=== PATIENT | male | born 1955 | race American Indian/Alaskan Native ===

== ENCOUNTER 2016-11-16 13:40 | Inpatient (IN) | payer MEDICARE ==
[2016-11-16 15:35] LABS: Anion Gap 19 mmol/L; BUN/Creatinine Ratio 11.42; Blood Urea Nitrogen 8 mg/dL (9-20); Calcium 9.1 mg/dL (8.4-10.2); Carbon Dioxide 25 mmol/L (22-30); Chloride 100.4 mmol/L (98-107); Glucose 91 mg/dL (75-100); Potassium 4.2 mmol/L (3.6-5.0); Sodium 140 mmol/L (137-145)
[2016-11-16 15:52] LABS: Eosinophils % (Auto) 1.7 % (0.0-4.3); Hematocrit 40.3 % (35.5-45.6); Hemoglobin 12.8 gm/dl (11.8-15.2); Mean Corpuscular HGB Conc 32 % (32-34); Mean Corpuscular Hemoglobin 27 pg (28-32); Mean Corpuscular Volume 85 fl (84-94); Platelet Count 185 K/mm3 (140-440); Red Blood Count 4.76 M/mm3 (3.65-5.03); Red Cell Distribution Width 15.1 % (13.2-15.2); White Blood Count 4.9 K/mm3 (4.5-11.0)
[2016-11-16] MEDS ORDERED: NITROSTAT SL ONE (16:25)
[2016-11-16] MEDS ORDERED: VALIUM IV ONE (16:25)
--- NOTE | 2016-11-16 16:27 | Emergency Department Report ---
HPI - General Chief Complaint: Chest Pain Time Seen by Provider: 11/16/16 15:57 - HPI HPI: The patient is a 61-year-old male who presents for evaluation of chest pain. The patient has a history of hypertension. The patient reports midsternal squeezing tightness like chest pain since 11 AM this morning, currently 9/10 in severity, and constant since onset. The patient denies fever, cough, dyspnea, CRP, hemoptysis, unilateral leg swelling, recent immobilization, history of DVT or PE, hx cancer. ED Past Medical Hx - Past Medical History Previous Medical History?: Yes Hx Hypertension: Yes Hx Deep Vein Thrombosis: Yes (right leg) Hx Headaches / Migraines: Yes Hx Seizures: Yes Hx COPD: (emphazema) Additional medical history: Emphysema - Surgical History Past Surgical History?: Yes Additional Surgical History: lumbar surgery, gastroectomy, l. elbow - Social History Smoking Status: Current Every Day Smoker Substance Use Type: Alcohol - Medications Home Medications: Home Medications Medication Instructions Recorded Confirmed Last Taken Type Ondansetron [Zofran ODT TAB] 8 mg PO Q8HR PRN #20 tab.rapdis 07/12/15 Unknown Rx traMADol [Ultram 50 MG tab] 50 - 100 mg PO Q8HR PRN #20 tablet 07/12/15 Unknown Rx ED Review of Systems ROS: Stated complaint: CHEST PAIN Other details as noted in HPI Constitutional: denies: fever ENT: denies: throat or neck pain Respiratory: denies: cough, shortness of breath Cardiovascular: reports chest pain Endocrine: denies unexplained weight loss or gain Gastrointestinal: denies: abdominal pain, nausea Genitourinary: denies: dysuria Musculoskeletal: denies: leg swelling Skin: denies: rash Neurological: denies: headache Hematological/Lymphatic: denies: easy bleeding or easy bruising Psych: denies sadness or hopelessness Physical Exam - Physical Exam Vital Signs: Vital Signs 11/16/16 11/16/16 11/16/16 14:02 14:10 14:20 Pulse Rate 71 74 68 Respiratory 20 17 14 Rate Blood Pressure 116/81 109/82 O2 Sat by Pulse 100 100 Oximetry 11/16/16 11/16/16 11/16/16 14:22 14:30 15:00 Pulse Rate 70 73 Respiratory 18 12 16 Rate Blood Pressure 125/90 125/90 O2 Sat by Pulse 100 100 98 Oximetry Physical Exam: General: well-nourished, well-developed, no acute distress Head: Normocephalic, atraumatic Eyes: normal sclera ENT: Mucous membranes are pink and moist Neck: trachea midline, neck supple, No neck stiffness, no cervical adenopathy Respiratory: Breath sounds equal bilaterally, no wheezing, rales, or rhonchi Cardio: S1 and S2 present, no murmurs, rubs, gallops, capillary refill is brisk Abdomen: Normoactive bowel sounds, soft abdomen, no rigidity, no guarding or rebound tenderness Musc: No pitting edema Skin: No rash Neuro: no facial drooping, normal speech Psych: Normal affect ED Course Vital Signs 11/16/16 11/16/16 11/16/16 14:02 14:10 14:20 Pulse Rate 71 74 68 Respiratory 20 17 14 Rate Blood Pressure 116/81 109/82 O2 Sat by Pulse 100 100 Oximetry 11/16/16 11/16/16 11/16/16 14:22 14:30 15:00 Pulse Rate 70 73 Respiratory 18 12 16 Rate Blood Pressure 125/90 125/90 O2 Sat by Pulse 100 100 98 Oximetry ED Medical Decision Making - Lab Data Result diagrams: 11/16/16 13:51 11/16/16 13:51 - Medical Decision Making The patient was seen and examined by myself. The patient is placed on a cardiac catheterization technician and continuous pulse ox. On initial evaluation, the patient was found to be in no distress. EKG was negative for findings suggestive of acute cardiac infarct. The patient is given a tablet of nitroglycerin and IV Valium for his chest pain. Labs and imaging are obtained. Chest x-ray is negative for pneumothorax, focal consolidation, pulmonary vascular congestion, pleural effusion, or other obvious acute cardiopulmonary disease process. Lab results were non-revealing including negative troponin, WBC, hemoglobin, hematocrit, electrolytes, renal function. The patient was reevaluated and reported that their symptoms were improved. As the patient has chest pain and risk factors for development of acute coronary event, and has never received a stress test, the patient will be admitted for serial troponins, and potential evaluation by cardiology. The physician on-call was contacted. They presented to the emergency department and evaluated the patient. They agreed to admit the patient. The ED admit order was placed. The patient was admitted in guarded condition. Critical care attestation.: If time is entered above; I have spent that time in minutes in the direct care of this critically ill patient, excluding procedure time. ED Disposition Clinical Impression: Acute chest pain Disposition: OP ADMITTED IP TO THIS HOSP Is pt being admited?: Yes Does the pt Need Aspirin: Yes Condition: Stable Instructions: Chest Pain (ED) Referrals: PRIMARY CARE, [Primary Care Provider] - 3-5 Days Time of Disposition: 16:26
--- NOTE | 2016-11-16 16:32 | Admit Criteria Form ---
Admission Criteria Documentation: CHEST PAIN Clinical Indications for Admission to Inpatient Care (Place 'X' for any and all applicable criteria): Admission is indicated for chest pain and ANY ONE of the following(1)(2)(3)(4)(5 ): [ ]I. Angina with acute coronary syndrome (Also use Myocardial Infarction or Angina guideline) [ ]II. Hemodynamic instability [ ]III. Angina needing acute intervention as indicated by ALL of the following( 11)(12): [ ]a) Unstable angina is present as indicated by angina that is ANY ONE of the following: [ ]i) New onset [ ]ii) Nocturnal [ ]iii) Prolonged at rest [ ]iv) Progressive [ ]b) Angina warrants acute intervention as indicated by ANY ONE of the following: [ ]i) Recurrent angina (e.g, not responding as previously to treatment) [ ]ii) Angina at rest or with low-level activities despite initial medical therapy [ ]iii) New or presumably new ST-segment depression on ECG [ ]iv) Signs or symptoms of heart failure (eg, dyspnea, pulmonary edema) [ ]v) New or worsening mitral regurgitation [ ]vi) Hemodynamic instability [ ]vii) Dangerous arrhythmia (eg, sustained ventricular tachycardia) [ ]viii) History of percutaneous coronary intervention within 6 months [ ]ix) History of coronary artery bypass graft surgery [ ]x) MANPREET risk score of 2 or greater[A] [ ]xi) History of Diabetes(14) [ ]xii) High-risk cardiac ischemia findings on noninvasive testing (e.g, echocardiogram, treadmill testing, nuclear scan) [ ]xiii) Chronic renal insufficiency (ie, estimated GFR less than 60 mL/min/1.732m) [ ]xiv) Left ventricular ejection fraction less than 40% [ ]IV. Evidence of MA (eg, cardiac biomarkers positive, ST-segment elevation on ECG) also use Myocardial Infarction Criteria Form. [ ]V. Pulmonary edema [ ]. Respiratory distress [ ]VII. Chest pain indicative of serious diagnosis other than coronary artery disease (eg, aortic dissection) [ ]VIII. Contraindications and/or Inappropriate clinical situations for Observational Care in patients with Chest Pain, when ANY ONE of the following is required: [ ]a) Patient with risk factor for pulmonary embolism, acute coronary syndrome and myocardial infarction (18) [ ]b) Patient with Pulmonary embolism require an average LOS of 4.3 days, therefore emergency department observation management is inappropriate 18,23 [ ]c) Painful condition/s in the elderly, have the highest rate of recidivism after emergency department observation management (10.8%) 20,21,22 [ ]d) Elevated cardiac biomarker requires intensive and exhaustive care (19) [X ]IX. General contraindications and/or Inappropriate clinical situations for Observational Care in patients with Chest Pain, when ANY ONE of the following is required: [ X]a) Prediction of prolongation of LOS based on ANY ONE of the following may be considered as a contraindication for observational care 2, 3, 4, 5, 6, 7, 8, 9, 10, 11 [ ]i) Age > 65 yrs. [X ]ii) Patient arriving by ambulance [ ]iii) Patient with high acuity [ ]iv) Patient requiring vital sign monitoring [ ]v) Patient on IV medication [ ]b) Systolic blood pressures 180mmHg 3,12 [ ]c) Patient with altered mental status including delirium and other alteration of consciousness, (3) [ ]d) Patient whose discharge disposition will be to a half-way home or rehabilitation home should not be managed in Emergency Department Observation Unit. CMS rule requires 3 days hospital stay before such placement. 3,13 [ ]e) Patient with failure to thrive due to broad array of etiologies 3,16,17 [ ]f) Inability to ambulate 3,14 Extended stay beyond goal length of stay may be needed for (1)(28): [ ]a) Specific condition diagnosed after evaluation (eg, pulmonary embolism, aortic dissection) [ ]b) Unstable angina [ ]c) Continued suspicion of acute coronary syndrome with inability to complete needed cardiac evaluation (eg, patient clinically unable to undergo stress testing) [ ]d) Myocardial infarction (Contents from ANGINA and CHEST PAIN clinical indications for admission to inpatient care have been integrated in this form) The original [email or web address] content created by [employer] has been revised. The portions of the content which have been revised are identified through the use of italic text or in bold, and [facility] [employer] has neither reviewed nor approved the modified material. All other unmodified content is copyright [employer] [email or web address]. Please see references footnoted in the original [facility] [email or web address] edition 2016 Admission Criteria Met: Yes
--- NOTE | 2016-11-16 16:52 | XRay Report ---
PORTABLE CHEST INDICATION: Chest pain. COMPARISON: None similar at this institution. FINDINGS: Portable, frontal chest radiograph demonstrates hyperlucent upper lobes with somewhat crowded markings toward the bases, representing emphysematous changes. Subtle 5 mm left mid lung nodular density projects just below the scapular tip with a similar appearance on the opposite side, possibly nipple shadows. No pleural effusions, CHF or pneumothorax. Normal cardiomediastinal silhouette. Unremarkable bones. CONCLUSION: COPD, as described. Future/followup exams with nipple markers suggested. Thank you for the opportunity to participate in this patient's care.
[2016-11-16] MEDS ORDERED: MORPHINE IV PRN (19:49)
[2016-11-16] MEDS ORDERED: SODIUM CHLORIDE FLUSH SYRINGE 10 ML IV PRN (19:49)
--- NOTE | 2016-11-16 19:49 | History and Physical Report ---
History of Present Illness Date of examination: 11/16/16 Date of admission: 10/2016 Chief complaint: Chest pain History of present illness: The patient is a 61-year-old male who presents for evaluation of chest pain. The patient has a history of hypertension. The patient reports midsternal squeezing tightness like chest pain since 11 AM this morning, currently 9/10 in severity, and constant since onset. The patient denies fever, cough, dyspnea. His troponin has been normal in the ER. He is getting admitted for further evaluation. Past medical History: h/o HTN, COPD, seizure, h/o DVT on anticoagulation, CVA about 9 weeks ago. Past surgical History: s/p partial gastrectomy and spinal fusion Social History: Lives with family, denies any elicit drug abuse. Smokes daily about 10 sticks/day, drinks EtOH daily. Family History: Significant for CVA and CAD in father and CHF in mother. Review of System: Constitutional: no fever, no chills, no weight loss Ears, eyes, nose, mouth and throat: no nasal congestion, no nasal discharge, no sinus pressure, no vision change, no red eye. Neck: No neck pain or rigidity. Cardiovascular: + chest pain, no orthopnea, no palpitations, no leg swelling Respiratory: No shortness of breath, no cough, no congestion, no wheezing Gastrointestinal: no abdominal pain, no nausea, no vomiting Genitourinary : no dysuria, no hematuria Musculoskeletal: no joint swelling or muscle ache Integumentary: no rash, no pruritis Neurological: no parathesias, no numbness, no tingling Endocrine: no cold or heat intolerance, no polyuria or polydipsia Hematologic/Lymphatic: no easy bruising, no easy bleeding, no gland swelling Allergic/Immunologic: no urticaria, no angioedema. Medications and Allergies Allergies Allergy/AdvReac Type Severity Reaction Status Date / Time aspirin Allergy Vomiting Verified 09/07/15 18:55 prochlorperazine Allergy Anaphylaxis Verified 09/07/15 18:55 [From Compazine] prochlorperazine edisylate Allergy Anaphylaxis Verified 09/07/15 18:55 [From Compazine] prochlorperazine maleate Allergy Anaphylaxis Verified 09/07/15 18:55 [From Compazine] Home Medications Medication Instructions Recorded Confirmed Last Taken Type Albuterol Sulfate [Ventolin HFA] 2 puff IH Q4H PRN 11/17/16 11/17/16 Unknown History AtorvaSTATin [Lipitor] 40 mg PO QHS 11/17/16 11/17/16 Unknown History Clopidogrel [Plavix] 75 mg PO QDAY 11/17/16 11/17/16 Unknown History Hydrochlorothiazide [HCTZ] 25 mg PO QDAY 11/17/16 11/17/16 Unknown History Pantoprazole [Protonix] 40 mg PO QDAY #30 tablet 11/17/16 Unknown Rx Rivaroxaban [Xarelto] 20 mg PO QDAY 11/17/16 11/17/16 Unknown History levETIRAcetam [Keppra TAB] 750 mg PO BID 11/17/16 11/17/16 Unknown History Exam - Physical Exam Narrative exam: GENERAL: This is well-developed elderly male lying on bed appeared to be in no discomfort. HEENT: Normocephalic. Atraumatic. Extraocular motions are intact. No conjunctival congestion or icterus. Patient has moist mucous membranes. External auditory canal and nares patent bilaterally. NECK: Supple. Trachea midline. No JVD, thyromagaly or lymphadenopathy. CHEST/LUNGS: Clear to auscultated bilaterally. There is no respiratory distress noted, breathing nonlabored. No wheezes crackles or rhonchi. HEART/CARDIOVASCULAR: Regular in rate and rhythm. PMI at the apex. There is no gallop rub or murmur. ABDOMEN: Abdomen is soft, nontender. Patient has normal bowel sounds. There is no abdominal distention. No organomagaly or rigidity. SKIN: There is no rash, no erythrema. There is no diaphoresis. Warm and dry. NEUROLOGY: The patient is awake, alert, and oriented. The patient is cooperative. The patient has normal speech. No focal motor deficit. MUSCULOSKELETAL: No joint effusion or tenderness. Muscle strength equal bilaterally. No muscle wasting. EXTRIMITY: No edema, cyanosis or clubbing. PSYCH: No depression or anxiety noted. Cooperative. - Constitutional Vitals: Temp Pulse Resp BP Pulse Ox 72 20 124/80 98 11/16/16 15:30 11/16/16 15:30 11/16/16 18:00 11/16/16 18:00 Results - Labs CBC & Chem 7: 11/16/16 13:51 11/16/16 13:51 Labs: Laboratory Last Values WBC 4.9 K/mm3 (4.5-11.0) 11/16/16 13:51 RBC 4.76 M/mm3 (3.65-5.03) 11/16/16 13:51 Hgb 12.8 gm/dl (11.8-15.2) 11/16/16 13:51 Hct 40.3 % (35.5-45.6) 11/16/16 13:51 MCV 85 fl (84-94) 11/16/16 13:51 MCH 27 pg (28-32) L 11/16/16 13:51 MCHC 32 % (32-34) 11/16/16 13:51 RDW 15.1 % (13.2-15.2) 11/16/16 13:51 Plt Count 185 K/mm3 (140-440) 11/16/16 13:51 Lymph % (Auto) 37.4 % (13.4-35.0) H 11/16/16 13:51 Noble % (Auto) 15.2 % (0.0-7.3) H 11/16/16 13:51 Eos % (Auto) 1.7 % (0.0-4.3) 11/16/16 13:51 Baso % (Auto) Scientific Informatics Analyst 11/16/16 13:51 Lymph # 1.8 K/mm3 (1.2-5.4) 11/16/16 13:51 Noble # 0.7 K/mm3 (0.0-0.8) 11/16/16 13:51 Eos # 0.1 K/mm3 (0.0-0.4) 11/16/16 13:51 Baso # 0.1 K/mm3 (0.0-0.1) 11/16/16 13:51 Seg Neutrophils % 44.3 % (40.0-70.0) 11/16/16 13:51 Seg Neutrophils # 2.2 K/mm3 (1.8-7.7) 11/16/16 13:51 Sodium 140 mmol/L (137-145) 11/16/16 13:51 Potassium 4.2 mmol/L (3.6-5.0) 11/16/16 13:51 Chloride 100.4 mmol/L (98-107) 11/16/16 13:51 Carbon Dioxide 25 mmol/L (22-30) 11/16/16 13:51 Anion Gap 19 mmol/L 11/16/16 13:51 BUN 8 mg/dL (9-20) L 11/16/16 13:51 Creatinine 0.7 mg/dL (0.8-1.5) L 11/16/16 13:51 Estimated GFR > 60 ml/min 11/16/16 13:51 BUN/Creatinine Ratio 11.42 % 11/16/16 13:51 Glucose 91 mg/dL (75-100) 11/16/16 13:51 Calcium 9.1 mg/dL (8.4-10.2) 11/16/16 13:51 Troponin T < 0.010 ng/mL (0.00-0.029) 11/16/16 16:40 - Imaging and Cardiology Chest x-ray: report reviewed (COPd without any infiltrates) Assessment and Plan Assessment and plan: Acute chest pain, r/o ACS h/o seizure COPD not on exacerbation h/o CVA h/o DVT tobacco abuse Alcohol abuse Plan: Admit to medicine Monitor with serial troponin and EKG Place on aspirin and statin and beta liza Get 2-D echo and stress tests in the morning GI and DVT prophylaxis Supportive care and resume home meds nicotine patch, counselled for alcohol cessation resume home meds Advance Directives: Yes VTE prophylaxis?: Chemical Plan of care discussed with patient/family: Yes
[2016-11-16] MEDS ORDERED: PLAVIX PO ONE (19:53)
[2016-11-16 21:06] LABS: Creatine Kinase MB 1.5 ng/mL (0.0-4.0)
[2016-11-16 21:08] LABS: Creatine Kinase 125 units/L (55-170)
[2016-11-16] MEDS ORDERED: PLAVIX ONE (22:04)
[2016-11-16] MEDS: PEPCID PO SCH (22:12)
[2016-11-17 00:01] LABS: Creatine Kinase MB 1.4 ng/mL (0.0-4.0)
[2016-11-17 00:02] LABS: Creatine Kinase 117 units/L (55-170)
[2016-11-17] MEDS ORDERED: ZOFRAN ODT PO PRN (00:04)
[2016-11-17] MEDS ORDERED: ULTRAM PO PRN (00:04)
[2016-11-17] MEDS ORDERED: ZOFRAN IV PRN (00:06)
[2016-11-17] MEDS ORDERED: MILK OF MAGNESIA PO PRN (00:06)
[2016-11-17] MEDS ORDERED: PERCOCET 5/325 PO PRN (00:06)
[2016-11-17] MEDS ORDERED: TYLENOL PO PRN (00:06)
[2016-11-17] MEDS ORDERED: DULCOLAX PR PRN (00:06)
[2016-11-17] MEDS ORDERED: SODIUM CHLORIDE FLUSH SYRINGE 10 ML IV PRN (00:10)
[2016-11-17] MEDS ORDERED: ATIVAN IV PRN (01:04)
[2016-11-17] MEDS ORDERED: HABITROL TD ONE (01:04)
[2016-11-17] MEDS: DUONEB 0.5 MG-3 MG/3 ML SOLN IH SCH ×2 (02:55→09:02)
[2016-11-17 05:20] LABS: Creatine Kinase MB 1.5 ng/mL (0.0-4.0)
[2016-11-17 05:22] LABS: Creatine Kinase 119 units/L (55-170)
[2016-11-17 07:36] LABS: Creatine Kinase MB 1.4 ng/mL (0.0-4.0)
[2016-11-17 07:37] LABS: Creatine Kinase 117 units/L (55-170)
[2016-11-17] MEDS: NITRO-BID 2% TP SCH ×2 (08:14→12:18)
[2016-11-17] MEDS ORDERED: LEXISCAN IV ONE ×2 (09:25→09:32)
[2016-11-17] MEDS ORDERED: LOVENOX SUB-Q SCH ×2 (10:00)
[2016-11-17] MEDS: PEPCID PO SCH (11:21)
[2016-11-17] MEDS ORDERED: PROAIR IH PRN (11:25)
[2016-11-17] MEDS ORDERED: PROVENTIL IH PRN ×2 (11:37→11:40)
[2016-11-17] MEDS ORDERED: KEPPRA PO SCH (12:00)
[2016-11-17] MEDS ORDERED: FLUARIX QUAD 2016-2017(36 MOS+) IM ONE (12:00)
[2016-11-17 13:17] LABS: Creatine Kinase MB 1.3 ng/mL (0.0-4.0)
[2016-11-17 13:18] LABS: Creatine Kinase 114 units/L (55-170)
[2016-11-17] MEDS ORDERED: HCTZ PO SCH (13:30)
--- NOTE | 2016-11-17 13:42 | Treadmill Report ---
STRESS THALLIUM REPORT LEFT VENTRICLE: Left ventricular chamber size is within normal. Perfusion study demonstrates homogeneous uptake of the tracer in all segments, no significant defects identified. Gated analysis demonstrates normal left ventricular systolic function, ejection fraction 61%. CONCLUSION: Normal myocardial perfusion study. JOB# [id number] CA/NTS
--- NOTE | 2016-11-17 14:40 | Discharge Summary ---
Providers - Providers Date of Admission: 11/17/16 00:07 Date of discharge: 11/17/16 Attending physician: KASSIDY CHERY 11/17/16 Consult to Cardiac Rehabilitation [CONS] Routine Reason For Exam: Phase I Primary care physician: CARE MANAGER Hospitalization Condition: Stable Hospital course: The patient is a 61-year-old male who presents for evaluation of chest pain. his cardiac enzymes were negative, EKG showed no specific ST changes. His stress test was negative. He was discharged home in stable condition. Discharge diagnosis: Acute chest pain, likley due to GERD h/o seizure COPD not on exacerbation h/o CVA h/o DVT on anticoagulation tobacco abuse Alcohol abuse Disposition: DISCHARGED TO HOME OR SELFCARE Time spent for discharge: 32 minutes Core Measure Documentation - Palliative Care Palliative Care/ Comfort Measures: Not Applicable - Core Measures Any of the following diagnoses?: none Exam - Physical Exam Narrative exam: GENERAL: This is well-developed elderly male lying on bed appeared to be in no discomfort. HEENT: Normocephalic. Atraumatic. Patient has moist mucous membranes. External auditory canal and nares patent bilaterally. NECK: Supple. Trachea midline. No JVD, thyromagaly or lymphadenopathy. CHEST/LUNGS: Clear to auscultated bilaterally. There is no respiratory distress noted, breathing nonlabored. No wheezes crackles or rhonchi. HEART/CARDIOVASCULAR: Regular in rate and rhythm. PMI at the apex. There is no gallop rub or murmur. ABDOMEN: Abdomen is soft, nontender. Patient has normal bowel sounds. There is no abdominal distention. No organomagaly or rigidity. SKIN: There is no rash, no erythrema. There is no diaphoresis. Warm and dry. NEUROLOGY: The patient is awake, alert, and oriented. The patient is cooperative. MUSCULOSKELETAL: No joint effusion or tenderness. EXTRIMITY: No edema, cyanosis or clubbing. PSYCH: No depression or anxiety noted. Cooperative. - Constitutional Vitals: Temp Pulse Resp BP Pulse Ox 97.9 F 73 16 115/80 97 11/17/16 10:41 11/17/16 13:30 11/17/16 13:30 11/17/16 13:30 11/17/16 13:30 Plan Activity: fall precautions Weight Bearing Status: Non-Weight Bearing Diet: low cholesterol, low salt Follow up with: PRIMARY CARE, [Primary Care Provider] - 3-5 Days Prescriptions: Pantoprazole [Protonix] 40 mg PO QDAY #30 tablet
[2016-11-17 15:35] VITALS: BP 125/88
[2016-11-17] MEDS ORDERED: NON-FORMULARY (Levetiracetam [Keppra Tab] 750 MG) PO SCH (22:00)
[2016-11-18] MEDS ORDERED: PLAVIX PO SCH (10:00)
[2016-11-18] MEDS ORDERED: XARELTO PO SCH (10:00)
== END 2016-11-17 16:13 | disposition home or self-care (01) | DRG 392 ==
LOC: ED 13:40 → 4A 11-17 00:07
PROVIDERS: ADMIT Internal Medicine; ATTEND Internal Medicine
DX: K21.9 Gastro-esophageal reflux disease without esophagitis (principal); I10 Essential (primary) hypertension; J44.9 Chronic obstructive pulmonary disease, unspecified; F10.10 Alcohol abuse, uncomplicated; F17.290 Nicotine dependence, other tobacco product, uncomplicated; Z23 Encounter for immunization; Z88.8 Allergy status to other drugs, medicaments and biological substances; Z68.20 Body mass index [BMI] 20.0-20.9, adult; Z86.73 Personal history of transient ischemic attack (TIA), and cerebral infarction without residual deficits; Z86.718 Personal history of other venous thrombosis and embolism; Z79.01 Long term (current) use of anticoagulants; Z90.3 Acquired absence of stomach [part of]; Z98.1 Arthrodesis status; Z82.3 Family history of stroke; Z82.49 Family history of ischemic heart disease and other diseases of the circulatory system
CPT/HCPCS: 36415; 71010; 78452; 80048; 80061; 82550; 82553; 84484; 85025; 90686; 93005; 93010; 93017; 94640; 96372; A9270-GY; A9502; J1650; J2785; J3360; Q0162

== ENCOUNTER 2016-11-23 19:44 | Emergency (ER) | payer MEDICARE ==
[2016-11-23] MEDS ORDERED: NACL 0.9% 1000 ML 1,000 ML IV ONE (21:04)
[2016-11-23] MEDS ORDERED: ZOFRAN IV ONE (21:04)
[2016-11-23] MEDS ORDERED: MORPHINE IV ONE (21:04)
[2016-11-23 21:32] LABS: INR 1.48 (0.87-1.13); Partial Thromboplastin Time 34.1 Sec. (24.2-36.6)
[2016-11-23 21:34] LABS: Eosinophils % (Auto) 5.1 % (0.0-4.3); Hematocrit 41.2 % (35.5-45.6); Mean Corpuscular HGB Conc 32 % (32-34); Mean Corpuscular Hemoglobin 27 pg (28-32); Mean Corpuscular Volume 84 fl (84-94); Platelet Count 180 K/mm3 (140-440); Red Cell Distribution Width 15.1 % (13.2-15.2)
[2016-11-23 21:47] LABS: Alanine Aminotransferase 18 units/L (7-56); Albumin 3.9 g/dL (3.9-5); Albumin/Globulin Ratio 1.4 %; Alkaline Phosphatase 51 units/L (35-129); Anion Gap 19 mmol/L; BUN/Creatinine Ratio 14.28; Bilirubin,Total < 0.2 mg/dL (0.1-1.2); Blood Urea Nitrogen 10 mg/dL (9-20); Carbon Dioxide 24 mmol/L (22-30); Chloride 103.1 mmol/L (98-107); Glucose 102 mg/dL (75-100); Potassium 4.7 mmol/L (3.6-5.0); Sodium 141 mmol/L (137-145); Total Protein 6.7 g/dL (6.3-8.2)
[2016-11-23] MEDS ORDERED: NACL ONE (21:47)
--- NOTE | 2016-11-23 22:50 | Emergency Department Report ---
ED Abdominal Pain HPI - General Chief Complaint: Abdominal Pain Stated Complaint: GI BLEED Time Seen by Provider: 11/23/16 20:53 Source: patient, EMS Mode of arrival: Stretcher Limitations: No Limitations - History of Present Illness Initial Comments: 61-year-old male with a past medical history of COPD, DVT/PE/IVC filter currently on Xarelto, previous appendectomy, and partial gastrectomy for PUD presents to the hospital with complaints of abdominal pain and rectal bleeding. Patient states she noticed bright red blood with bowel movement 1 this a.m. He complains of generalized 6/10 constant abdominal pain that is sharp in nature. Pain is worse with movement and palpation. No alleviating factors. Positive nausea. He denies vomiting, fever, melena, or diarrhea. Patient states last time he had leading was related to a perforated ulcer greater than 10 years ago. Denies any GI symptoms since. He has been compliant with his Protonix. Severity scale (0 -10): 10 - Related Data Home Medications Medication Instructions Recorded Confirmed Last Taken Albuterol Sulfate [Ventolin HFA] 2 puff IH Q4H PRN 11/17/16 11/17/16 Unknown AtorvaSTATin [Lipitor] 40 mg PO QHS 11/17/16 11/17/16 Unknown Clopidogrel [Plavix] 75 mg PO QDAY 11/17/16 11/17/16 Unknown Hydrochlorothiazide [HCTZ] 25 mg PO QDAY 11/17/16 11/17/16 Unknown Rivaroxaban [Xarelto] 20 mg PO QDAY 11/17/16 11/17/16 Unknown levETIRAcetam [Keppra TAB] 750 mg PO BID 11/17/16 11/17/16 Unknown Previous Rx's Medication Instructions Recorded Last Taken Type Pantoprazole [Protonix] 40 mg PO QDAY #30 tablet 11/17/16 Unknown Rx Docusate Sodium [Colace] 100 mg PO BID PRN #20 capsule 11/23/16 Unknown Rx oxyCODONE /ACETAMINOPHEN [Percocet 1 tab PO Q6HR PRN #20 tablet 11/24/16 Unknown Rx 5/325] Allergies Allergy/AdvReac Type Severity Reaction Status Date / Time aspirin Allergy Vomiting Verified 09/07/15 18:55 prochlorperazine Allergy Anaphylaxis Verified 09/07/15 18:55 [From Compazine] prochlorperazine edisylate Allergy Anaphylaxis Verified 09/07/15 18:55 [From Compazine] prochlorperazine maleate Allergy Anaphylaxis Verified 09/07/15 18:55 [From Compazine] ED Review of Systems ROS: Stated complaint: GI BLEED Other details as noted in HPI Comment: All other systems reviewed and negative Other: Constitutional: No fevers chills Eyes: No eye pain visual changes or discharge ENT: No ear pain or throat pain Neck: Denies pain Respiratory: Denies cough wheezing shortness of breath Cardiovascular: Denies chest pain, palpitations, syncope GI: as per hpi : Denies dysuria, urinary frequency, or urgency Musculoskeletal: Denies back pain, joint swelling Skin: Denies rash, lesions, erythema Neurologic: Denies headache, numbness, weakness Psychiatric: Denies suicidal ideation, hallucinations ED Past Medical Hx - Past Medical History Previous Medical History?: Yes Hx Hypertension: Yes Hx Deep Vein Thrombosis: Yes (right leg 2004) Hx Pulmonary Embolism: Yes (2004, IVC filter placed) Hx GERD: Yes Hx Arthritis: Yes (back) Hx Headaches / Migraines: Yes Hx Seizures: Yes Hx COPD: Yes (emphazema) Hx HIV: No Additional medical history: Emphysema - Surgical History Hx Appendectomy: Yes Additional Surgical History: lumbar surgery, gastroectomy, l. elbow, partial gastrectomy for perforated ulcer - Social History Smoking Status: Current Every Day Smoker - Medications Home Medications: Home Medications Medication Instructions Recorded Confirmed Last Taken Type Albuterol Sulfate [Ventolin HFA] 2 puff IH Q4H PRN 11/17/16 11/17/16 Unknown History AtorvaSTATin [Lipitor] 40 mg PO QHS 11/17/16 11/17/16 Unknown History Clopidogrel [Plavix] 75 mg PO QDAY 11/17/16 11/17/16 Unknown History Hydrochlorothiazide [HCTZ] 25 mg PO QDAY 11/17/16 11/17/16 Unknown History Pantoprazole [Protonix] 40 mg PO QDAY #30 tablet 11/17/16 Unknown Rx Rivaroxaban [Xarelto] 20 mg PO QDAY 11/17/16 11/17/16 Unknown History levETIRAcetam [Keppra TAB] 750 mg PO BID 11/17/16 11/17/16 Unknown History Docusate Sodium [Colace] 100 mg PO BID PRN #20 capsule 11/23/16 Unknown Rx oxyCODONE /ACETAMINOPHEN [Percocet 1 tab PO Q6HR PRN #20 tablet 11/24/16 Unknown Rx 5/325] ED Physical Exam - General Limitations: No Limitations - Other Other exam information: General: No limitations, patient is alert in no acute distress Head exam: Atraumatic, normocephalic Eyes exam: Normal appearance ENT: Moist mucous membrane, normal oropharynx Neck exam: Normal inspection, full range of motion, no meningismus nontender Respiratory exam: Clear to auscultation bilateral, no wheezes, rales, crackles Cardiovascular: Normal rate and rhythm, normal heart sounds Abdomen: Soft, nondistended, generalized tenderness, no rebound or gaurding Extremity: Full range of motion normal inspection no deformity Back: normal inspection Neurologic: Alert, oriented x3, cranial nerves intact, no motor or sensory deficit Psychiatric: normal affect, normal mood Skin: Warm, dry, intact ED Course Vital Signs 11/23/16 11/23/16 11/23/16 19:57 20:02 22:36 Temperature 98 F Pulse Rate 79 73 Respiratory 20 18 18 Rate Blood Pressure 134/95 O2 Sat by Pulse 96 Oximetry - Reevaluation(s) Reevaluation #1: 11/23/16 23:25 Patient sleeping. Once I woke him up he states that the morphine did not help his pain. Also received Zofran. Additional Dilaudid 0.5 mg ordered. ED Medical Decision Making - Lab Data Result diagrams: 11/23/16 20:36 11/23/16 20:36 Lab Results 11/23/16 11/23/16 11/23/16 Range/Units 20:26 20:36 20:36 WBC 5.0 (4.5-11.0) K/mm3 RBC 4.90 (3.65-5.03) M/mm3 Hgb 13.0 (11.8-15.2) gm/dl Hct 41.2 (35.5-45.6) % MCV 84 (84-94) fl MCH 27 L (28-32) pg MCHC 32 (32-34) % RDW 15.1 (13.2-15.2) % Plt Count 180 (140-440) K/mm3 Lymph % (Auto) 27.8 (13.4-35.0) % [place] % (Auto) 15.7 H (0.0-7.3) % Eos % (Auto) 5.1 H (0.0-4.3) % Baso % (Auto) Coil Inspector Lymph # 1.4 (1.2-5.4) K/mm3 [place] # 0.8 (0.0-0.8) K/mm3 Eos # 0.3 (0.0-0.4) K/mm3 Baso # 0.1 (0.0-0.1) K/mm3 Seg Neutrophils % 49.8 (40.0-70.0) % Seg Neutrophils # 2.5 (1.8-7.7) K/mm3 PT 17.9 H (12.2-14.9) Sec. INR 1.48 H (0.87-1.13) APTT 34.1 (24.2-36.6) Sec. Sodium (137-145) mmol/L Potassium (3.6-5.0) mmol/L Chloride (98-107) mmol/L Carbon Dioxide (22-30) mmol/L Anion Gap mmol/L BUN (9-20) mg/dL Creatinine (0.8-1.5) mg/dL Estimated GFR ml/min BUN/Creatinine Ratio % Glucose (75-100) mg/dL Calcium (8.4-10.2) mg/dL Total Bilirubin (0.1-1.2) mg/dL AST (5-40) units/L ALT (7-56) units/L Alkaline Phosphatase (35-129) units/L Total Protein (6.3-8.2) g/dL Albumin (3.9-5) g/dL Albumin/Globulin Ratio % Blood Type AB POSITIVE Antibody Screen Negative 11/23/16 Range/Units 20:36 WBC (4.5-11.0) K/mm3 RBC (3.65-5.03) M/mm3 Hgb (11.8-15.2) gm/dl Hct (35.5-45.6) % MCV (84-94) fl MCH (28-32) pg MCHC (32-34) % RDW (13.2-15.2) % Plt Count (140-440) K/mm3 Lymph % (Auto) (13.4-35.0) % [place] % (Auto) (0.0-7.3) % Eos % (Auto) (0.0-4.3) % Baso % (Auto) Lymph # (1.2-5.4) K/mm3 [place] # (0.0-0.8) K/mm3 Eos # (0.0-0.4) K/mm3 Baso # (0.0-0.1) K/mm3 Seg Neutrophils % (40.0-70.0) % Seg Neutrophils # (1.8-7.7) K/mm3 PT (12.2-14.9) Sec. INR (0.87-1.13) APTT (24.2-36.6) Sec. Sodium 141 (137-145) mmol/L Potassium 4.7 (3.6-5.0) mmol/L Chloride 103.1 (98-107) mmol/L Carbon Dioxide 24 (22-30) mmol/L Anion Gap 19 mmol/L BUN 10 (9-20) mg/dL Creatinine 0.7 L (0.8-1.5) mg/dL Estimated GFR > 60 ml/min BUN/Creatinine Ratio 14.28 % Glucose 102 H (75-100) mg/dL Calcium 9.0 (8.4-10.2) mg/dL Total Bilirubin < 0.2 (0.1-1.2) mg/dL AST 22 (5-40) units/L ALT 18 (7-56) units/L Alkaline Phosphatase 51 (35-129) units/L Total Protein 6.7 (6.3-8.2) g/dL Albumin 3.9 (3.9-5) g/dL Albumin/Globulin Ratio 1.4 % Blood Type Antibody Screen - Radiology Data Radiology results: report reviewed (CT abdomen and pelvis: No acute findings see report for incidental finding) - Medical Decision Making No signs or rectal bleeding. Normal lab work including H&H at this time. Pain improved ED treatment. plan to send home with symptomatic treatment and GI follow-up - Differential Diagnosis gastritis, diverticulosis, AVM, cancer, PUD, anemia, GI bleed Critical Care Time: No Critical care attestation.: If time is entered above; I have spent that time in minutes in the direct care of this critically ill patient, excluding procedure time. ED Disposition Clinical Impression: Abdominal pain, Rectal bleed Disposition: DISCHARGED TO HOME OR SELFCARE Is pt being admited?: No Does the pt Need Aspirin: No Condition: Stable Instructions: Rectal Bleeding (ED), Abdominal Pain (ED) Additional Instructions: Take the pain medication as prescribed. Pain medications may cause constipation therefore take stool softeners as needed. Follow-up with his GI doctor provided. Return if symptoms worsen Prescriptions: Docusate Sodium [Colace] 100 mg PO BID PRN #20 capsule PRN Reason: Constipation oxyCODONE /ACETAMINOPHEN [Percocet 5/325] 1 tab PO Q6HR PRN #20 tablet PRN Reason: Pain Referrals: DEREK QUICK MD [Staff Physician] - 3-5 Days (GI) Time of Disposition: 00:28
--- NOTE | 2016-11-23 22:50 | Cat Scan Report ---
FINAL REPORT EXAM: CT ABDOMEN PELVIS W CON HISTORY: gen abd pain , blood in stool hx of valentin, perf ulce TECHNIQUE: Standard enhanced CT of the abdomen and pelvis. Delayed imaging through kidneys and bladder was obtained. Coronal and sagittal reconstruction was also performed. Contrast: 100 mL Omnipaque 300 given IV. PRIORS: None. FINDINGS: Within the abdomen, the liver, spleen, pancreas, gallbladder, adrenal glands, and right kidney are unremarkable. There is a rounded hypodense 1.8 x 1.7 cm focus in the anterior midpole left kidney, likely a cyst. No evidence for retroperitoneal or pelvic lymphadenopathy is seen. The bowel loops have normal caliber. No soft tissue mass, fluid collection, inflammatory change, or free air is seen within the abdomen or pelvis. The aorta is tortuous but normal in diameter. Inferior vena cava filter is noted to the right of L2. Within the pelvis, the bladder is unremarkable. The prostate is mildly enlarged. No evidence for mass or lymphadenopathy is seen in the pelvis. Images through the upper abdomen include the lung bases which demonstrate bilateral posterior patchy densities, probably atelectasis. There are also bullous changes in each lung base suggesting emphysema. Bony structures show postsurgical changes in the L4 and L5 levels with prior laminectomy and bilateral pedicle screws placed at these levels. A disc prosthesis at L4-L5 is also noted. IMPRESSION: 1. no acute intra-abdominal process noted. 2. Low-density cyst in the left kidney. 3. Patchy bibasilar atelectasis and emphysema
[2016-11-23] MEDS ORDERED: DILAUDID IV ONE (23:25)
[2016-11-24 02:14] VITALS: BP 132/77
== END 2016-11-24 02:14 | disposition home or self-care (01) ==
LOC: ED 19:44
DX: K62.5 Hemorrhage of anus and rectum (principal); R10.84 Generalized abdominal pain; I10 Essential (primary) hypertension; K21.9 Gastro-esophageal reflux disease without esophagitis; M19.90 Unspecified osteoarthritis, unspecified site; J44.9 Chronic obstructive pulmonary disease, unspecified; F17.200 Nicotine dependence, unspecified, uncomplicated; Z86.718 Personal history of other venous thrombosis and embolism; Z86.711 Personal history of pulmonary embolism; Z88.8 Allergy status to other drugs, medicaments and biological substances; Z88.6 Allergy status to analgesic agent
CPT/HCPCS: 36415; 74177; 80053; 85025; 85610; 85730; 86850; 86900; 86901; 93005; 93010; 96361; 96374; 96375; 99284; J1170; J2270; J2405; J7030; Q9967

== ENCOUNTER 2016-12-08 10:57 | Emergency (ER) | payer MEDICARE ==
[2016-12-08 11:04] VITALS: BP 119/86
[2016-12-08] MEDS: PERCOCET 5/325 PO ONE (11:51)
[2016-12-08] MEDS: ZOFRAN ODT PO ONE (11:51)
[2016-12-08] MEDS: TORADOL IM ONE (11:51)
[2016-12-08] MEDS: BENADRYL PO ONE (11:51)
--- NOTE | 2016-12-08 12:55 | Emergency Department Report ---
HPI - General Chief Complaint: Headache Time Seen by Provider: 12/08/16 11:20 - HPI HPI: 61-year-old male presents today with headache since 2:30 AM this morning. Positive for history of migraine headaches and states that this particular headache feels similar to his normal headaches. Denies being on abortive therapy. Tried ibuprofen, last dose 6 AM, and Tylenol, last dose at 4 AM, without relief. Positive for light and sensitivity, nausea, vomiting. Describes his pain as 10 out of 10 constant, sharp, throbbing pain. Patient denies any head injury or trauma. He states he does have history of seizures and is currently on Keppra. No seizure activity 7 months. Patient states the only medicines that are effective and is Percocet and Ultram. Denies fever, chills, chest pain, shortness of breath, abdominal pain. ED Past Medical Hx - Past Medical History Previous Medical History?: Yes Hx Hypertension: Yes Hx Deep Vein Thrombosis: Yes (right leg 2004) Hx Pulmonary Embolism: Yes (2004, IVC filter placed) Hx GERD: Yes Hx Arthritis: Yes (back) Hx Headaches / Migraines: Yes Hx Seizures: Yes Hx COPD: Yes (emphazema) Hx HIV: No Additional medical history: Emphysema - Surgical History Past Surgical History?: Yes Hx Appendectomy: Yes Additional Surgical History: lumbar surgery, gastroectomy, l. elbow, partial gastrectomy for perforated ulcer - Social History Smoking Status: Current Every Day Smoker Substance Use Type: Prescribed - Medications Home Medications: Home Medications Medication Instructions Recorded Confirmed Last Taken Type Albuterol Sulfate [Ventolin HFA] 2 puff IH Q4H PRN 11/17/16 11/17/16 Unknown History AtorvaSTATin [Lipitor] 40 mg PO QHS 11/17/16 11/17/16 Unknown History Clopidogrel [Plavix] 75 mg PO QDAY 11/17/16 11/17/16 Unknown History Hydrochlorothiazide [HCTZ] 25 mg PO QDAY 11/17/16 11/17/16 Unknown History Pantoprazole [Protonix] 40 mg PO QDAY #30 tablet 11/17/16 Unknown Rx Rivaroxaban [Xarelto] 20 mg PO QDAY 11/17/16 11/17/16 Unknown History levETIRAcetam [Keppra TAB] 750 mg PO BID 11/17/16 11/17/16 Unknown History Docusate Sodium [Colace] 100 mg PO BID PRN #20 capsule 11/23/16 Unknown Rx oxyCODONE /ACETAMINOPHEN [Percocet 1 tab PO Q6HR PRN #20 tablet 11/24/16 Unknown Rx 5/325] ED Review of Systems ROS: Stated complaint: SEVERE HEADACHE Other details as noted in HPI Constitutional: denies: chills, fever, malaise Eyes: denies: eye pain ENT: denies: ear pain, throat pain, congestion Respiratory: denies: cough, shortness of breath, wheezing Cardiovascular: denies: chest pain, palpitations Endocrine: no symptoms reported Gastrointestinal: denies: abdominal pain, nausea, vomiting Neurological: headache. denies: weakness Physical Exam - Physical Exam Vital Signs: Vital Signs 12/08/16 11:01 Temperature 98.4 F Pulse Rate 88 Respiratory 20 Rate Blood Pressure 119/86 O2 Sat by Pulse 100 Oximetry Physical Exam: GENERAL: The patient is well-developed and well-nourished. Patient is in NAD. HEAD: Normocephalic. Atraumatic. EYES: Extraocular motions are intact, PERRL. EARS: External auditory canals and tympanic membranes clear; hearing grossly intact. NOSE: Normal nasal mucosa with no nasal discharge. THROAT: No erythema, swelling or exudates. NECK: Supple, nontender, without lymphadenopathy. No meningitic signs are noted. CHEST/LUNGS: Clear to auscultation throughout. HEART/CARDIOVASCULAR: Regular rate and rhythm. ABDOMEN: Abdomen is soft, nontender. Bowel sounds normoactive. No guarding or rebound tenderness. EXTREMITIES: Peripheral pulses intact. Capillary refill less than 2 seconds. NEURO: Alert and oriented x 3. Normal gait. CN II-XII intact. Symmetrical strength and sensation. Reflexes 2+ throughout. Cerebellar testing normal. GCS score of 15. ED Course Vital Signs 12/08/16 11:01 Temperature 98.4 F Pulse Rate 88 Respiratory 20 Rate Blood Pressure 119/86 O2 Sat by Pulse 100 Oximetry - Reevaluation(s) Reevaluation #1: 12/08/16 12:53 At the time of reevaluation post medication (Toradol, Zofran, Benadryl, Percocet ) patient was not found in his room. Critical care attestation.: If time is entered above; I have spent that time in minutes in the direct care of this critically ill patient, excluding procedure time. ED Disposition Clinical Impression: Headache Qualifiers: Headache type: unspecified Headache chronicity pattern: acute headache Intractability: not intractable Qualified Code(s): R51 - Headache Disposition: ELOPED Is pt being admited?: No Condition: Stable Referrals: PRIMARY CARE, [Primary Care Provider] - 3-5 Days
--- NOTE | 2016-12-08 13:18 | Emergency Department Report ---
HPI - General Chief Complaint: Headache Time Seen by Provider: 12/08/16 11:20 - HPI HPI: 61-year-old male presents today with headache since 2:30 AM this morning. Positive for history of migraine headaches and states that this particular headache feels similar to his normal headaches. Denies being on abortive therapy. Tried ibuprofen, last dose 6 AM, and Tylenol, last dose at 4 AM, without relief. Positive for light and sensitivity, nausea, vomiting. Describes his pain as 10 out of 10 constant, sharp, throbbing pain. Patient denies any head injury or trauma. He states he does have history of seizures and is currently on Keppra. No seizure activity 7 months. Patient states the only medicines that are effective and is Percocet and Ultram. Denies fever, chills, chest pain, shortness of breath, abdominal pain. ED Past Medical Hx - Past Medical History Previous Medical History?: Yes Hx Hypertension: Yes Hx Deep Vein Thrombosis: Yes (right leg 2004) Hx Pulmonary Embolism: Yes (2004, IVC filter placed) Hx GERD: Yes Hx Arthritis: Yes (back) Hx Headaches / Migraines: Yes Hx Seizures: Yes Hx COPD: Yes (emphazema) Hx HIV: No Additional medical history: Emphysema - Surgical History Past Surgical History?: Yes Hx Appendectomy: Yes Additional Surgical History: lumbar surgery, gastroectomy, l. elbow, partial gastrectomy for perforated ulcer - Social History Smoking Status: Current Every Day Smoker Substance Use Type: Prescribed - Medications Home Medications: Home Medications Medication Instructions Recorded Confirmed Last Taken Type Albuterol Sulfate [Ventolin HFA] 2 puff IH Q4H PRN 11/17/16 11/17/16 Unknown History AtorvaSTATin [Lipitor] 40 mg PO QHS 11/17/16 11/17/16 Unknown History Clopidogrel [Plavix] 75 mg PO QDAY 11/17/16 11/17/16 Unknown History Hydrochlorothiazide [HCTZ] 25 mg PO QDAY 11/17/16 11/17/16 Unknown History Pantoprazole [Protonix] 40 mg PO QDAY #30 tablet 11/17/16 Unknown Rx Rivaroxaban [Xarelto] 20 mg PO QDAY 11/17/16 11/17/16 Unknown History levETIRAcetam [Keppra TAB] 750 mg PO BID 11/17/16 11/17/16 Unknown History Docusate Sodium [Colace] 100 mg PO BID PRN #20 capsule 11/23/16 Unknown Rx oxyCODONE /ACETAMINOPHEN [Percocet 1 tab PO Q6HR PRN #20 tablet 11/24/16 Unknown Rx 5/325] traMADol [Ultram 50 MG tab] 50 mg PO Q6HR PRN #10 tablet 12/08/16 Unknown Rx ED Review of Systems ROS: Stated complaint: SEVERE HEADACHE Other details as noted in HPI Constitutional: denies: chills, fever, malaise Eyes: denies: eye pain ENT: denies: ear pain, throat pain, congestion Respiratory: denies: cough, shortness of breath, wheezing Cardiovascular: denies: chest pain, palpitations Endocrine: no symptoms reported Gastrointestinal: denies: abdominal pain, nausea, vomiting Neurological: headache. denies: weakness Physical Exam - Physical Exam Vital Signs: Vital Signs 12/08/16 11:01 Temperature 98.4 F Pulse Rate 88 Respiratory 20 Rate Blood Pressure 119/86 O2 Sat by Pulse 100 Oximetry Physical Exam: GENERAL: The patient is well-developed and well-nourished. Patient is in NAD. HEAD: Normocephalic. Atraumatic. EYES: Extraocular motions are intact, PERRL. EARS: External auditory canals and tympanic membranes clear; hearing grossly intact. NOSE: Normal nasal mucosa with no nasal discharge. THROAT: No erythema, swelling or exudates. NECK: Supple, nontender, without lymphadenopathy. No meningitic signs are noted. CHEST/LUNGS: Clear to auscultation throughout. HEART/CARDIOVASCULAR: Regular rate and rhythm. ABDOMEN: Abdomen is soft, nontender. Bowel sounds normoactive. No guarding or rebound tenderness. EXTREMITIES: Peripheral pulses intact. Capillary refill less than 2 seconds. NEURO: Alert and oriented x 3. Normal gait. CN II-XII intact. Symmetrical strength and sensation. Reflexes 2+ throughout. Cerebellar testing normal. GCS ED Course Vital Signs 12/08/16 11:01 Temperature 98.4 F Pulse Rate 88 Respiratory 20 Rate Blood Pressure 119/86 O2 Sat by Pulse 100 Oximetry - Reevaluation(s) Reevaluation #1: 12/08/16 13:24 Patient had initially eloped but returned after getting some food. Patient reports symptomatic relief post medication. ED Medical Decision Making - Lab Data Vital Signs 12/08/16 11:01 Temperature 98.4 F Pulse Rate 88 Respiratory 20 Rate Blood Pressure 119/86 O2 Sat by Pulse 100 Oximetry - Medical Decision Making 61-year-old male presents today with headache since 3 AM this morning. Positive for history of migraine headaches. His neurological exam is unremarkable. Patient was given Toradol, Benadryl, Zofran, Percocet and reported symptomatic relief first medication. Patient has been provided with a referral for neurologist to follow-up with. Patient is in no acute distress at this time. He will be discharged home and is encouraged to follow up with a primary care provider. He will be sent home on tramadol and is encouraged to return to the emergency room for any worsening symptoms. Critical care attestation.: If time is entered above; I have spent that time in minutes in the direct care of this critically ill patient, excluding procedure time. ED Disposition Clinical Impression: Headache Qualifiers: Headache type: unspecified Headache chronicity pattern: acute headache Intractability: not intractable Qualified Code(s): R51 - Headache Disposition: DISCHARGED TO HOME OR SELFCARE Is pt being admited?: No Does the pt Need Aspirin: No Condition: Stable Instructions: Acute Headache (ED), Migraine Headache (ED) Additional Instructions: Follow-up with primary care provider and neurologist. Return to the emergency department if symptoms worsen. Prescriptions: traMADol [Ultram 50 MG tab] 50 mg PO Q6HR PRN #10 tablet PRN Reason: Pain Referrals: PRIMARY MD GLENDA [Primary Care Provider] - 3-5 Days DEREK LOPEZ MD [Staff Physician] - 3-5 Days ACOSTA ALCALA MD [Staff Physician] - 3-5 Days Forms: Work/School Release Form(ED) Time of Disposition: 13:21
== END 2016-12-08 13:33 | disposition home or self-care (01) ==
LOC: ED 10:57
DX: G43.909 Migraine, unspecified, not intractable, without status migrainosus (principal); R11.2 Nausea with vomiting, unspecified; I26.99 Other pulmonary embolism without acute cor pulmonale; K21.9 Gastro-esophageal reflux disease without esophagitis; R56.9 Unspecified convulsions; I82.401 Acute embolism and thrombosis of unspecified deep veins of right lower extremity; J43.9 Emphysema, unspecified; F17.200 Nicotine dependence, unspecified, uncomplicated; I10 Essential (primary) hypertension; Z88.6 Allergy status to analgesic agent; Z88.8 Allergy status to other drugs, medicaments and biological substances
CPT/HCPCS: 96372; 99282; J1885; Q0162

== ENCOUNTER 2016-12-16 08:47 | Emergency (ER) | payer MEDICARE ==
[2016-12-16 09:38] LABS: Basophils % (Auto) 2.1 % (0.0-1.8); Eosinophils % (Auto) 2.1 % (0.0-4.3); Hematocrit 44.6 % (35.5-45.6); Hemoglobin 14.1 gm/dl (11.8-15.2); Mean Corpuscular HGB Conc 32 % (32-34); Mean Corpuscular Hemoglobin 26 pg (28-32); Mean Corpuscular Volume 84 fl (84-94); Platelet Count 156 K/mm3 (140-440); Red Blood Count 5.34 M/mm3 (3.65-5.03); Red Cell Distribution Width 14.6 % (13.2-15.2); White Blood Count 4.7 K/mm3 (4.5-11.0)
[2016-12-16 09:54] LABS: Anion Gap 21 mmol/L; BUN/Creatinine Ratio 13.33; Blood Urea Nitrogen 12 mg/dL (9-20); Calcium 9.3 mg/dL (8.4-10.2); Carbon Dioxide 22 mmol/L (22-30); Chloride 102.4 mmol/L (98-107); Glucose 115 mg/dL (75-100); Sodium 141 mmol/L (137-145)
[2016-12-16] MEDS ORDERED: NACL 0.9% 1000 ML 1,000 ML IV ONE (13:41)
[2016-12-16] MEDS ORDERED: PROVENTIL IH ONE (13:41)
[2016-12-16] MEDS ORDERED: MAGNESIUM SULFATE 2GM/50ML 2 GM/50 ML BAG IV ONE (13:41)
[2016-12-16 13:48] VITALS: BP 97/62
--- NOTE | 2016-12-16 13:57 | Emergency Department Report ---
ED Chest Pain HPI - General Chief Complaint: Chest Pain Stated Complaint: JOEL Time Seen by Provider: 12/16/16 13:40 Source: patient Mode of arrival: Ambulatory Limitations: No Limitations - History of Present Illness Initial Comments: pt with sob associated with his copd excacerbation , he has the same symptoms as today when this happens, better after oxygen given Complaint: chest pain -: Gradual Onset: during rest, during exertion Pain Location: right chest Pain Radiation: none Severity: mild Quality: tightness Consistency: intermittent Improves With: nothing Worsens With: nothing re: denies: nausea, vomting, diaphoresis, dyspnea, sense of impending doom Other Symptoms: cough. denies: fever, syncope, rash, acid taste in mouth, leg swelling Treatments Prior to Arrival: none - Related Data Home Medications Medication Instructions Recorded Confirmed Last Taken Albuterol Sulfate [Ventolin HFA] 2 puff IH Q4H PRN 11/17/16 11/17/16 Unknown AtorvaSTATin [Lipitor] 40 mg PO QHS 11/17/16 11/17/16 Unknown Clopidogrel [Plavix] 75 mg PO QDAY 11/17/16 11/17/16 Unknown Hydrochlorothiazide [HCTZ] 25 mg PO QDAY 11/17/16 11/17/16 Unknown Rivaroxaban [Xarelto] 20 mg PO QDAY 11/17/16 11/17/16 Unknown levETIRAcetam [Keppra TAB] 750 mg PO BID 11/17/16 11/17/16 Unknown Previous Rx's Medication Instructions Recorded Last Taken Type Pantoprazole [Protonix] 40 mg PO QDAY #30 tablet 11/17/16 Unknown Rx Docusate Sodium [Colace] 100 mg PO BID PRN #20 capsule 11/23/16 Unknown Rx oxyCODONE /ACETAMINOPHEN [Percocet 1 tab PO Q6HR PRN #20 tablet 11/24/16 Unknown Rx 5/325] traMADol [Ultram 50 MG tab] 50 mg PO Q6HR PRN #10 tablet 12/08/16 Unknown Rx predniSONE [Deltasone] 50 mg PO QDAY #5 tab 12/16/16 Unknown Rx Allergies Allergy/AdvReac Type Severity Reaction Status Date / Time aspirin Allergy Vomiting Verified 09/07/15 18:55 prochlorperazine Allergy Anaphylaxis Verified 09/07/15 18:55 [From Compazine] prochlorperazine edisylate Allergy Anaphylaxis Verified 09/07/15 18:55 [From Compazine] prochlorperazine maleate Allergy Anaphylaxis Verified 09/07/15 18:55 [From Compazine] MANPREET score - Manpreet Score Age > 65: (0) No Aspirin use within the Past 7 Days: (0) No 3 or more CAD Risk Factors: (0) No 2 or more Angina events in past 24 hrs: (0) No Known CAD with more than 50% Stenosis: (0) No Elevated Cardiac Markers: (0) No ST Deviation Greater than 0.5mm: (0) No MANPREET Score: 0 ED Review of Systems ROS: Stated complaint: JOEL Other details as noted in HPI Comment: All other systems reviewed and negative ED Past Medical Hx - Past Medical History Hx Hypertension: Yes Hx Deep Vein Thrombosis: Yes (right leg 2004) Hx Pulmonary Embolism: Yes (2004, IVC filter placed) Hx GERD: Yes Hx Arthritis: Yes (back) Hx Headaches / Migraines: Yes Hx Seizures: Yes Hx COPD: Yes (emphazema) Hx HIV: No Additional medical history: Emphysema - Surgical History Hx Appendectomy: Yes Additional Surgical History: lumbar surgery, gastroectomy, l. elbow, partial gastrectomy for perforated ulcer - Social History Smoking Status: Current Every Day Smoker Substance Use Type: Alcohol - Medications Home Medications: Home Medications Medication Instructions Recorded Confirmed Last Taken Type Albuterol Sulfate [Ventolin HFA] 2 puff IH Q4H PRN 11/17/16 11/17/16 Unknown History AtorvaSTATin [Lipitor] 40 mg PO QHS 11/17/16 11/17/16 Unknown History Clopidogrel [Plavix] 75 mg PO QDAY 11/17/16 11/17/16 Unknown History Hydrochlorothiazide [HCTZ] 25 mg PO QDAY 11/17/16 11/17/16 Unknown History Pantoprazole [Protonix] 40 mg PO QDAY #30 tablet 11/17/16 Unknown Rx Rivaroxaban [Xarelto] 20 mg PO QDAY 11/17/16 11/17/16 Unknown History levETIRAcetam [Keppra TAB] 750 mg PO BID 11/17/16 11/17/16 Unknown History Docusate Sodium [Colace] 100 mg PO BID PRN #20 capsule 11/23/16 Unknown Rx oxyCODONE /ACETAMINOPHEN [Percocet 1 tab PO Q6HR PRN #20 tablet 11/24/16 Unknown Rx 5/325] traMADol [Ultram 50 MG tab] 50 mg PO Q6HR PRN #10 tablet 12/08/16 Unknown Rx predniSONE [Deltasone] 50 mg PO QDAY #5 tab 12/16/16 Unknown Rx ED Physical Exam - General Limitations: No Limitations General appearance: alert, in no apparent distress - Head Head exam: Present: atraumatic, normocephalic - Eye Eye exam: Present: normal appearance - ENT ENT exam: Present: mucous membranes moist - Neck Neck exam: Present: normal inspection - Respiratory Respiratory exam: Present: wheezes, rhonchi, decreased breath sounds, prolonged expiratory - Cardiovascular Cardiovascular Exam: Present: regular rate, normal rhythm. Absent: systolic murmur, diastolic murmur, rubs, gallop - GI/Abdominal GI/Abdominal exam: Present: soft, normal bowel sounds - Rectal Rectal exam: Present: deferred - Extremities Exam Extremities exam: Present: normal inspection - Back Exam Back exam: Present: normal inspection - Neurological Exam Neurological exam: Present: alert, oriented X3 - Psychiatric Psychiatric exam: Present: normal affect, normal mood - Skin Skin exam: Present: warm, dry, intact, normal color. Absent: rash ED Course Vital Signs 12/16/16 12/16/16 09:01 13:43 Temperature 98.0 F Pulse Rate 83 66 Respiratory 32 H 18 Rate Blood Pressure 126/87 Blood Pressure 97/62 [Left] O2 Sat by Pulse 100 98 Oximetry ED Medical Decision Making - Lab Data Result diagrams: 12/16/16 09:22 12/16/16 09:22 - EKG Data EKG shows normal: sinus rhythm Rate: normal - EKG Data When compared to previous EKG there are: no significant change - Medical Decision Making patient doing well, copd exacerbation , speaking full sentence , stable , cxr negative labs neg , serial enzymes negative Critical care attestation.: If time is entered above; I have spent that time in minutes in the direct care of this critically ill patient, excluding procedure time. ED Disposition Clinical Impression: COPD with emphysema Disposition: DISCHARGED TO HOME OR SELFCARE Is pt being admited?: No Does the pt Need Aspirin: No Condition: Good Instructions: Chronic Obstructive Pulmonary Disease (ED) Prescriptions: predniSONE [Deltasone] 50 mg PO QDAY #5 tab Time of Disposition: 15:12
--- NOTE | 2016-12-16 14:45 | XRay Report ---
Chest 2 views. Findings: The lungs are markedly hyperinflated with hyperlucency of the upper lobes, stable since the previous study on November 16. No pulmonary nodules are seen. There no focal infiltrates. The heart and pulmonary vessels are normal. There is no pleural fluid. Impression: Stable COPD with no acute findings.
[2016-12-16 16:26] LABS: Alanine Aminotransferase 17 units/L (7-56); Albumin 3.4 g/dL (3.9-5); Albumin/Globulin Ratio 1.3 %; Alkaline Phosphatase 53 units/L (35-129); Anion Gap 15 mmol/L; BUN/Creatinine Ratio 14.28; Bilirubin,Total 0.2 mg/dL (0.1-1.2); Blood Urea Nitrogen 10 mg/dL (9-20); Calcium 8.8 mg/dL (8.4-10.2); Carbon Dioxide 27 mmol/L (22-30); Chloride 104.7 mmol/L (98-107); Glucose 110 mg/dL (75-100); Potassium 4.8 mmol/L (3.6-5.0); Sodium 142 mmol/L (137-145); Total Protein 6.1 g/dL (6.3-8.2)
== END 2016-12-16 15:36 | disposition home or self-care (01) ==
LOC: ED 08:47
DX: J43.9 Emphysema, unspecified (principal); I10 Essential (primary) hypertension; K21.9 Gastro-esophageal reflux disease without esophagitis; F17.200 Nicotine dependence, unspecified, uncomplicated; Z86.718 Personal history of other venous thrombosis and embolism; Z86.711 Personal history of pulmonary embolism
CPT/HCPCS: 36415; 71020; 80048; 80053; 84484; 85025; 93005; 93010; 94640; 96365; 96375; 99285; J2930; J3475; J7030

== ENCOUNTER 2016-12-18 05:14 | Emergency (ER) | payer MEDICARE ==
[2016-12-18 06:13] LABS: Basophils % (Auto) 2.1 % (0.0-1.8); Hematocrit 43.7 % (35.5-45.6); Hemoglobin 13.9 gm/dl (11.8-15.2); Mean Corpuscular HGB Conc 32 % (32-34); Mean Corpuscular Hemoglobin 26 pg (28-32); Mean Corpuscular Volume 83 fl (84-94); Platelet Count 165 K/mm3 (140-440); Red Blood Count 5.27 M/mm3 (3.65-5.03); Red Cell Distribution Width 14.5 % (13.2-15.2); White Blood Count 5.6 K/mm3 (4.5-11.0)
[2016-12-18 06:28] LABS: Anion Gap 16 mmol/L; BUN/Creatinine Ratio 13.75; Blood Urea Nitrogen 11 mg/dL (9-20); Calcium 9.3 mg/dL (8.4-10.2); Carbon Dioxide 25 mmol/L (22-30); Chloride 104.9 mmol/L (98-107); Glucose 109 mg/dL (75-100); Potassium 4.6 mmol/L (3.6-5.0); Sodium 141 mmol/L (137-145)
[2016-12-18 06:46] LABS: Creatine Kinase MB 2.2 ng/mL (0.0-4.0)
[2016-12-18] MEDS ORDERED: XYLOCAINE 1% MPF 5 mL INFILTRATI ONE (08:46)
[2016-12-18] MEDS ORDERED: ROCEPHIN IM ONE (08:46)
--- NOTE | 2016-12-18 08:51 | Emergency Department Report ---
ED General Adult HPI - General Chief complaint: Upper Respiratory Infection Stated complaint: RESPIRATORY INFECTION Time Seen by Provider: 12/18/16 08:15 Source: patient Mode of arrival: Ambulatory Limitations: No Limitations - History of Present Illness Initial comments: The patient complains of a cough associated with green sputum for the last 24 hours. He has chest discomfort only when he coughs. He denies any pleuritic pain. He denies hemoptysis. He's had no recent travel or leg pain. He's had no shaking chills. He felt somewhat weak but he had no vertigo. Is not complaining of dizziness. He does not complain of any chest discomfort now. Patient states he is compliant with his or relative for DVT of 12 years ago. He also takes Plavix. -: hour(s) Location: chest (only with cough soreness nonpleuritic) Radiation: non-radiation Severity scale (0 -10): 4 Quality: other Consistency: now resolved Improves with: none Worsens with: none Associated Symptoms: denies other symptoms Treatments Prior to Arrival: none - Related Data Home Medications Medication Instructions Recorded Confirmed Last Taken Albuterol Sulfate [Ventolin HFA] 2 puff IH Q4H PRN 11/17/16 11/17/16 Unknown AtorvaSTATin [Lipitor] 40 mg PO QHS 11/17/16 11/17/16 Unknown Clopidogrel [Plavix] 75 mg PO QDAY 11/17/16 11/17/16 Unknown Hydrochlorothiazide [HCTZ] 25 mg PO QDAY 11/17/16 11/17/16 Unknown Rivaroxaban [Xarelto] 20 mg PO QDAY 11/17/16 11/17/16 Unknown levETIRAcetam [Keppra TAB] 750 mg PO BID 11/17/16 11/17/16 Unknown Previous Rx's Medication Instructions Recorded Last Taken Type Pantoprazole [Protonix] 40 mg PO QDAY #30 tablet 11/17/16 Unknown Rx Docusate Sodium [Colace] 100 mg PO BID PRN #20 capsule 11/23/16 Unknown Rx oxyCODONE /ACETAMINOPHEN [Percocet 1 tab PO Q6HR PRN #20 tablet 11/24/16 Unknown Rx 5/325] traMADol [Ultram 50 MG tab] 50 mg PO Q6HR PRN #10 tablet 12/08/16 Unknown Rx predniSONE [Deltasone] 50 mg PO QDAY #5 tab 12/16/16 Unknown Rx Azithromycin [Zithromax Z-DIONNE] 250 mg PO DAILY #6 tablet 12/18/16 Unknown Rx Allergies Allergy/AdvReac Type Severity Reaction Status Date / Time aspirin Allergy Vomiting Verified 09/07/15 18:55 prochlorperazine Allergy Anaphylaxis Verified 09/07/15 18:55 [From Compazine] prochlorperazine edisylate Allergy Anaphylaxis Verified 09/07/15 18:55 [From Compazine] prochlorperazine maleate Allergy Anaphylaxis Verified 09/07/15 18:55 [From Compazine] ED Review of Systems ROS: Stated complaint: RESPIRATORY INFECTION Other details as noted in HPI Constitutional: denies: chills, fever Eyes: denies: eye pain, eye discharge, vision change ENT: denies: ear pain, throat pain Respiratory: cough. denies: shortness of breath, wheezing Cardiovascular: chest pain. denies: palpitations Endocrine: no symptoms reported Gastrointestinal: denies: abdominal pain, nausea, diarrhea Genitourinary: denies: urgency, dysuria Musculoskeletal: denies: back pain, joint swelling, arthralgia Skin: denies: rash, lesions Neurological: denies: headache, weakness, paresthesias Psychiatric: denies: anxiety, depression Hematological/Lymphatic: denies: easy bleeding, easy bruising ED Past Medical Hx - Past Medical History Previous Medical History?: Yes Hx Hypertension: Yes Hx Deep Vein Thrombosis: Yes (right leg 2004) Hx Pulmonary Embolism: Yes (2004, IVC filter placed) Hx GERD: Yes Hx Arthritis: Yes (back) Hx Headaches / Migraines: Yes Hx Seizures: Yes Hx COPD: Yes (emphyzema) Hx HIV: No Additional medical history: Emphysema - Surgical History Past Surgical History?: Yes Hx Appendectomy: Yes Additional Surgical History: lumbar surgery, gastroectomy, l. elbow, partial gastrectomy for perforated ulcer - Social History Smoking Status: Current Every Day Smoker Substance Use Type: Alcohol - Medications Home Medications: Home Medications Medication Instructions Recorded Confirmed Last Taken Type Albuterol Sulfate [Ventolin HFA] 2 puff IH Q4H PRN 11/17/16 11/17/16 Unknown History AtorvaSTATin [Lipitor] 40 mg PO QHS 11/17/16 11/17/16 Unknown History Clopidogrel [Plavix] 75 mg PO QDAY 11/17/16 11/17/16 Unknown History Hydrochlorothiazide [HCTZ] 25 mg PO QDAY 11/17/16 11/17/16 Unknown History Pantoprazole [Protonix] 40 mg PO QDAY #30 tablet 11/17/16 Unknown Rx Rivaroxaban [Xarelto] 20 mg PO QDAY 11/17/16 11/17/16 Unknown History levETIRAcetam [Keppra TAB] 750 mg PO BID 11/17/16 11/17/16 Unknown History Docusate Sodium [Colace] 100 mg PO BID PRN #20 capsule 11/23/16 Unknown Rx oxyCODONE /ACETAMINOPHEN [Percocet 1 tab PO Q6HR PRN #20 tablet 11/24/16 Unknown Rx 5/325] traMADol [Ultram 50 MG tab] 50 mg PO Q6HR PRN #10 tablet 12/08/16 Unknown Rx predniSONE [Deltasone] 50 mg PO QDAY #5 tab 12/16/16 Unknown Rx Azithromycin [Zithromax Z-DIONNE] 250 mg PO DAILY #6 tablet 12/18/16 Unknown Rx ED Physical Exam - General Limitations: No Limitations General appearance: alert, in no apparent distress - Head Head exam: Present: atraumatic, normocephalic - Eye Eye exam: Present: normal appearance. Absent: scleral icterus - ENT ENT exam: Present: mucous membranes moist - Neck Neck exam: Present: normal inspection - Respiratory Respiratory exam: Present: rhonchi (on right). Absent: respiratory distress - Cardiovascular Cardiovascular Exam: Present: regular rate, normal rhythm. Absent: systolic murmur, diastolic murmur, rubs, gallop - GI/Abdominal GI/Abdominal exam: Present: soft, normal bowel sounds. Absent: distended, tenderness, guarding, rebound, rigid - Rectal Rectal exam: Present: deferred - Extremities Exam Extremities exam: Present: normal inspection, full ROM, normal capillary refill. Absent: tenderness, pedal edema, joint swelling, calf tenderness - Back Exam Back exam: Present: normal inspection. Absent: tenderness, CVA tenderness (R), CVA tenderness (L) - Neurological Exam Neurological exam: Present: alert, oriented X3, CN II-XII intact. Absent: motor sensory deficit - Psychiatric Psychiatric exam: Present: normal affect, normal mood - Skin Skin exam: Present: warm, dry, intact, normal color. Absent: rash ED Course Vital Signs 12/18/16 05:39 Temperature 97.8 F Pulse Rate 80 Respiratory 20 Rate Blood Pressure 136/99 [Right] O2 Sat by Pulse 100 Oximetry - Reevaluation(s) Reevaluation #1: Suspect a right lower lobe pneumonia. The x-ray may not be fully definitive. Patient is given ceftriaxone and will be sent home on oral antibiotics. He will be given local referrals. 12/18/16 08:57 ED Medical Decision Making - Lab Data Result diagrams: 12/18/16 05:52 12/18/16 05:52 - EKG Data -: EKG Interpreted by Me EKG shows normal: sinus rhythm, axis, intervals, QRS complexes, ST-T waves Rate: normal - EKG Data Interpretation: normal EKG - Radiology Data interpreted by me: Increased markings in the right lower lobe Critical care attestation.: If time is entered above; I have spent that time in minutes in the direct care of this critically ill patient, excluding procedure time. ED Disposition Clinical Impression: Pneumonia Qualifiers: Pneumonia type: due to unspecified organism Laterality: right Lung location: lower lobe of lung Qualified Code(s): J18.9 - Pneumonia, unspecified organism Disposition: DISCHARGED TO HOME OR SELFCARE Is pt being admited?: No Does the pt Need Aspirin: No Condition: Stable Instructions: Bacterial Pneumonia (ED) Additional Instructions: Follow-up with local physicians. Return any acute change or worsening symptoms. Prescriptions: Azithromycin [Zithromax Z-DIONNE] 250 mg PO DAILY #6 tablet Referrals: PRIMARY CARE, [Primary Care Provider] - 3-5 Days Time of Disposition: 09:00
--- NOTE | 2016-12-18 09:03 | XRay Report ---
CHEST 2 VIEWS INDICATION: Shortness of breath. COMPARISON: 12/16/2016 FINDINGS: PA and lateral chest radiographs again demonstrate hyperlucent upper lung zones bilaterally with somewhat crowded markings in the mid to lower zones. No focal suspicious consolidation, pleural effusions or CHF. Normal cardiomediastinal silhouette. Intact bones. CONCLUSION: Extensive COPD changes again noted, as described. Thank you for the opportunity to participate in this patient's care.
[2016-12-18 10:07] VITALS: BP 137/92
== END 2016-12-18 09:35 | disposition home or self-care (01) ==
LOC: ED 05:14
DX: J18.9 Pneumonia, unspecified organism (principal); I10 Essential (primary) hypertension; K21.9 Gastro-esophageal reflux disease without esophagitis; M19.90 Unspecified osteoarthritis, unspecified site; G43.909 Migraine, unspecified, not intractable, without status migrainosus; R56.9 Unspecified convulsions; J44.9 Chronic obstructive pulmonary disease, unspecified; F17.200 Nicotine dependence, unspecified, uncomplicated; Z90.49 Acquired absence of other specified parts of digestive tract; Z90.89 Acquired absence of other organs; Z86.718 Personal history of other venous thrombosis and embolism; Z86.711 Personal history of pulmonary embolism; Z88.6 Allergy status to analgesic agent; Z88.8 Allergy status to other drugs, medicaments and biological substances
CPT/HCPCS: 36415; 71020; 80048; 82550; 82553; 82805; 83880; 84484; 85025; 93005; 93010; 96372; 99284; J0696

== ENCOUNTER 2016-12-20 11:25 | Emergency (ER) | payer MEDICARE ==
[2016-12-20 11:57] VITALS: BP 137/96
--- NOTE | 2016-12-20 12:07 | Emergency Department Report ---
Chief Complaint: Dyspnea/Respdistress Stated Complaint: DIZZY Time Seen by Provider: 12/20/16 12:03 - HPI History of Present Illness: PT states he was dx with PNA two days ago. PT states he is still sob, has hx of COPD but now he is getting dizzy. PT states he thought he would be feeling better by now - ROS Review of Systems: - fever + cough + dizziness + sob - chronic pt states has hx of copd - always sob - Exam Vital Signs: Vital Signs 12/20/16 11:52 Temperature 98.4 F Pulse Rate 79 Respiratory 20 Rate Blood Pressure 137/96 O2 Sat by Pulse 99 Oximetry Physical Exam: pt looks well, non toxic. no acute resp distress but mild increase in wob lungs diminished laureen MSE screening note: Focused history and physical exam performed. Due to findings the following was ordered: labs, ekg ED Disposition for MSE Condition: Stable
[2016-12-20 12:40] LABS: Hematocrit 41.7 % (35.5-45.6); Hemoglobin 13.3 gm/dl (11.8-15.2); Mean Corpuscular HGB Conc 32 % (32-34); Mean Corpuscular Hemoglobin 27 pg (28-32); Mean Corpuscular Volume 83 fl (84-94); Platelet Count 169 K/mm3 (140-440); Red Cell Distribution Width 14.2 % (13.2-15.2); White Blood Count 6.7 K/mm3 (4.5-11.0)
[2016-12-20 13:15] LABS: Alanine Aminotransferase 23 units/L (7-56); Albumin 4.1 g/dL (3.9-5); Albumin/Globulin Ratio 1.4 %; Alkaline Phosphatase 51 units/L (35-129); Anion Gap 19 mmol/L; BUN/Creatinine Ratio 11.25; Bilirubin,Total 0.2 mg/dL (0.1-1.2); Blood Urea Nitrogen 9 mg/dL (9-20); Calcium 9.4 mg/dL (8.4-10.2); Carbon Dioxide 22 mmol/L (22-30); Glucose 102 mg/dL (75-100); Potassium 3.6 mmol/L (3.6-5.0); Sodium 141 mmol/L (137-145)
[2016-12-20 14:00] LABS: Anisocytosis Few; Basophils % (Manual) 0 % (0.0-1.8); Blastocytes % (Manual) 0 %; Diff Status Complete; Eosinophils % (Manual) 0 % (0.0-4.3)
--- NOTE | 2016-12-24 15:49 | ED Elopement Review ---
ED Pt Elopement review - Results review Lab results: Laboratory Tests 12/20/16 12/20/16 12/20/16 12:14 12:14 12:14 WBC 6.7 RBC 5.00 Hgb 13.3 Hct 41.7 MCV 83 L MCH 27 L MCHC 32 RDW 14.2 Plt Count 169 Add Manual Diff Complete Total Counted 100 Seg Neutrophils % Refrigeration Technician Seg Neuts % (Manual) 86.0 H Band Neutrophils % 2.0 Lymphocytes % (Manual) 8.0 L Reactive Lymphs % (Man) 0 Monocytes % (Manual) 4.0 Eosinophils % (Manual) 0 Basophils % (Manual) 0 Metamyelocytes % 0 Myelocytes % 0 Promyelocytes % 0 Blast Cells % 0 Nucleated RBC % Not Reportable Seg Neutrophils # Man 5.8 Band Neutrophils # 0.1 Lymphocytes # (Manual) 0.5 L Abs React Lymphs (Man) 0.0 Monocytes # (Manual) 0.3 Eosinophils # (Manual) 0.0 Basophils # (Manual) 0.0 Metamyelocytes # 0.0 Myelocytes # 0.0 Promyelocytes # 0.0 Blast Cells # 0.0 WBC Morphology Not Reportable Hypersegmented Neuts Not Reportable Hyposegmented Neuts Not Reportable Hypogranular Neuts Not Reportable Smudge Cells Not Reportable Toxic Granulation Not Reportable Toxic Vacuolation Not Reportable Dohle Bodies Not Reportable Pelger-Huet Anomaly Not Reportable Trent Rods Not Reportable Platelet Estimate Not Reportable Clumped Platelets Not Reportable Plt Clumps, EDTA Not Reportable Large Platelets Not Reportable Giant Platelets Not Reportable Platelet Satelliting Not Reportable Plt Morphology Comment Not Reportable RBC Morphology Not Reportable Dimorphic RBCs Not Reportable Polychromasia Not Reportable Hypochromasia Not Reportable Poikilocytosis Not Reportable Anisocytosis Few Microcytosis Not Reportable Macrocytosis Not Reportable Spherocytes Not Reportable Pappenheimer Bodies Not Reportable Sickle Cells Not Reportable Target Cells Not Reportable Tear Drop Cells Not Reportable Ovalocytes Not Reportable Helmet Cells Not Reportable [place] Bodies Not Reportable [place] Rings Not Reportable Ciales Cells Not Reportable Bite Cells Not Reportable Crenated Cell Not Reportable Elliptocytes Not Reportable Acanthocytes (Spur) Not Reportable Rouleaux Not Reportable Hemoglobin C Crystals Not Reportable Schistocytes Not Reportable Malaria parasites Not Reportable Andrew Bodies Not Reportable Hem Pathologist Commnt No Sodium 141 Potassium 3.6 D Chloride 104.0 Carbon Dioxide 22 Anion Gap 19 BUN 9 Creatinine 0.8 Estimated GFR > 60 BUN/Creatinine Ratio 11.25 Glucose 102 H Calcium 9.4 Total Bilirubin 0.2 AST 21 ALT 23 Alkaline Phosphatase 51 Troponin T < 0.010 NT-Pro-B Natriuret Pep 27.68 Total Protein 7.0 Albumin 4.1 Albumin/Globulin Ratio 1.4 - Call Back decision Pt Call Back Decision: No action required
== END 2016-12-20 23:00 | disposition left against medical advice (07) ==
LOC: ED 11:25
DX: R06.02 Shortness of breath (principal); R42 Dizziness and giddiness; J44.9 Chronic obstructive pulmonary disease, unspecified; Z53.21 Procedure and treatment not carried out due to patient leaving prior to being seen by health care provider
CPT/HCPCS: 36415; 80053; 83880; 84484; 85007; 85025; 93005; 93010

== ENCOUNTER 2017-01-04 09:58 | Emergency (ER) | payer MEDICARE ==
--- NOTE | 2017-01-04 10:31 | XRay Report ---
CHEST 2 VIEWS INDICATION: Shortness of breath. COMPARISON: 12/18/2016 FINDINGS: PA and lateral chest radiographs redemonstrate normal cardiomediastinal silhouette. No pleural effusions or CHF. Mild scarring/crowded markings in the mid to lower lung zones again noted with hyperlucent upper lobes. Stable bones. CONCLUSION: Extensive COPD changes again noted, as above. Thank you for the opportunity to participate in this patient's care.
[2017-01-04 10:42] LABS: Basophils % (Auto) 0.4 % (0.0-1.8); Hematocrit 43.3 % (35.5-45.6); Hemoglobin 13.9 gm/dl (11.8-15.2); Mean Corpuscular HGB Conc 32 % (32-34); Mean Corpuscular Hemoglobin 27 pg (28-32); Mean Corpuscular Volume 83 fl (84-94); Platelet Count 152 K/mm3 (140-440); Red Cell Distribution Width 14.2 % (13.2-15.2); White Blood Count 4.9 K/mm3 (4.5-11.0)
[2017-01-04 10:54] LABS: Anion Gap 21 mmol/L; BUN/Creatinine Ratio 18.57; Blood Urea Nitrogen 13 mg/dL (9-20); Calcium 9.2 mg/dL (8.4-10.2); Carbon Dioxide 22 mmol/L (22-30); Glucose 129 mg/dL (75-100); Potassium 4.5 mmol/L (3.6-5.0); Sodium 136 mmol/L (137-145)
[2017-01-04] MEDS ORDERED: LIBRIUM PO ONE (17:27)
[2017-01-04] MEDS ORDERED: ZOFRAN ODT PO ONE (17:27)
[2017-01-04] MEDS ORDERED: PROVENTIL IH ONE (17:27)
[2017-01-04] MEDS ORDERED: TYLENOL PO ONE (17:27)
--- NOTE | 2017-01-04 17:28 | Emergency Department Report ---
ED General Adult HPI - General Chief complaint: Dyspnea/Respdistress Stated complaint: N/V/D Time Seen by Provider: 01/04/17 17:09 Source: patient, RN notes reviewed, old records reviewed Mode of arrival: Ambulatory Limitations: No Limitations - History of Present Illness Initial comments: This is a 61-year-old male. He is previously unknown to me. Has a past medical history of hypertension, COPD, seizure, DVT, stroke, distant surgical history of partial gastrectomy and spinal fusion. The patient reports that he is currently in alcohol detox on a voluntary basis at an outpatient facility. The patient presents to the ER with complaint of sweating, nausea, cough, mucus production "I think I have pneumonia." There is no chest pain. There is no leg pain. The patient reports chronic shortness of breath, which is not new, worsening or different. The patient is not homicidal or suicidal. His last alcohol consumption was 10 days ago. He feels somewhat tremulous. He is not having hematemesis, he is not having bright red blood per rectum. -: Gradual, days(s) Consistency: intermittent Improves with: none Worsens with: none Associated Symptoms: cough, nausea/vomiting - Related Data Home Medications Medication Instructions Recorded Confirmed Last Taken Albuterol Sulfate [Ventolin HFA] 2 puff IH Q4H PRN 11/17/16 01/04/17 Unknown AtorvaSTATin [Lipitor] 40 mg PO QHS 11/17/16 01/04/17 Unknown Clopidogrel [Plavix] 75 mg PO QDAY 11/17/16 01/04/17 Unknown Hydrochlorothiazide [HCTZ] 25 mg PO QDAY 11/17/16 01/04/17 Unknown Rivaroxaban [Xarelto] 20 mg PO QDAY 11/17/16 01/04/17 Unknown levETIRAcetam [Keppra TAB] 750 mg PO BID 11/17/16 01/04/17 Unknown Previous Rx's Medication Instructions Recorded Last Taken Type Pantoprazole [Protonix] 40 mg PO QDAY #30 tablet 11/17/16 Unknown Rx Docusate Sodium [Colace] 100 mg PO BID PRN #20 capsule 11/23/16 Unknown Rx oxyCODONE /ACETAMINOPHEN [Percocet 1 tab PO Q6HR PRN #20 tablet 11/24/16 Unknown Rx 5/325] traMADol [Ultram 50 MG tab] 50 mg PO Q6HR PRN #10 tablet 12/08/16 Unknown Rx predniSONE [Deltasone] 50 mg PO QDAY #5 tab 12/16/16 Unknown Rx Albuterol Sulfate [Albuterol 0.63% 0.63 mg IH Q4HR PRN #2 ml 01/04/17 Unknown Rx NEBS] Albuterol Sulfate [Proair 90 mcg IH Q4HR PRN #2 aer.pow.ba 01/04/17 Unknown Rx Respiclick] Ipratropium Marlette [Atrovent Hfa] 12.9 gm IH Q4HR #2 hfa.aer.ad 01/04/17 Unknown Rx Ipratropium [Atrovent NEB] 0.5 mg IH Q4HR #2 ml 01/04/17 Unknown Rx Ondansetron [Zofran Odt] 4 mg PO QID PRN #20 tab.rapdis 01/04/17 Unknown Rx Tiotropium Mar[place] [Spiriva 2 puff IH QDAY #1 mist.inhal 01/04/17 Unknown Rx Respimat] chlordiazePOXIDE [Librium] 25 mg PO Q8H PRN #20 capsule 01/04/17 Unknown Rx Allergies Allergy/AdvReac Type Severity Reaction Status Date / Time aspirin Allergy Vomiting Verified 09/07/15 18:55 prochlorperazine Allergy Anaphylaxis Verified 09/07/15 18:55 [From Compazine] prochlorperazine edisylate Allergy Anaphylaxis Verified 09/07/15 18:55 [From Compazine] prochlorperazine maleate Allergy Anaphylaxis Verified 09/07/15 18:55 [From Compazine] ED Review of Systems ROS: Stated complaint: N/V/D Other details as noted in HPI Constitutional: malaise. denies: fever Eyes: denies: vision change ENT: congestion. denies: epistaxis Respiratory: cough, wheezing Cardiovascular: denies: chest pain Gastrointestinal: nausea Musculoskeletal: arthralgia, myalgia Skin: denies: lesions Neurological: weakness Psychiatric: denies: homicidal thoughts, suicidal thoughts ED Past Medical Hx - Past Medical History Previous Medical History?: Yes Hx Hypertension: Yes Hx Deep Vein Thrombosis: Yes (right leg 2004) Hx Pulmonary Embolism: Yes (2004, IVC filter placed) Hx GERD: Yes Hx Arthritis: Yes (back) Hx Headaches / Migraines: Yes Hx Seizures: Yes Hx COPD: Yes (emphyzema) Hx HIV: No Additional medical history: Emphysema - Surgical History Hx Appendectomy: Yes Additional Surgical History: lumbar surgery, gastroectomy, l. elbow, partial gastrectomy for perforated ulcer - Social History Smoking Status: Current Every Day Smoker Substance Use Type: None - Medications Home Medications: Home Medications Medication Instructions Recorded Confirmed Last Taken Type Albuterol Sulfate [Ventolin HFA] 2 puff IH Q4H PRN 11/17/16 01/04/17 Unknown History AtorvaSTATin [Lipitor] 40 mg PO QHS 11/17/16 01/04/17 Unknown History Clopidogrel [Plavix] 75 mg PO QDAY 11/17/16 01/04/17 Unknown History Hydrochlorothiazide [HCTZ] 25 mg PO QDAY 11/17/16 01/04/17 Unknown History Pantoprazole [Protonix] 40 mg PO QDAY #30 tablet 11/17/16 01/04/17 Unknown Rx Rivaroxaban [Xarelto] 20 mg PO QDAY 11/17/16 01/04/17 Unknown History levETIRAcetam [Keppra TAB] 750 mg PO BID 11/17/16 01/04/17 Unknown History Docusate Sodium [Colace] 100 mg PO BID PRN #20 capsule 11/23/16 01/04/17 Unknown Rx oxyCODONE /ACETAMINOPHEN [Percocet 1 tab PO Q6HR PRN #20 tablet 11/24/16 Unknown Rx 5/325] traMADol [Ultram 50 MG tab] 50 mg PO Q6HR PRN #10 tablet 12/08/16 01/04/17 Unknown Rx predniSONE [Deltasone] 50 mg PO QDAY #5 tab 12/16/16 01/04/17 Unknown Rx Albuterol Sulfate [Albuterol 0.63% 0.63 mg IH Q4HR PRN #2 ml 01/04/17 Unknown Rx NEBS] Albuterol Sulfate [Proair 90 mcg IH Q4HR PRN #2 aer.pow.ba 01/04/17 Unknown Rx Respiclick] Ipratropium Marlette [Atrovent Hfa] 12.9 gm IH Q4HR #2 hfa.aer.ad 01/04/17 Unknown Rx Ipratropium [Atrovent NEB] 0.5 mg IH Q4HR #2 ml 01/04/17 Unknown Rx Ondansetron [Zofran Odt] 4 mg PO QID PRN #20 tab.rapdis 01/04/17 Unknown Rx Tiotropium Marlette [Spiriva 2 puff IH QDAY #1 mist.inhal 01/04/17 Unknown Rx Respimat] chlordiazePOXIDE [Librium] 25 mg PO Q8H PRN #20 capsule 01/04/17 Unknown Rx ED Physical Exam - General Limitations: No Limitations General appearance: alert, in no apparent distress - Head Head exam: Present: atraumatic, normocephalic - Eye Eye exam: Present: normal appearance, EOMI. Absent: nystagmus - ENT ENT exam: Present: normal exam, normal orophraynx, mucous membranes moist, normal external ear exam - Neck Neck exam: Present: normal inspection, full ROM. Absent: tenderness, meningismus - Respiratory Respiratory exam: Present: normal lung sounds bilaterally. Absent: respiratory distress, wheezes, rales, rhonchi, stridor, chest wall tenderness, accessory muscle use, decreased breath sounds, prolonged expiratory - Cardiovascular Cardiovascular Exam: Present: regular rate, normal rhythm, normal heart sounds. Absent: bradycardia, tachycardia, irregular rhythm, systolic murmur, diastolic murmur, rubs, gallop - GI/Abdominal GI/Abdominal exam: Present: soft, normal bowel sounds. Absent: distended, tenderness, guarding, rebound, rigid, pulsatile mass - Rectal Rectal exam: Present: deferred - Extremities Exam Extremities exam: Present: normal inspection, full ROM, normal capillary refill. Absent: tenderness, pedal edema, joint swelling, calf tenderness - Back Exam Back exam: Present: normal inspection, full ROM. Absent: tenderness, CVA tenderness (R), CVA tenderness (L), muscle spasm, paraspinal tenderness, vertebral tenderness - Neurological Exam Neurological exam: Present: alert, oriented X3, normal gait, other (Extraocular movements intact. Tongue midline. No facial droop. Facial sensation intact to light touch in the V1, V2, V3 distribution bilaterally. 5 and 5 strength in 4 extremities.. Sensation is intact to light touch in 4 extremities.). Absent : motor sensory deficit - Psychiatric Psychiatric exam: Present: normal affect, normal mood - Skin Skin exam: Present: warm, dry, intact, normal color. Absent: rash ED Course Vital Signs 01/04/17 01/04/17 01/04/17 10:03 17:34 17:37 Temperature 98.9 F Pulse Rate 102 H Pulse Rate [ 78 Anterior Bilateral Throughout] Respiratory 20 20 Rate Respiratory 16 Rate [Anterior Bilateral Throughout] Blood Pressure 135/93 Blood Pressure [Left] O2 Sat by Pulse 99 Oximetry 01/04/17 01/04/17 01/04/17 17:56 18:22 18:23 Temperature Pulse Rate 99 H Pulse Rate [ 80 Anterior Bilateral Throughout] Respiratory 20 20 Rate Respiratory 18 Rate [Anterior Bilateral Throughout] Blood Pressure Blood Pressure 137/85 [Left] O2 Sat by Pulse 99 99 Oximetry 01/04/17 20:00 Temperature Pulse Rate 93 H Pulse Rate [ Anterior Bilateral Throughout] Respiratory 20 Rate Respiratory Rate [Anterior Bilateral Throughout] Blood Pressure Blood Pressure 136/94 [Left] O2 Sat by Pulse 97 Oximetry - Reevaluation(s) Reevaluation #1: 01/04/17 19:08 differential diagnosis: Bronchitis, chronic COPD, alcohol dependency, pneumonia Assessment and plan: 61-year-old male with cough, reported generalized malaise. He is currently on systemic anticoagulation ( xarelto) and he reports compliance with his anticoagulation. He is afebrile with reassuring vital signs, he is tolerating liquid feeds, troponins were negative 2, EKG morphologically unremarkable and unchanged from her prior EKG, patient low risk by MANPREET score, low risk by heart score, and a negative nuclear stress tests earlier on this year. The patient's primary complaint appears to be consistent with bronchitis and/or viral syndrome, with a possible superimposed component of mild alcohol withdrawal. The patient was treated symptomatically, he felt much improved, he is able to walk with a steady gait, he is not homicidal, he is not suicidal, he does not require 1013. His x-ray of the chest did not demonstrate obvious pneumonia, and at this point in time, I don't see any indication to admit the patient to the hospital. He will be discharged with albuterol, Atrovent, Spiriva, as needed Librium. Return precautions are extensively reviewed. ED Medical Decision Making - Lab Data Result diagrams: 01/04/17 10:24 01/04/17 10:24 Vital Signs 01/04/17 01/04/17 01/04/17 10:03 17:34 17:37 Temperature 98.9 F Pulse Rate 102 H Pulse Rate [ 78 Anterior Bilateral Throughout] Respiratory 20 20 Rate Respiratory 16 Rate [Anterior Bilateral Throughout] Blood Pressure 135/93 Blood Pressure [Left] O2 Sat by Pulse 99 Oximetry 01/04/17 01/04/17 01/04/17 17:56 18:22 18:23 Temperature Pulse Rate 99 H Pulse Rate [ 80 Anterior Bilateral Throughout] Respiratory 20 20 Rate Respiratory 18 Rate [Anterior Bilateral Throughout] Blood Pressure Blood Pressure 137/85 [Left] O2 Sat by Pulse 99 99 Oximetry Lab Results 01/04/17 01/04/17 01/04/17 Range/Units 10:24 10:24 17:47 WBC 4.9 (4.5-11.0) K/mm3 RBC 5.20 H (3.65-5.03) M/mm3 Hgb 13.9 (11.8-15.2) gm/dl Hct 43.3 (35.5-45.6) % MCV 83 L (84-94) fl MCH 27 L (28-32) pg MCHC 32 (32-34) % RDW 14.2 (13.2-15.2) % Plt Count 152 (140-440) K/mm3 Lymph % (Auto) 12.4 L (13.4-35.0) % [place] % (Auto) 12.6 H (0.0-7.3) % Eos % (Auto) 0.0 (0.0-4.3) % Baso % (Auto) 0.4 (0.0-1.8) % Lymph # 0.6 L (1.2-5.4) K/mm3 [place] # 0.6 (0.0-0.8) K/mm3 Eos # 0.0 (0.0-0.4) K/mm3 Baso # 0.0 (0.0-0.1) K/mm3 Seg Neutrophils % 74.6 H (40.0-70.0) % Seg Neutrophils # 3.6 (1.8-7.7) K/mm3 Sodium 136 L (137-145) mmol/L Potassium 4.5 (3.6-5.0) mmol/L Chloride 98.0 (98-107) mmol/L Carbon Dioxide 22 (22-30) mmol/L Anion Gap 21 mmol/L BUN 13 (9-20) mg/dL Creatinine 0.7 L (0.8-1.5) mg/dL Estimated GFR > 60 ml/min BUN/Creatinine Ratio 18.57 % Glucose 129 H (75-100) mg/dL Calcium 9.2 (8.4-10.2) mg/dL Magnesium 2.0 (1.7-2.3) mg/dL Troponin T < 0.010 < 0.010 (0.00-0.029) ng/mL - EKG Data -: EKG Interpreted by Me EKG shows normal: sinus rhythm, axis, intervals, QRS complexes, ST-T waves - Radiology Data Radiology results: report reviewed, image reviewed X-ray of the chest demonstrates no acute disease, extensive COPD changes are noted, compared to x-ray from 12/18/2016. Critical care attestation.: If time is entered above; I have spent that time in minutes in the direct care of this critically ill patient, excluding procedure time. ED Disposition Clinical Impression: COPD (chronic obstructive pulmonary disease) Disposition: DISCHARGED TO HOME OR SELFCARE Is pt being admited?: No Does the pt Need Aspirin: No Condition: Good Instructions: Chronic Obstructive Pulmonary Disease (ED) Additional Instructions: Take the medications as directed. Follow up with a primary care doctor or license and permit specialist within the next 7-[address] Pereyra is a local license and permit specialist. Dr. Simon is a local primary care doctor. Take the Librium and Zofran as needed for symptoms of alcohol withdrawal and nausea respectively. Return to the ER right away with fevers or chills, chest pain, shortness of breath, intractable nausea or vomiting, inability to tolerate liquid feedings, new, worsening or different symptoms. Prescriptions: Albuterol Sulfate [Albuterol 0.63% NEBS] 0.63 mg IH Q4HR PRN #2 ml PRN Reason: Wheezing Albuterol Sulfate [Proair Respiclick] 90 mcg IH Q4HR PRN #2 aer.pow.ba PRN Reason: Wheezing chlordiazePOXIDE [Librium] 25 mg PO Q8H PRN #20 capsule PRN Reason: Alcohol Withdrawal Ipratropium [Atrovent NEB] 0.5 mg IH Q4HR #2 ml Ipratropium Marlette [Atrovent Hfa] 12.9 gm IH Q4HR #2 hfa.aer.ad Ondansetron [Zofran Odt] 4 mg PO QID PRN #20 tab.rapdis PRN Reason: Nausea Tiotropium Marlette [Spiriva Respimat] 2 puff IH QDAY #1 mist.inhal Referrals: PRIMARY CARE, [Primary Care Provider] - 3-5 Days NANCY PEREYRA MD [Staff Physician] - 3-5 Days JACOBO MAURER MD [Staff Physician] - 3-5 Days
[2017-01-04] MEDS: XARELTO PO ONE ×2 (20:12→20:13)
[2017-01-04 20:16] VITALS: BP 136/94
== END 2017-01-04 20:00 | disposition home or self-care (01) ==
LOC: ED 09:58
DX: J44.9 Chronic obstructive pulmonary disease, unspecified (principal); I10 Essential (primary) hypertension; K21.9 Gastro-esophageal reflux disease without esophagitis; G43.909 Migraine, unspecified, not intractable, without status migrainosus; F17.200 Nicotine dependence, unspecified, uncomplicated
CPT/HCPCS: 36415; 71020; 80048; 83735; 84484; 85025; 93005; 93010; 94640; 99284; Q0162

== ENCOUNTER 2017-01-15 11:32 | Emergency (ER) | payer MEDICARE ==
[2017-01-15 12:33] LABS: Basophils % (Auto) 0.9 % (0.0-1.8); Hematocrit 38.2 % (35.5-45.6); Hemoglobin 12.1 gm/dl (11.8-15.2); Mean Corpuscular HGB Conc 32 % (32-34); Mean Corpuscular Hemoglobin 26 pg (28-32); Mean Corpuscular Volume 83 fl (84-94); Platelet Count 174 K/mm3 (140-440); Red Blood Count 4.61 M/mm3 (3.65-5.03); Red Cell Distribution Width 14.6 % (13.2-15.2); White Blood Count 4.5 K/mm3 (4.5-11.0)
[2017-01-15 12:43] LABS: INR 1.83 (0.87-1.13)
[2017-01-15 13:02] LABS: Anion Gap 17 mmol/L; Blood Urea Nitrogen 7 mg/dL (9-20); Calcium 8.9 mg/dL (8.4-10.2); Carbon Dioxide 23 mmol/L (22-30); Glucose 85 mg/dL (75-100); Potassium 3.5 mmol/L (3.6-5.0); Sodium 143 mmol/L (137-145)
[2017-01-15 13:11] LABS: Bilirubin,Urine NEG (Negative); Blood,Urine NEG (Negative); Ketones,Urine NEG (Negative); Leukocyte Esterase,Urine NEG (Negative); Nitrite,Urine NEG (Negative); Protein,Urine <15 mg/dL mg/dL (Negative); Urobilinogen,Urine < 2.0 mg/dL (<2.0); WBC,Urine < 1.0 /HPF (0.0-6.0)
--- NOTE | 2017-01-15 13:23 | XRay Report ---
CHEST 2 VIEWS INDICATION: Shortness of breath. COMPARISON: 01/04/2017 FINDINGS: PA and lateral chest radiographs again demonstrate normal cardiomediastinal silhouette and extensive emphysematous changes, greatest in the upper lobes with bullae possibly measuring up to 10 cm in size. Slightly crowded markings toward the bases. Approximately 5 mm left mid lung nodular density now may possibly represent a nipple shadow. Unremarkable bones. Numerous surgical clips in the upper abdomen and near the GE junction again seen. CONCLUSION: 1. Extensive emphysematous changes again noted, as described. 2. Other findings, including presumed nipple shadow on the left. Future exams with nipple markers suggested. Thank you for the opportunity to participate in this patient's care.
--- NOTE | 2017-01-15 14:23 | Admit Criteria Form ---
Admission Criteria Documentation: PULMONARY DISEASE GRG Clinical Indications for Admission to Inpatient Care ( Place 'X' for any and all applicable criteria): Hospital admission is needed for appropriate care of the patient because of ANY ONE of the following(1): [ ]I. Impending or actual respiratory arrest ( Use Respiratory Failure Criteria for severe respiratory disease and long-term mechanical ventilation patients) (4) [ ]II. Severe airflow or ventilation abnormalities (not responsive to emergency and observation care treatment as appropriate) as indicated by ANY ONE of the following(5)(6)(7)(8) : [ ]a) PCO2 > 42 mm Hg (5.6 kPa) and pH < 7.35 (new) [ ]b) Documented PCO2 increase > 5 mm Hg (0.7 kPa) from disease baseline [ ]c) Airflow measurements[A] < 60% of previous best or predicted ( e.g., PEF <300 L/minute) despite intensive emergent treatment[B] [ ]d) Required respiratory treatments that are performable only in acute inpatient setting [ ]III. Severe respiratory findings (not responsive to emergency and observation care treatment as appropriate) including ANY ONE of the following(5)(8)(9): [ ]a) Respiratory distress as indicated by ALL of the following(5)(10): [ ]i) Patient with ANY ONE of the following: [X ]1) Dyspnea (difficulty breathing) [ ]2) Abnormal breathing pattern (eg, chest retractions) [ ]3) Tachypnea [ ]4) Other evidence of difficulty breathing [ ]ii) Evidence of respiratory compromise indicated by ANY ONE of the following: [ ]1) Hypoxemia [ ]2) Altered mental status [ ]3) Other evidence of respiratory compromise (eg, pulmonary edema on chest x-ray) [ ]b) Stridor [ ]c) Gross hemoptysis(11) [ ]d) Acute cyanosis [ ]IV. High-risk pulmonary infection as indicated by ANY ONE of the following( 19)(20)(21)(22): [ ]a) Temperature less than 95 degrees F(35 degrees C) or greater than 103.1 degrees F(39.5 degrees C) [ ]b) Hemodynamic instability that remains after emergency or observation level care (as appropriate) [ ]c) Immunocompromised patient (eg, AIDS, post transplant, neutropenic) [ ]d) History of severe COPD [ ]e) History of severely symptomatic congestive heart failure [ ]f) Other high-risk comorbidity (eg, poorly controlled diabetes, cirrhosis, chronic renal insufficiency) [ ]g) Hypoxemia (new) [ ]h) Outpatient, observation, or recovery facility therapy has failed, is not appropriate, or is not feasible [ ]V. Severe atelectasis or lung collapse(15)(16) [ ]. Tuberculosis requiring inpatient treatment as indicated by ANY ONE of the following(17)(18): [ ]a) New positive acid-fast bacilli sputum smear [ ]b) Positive acid-fast bacilli smear (under current treatment), with ANY ONE of the following: [ ]i) Unexposed household contacts [ ]ii) Infants or immunosuppressed household contacts [ ]iii) Patient unable or unwilling to avoid exposing others [ ]iv) Severe immunocompromised patient (eg, AIDS, post transplant, neutropenic) [ ]VII. Empyema or lung abscess(13)(14) [ ]VIII. Severe pulmonary arterial hypertension or pulmonary vascular disease requiring inpatient care indicated by ANY ONE of the following(24)(25): [ ]a) Initiation or change of vasodilators (IV, subcutaneous, or inhaled) or other vasoactive medications needed [ ]b) IV anticoagulation needed (eg, immediate anticoagulation necessary, alternatives not appropriate) [ ]c) Arterial or pulmonary artery catheter monitoring needed due to infusion or other treatment [ ]IX. Chronic lung disease with severe deterioration (not responsive to emergency and observation care treatment as appropriate) as indicated by ANY ONE of the following (6)(12): [ ]a) SaO2 5% below baseline in patient with chronic hypoxemia [ ]b) New requirement for supplemental oxygen to keep SaO2 at baseline or acceptable level [ ]c) Required supplemental oxygen performable only in acute inpatient setting [ ]d) Severe airflow or ventilation abnormalities [ ]e) Rapid rate of exacerbation onset [ ]f) Previously mobile patient unable to walk between rooms [ ]g) Inability to eat or sleep due to dyspnea [ ]h) Altered mental status [ ]X. Cystic fibrosis with severe deterioration as indicated by ANY ONE of the following(26)(27): [ ]a) Severe exacerbation that does not respond to intensified home therapy [ ]b) Pneumonia [ ]c) Hemoptysis [ ]d) Atelectasis [ ]e) Pneumothorax [ ]f) Respiratory failure [ ]g) Severe exacerbation with patient unable to perform prescribed treatments at home [ ]XI. Severe right heart failure as indicated by ANY ONE of the following(24) (25): [ ]a) Increasing organ failure (eg, liver congestion with significant and worsening or new elevation of transaminases) [ ]b) Anasarca [ ]c) Angina that requires inpatient care (eg, not treatable in emergency or observation level of care) [ ]d) Respiratory distress [ ]e) Syncope [ ]f) SBP < 90 mm Hg (new) [ ]XII. Injury requiring inpatient care (medical) as indicated by ANY ONE of the following(28): [ ]a) Significant inhalation injury (eg, smoke inhalation, other toxic inhalation) (29)(30)(31) [ ]b) Airway obstruction that remains or is unstable after emergency or observation level care(32) [ ]c) Severe pain requiring acute inpatient management [ ]d) Lung contusion [ ]e) Bronchial tree injury [ ]f) Air or fat emboli(33) [ ]g) Other injury not treatable in emergency or observation level care (eg, hemothorax) (34) [ ]XIII. Pulmonary hemorrhage or significant hemoptysis(11)(35)(36) [ ]XIV. Inpatient palliative care needed[C](37)(38)(39)(40) [ ]XV. Complications of lung transplant (eg, rejection, failure, respiratory infection) (23) [ ]XVI. Pulmonary Disease and ANY ONE of the following: [ ]a) General Admission Criteria [ ]b) Pediatric General Admission Criteria The original [facility] content created by [facility] has been revised. The portions of the content which have been revised are identified through the use of italic text or in bold, and [facility] has neither reviewed nor approved the modified material. All other unmodified content is copyright [facility]. Please see references footnoted in the original [facility] edition 2016
[2017-01-15] MEDS ORDERED: NORCO 7.5/325 PO ONE (19:51)
[2017-01-15] MEDS ORDERED: LASIX PO ONE (19:51)
[2017-01-15] MEDS ORDERED: CATAPRES PO ONE (19:53)
[2017-01-15] MEDS ORDERED: DUONEB 0.5 MG-3 MG/3 ML SOLN IH ONE (19:54)
[2017-01-15] MEDS ORDERED: DELTASONE PO ONE (19:54)
--- NOTE | 2017-01-15 20:11 | Emergency Department Report ---
HPI - General Chief Complaint: Dyspnea/Respdistress Time Seen by Provider: 01/15/17 19:01 - HPI HPI: The patient is a 61-year-old male with a history of COPD, who presents for evaluation of dyspnea and leg swelling. The patient reports 1-2 days of mild dyspnea, consistent onset, exacerbated with exertion, improved with rest, and bilateral lower leg swelling of same duration, mild, but associated with severe bilateral lower leg pain, throbbing in quality, exacerbated with ambulation. He admits to a long-standing chronic history of on and off lower leg swelling. He states that his shortness of breath is consistent with previous episodes of COPD exacerbations. The patient denies fever, productive cough, chest pain, hemoptysis, abdominal pain, unilateral leg swelling, recent immobilization. ED Past Medical Hx - Past Medical History Hx Hypertension: Yes Hx CVA: Yes (2017-[facility]) Hx Deep Vein Thrombosis: Yes (right leg 2004) Hx Pulmonary Embolism: Yes (2004, IVC filter placed) Hx GERD: Yes Hx Arthritis: Yes (back) Hx Headaches / Migraines: Yes Hx Seizures: Yes Hx COPD: Yes (emphyzema) Hx HIV: No Additional medical history: Emphysema - Surgical History Hx Appendectomy: Yes Additional Surgical History: lumbar surgery, gastroectomy, l. elbow, partial gastrectomy for perforated ulcer - Social History Smoking Status: Current Every Day Smoker Substance Use Type: None - Medications Home Medications: Home Medications Medication Instructions Recorded Confirmed Last Taken Type Albuterol Sulfate [Ventolin HFA] 2 puff IH Q4H PRN 11/17/16 01/04/17 Unknown History AtorvaSTATin [Lipitor] 40 mg PO QHS 11/17/16 01/04/17 Unknown History Clopidogrel [Plavix] 75 mg PO QDAY 11/17/16 01/04/17 Unknown History Hydrochlorothiazide [HCTZ] 25 mg PO QDAY 11/17/16 01/04/17 Unknown History Pantoprazole [Protonix] 40 mg PO QDAY #30 tablet 11/17/16 01/04/17 Unknown Rx Rivaroxaban [Xarelto] 20 mg PO QDAY 11/17/16 01/04/17 Unknown History levETIRAcetam [Keppra TAB] 750 mg PO BID 11/17/16 01/04/17 Unknown History Docusate Sodium [Colace] 100 mg PO BID PRN #20 capsule 11/23/16 01/04/17 Unknown Rx oxyCODONE /ACETAMINOPHEN [Percocet 1 tab PO Q6HR PRN #20 tablet 11/24/16 Unknown Rx 5/325] traMADol [Ultram 50 MG tab] 50 mg PO Q6HR PRN #10 tablet 12/08/16 01/04/17 Unknown Rx predniSONE [Deltasone] 50 mg PO QDAY #5 tab 12/16/16 01/04/17 Unknown Rx Albuterol Sulfate [Albuterol 0.63% 0.63 mg IH Q4HR PRN #2 ml 01/04/17 Unknown Rx NEBS] Albuterol Sulfate [Proair 90 mcg IH Q4HR PRN #2 aer.pow.ba 01/04/17 Unknown Rx Respiclick] Ipratropium [place] [Atrovent Hfa] 12.9 gm IH Q4HR #2 hfa.aer.ad 01/04/17 Unknown Rx Ipratropium [Atrovent NEB] 0.5 mg IH Q4HR #2 ml 01/04/17 Unknown Rx Ondansetron [Zofran Odt] 4 mg PO QID PRN #20 tab.rapdis 01/04/17 Unknown Rx Tiotropium [place] [Spiriva 2 puff IH QDAY #1 mist.inhal 01/04/17 Unknown Rx Respimat] chlordiazePOXIDE [Librium] 25 mg PO Q8H PRN #20 capsule 01/04/17 Unknown Rx ALBUTEROL Inhaler [ProAir HFA 2 puff IH QID PRN #1 inhalation 01/15/17 Unknown Rx Inhaler] Furosemide [Lasix] 20 mg PO QDAY #14 tablet 01/15/17 Unknown Rx predniSONE [Deltasone] 20 mg PO QDAY #5 tab 01/15/17 Unknown Rx traMADol [Ultram 50 MG tab] 50 mg PO Q6HR PRN #10 tablet 01/15/17 Unknown Rx ED Review of Systems ROS: Stated complaint: LEGS SWOLLEN Other details as noted in HPI Constitutional: denies: fever ENT: denies: throat or neck pain Respiratory: denies: cough reports shortness of breath Cardiovascular: denies: chest pain Endocrine: denies unexplained weight loss or gain Gastrointestinal: denies: abdominal pain, nausea Genitourinary: denies: dysuria Musculoskeletal: reports leg swelling Skin: denies: rash Neurological: denies: headache Hematological/Lymphatic: denies: easy bleeding or easy bruising Psych: denies sadness or hopelessness Physical Exam - Physical Exam Vital Signs: Vital Signs 01/15/17 11:49 Temperature 98.1 F Pulse Rate 87 Respiratory 18 Rate Blood Pressure 148/99 O2 Sat by Pulse 99 Oximetry Physical Exam: General: well-nourished, well-developed, no acute distress Head: Normocephalic, atraumatic Eyes: normal sclera ENT: Mucous membranes are pink and moist Neck: trachea midline, neck supple, No neck stiffness, no cervical adenopathy Respiratory: mildly diminshed breath sounds and wheezing present bilaterally to apical lung reddy, Cardio: S1 and S2 present, no murmurs, rubs, gallops, capillary refill is brisk Abdomen: Normoactive bowel sounds, soft abdomen, no rigidity, no guarding or rebound tenderness Musc: 1+ pitting edema of bilateral lower extremities present Skin: No rash Neuro: no facial drooping, normal speech Psych: Normal affect ED Course Vital Signs 01/15/17 11:49 Temperature 98.1 F Pulse Rate 87 Respiratory 18 Rate Blood Pressure 148/99 O2 Sat by Pulse 99 Oximetry ED Medical Decision Making - Lab Data Result diagrams: 01/15/17 12:00 01/15/17 12:00 - Medical Decision Making The patient was seen and examined by myself. The patient is placed on a shipping and receiving specialist and continuous pulse ox. On initial evaluation, the patient was found to be in no distress. Evaluation orders were placed. The patient is given a breathing treatment and oral prednisone for txt of COPD. Chest x-ray negative for focal consolidation, pleural effusions, pulmonary congestion, pneumothorax, or other acute cardio pulmonary disease process. Lab results are grossly not concerning. The patient is given a tablet of Lasix for treatment of leg swelling. As the patient has bilateral lower extremity swelling, and no physical exam findings concerning for DVT, suspicion of DVT etiology of leg swelling is low at this time. The patient was reevaluated and reported that their symptoms were markedly improved. The patient is stable for discharge with outpatient follow-up. The patient is given follow-up and return instructions. The patient expressed understanding and agreed with the plan. The patient is given a prescription for prednisone. The patient is discharged in stable condition. Critical care attestation.: If time is entered above; I have spent that time in minutes in the direct care of this critically ill patient, excluding procedure time. ED Disposition Clinical Impression: Localized swelling of both lower legs, Leg pain, bilateral, Acute exacerbation of chronic obstructive pulmonary disease (COPD) Disposition: DISCHARGED TO HOME OR SELFCARE Is pt being admited?: No Does the pt Need Aspirin: No Condition: Stable Instructions: Chronic Obstructive Pulmonary Disease (ED), Leg Edema (ED) Prescriptions: ALBUTEROL Inhaler [ProAir HFA Inhaler] 2 puff IH QID PRN #1 inhalation PRN Reason: Shortness Of Breath Furosemide [Lasix] 20 mg PO QDAY #14 tablet predniSONE [Deltasone] 20 mg PO QDAY #5 tab traMADol [Ultram 50 MG tab] 50 mg PO Q6HR PRN #10 tablet PRN Reason: Pain Referrals: PRIMARY CARE, [Primary Care Provider] - 3-5 Days Time of Disposition: 19:53
[2017-01-15 22:06] VITALS: BP 132/76
== END 2017-01-15 22:12 | disposition home or self-care (01) ==
LOC: ED 11:32
DX: J44.1 Chronic obstructive pulmonary disease with (acute) exacerbation (principal); M79.89 Other specified soft tissue disorders; M79.604 Pain in right leg; M79.605 Pain in left leg; I10 Essential (primary) hypertension; I26.99 Other pulmonary embolism without acute cor pulmonale; K21.9 Gastro-esophageal reflux disease without esophagitis; M19.90 Unspecified osteoarthritis, unspecified site; G43.909 Migraine, unspecified, not intractable, without status migrainosus; F17.200 Nicotine dependence, unspecified, uncomplicated; R56.9 Unspecified convulsions; Z86.73 Personal history of transient ischemic attack (TIA), and cerebral infarction without residual deficits; Z86.718 Personal history of other venous thrombosis and embolism; Z90.49 Acquired absence of other specified parts of digestive tract; Z90.89 Acquired absence of other organs
CPT/HCPCS: 36415; 71020; 80048; 81001; 83880; 84484; 85025; 85610; 85730; 93005; 93010; 94640; 99285; J7512

== ENCOUNTER 2017-01-20 09:48 | Emergency (ER) | payer MEDICARE ==
[2017-01-20 10:13] VITALS: BP 153/110
[2017-01-20 10:50] LABS: Anion Gap 17 mmol/L; Blood Urea Nitrogen 8 mg/dL (9-20); Calcium 8.7 mg/dL (8.4-10.2); Carbon Dioxide 21 mmol/L (22-30); Chloride 105.7 mmol/L (98-107); Glucose 126 mg/dL (75-100); Sodium 140 mmol/L (137-145)
[2017-01-20 10:53] LABS: Basophils % (Auto) 0.9 % (0.0-1.8); Eosinophils % (Auto) 2.1 % (0.0-4.3); Mean Corpuscular HGB Conc 30 % (32-34); Mean Corpuscular Hemoglobin 26 pg (28-32); Mean Corpuscular Volume 86 fl (84-94); Platelet Count 191 K/mm3 (140-440); Red Blood Count 4.91 M/mm3 (3.65-5.03); Red Cell Distribution Width 14.8 % (13.2-15.2); White Blood Count 4.5 K/mm3 (4.5-11.0)
[2017-01-20 11:01] LABS: Hematocrit 42.2 % (35.5-45.6); Hemoglobin 12.8 gm/dl (11.8-15.2)
== END 2017-01-20 21:30 | disposition left against medical advice (07) ==
LOC: ED 09:48
DX: M79.89 Other specified soft tissue disorders (principal); Z53.21 Procedure and treatment not carried out due to patient leaving prior to being seen by health care provider
CPT/HCPCS: 36415; 80048; 85025

== ENCOUNTER 2017-02-12 19:23 | Emergency (ER) | payer MEDICARE ==
[2017-02-12 20:04] VITALS: BP 136/101
[2017-02-12 20:34] LABS: Hematocrit 41.7 % (35.5-45.6); Hemoglobin 13.2 gm/dl (11.8-15.2); Mean Corpuscular HGB Conc 32 % (32-34); Mean Corpuscular Volume 82 fl (84-94); Platelet Count 154 K/mm3 (140-440); Red Blood Count 5.12 M/mm3 (3.65-5.03); Red Cell Distribution Width 13.7 % (13.2-15.2); White Blood Count 4.7 K/mm3 (4.5-11.0)
[2017-02-12 20:40] LABS: Mean Corpuscular Hemoglobin 26 pg (28-32)
[2017-02-12 20:48] LABS: INR 1.44 (0.87-1.13)
--- NOTE | 2017-02-12 20:51 | Cat Scan Report ---
FINAL REPORT PROCEDURE: CT HEAD/BRAIN WO CON TECHNIQUE: Computerized tomography of the head was performed without contrast material. HISTORY: neuro deficits \T\lt; 6hrs or sx present upon awakening COMPARISON: No prior studies are available for comparison. FINDINGS: Skull and scalp: Normal. Paranasal sinuses: Normal. Ventricles and subarachnoid spaces: Normal. Cerebrum: There is focal encephalomalacia in the right frontal lobe from old infarct or injury. There is no hemorrhage, edema, mass, mass effect or midline shift.. Cerebellum and brainstem: No evidence of hemorrhage, acute infarction or mass. Vasculature: Normal. Comments: None. IMPRESSION: There is focal encephalomalacia in the right frontal lobe from old infarct or injury. There is no hemorrhage, edema, mass, mass effect or midline shift..
[2017-02-12 20:57] LABS: Anion Gap 17 mmol/L; Blood Urea Nitrogen 6 mg/dL (9-20); Calcium 8.8 mg/dL (8.4-10.2); Carbon Dioxide 23 mmol/L (22-30); Chloride 104.1 mmol/L (98-107); Glucose 67 mg/dL (75-100); Potassium 3.9 mmol/L (3.6-5.0); Sodium 140 mmol/L (137-145)
[2017-02-12 21:30] LABS: Blastocytes % (Manual) 0 %
[2017-02-12 21:32] LABS: Anisocytosis 1+; Elliptocytes Few
[2017-02-12 21:33] LABS: Diff Status Complete; Platelet Estimate Consistent w Auto; Target Cells Few
--- NOTE | 2017-02-16 07:57 | ED Elopement Review ---
ED Pt Elopement review - Results review Lab results: Laboratory Tests 02/12/17 02/12/17 02/12/17 20:05 20:10 20:10 WBC 4.7 RBC 5.12 H Hgb 13.2 Hct 41.7 MCV 82 L MCH 26 L MCHC 32 RDW 13.7 Plt Count 154 [place] % (Auto) [employer]inator Add Manual Diff Complete Total Counted 100 Seg Neutrophils % [employer] Education Coordinator Seg Neuts % (Manual) 25.0 L Band Neutrophils % 1.0 Lymphocytes % (Manual) 55.0 H Reactive Lymphs % (Man) 1.0 Monocytes % (Manual) 12.0 H Eosinophils % (Manual) 4.0 Basophils % (Manual) 2.0 H Metamyelocytes % 0 Myelocytes % 0 Promyelocytes % 0 Blast Cells % 0 Nucleated RBC % Not Reportable Seg Neutrophils # Man 1.2 L Band Neutrophils # 0.0 Lymphocytes # (Manual) 2.6 Abs React Lymphs (Man) 0.0 Monocytes # (Manual) 0.6 Eosinophils # (Manual) 0.2 Basophils # (Manual) 0.1 Metamyelocytes # 0.0 Myelocytes # 0.0 Promyelocytes # 0.0 Blast Cells # 0.0 WBC Morphology Not Reportable Hypersegmented Neuts Not Reportable Hyposegmented Neuts Not Reportable Hypogranular Neuts Not Reportable Smudge Cells Not Reportable Toxic Granulation Not Reportable Toxic Vacuolation Not Reportable Dohle Bodies Not Reportable Pelger-Huet Anomaly Not Reportable Trent Rods Not Reportable Platelet Estimate Consistent w auto Clumped Platelets Not Reportable Plt Clumps, EDTA Not Reportable Large Platelets Not Reportable Giant Platelets Not Reportable Platelet Satelliting Not Reportable Plt Morphology Comment Not Reportable RBC Morphology Not Reportable Dimorphic RBCs Not Reportable Polychromasia Not Reportable Hypochromasia Not Reportable Poikilocytosis Not Reportable Anisocytosis 1+ Microcytosis Not Reportable Macrocytosis Not Reportable Spherocytes Not Reportable Pappenheimer Bodies Not Reportable Sickle Cells Not Reportable Target Cells Few Tear Drop Cells Not Reportable Ovalocytes Not Reportable Helmet Cells Not Reportable Stone-[place]cova Bodies Not Reportable [place] Rings Not Reportable [place] Cells Not Reportable Bite Cells Not Reportable Crenated Cell Not Reportable Elliptocytes Few Acanthocytes (Spur) Not Reportable Rouleaux Not Reportable Hemoglobin C Crystals Not Reportable Schistocytes Not Reportable Malaria parasites Not Reportable Andrew Bodies Not Reportable Hem Pathologist Commnt No PT 17.5 H INR 1.44 H APTT 34.0 Thrombin Time Sodium Potassium Chloride Carbon Dioxide Anion Gap BUN Creatinine Estimated GFR BUN/Creatinine Ratio Glucose POC Glucose 68 L Calcium Troponin T 02/12/17 02/12/17 20:10 20:10 WBC RBC Hgb Hct MCV MCH MCHC RDW Plt Count Morton % (Auto) Add Manual Diff Total Counted Seg Neutrophils % Seg Neuts % (Manual) Band Neutrophils % Lymphocytes % (Manual) Reactive Lymphs % (Man) Monocytes % (Manual) Eosinophils % (Manual) Basophils % (Manual) Metamyelocytes % Myelocytes % Promyelocytes % Blast Cells % Nucleated RBC % Seg Neutrophils # Man Band Neutrophils # Lymphocytes # (Manual) Abs React Lymphs (Man) Monocytes # (Manual) Eosinophils # (Manual) Basophils # (Manual) Metamyelocytes # Myelocytes # Promyelocytes # Blast Cells # WBC Morphology Hypersegmented Neuts Hyposegmented Neuts Hypogranular Neuts Smudge Cells Toxic Granulation Toxic Vacuolation Dohle Bodies Pelger-Huet Anomaly Trent Rods Platelet Estimate Clumped Platelets Plt Clumps, EDTA Large Platelets Giant Platelets Platelet Satelliting Plt Morphology Comment RBC Morphology Dimorphic RBCs Polychromasia Hypochromasia Poikilocytosis Anisocytosis Microcytosis Macrocytosis Spherocytes Pappenheimer Bodies Sickle Cells Target Cells Tear Drop Cells Ovalocytes Helmet Cells Stone-Alcova Bodies [place] Rings Mark Cells Bite Cells Crenated Cell Elliptocytes Acanthocytes (Spur) Rouleaux Hemoglobin C Crystals Schistocytes Malaria parasites Andrew Bodies Hem Pathologist Commnt PT INR APTT Thrombin Time 15.6 Sodium 140 Potassium 3.9 Chloride 104.1 Carbon Dioxide 23 Anion Gap 17 BUN 6 L Creatinine 0.8 Estimated GFR > 60 BUN/Creatinine Ratio 7.50 Glucose 67 L POC Glucose Calcium 8.8 Troponin T < 0.010 - Call Back decision Pt Call Back Decision: No action required
== END 2017-02-13 00:05 | disposition left against medical advice (07) ==
LOC: ED 19:23
DX: R42 Dizziness and giddiness (principal); R51 Headache; R11.0 Nausea; Z53.21 Procedure and treatment not carried out due to patient leaving prior to being seen by health care provider
CPT/HCPCS: 36415; 70450; 80048; 82962; 84484; 85007; 85025; 85610; 85670; 85730; 93005; 93010

== ENCOUNTER 2017-05-13 17:02 | Emergency (ER) | payer MEDICARE ==
[2017-05-13 18:08] LABS: Basophils % (Auto) 1.5 % (0.0-1.8); Eosinophils % (Auto) 4.8 % (0.0-4.3); Hematocrit 42.6 % (35.5-45.6); Hemoglobin 13.2 gm/dl (11.8-15.2); Mean Corpuscular HGB Conc 31 % (32-34); Mean Corpuscular Hemoglobin 25 pg (28-32); Mean Corpuscular Volume 82 fl (84-94); Platelet Count 191 K/mm3 (140-440); Red Cell Distribution Width 14.8 % (13.2-15.2); White Blood Count 6.3 K/mm3 (4.5-11.0)
[2017-05-13 18:31] LABS: Sodium TNR mmol/L (137-145)
[2017-05-13 18:32] LABS: Anion Gap TNR mmol/L; BUN/Creatinine Ratio TNR; Blood Urea Nitrogen TNR mg/dL (9-20); Calcium TNR mg/dL (8.4-10.2); Carbon Dioxide TNR mmol/L (22-30); Chloride TNR mmol/L (98-107); Glucose TNR mg/dL (75-100); Potassium TNR mmol/L (3.6-5.0)
[2017-05-13 19:01] LABS: INR 1.04 (0.87-1.13)
[2017-05-13] MEDS ORDERED: CARAFATE PO ONE (19:23)
[2017-05-13] MEDS ORDERED: PEPCID IV ONE (19:23)
[2017-05-13] MEDS ORDERED: ALUM-MAG HYDROX-SIMETH 200-200-20MG/5ML PO ONE (19:23)
[2017-05-13] MEDS ORDERED: ZOFRAN IV ONE (19:23)
[2017-05-13] MEDS ORDERED: BENTYL IM ONE (19:23)
[2017-05-13] MEDS ORDERED: NACL 0.9% 1000 ML 1,000 ML IV ONE (19:24)
--- NOTE | 2017-05-13 19:24 | Emergency Department Report ---
ED General Adult HPI - General Chief complaint: Chest Pain Stated complaint: CHEST PAIN Time Seen by Provider: 05/13/17 19:10 Source: patient, EMS (ems notes not available at time of chart dictation), RN notes reviewed, old records reviewed Mode of arrival: Stretcher Limitations: No Limitations - History of Present Illness Initial comments: This is a 61-year-old male. He is previously known to me. Past medical history includes hypertension, COPD, seizure, stroke, partial gastrectomy, spinal fusion, alcohol dependency. The patient presents to the ER with complaints of chest pain. The chest pain does not radiate to the back, arms or neck. He does indicate that it radiates to the right and left anterior chest wall. There is chronic shortness of breath, which is not new, worsening or different. He describes a few emesis of bilious emesis. He then requested to eat. There is no diaphoresis. There is no leg pain. There is no leg swelling. Patient reports that he flew back from [place] yesterday. Contrary to what is documented in the triage nurse's note, patient further indicates that he was seen in the hospital yesterday in [place]. He cannot recall what he is seen for. Of note, patient had a negative nuclear stress test at this hospital October 2016. -: Gradual, hour(s) Location: chest Radiation: other (pe rhpi) Severity scale (0 -10): 10 Quality: aching Consistency: intermittent Improves with: none Worsens with: none Associated Symptoms: chest pain, nausea/vomiting, shortness of breath - Related Data Home Medications Medication Instructions Recorded Confirmed Last Taken Albuterol Sulfate [Ventolin HFA] 2 puff IH Q4H PRN 11/17/16 05/14/17 Unknown Hydrochlorothiazide [HCTZ] 25 mg PO QDAY 11/17/16 05/14/17 Unknown Rivaroxaban [Xarelto] 20 mg PO QDAY 11/17/16 05/14/17 Unknown levETIRAcetam [Keppra TAB] 750 mg PO BID 11/17/16 05/14/17 Unknown levETIRAcetam [Keppra TAB] 750 mg PO BID 05/14/17 05/14/17 Unknown Previous Rx's Medication Instructions Recorded Last Taken Type Tiotropium [place] [Spiriva 2 puff IH QDAY #1 mist.inhal 01/04/17 Unknown Rx Respimat] Famotidine [Pepcid] 20 mg PO QDAY #30 tablet 05/13/17 Unknown Rx Allergies Allergy/AdvReac Type Severity Reaction Status Date / Time aspirin Allergy Vomiting Verified 09/07/15 18:55 prochlorperazine Allergy Anaphylaxis Verified 09/07/15 18:55 [From Compazine] prochlorperazine edisylate Allergy Anaphylaxis Verified 09/07/15 18:55 [From Compazine] prochlorperazine maleate Allergy Anaphylaxis Verified 09/07/15 18:55 [From Compazine] ED Review of Systems ROS: Stated complaint: CHEST PAIN Other details as noted in HPI Constitutional: denies: fever Eyes: denies: vision change ENT: denies: epistaxis Respiratory: denies: wheezing Cardiovascular: chest pain Gastrointestinal: nausea, vomiting Genitourinary: denies: dysuria Musculoskeletal: arthralgia Skin: denies: lesions Neurological: weakness Psychiatric: anxiety ED Past Medical Hx - Past Medical History Hx Hypertension: Yes Hx CVA: Yes (2017-[facility]) Hx Deep Vein Thrombosis: Yes (right leg 2004) Hx Pulmonary Embolism: Yes (2004, IVC filter placed) Hx GERD: Yes Hx Arthritis: Yes (back) Hx Headaches / Migraines: Yes Hx Seizures: Yes Hx COPD: Yes (emphyzema) Hx HIV: No Additional medical history: Emphysema - Surgical History Past Surgical History?: Yes Hx Appendectomy: Yes Additional Surgical History: lumbar surgery, gastroectomy, l. elbow, partial gastrectomy for perforated ulcer - Social History Smoking Status: Current Every Day Smoker Substance Use Type: Alcohol - Medications Home Medications: Home Medications Medication Instructions Recorded Confirmed Last Taken Type Albuterol Sulfate [Ventolin HFA] 2 puff IH Q4H PRN 11/17/16 05/14/17 Unknown History Hydrochlorothiazide [HCTZ] 25 mg PO QDAY 11/17/16 05/14/17 Unknown History Rivaroxaban [Xarelto] 20 mg PO QDAY 11/17/16 05/14/17 Unknown History levETIRAcetam [Keppra TAB] 750 mg PO BID 11/17/16 05/14/17 Unknown History Tiotropium [place] [Spiriva 2 puff IH QDAY #1 mist.inhal 01/04/17 05/14/17 Unknown Rx Respimat] Famotidine [Pepcid] 20 mg PO QDAY #30 tablet 05/13/17 05/14/17 Unknown Rx levETIRAcetam [Keppra TAB] 750 mg PO BID 05/14/17 05/14/17 Unknown History ED Physical Exam - General Limitations: No Limitations General appearance: alert, in no apparent distress - Head Head exam: Present: atraumatic, normocephalic - Eye Eye exam: Present: normal appearance, EOMI. Absent: nystagmus - ENT ENT exam: Present: normal exam, normal orophraynx, mucous membranes moist, normal external ear exam - Neck Neck exam: Present: normal inspection, full ROM. Absent: tenderness, meningismus - Respiratory Respiratory exam: Present: normal lung sounds bilaterally. Absent: respiratory distress, wheezes, rales, rhonchi, stridor, chest wall tenderness, accessory muscle use, decreased breath sounds, prolonged expiratory - Cardiovascular Cardiovascular Exam: Present: regular rate, normal rhythm, normal heart sounds. Absent: bradycardia, tachycardia, irregular rhythm, systolic murmur, diastolic murmur, rubs, gallop - GI/Abdominal GI/Abdominal exam: Present: soft, normal bowel sounds. Absent: distended, tenderness, guarding, rebound, rigid, pulsatile mass - Rectal Rectal exam: Present: deferred - Extremities Exam Extremities exam: Present: normal inspection, full ROM, normal capillary refill. Absent: pedal edema, joint swelling, calf tenderness - Back Exam Back exam: Present: normal inspection, full ROM. Absent: tenderness, CVA tenderness (R), CVA tenderness (L), muscle spasm, paraspinal tenderness, vertebral tenderness - Neurological Exam Neurological exam: Present: alert, oriented X3, other (Extraocular movements intact. Tongue midline. No facial droop. Facial sensation intact to light touch in the V1, V2, V3 distribution bilaterally. 5 and 5 strength in 4 extremities.. Sensation is intact to light touch in 4 extremities.). Absent: motor sensory deficit - Psychiatric Psychiatric exam: Present: normal affect, normal mood - Skin Skin exam: Present: warm, dry, intact, normal color. Absent: rash ED Course Vital Signs 05/13/17 05/13/17 05/13/17 17:23 17:30 17:36 Temperature 98.6 F Pulse Rate 97 H 95 H Respiratory 16 18 Rate Blood Pressure 102/71 102/71 Blood Pressure [Right] O2 Sat by Pulse 94 97 97 Oximetry 05/13/17 05/13/17 05/13/17 17:43 18:00 18:30 Temperature Pulse Rate 86 75 Respiratory 18 19 11 L Rate Blood Pressure 112/75 112/75 Blood Pressure [Right] O2 Sat by Pulse 97 96 97 Oximetry 05/13/17 05/13/17 05/13/17 19:00 19:30 22:30 Temperature Pulse Rate 74 79 82 Respiratory 14 13 12 Rate Blood Pressure 97/60 104/75 91/58 Blood Pressure [Right] O2 Sat by Pulse 98 99 90 Oximetry 05/13/17 23:12 Temperature 98.5 F Pulse Rate 77 Respiratory 20 Rate Blood Pressure Blood Pressure 91/58 [Right] O2 Sat by Pulse 94 Oximetry - EJ/Peripheral Line Neck R Time Out Performed: Yes Indications: nurses unable to establis Skin Cleansed in Sterile Fashion: Yes Size: 18 Dressing Placed: Tegaderm Patient Tolerated Procedure: well ED Medical Decision Making - Lab Data Result diagrams: 05/13/17 17:44 05/13/17 20:12 - EKG Data -: EKG Interpreted by Me EKG shows normal: sinus rhythm - EKG Data 05/13/17 22:22 EKG #1 demonstrates sinus, 91 bpm, normal axis, normal intervals, morphologically within normal limits, not consistent with STEMI. EKG #2 demonstrates normal sinus, 86 bpm, normal intervals, normal axis, not consistent with STEMI. EKG is unchanged compared to prior EKG from 02/12/2017 - Radiology Data Radiology results: image reviewed interpreted by me: X-ray of the chest demonstrated chronic emphysematous changes. No acute disease. - Medical Decision Making Differential diagnosis: GERD, gastritis, acute coronary syndrome, pneumonia, pleuritis, pericarditis, myocarditis, pulmonary embolus Assessment and plan: 61-year-old male with atypical chest pain. He is afebrile with reassuring vital signs. He is resting quite comfortably in the department. He has been noted to be eating and drinking without difficulty. Troponins are negative 2, d-dimer negative, low risk by well's criteria based on clinical history, EKG unremarkable and unchanged 2, patient recently had a negative nuclear stress test at this hospital a few months ago. The patient is suitable to follow-up as an outpatient primary care doctor or timber selector for his chest pain. He will be discharged at this time. Critical care attestation.: If time is entered above; I have spent that time in minutes in the direct care of this critically ill patient, excluding procedure time. ED Disposition Clinical Impression: Chest pain Disposition: DC-01 TO HOME OR SELFCARE Is pt being admited?: No Does the pt Need Aspirin: No Condition: Stable Instructions: Chest Pain (ED) Additional Instructions: Continue current outpatient medications. Follow-up with the primary care doctor or timber selector within the next 5 days. Return to the ER right away with new pain, worsened pain, migration of pain, fevers, chills, intractable nausea or vomiting, and inability to tolerate liquid feeds, confusion, change in mental status. Prescriptions: Famotidine [Pepcid] 20 mg PO QDAY #30 tablet Referrals: PRIMARY MD GLENDA [Primary Care Provider] - 3-5 Days AUBREE LOWE MD [Staff Physician] - 3-5 Days JEFFREY DEVLIN MD [Staff Physician] - 3-5 Days GIANNA SANCHEZ MD [Staff Physician] - 3-5 Days
[2017-05-13 20:48] LABS: Anion Gap 20 mmol/L; BUN/Creatinine Ratio 18.88; Blood Urea Nitrogen 17 mg/dL (9-20); Calcium 8.8 mg/dL (8.4-10.2); Carbon Dioxide 25 mmol/L (22-30); Chloride 99.4 mmol/L (98-107); Glucose 171 mg/dL (75-100); Potassium 4.4 mmol/L (3.6-5.0); Sodium 140 mmol/L (137-145)
[2017-05-13 23:12] VITALS: BP 91/58
--- NOTE | 2017-05-14 09:15 | XRay Report ---
Single view chest: Compared to 01/15/17. History: Chest pain. Findings: Normal cardiomediastinal silhouette. Trachea is midline. Scarring noted left lower lobe with evidence of mild emphysema. No acute consolidation. Impression: No acute lung changes. Findings as detailed above.
== END 2017-05-14 00:16 | disposition home or self-care (01) ==
LOC: ED 17:02
DX: R07.89 Other chest pain (principal); R06.02 Shortness of breath; I10 Essential (primary) hypertension; K21.9 Gastro-esophageal reflux disease without esophagitis; M19.90 Unspecified osteoarthritis, unspecified site; G43.909 Migraine, unspecified, not intractable, without status migrainosus; J44.9 Chronic obstructive pulmonary disease, unspecified; F17.210 Nicotine dependence, cigarettes, uncomplicated; Z88.6 Allergy status to analgesic agent; Z86.73 Personal history of transient ischemic attack (TIA), and cerebral infarction without residual deficits; Z86.718 Personal history of other venous thrombosis and embolism; Z88.8 Allergy status to other drugs, medicaments and biological substances
CPT/HCPCS: 36415; 71010; 80048; 83690; 84484; 85025; 85379; 85610; 93005; 93010; 96361; 96372; 96374; 96375; 99285; J0500; J2405; J7030

== ENCOUNTER 2017-05-14 08:12 | Emergency (ER) | payer MEDICARE ==
[2017-05-14 10:18] LABS: Basophils % (Auto) 0.7 % (0.0-1.8); Eosinophils % (Auto) 3.9 % (0.0-4.3); Hematocrit 37.5 % (35.5-45.6); Mean Corpuscular HGB Conc 32 % (32-34); Mean Corpuscular Volume 81 fl (84-94); Platelet Count 168 K/mm3 (140-440); Red Blood Count 4.65 M/mm3 (3.65-5.03); Red Cell Distribution Width 14.8 % (13.2-15.2); White Blood Count 5.7 K/mm3 (4.5-11.0)
[2017-05-14 10:24] LABS: Anion Gap 16 mmol/L; BUN/Creatinine Ratio 21.42; Blood Urea Nitrogen 15 mg/dL (9-20); Calcium 8.6 mg/dL (8.4-10.2); Carbon Dioxide 23 mmol/L (22-30); Chloride 101.3 mmol/L (98-107); Glucose 116 mg/dL (75-100); Mean Corpuscular Hemoglobin 26 pg (28-32); Potassium 4.7 mmol/L (3.6-5.0); Sodium 136 mmol/L (137-145)
[2017-05-14 11:06] LABS: Urine Drugs of Abuse Note Disclamer
[2017-05-14 11:28] LABS: Bilirubin,Urine NEG (Negative); Blood,Urine NEG (Negative); Ketones,Urine NEG (Negative); Leukocyte Esterase,Urine NEG (Negative); Mucus,Urine FEW /HPF; Nitrite,Urine NEG (Negative); Protein,Urine <15 mg/dL mg/dL (Negative); RBC,Urine < 1.0 /HPF (0.0-6.0); WBC,Urine < 1.0 /HPF (0.0-6.0)
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
[2017-05-15] MEDS ORDERED: TYLENOL ONE (10:21)
[2017-05-15] MEDS ORDERED: ZOFRAN ODT ONE (10:22)
[2017-05-15] MEDS ORDERED: ZOFRAN ODT PO ONE (10:28)
[2017-05-15] MEDS ORDERED: TYLENOL PO ONE (10:29)
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
[2017-05-16] MEDS ORDERED: PROAIR IH PRN (18:41)
[2017-05-16] MEDS ORDERED: NON-FORMULARY (Levetiracetam [Keppra Tab] 750 MG) PO SCH (22:00)
[2017-05-16] MEDS: KEPPRA PO SCH (22:37)
[2017-05-16] MEDS ORDERED: TYLENOL PO ONE (22:39)
[2017-05-17 08:43] VITALS: BP 99/62
[2017-05-17] MEDS ORDERED: XARELTO PO SCH (10:00)
[2017-05-17] MEDS ORDERED: PEPCID PO SCH (10:00)
[2017-05-17] MEDS ORDERED: SPIRIVA IH SCH (10:00)
[2017-05-17] MEDS ORDERED: HCTZ PO SCH (10:00)
[2017-05-17] MEDS ORDERED: NON-FORMULARY (Tiotropium Bromide [Spiriva Respimat] 2 PUFF) IH SCH (10:00)
[2017-05-17] MEDS: KEPPRA PO SCH (11:21)
--- NOTE | 2017-05-17 13:43 | Progress Note ---
Subjective - Reason for Consult Consult date: 05/17/17 Reason for consult: Psychiatry Follow-up - Chief Complaint Chief complaint: "I want to go back to [facility]" 61 year old AA male, known to this author from previous treatment. Today patient is calm and cooperative during assessment. He stated that he plan to complete the PHP at [facility] and move back to [place]. He feels like he has a better support system there. He stated that he need to stop drinking, because he have other medical concerns that are exacerbated by the alcohol (etoh ). He denies SI/HI's, AVH's, and depression. He denies any side effects of his medication. Mental Status Exam - Vital signs Last Vital Signs Temp 99 F 05/17/17 08:41 Pulse 86 05/17/17 08:41 Resp 16 05/17/17 08:43 BP 99/62 05/17/17 08:41 Pulse Ox 98 05/17/17 08:43 - Exam Narrative exam: MSE: Appearance: jade, cooperative Behavior: regular eye contact Speech: regular rate and tone Mood: "well" Affect: appropriate Thought Process: linear Thought Content: denies SI/HI's and AVH's Motor Activity: ambulatory Cognition: A/Ox 3 Insight: fair Judgment: fair Assessment and Plan Impression: Alcohol Use DO, MDD. Recommendation/Plan: Rescind 1013. Patient will step down to PHP at [facility] ([place]) once discharged. Continue current medication regimen. Discussed possible metabolic side effects of Seroquel with patient. Discussed the importance to abstain from alcohol consumption (etoh).
--- NOTE | 2017-05-17 16:37 | Event Note ---
Date: 05/17/17 The patient is assessed by myself. He is neither homicidal nor suicidal. He is alert and oriented 3, with a GCS of 15, NIH score of 0, and he is clinically sober at this time. Plan for psychiatry is to discharge with outpatient follow-up. Vital Signs 05/14/17 05/14/17 05/14/17 09:20 11:16 23:34 Temperature 98.4 F 98.6 F Pulse Rate 80 84 Respiratory 18 18 16 Rate Blood Pressure 97/74 Blood Pressure 104/83 [Left] O2 Sat by Pulse 100 100 96 Oximetry 05/15/17 05/15/17 05/16/17 09:21 20:22 02:20 Temperature 98.3 F 98.0 F Pulse Rate 80 77 Respiratory 18 20 18 Rate Blood Pressure Blood Pressure 98/60 96/71 [Left] O2 Sat by Pulse 99 97 99 Oximetry 05/16/17 05/17/17 05/17/17 10:32 08:41 08:43 Temperature 97.7 F 99 F Pulse Rate 88 86 Respiratory 20 16 16 Rate Blood Pressure Blood Pressure 111/80 99/62 [Left] O2 Sat by Pulse 99 98 98 Oximetry Laboratory Last Values WBC 5.7 K/mm3 (4.5-11.0) 05/14/17 09:50 RBC 4.65 M/mm3 (3.65-5.03) 05/14/17 09:50 Hgb 12.0 gm/dl (11.8-15.2) 05/14/17 09:50 Hct 37.5 % (35.5-45.6) 05/14/17 09:50 MCV 81 fl (84-94) L 05/14/17 09:50 MCH 26 pg (28-32) L 05/14/17 09:50 MCHC 32 % (32-34) 05/14/17 09:50 RDW 14.8 % (13.2-15.2) 05/14/17 09:50 Plt Count 168 K/mm3 (140-440) 05/14/17 09:50 Lymph % (Auto) 26.3 % (13.4-35.0) 05/14/17 09:50 [place] % (Auto) 14.7 % (0.0-7.3) H 05/14/17 09:50 Eos % (Auto) 3.9 % (0.0-4.3) 05/14/17 09:50 Baso % (Auto) 0.7 % (0.0-1.8) 05/14/17 09:50 Lymph # 1.5 K/mm3 (1.2-5.4) 05/14/17 09:50 [place] # 0.8 K/mm3 (0.0-0.8) 05/14/17 09:50 Eos # 0.2 K/mm3 (0.0-0.4) 05/14/17 09:50 Baso # 0.0 K/mm3 (0.0-0.1) 05/14/17 09:50 Seg Neutrophils % 54.4 % (40.0-70.0) 05/14/17 09:50 Seg Neutrophils # 3.1 K/mm3 (1.8-7.7) 05/14/17 09:50 Sodium 136 mmol/L (137-145) L 05/14/17 09:50 Potassium 4.7 mmol/L (3.6-5.0) 05/14/17 09:50 Chloride 101.3 mmol/L (98-107) 05/14/17 09:50 Carbon Dioxide 23 mmol/L (22-30) 05/14/17 09:50 Anion Gap 16 mmol/L 05/14/17 09:50 BUN 15 mg/dL (9-20) 05/14/17 09:50 Creatinine 0.7 mg/dL (0.8-1.5) L 05/14/17 09:50 Estimated GFR > 60 ml/min 05/14/17 09:50 BUN/Creatinine Ratio 21.42 % 05/14/17 09:50 Glucose 116 mg/dL (75-100) H 05/14/17 09:50 Calcium 8.6 mg/dL (8.4-10.2) 05/14/17 09:50 Urine Color Yellow (Yellow) 05/14/17 Unknown Urine Turbidity Clear (Clear) 05/14/17 Unknown Urine pH 7.0 (5.0-7.0) 05/14/17 Unknown Ur Specific [place] 1.021 (1.003-1.030) 05/14/17 Unknown Urine Protein <15 mg/dl mg/dL (Negative) 05/14/17 Unknown Urine Glucose (UA) Neg mg/dL (Negative) 05/14/17 Unknown Urine Ketones Neg mg/dL (Negative) 05/14/17 Unknown Urine Blood Neg (Negative) 05/14/17 Unknown Urine Nitrite Neg (Negative) 05/14/17 Unknown Urine Bilirubin Neg (Negative) 05/14/17 Unknown Urine Urobilinogen 4.0 mg/dL (<2.0) 05/14/17 Unknown Ur Leukocyte Esterase Neg (Negative) 05/14/17 Unknown Urine WBC (Auto) < 1.0 /HPF (0.0-6.0) 05/14/17 Unknown Urine RBC (Auto) < 1.0 /HPF (0.0-6.0) 05/14/17 Unknown U Epithel Cells (Auto) < 1.0 /HPF (0-13.0) 05/14/17 Unknown Urine Mucus Few /HPF 05/14/17 Unknown Urine Opiates Screen Presumptive negative 05/14/17 Unknown Urine Methadone Screen Presumptive negative 05/14/17 Unknown Ur Barbiturates Screen Presumptive negative 05/14/17 Unknown Ur Phencyclidine Scrn Presumptive negative 05/14/17 Unknown Ur Amphetamines Screen Presumptive negative 05/14/17 Unknown U Benzodiazepines Scrn Presumptive positive 05/14/17 Unknown Urine Cocaine Screen Presumptive negative 05/14/17 Unknown U Marijuana (THC) Screen Presumptive negative 05/14/17 Unknown Drugs of Abuse Note Disclamer 05/14/17 Unknown Plasma/Serum Alcohol < 0.01 gm% (0-0.07) 05/14/17 09:50
== END 2017-05-17 17:15 | disposition home or self-care (01) ==
LOC: EEVIPCON 08:12 → ED 08:12
DX: F39 Unspecified mood [affective] disorder (principal); I10 Essential (primary) hypertension; K21.9 Gastro-esophageal reflux disease without esophagitis; G43.909 Migraine, unspecified, not intractable, without status migrainosus; F17.200 Nicotine dependence, unspecified, uncomplicated
CPT/HCPCS: 36415; 80048; 80307; 81001; 85025; 93005; 93010; 99284; G0480; 80320; Q0162

== ENCOUNTER 2017-08-16 10:16 | Emergency (ER) | payer MEDICARE ==
--- NOTE | 2017-08-16 10:54 | Emergency Department Report ---
Chief Complaint: Medical Clearance Stated Complaint: SEIZURE Time Seen by Provider: 08/16/17 10:45 - HPI History of Present Illness: Patient here to be clinically cleared. Patient was at [place] for alcohol rehabilitation and he said he had a seizure at about 4 AM this morning and they sent him here to be cleared because of the seizure. Patient said that he hasn' t had alcohol for 8 days now. He also says that he takes his Keppra 750 mg twice a day and the last time he took it was 7 PM last night. He denies any head injury or headache. Denies any injury after seizure. Denies any suicide ideation. Denies any homicidal ideation. Patient have multiple medical issues to include last history of DVT in his right leg and he sounds are also and also has pulmonary embolism in 2004 and he had IVC filter .he also has multiple other medical problems. Denies dizziness, blurred vision. - ROS Review of Systems: All systems are negative unless stated in HPI above - Exam Vital Signs: Vital Signs 08/16/17 10:38 Temperature 98.5 F Pulse Rate 81 Respiratory 20 Rate Blood Pressure 129/81 O2 Sat by Pulse 100 Oximetry Physical Exam: Gen.: This is a 61-year-old male well-nourished well-developed in no acute distress. Head: Normocephalic, atraumatic. No contusion, abrasion, laceration. Psych: Normal mood and behavior. Negative suicide or homicide ideation. MSE screening note: Focused history and physical exam performed. Due to findings the following was ordered: ED Medical Decision Making - Medical Decision Making MDM: Patient screened by provider in triage area. Appropriate protocol initiated and patient to be seen in main ED by ED Disposition for MSE Condition: Stable
[2017-08-16 11:30] LABS: Basophils % (Auto) 1.6 % (0.0-1.8); Eosinophils % (Auto) 3.7 % (0.0-4.3); Hematocrit 44.4 % (35.5-45.6); Hemoglobin 13.6 gm/dl (11.8-15.2); Mean Corpuscular HGB Conc 31 % (32-34); Mean Corpuscular Hemoglobin 25 pg (28-32); Mean Corpuscular Volume 82 fl (84-94); Platelet Count 199 K/mm3 (140-440); Red Cell Distribution Width 14.7 % (13.2-15.2); White Blood Count 4.4 K/mm3 (4.5-11.0)
[2017-08-16 11:51] LABS: Alanine Aminotransferase 20 units/L (7-56); Albumin 3.8 g/dL (3.9-5); Albumin/Globulin Ratio 1.2 %; Alkaline Phosphatase 58 units/L (35-129); Anion Gap 18 mmol/L; BUN/Creatinine Ratio 13; Blood Urea Nitrogen 10 mg/dL (9-20); Calcium 8.9 mg/dL (8.4-10.2); Carbon Dioxide 24 mmol/L (22-30); Chloride 106.7 mmol/L (98-107); Glucose 104 mg/dL (75-100); Potassium 3.7 mmol/L (3.6-5.0); Sodium 145 mmol/L (137-145)
[2017-08-16 11:53] LABS: Bilirubin,Direct < 0.2 mg/dL (0-0.2)
[2017-08-16] MEDS ORDERED: KEPPRA PO ONE (13:48)
[2017-08-16 14:23] LABS: Urine Drugs of Abuse Note Disclamer
[2017-08-16 14:44] LABS: Bilirubin,Urine NEG (Negative); Blood,Urine NEG (Negative); Ketones,Urine TR mg/dL (Negative); Leukocyte Esterase,Urine NEG (Negative); Mucus,Urine 3+ /HPF; Nitrite,Urine NEG (Negative); Protein,Urine <15 mg/dL mg/dL (Negative)
[2017-08-16 14:49] VITALS: BP 127/84
--- NOTE | 2017-08-16 14:49 | Emergency Department Report ---
ED General Adult HPI - General Chief complaint: Medical Clearance Stated complaint: SEIZURE Time Seen by Provider: 08/16/17 10:45 Source: patient Mode of arrival: Ambulatory Limitations: No Limitations - History of Present Illness Initial comments: Patient is a 70-year-old male past medical history of seizure disorder controlled on Keppra who presents with seizure. She states that he's had a seizure today and he was told that he had to be cleared by the emergency department nor to come back to where he was. Patient is currently getting care for alcohol abuse and alcohol withdrawal treatment an outside facility. Patient denies having any pain or having any homicidal or suicidal ideation. Patient is alert and oriented 3 and has clear goal-directed behavior. Severity scale (0 -10): 0 - Related Data Home Medications Medication Instructions Recorded Confirmed Last Taken Albuterol Sulfate [Ventolin HFA] 2 puff IH Q4H PRN 11/17/16 05/14/17 Unknown Hydrochlorothiazide [HCTZ] 25 mg PO QDAY 11/17/16 05/14/17 Unknown Rivaroxaban [Xarelto] 20 mg PO QDAY 11/17/16 05/14/17 Unknown levETIRAcetam [Keppra TAB] 750 mg PO BID 11/17/16 05/14/17 Unknown levETIRAcetam [Keppra TAB] 750 mg PO BID 05/14/17 05/14/17 Unknown Previous Rx's Medication Instructions Recorded Last Taken Type Tiotropium [place] [Spiriva 2 puff IH QDAY #1 mist.inhal 01/04/17 Unknown Rx Respimat] Famotidine [Pepcid] 20 mg PO QDAY #30 tablet 05/13/17 Unknown Rx Allergies Allergy/AdvReac Type Severity Reaction Status Date / Time aspirin Allergy Vomiting Verified 09/07/15 18:55 prochlorperazine Allergy Anaphylaxis Verified 09/07/15 18:55 [From Compazine] prochlorperazine edisylate Allergy Anaphylaxis Verified 09/07/15 18:55 [From Compazine] prochlorperazine maleate Allergy Anaphylaxis Verified 09/07/15 18:55 [From Compazine] ED Review of Systems ROS: Stated complaint: SEIZURE Other details as noted in HPI Constitutional: denies: chills, fever Eyes: denies: eye pain, eye discharge, vision change ENT: denies: ear pain, throat pain Respiratory: denies: cough, shortness of breath, wheezing Cardiovascular: denies: chest pain, palpitations Endocrine: no symptoms reported Gastrointestinal: denies: abdominal pain, nausea, diarrhea Genitourinary: denies: urgency, dysuria Musculoskeletal: denies: back pain, joint swelling, arthralgia Skin: denies: rash, lesions Neurological: other (seizures ). denies: headache, weakness, paresthesias Psychiatric: denies: anxiety, depression Hematological/Lymphatic: denies: easy bleeding, easy bruising ED Past Medical Hx - Past Medical History Previous Medical History?: Yes Hx Hypertension: Yes Hx CVA: Yes (2017-TPA) Hx Deep Vein Thrombosis: Yes (right leg 2004) Hx Pulmonary Embolism: Yes (2004, IVC filter placed) Hx GERD: Yes Hx Arthritis: Yes (back) Hx Headaches / Migraines: Yes Hx Seizures: Yes Hx COPD: Yes (emphysema) Hx HIV: No Additional medical history: Emphysema - Surgical History Past Surgical History?: Yes Hx Appendectomy: Yes Additional Surgical History: lumbar surgery, gastrectomy, l. elbow, partial gastrectomy for perforated ulcer - Social History Smoking Status: Current Every Day Smoker Substance Use Type: Prescribed - Medications Home Medications: Home Medications Medication Instructions Recorded Confirmed Last Taken Type Albuterol Sulfate [Ventolin HFA] 2 puff IH Q4H PRN 11/17/16 05/14/17 Unknown History Hydrochlorothiazide [HCTZ] 25 mg PO QDAY 11/17/16 05/14/17 Unknown History Rivaroxaban [Xarelto] 20 mg PO QDAY 11/17/16 05/14/17 Unknown History levETIRAcetam [Keppra TAB] 750 mg PO BID 11/17/16 05/14/17 Unknown History Tiotropium [place] [Spiriva 2 puff IH QDAY #1 mist.inhal 01/04/17 05/14/17 Unknown Rx Respimat] Famotidine [Pepcid] 20 mg PO QDAY #30 tablet 05/13/17 05/14/17 Unknown Rx levETIRAcetam [Keppra TAB] 750 mg PO BID 05/14/17 05/14/17 Unknown History ED Physical Exam - General Limitations: No Limitations General appearance: alert, in no apparent distress - Head Head exam: Present: atraumatic, normocephalic - Eye Eye exam: Present: normal appearance - ENT ENT exam: Present: mucous membranes moist - Neck Neck exam: Present: normal inspection - Respiratory Respiratory exam: Present: normal lung sounds bilaterally. Absent: respiratory distress - Cardiovascular Cardiovascular Exam: Present: regular rate, normal rhythm. Absent: systolic murmur, diastolic murmur, rubs, gallop - GI/Abdominal GI/Abdominal exam: Present: soft, normal bowel sounds - Rectal Rectal exam: Present: deferred - Extremities Exam Extremities exam: Present: normal inspection - Back Exam Back exam: Present: normal inspection - Neurological Exam Neurological exam: Present: alert, oriented X3 - Psychiatric Psychiatric exam: Present: normal affect, normal mood - Skin Skin exam: Present: warm, dry, intact, normal color. Absent: rash ED Course Vital Signs 08/16/17 08/16/17 10:38 12:56 Temperature 98.5 F Pulse Rate 81 78 Respiratory 20 17 Rate Blood Pressure 129/81 Blood Pressure 124/78 [Right] O2 Sat by Pulse 100 99 Oximetry ED Medical Decision Making - Lab Data Result diagrams: 08/16/17 11:20 08/16/17 11:20 Lab Results 08/16/17 08/16/17 08/16/17 Range/Units 11:20 11:20 11:20 WBC 4.4 L (4.5-11.0) K/mm3 RBC 5.40 H (3.65-5.03) M/mm3 Hgb 13.6 (11.8-15.2) gm/dl Hct 44.4 (35.5-45.6) % MCV 82 L (84-94) fl MCH 25 L (28-32) pg MCHC 31 L (32-34) % RDW 14.7 (13.2-15.2) % Plt Count 199 (140-440) K/mm3 Lymph % (Auto) 41.1 H (13.4-35.0) % [place] % (Auto) 14.1 H (0.0-7.3) % Eos % (Auto) 3.7 (0.0-4.3) % Baso % (Auto) 1.6 (0.0-1.8) % Lymph # 1.8 (1.2-5.4) K/mm3 [place] # 0.6 (0.0-0.8) K/mm3 Eos # 0.2 (0.0-0.4) K/mm3 Baso # 0.1 (0.0-0.1) K/mm3 Seg Neutrophils % 39.5 L (40.0-70.0) % Seg Neutrophils # 1.8 (1.8-7.7) K/mm3 Sodium 145 (137-145) mmol/L Potassium 3.7 (3.6-5.0) mmol/L Chloride 106.7 (98-107) mmol/L Carbon Dioxide 24 (22-30) mmol/L Anion Gap 18 mmol/L BUN 10 (9-20) mg/dL Creatinine 0.8 (0.8-1.5) mg/dL Estimated GFR > 60 ml/min BUN/Creatinine Ratio 13 % Glucose 104 H (75-100) mg/dL Calcium 8.9 (8.4-10.2) mg/dL Total Bilirubin 0.20 (0.1-1.2) mg/dL Direct Bilirubin < 0.2 (0-0.2) mg/dL AST 20 (5-40) units/L ALT 20 (7-56) units/L Alkaline Phosphatase 58 (35-129) units/L Total Protein 7.0 (6.3-8.2) g/dL Albumin 3.8 L (3.9-5) g/dL Albumin/Globulin Ratio 1.2 % Urine Bilirubin (Negative) Urine RBC (Auto) (0.0-6.0) /HPF U Epithel Cells (Auto) (0-13.0) /HPF Plasma/Serum Alcohol < 0.01 (0-0.07) gm% 08/16/17 Range/Units 14:21 WBC (4.5-11.0) K/mm3 RBC (3.65-5.03) M/mm3 Hgb (11.8-15.2) gm/dl Hct (35.5-45.6) % MCV (84-94) fl MCH (28-32) pg MCHC (32-34) % RDW (13.2-15.2) % Plt Count (140-440) K/mm3 Lymph % (Auto) (13.4-35.0) % [place] % (Auto) (0.0-7.3) % Eos % (Auto) (0.0-4.3) % Baso % (Auto) (0.0-1.8) % Lymph # (1.2-5.4) K/mm3 [place] # (0.0-0.8) K/mm3 Eos # (0.0-0.4) K/mm3 Baso # (0.0-0.1) K/mm3 Seg Neutrophils % (40.0-70.0) % Seg Neutrophils # (1.8-7.7) K/mm3 Sodium (137-145) mmol/L Potassium (3.6-5.0) mmol/L Chloride (98-107) mmol/L Carbon Dioxide (22-30) mmol/L Anion Gap mmol/L BUN (9-20) mg/dL Creatinine (0.8-1.5) mg/dL Estimated GFR ml/min BUN/Creatinine Ratio % Glucose (75-100) mg/dL Calcium (8.4-10.2) mg/dL Total Bilirubin (0.1-1.2) mg/dL Direct Bilirubin (0-0.2) mg/dL AST (5-40) units/L ALT (7-56) units/L Alkaline Phosphatase (35-129) units/L Total Protein (6.3-8.2) g/dL Albumin (3.9-5) g/dL Albumin/Globulin Ratio % Urine Bilirubin Neg (Negative) Urine RBC (Auto) 2.0 (0.0-6.0) /HPF U Epithel Cells (Auto) < 1.0 (0-13.0) /HPF Plasma/Serum Alcohol (0-0.07) gm% - Medical Decision Making Chief medical diagnosis: Seizure disorder secondary to inadequate Keppra Differential diagnosis: Alcohol withdrawal seizure, electrolyte abnormality, drug effect CBC, CMP, alcohol level, urine drug screen and oral Keppra Patient is alert and oriented he tolerated oral Keppra laboratory findings are unremarkable also and I will send patient back to outpatient facility with Keppra. Critical care attestation.: If time is entered above; I have spent that time in minutes in the direct care of this critically ill patient, excluding procedure time. ED Disposition Clinical Impression: Seizures, Encounter for general medical examination Disposition: TO HOME OR SELFCARE Is pt being admited?: No Does the pt Need Aspirin: No Condition: Stable Instructions: Epilepsy (ED) Referrals: TEVIN MORAN MD [Staff Physician] - 3-5 Days
== END 2017-08-16 14:57 | disposition home or self-care (01) ==
LOC: ED 10:16
DX: R56.9 Unspecified convulsions (principal); I10 Essential (primary) hypertension; Z86.73 Personal history of transient ischemic attack (TIA), and cerebral infarction without residual deficits; I82.401 Acute embolism and thrombosis of unspecified deep veins of right lower extremity; K21.9 Gastro-esophageal reflux disease without esophagitis; G43.909 Migraine, unspecified, not intractable, without status migrainosus; J43.9 Emphysema, unspecified; Z88.6 Allergy status to analgesic agent; Z88.8 Allergy status to other drugs, medicaments and biological substances; F17.200 Nicotine dependence, unspecified, uncomplicated
CPT/HCPCS: 36415; 80048; 80074; 80177; 80307; 81001; 85025; 99284; G0480; 80320

== ENCOUNTER 2017-08-25 13:10 | Inpatient (IN) | payer MEDICARE ==
[2017-08-25] MEDS ORDERED: NACL 0.9% 500 ML 500 ML IV ONE (14:40)
[2017-08-25] MEDS ORDERED: ATIVAN IV PRN ×2 (14:41→19:58)
[2017-08-25] MEDS ORDERED: LIBRIUM PO PRN ×2 (14:41)
[2017-08-25] MEDS ORDERED: DUONEB *Not for PRN Use IH ONE (14:57)
--- NOTE | 2017-08-25 14:58 | Emergency Department Report ---
HPI - General Chief Complaint: Pain General Time Seen by Provider: 08/25/17 14:12 - HPI HPI: This is a 61-year-old male presents to the emergency department by EMS from a hospital, where he is being treated for alcohol detoxification and dependence, with complaint of some generalized body pain, dizziness and a tremor that started earlier this morning. He was a daily alcohol drinker but has not had any alcohol for about 7 days. He also has a history of emphysema, previous CVA, DVT on Xarelto, GERD, hypertension. He is not oxygen dependent. No recent travel. He has not taken anything and was not given anything for his symptoms prior to presentation. He is a tobacco smoker. ED Past Medical Hx - Past Medical History Hx Hypertension: Yes Hx CVA: Yes (2016-TPA) Hx Deep Vein Thrombosis: Yes (right leg 2004) Hx Pulmonary Embolism: Yes (2004, IVC filter placed) Hx GERD: Yes Hx Arthritis: Yes (back) Hx Headaches / Migraines: Yes Hx Seizures: Yes Hx COPD: Yes (emphysema) Hx HIV: No Additional medical history: Emphysema - Surgical History Hx Appendectomy: Yes Additional Surgical History: lumbar surgery, gastrectomy, l. elbow, partial gastrectomy for perforated ulcer - Social History Smoking Status: Current Every Day Smoker Substance Use Type: Alcohol - Medications Home Medications: Home Medications Medication Instructions Recorded Confirmed Last Taken Type Albuterol Sulfate [Ventolin HFA] 2 puff IH Q4H PRN 11/17/16 08/25/17 08/24/17 History Hydrochlorothiazide [HCTZ] 25 mg PO QDAY 11/17/16 08/25/17 08/24/17 History Rivaroxaban [Xarelto] 20 mg PO QDAY 11/17/16 08/25/17 08/24/17 History Tiotropium [place] [Spiriva 2 puff IH QDAY #1 mist.inhal 01/04/17 08/25/1708/24 Rx Respimat] Famotidine [Pepcid] 20 mg PO QDAY #30 tablet 05/13/17 08/25/17 08/24/17 Rx levETIRAcetam [Keppra TAB] 750 mg PO BID 05/14/17 08/25/17 08/24/17 History Lisinopril [Zestril] 10 mg PO DAILY 08/25/17 08/25/17 08/24/17 History traZODone [Desyrel] 100 mg PO QHS 08/25/17 08/25/17 08/24/17 History ED Review of Systems ROS: Stated complaint: DIZZINESS/SEIZURE Other details as noted in HPI Comment: All other systems reviewed and negative Constitutional: denies: chills, fever Eyes: denies: eye pain, eye discharge, vision change ENT: denies: ear pain, throat pain Respiratory: denies: cough, shortness of breath, wheezing Cardiovascular: denies: chest pain, palpitations Gastrointestinal: denies: abdominal pain, nausea, diarrhea Genitourinary: denies: urgency, dysuria Musculoskeletal: myalgia. denies: joint swelling Skin: denies: rash, lesions Neurological: other (dizziness, tremor). denies: headache Physical Exam - Physical Exam Vital Signs: Vital Signs 08/25/17 14:00 Temperature 98.4 F Pulse Rate 76 Respiratory 18 Rate Blood Pressure 136/98 O2 Sat by Pulse 100 Oximetry Physical Exam: GENERAL: The patient is well-developed well-nourished. HENT: Normocephalic. Atraumatic. Patient has moist mucous membranes. EYES: Extraocular motions are intact. Pupils equal reactive to light bilaterally. NECK: Supple. Trachea is midline. CHEST/LUNGS: Clear to auscultation. There is no respiratory distress noted. HEART/CARDIOVASCULAR: Regular. There is no tachycardia. There is no gallop rub or murmur. ABDOMEN: Abdomen is soft, nontender. Patient has normal bowel sounds. There is no abdominal distention. SKIN: Skin is warm and dry. NEURO: The patient is awake, alert, and oriented. The patient is cooperative. The patient has no focal neurologic deficits. The patient has normal speech. Cranial nerves II-12 grossly intact. There is a slight upper extremity tremor bilaterally. No pronator drift. No dysmetria. MUSCULOSKELETAL: There is no tenderness or deformity. There is no limitation range of motion. There is no evidence of acute injury. ED Course Vital Signs 08/25/17 14:00 Temperature 98.4 F Pulse Rate 76 Respiratory 18 Rate Blood Pressure 136/98 O2 Sat by Pulse 100 Oximetry ED Medical Decision Making - Lab Data Result diagrams: 08/25/17 15:02 08/25/17 15:02 - EKG Data -: EKG Interpreted by Me EKG shows normal: sinus rhythm, axis, intervals, QRS complexes (low-voltage), ST -T waves Rate: normal - EKG Data When compared to previous EKG there are: previous EKG unavailable Interpretation: normal EKG - Radiology Data Radiology results: report reviewed, image reviewed interpreted by me: Chest x-ray shows hyperinflation of lungs and flattening of the diaphragm consistent with emphysema. EXAM: CT HEAD/BRAIN WO CON HISTORY: Dizziness, tremors TECHNIQUE: CT head without contrast PRIORS: Comparison is dated February 12, 2017 FINDINGS: Right frontal encephalomalacia is unchanged. No acute intra or extra-axial hemorrhage identified. No evidence for midline shift or mass effect. Ventricles and sulci are within normal limits. No acute parenchymal abnormalities are identified Bony calvarium is intact. Visualized portions of the mastoids paranasal sinuses are unremarkable IMPRESSION: Remote right frontal ischemic changes No acute abnormality seen Transcribed By: ARLETTE Dictated By: MARIE LACKEY MD Electronically Authenticated By: MARIE LACKEY MD Signed Date/Time: 08/25/17 1410 - Medical Decision Making This patient originally presented with the complaint of a tremor, body aches and dizziness. It seems low suspicion that the patient suddenly has alcohol withdrawal symptoms 1 week after his last alcoholic drink but that was in consideration. Secondary to the new onset of tremors, a CT of the head was done that did not show any bleed, shift, mass or any acute process. During his workup patient started developing some chest pain. EKG was done that did not show any ST elevation UT, ischemia or dysrhythmia. First troponin is negative and d-dimer is negative as well. He did not require any benzodiazepine in the emergency department for withdrawal symptoms at this time but he was given some pain medication for his chest discomfort including a sublingual nitroglycerin. He will be admitted to the hospital for further evaluation and treatment and has been accepted for admission by the hospitalist, Dr Khalil. - Differential Diagnosis Alcohol withdrawal, UT, PE, Costochondritis Critical Care Time: No Critical care attestation.: If time is entered above; I have spent that time in minutes in the direct care of this critically ill patient, excluding procedure time. ED Disposition Clinical Impression: Acute chest pain, Tremor, Dizziness Disposition: OP ADMIT IP TO THIS HOSP Is pt being admited?: Yes Condition: Stable Instructions: Chest Pain (ED) Referrals: PRIMARY CARE, [Primary Care Provider] - 3-5 Days Time of Disposition: 20:26
[2017-08-25 15:33] LABS: Hematocrit 47.8 % (35.5-45.6); Hemoglobin 15.2 gm/dl (11.8-15.2); Mean Corpuscular HGB Conc 32 % (32-34); Mean Corpuscular Volume 81 fl (84-94); Platelet Count 192 K/mm3 (140-440); Red Cell Distribution Width 14.5 % (13.2-15.2); White Blood Count 5.8 K/mm3 (4.5-11.0)
[2017-08-25 15:45] LABS: Mean Corpuscular Hemoglobin 26 pg (28-32)
[2017-08-25 15:49] LABS: Magnesium 2.1 mg/dL (1.7-2.3); Phosphorous 3.2 mg/dL (2.5-4.5)
[2017-08-25] MEDS ORDERED: MORPHINE IV ONE ×2 (16:07→17:10)
[2017-08-25 16:08] LABS: Alanine Aminotransferase 21 units/L (7-56); Albumin 4.3 g/dL (3.9-5); Albumin/Globulin Ratio 1.3 %; Alkaline Phosphatase 55 units/L (35-129); Anion Gap 22 mmol/L; BUN/Creatinine Ratio 22; Blood Urea Nitrogen 20 mg/dL (9-20); Calcium 9.8 mg/dL (8.4-10.2); Carbon Dioxide 25 mmol/L (22-30); Chloride 96.1 mmol/L (98-107); Creatine Kinase 65 units/L (55-170); Glucose 84 mg/dL (75-100); Potassium 4.9 mmol/L (3.6-5.0); Sodium 138 mmol/L (137-145); Total Protein 7.7 g/dL (6.3-8.2)
[2017-08-25] MEDS ORDERED: MORPHINE ONE (16:10)
[2017-08-25] MEDS ORDERED: NITROSTAT SL ONE ×2 (16:56→16:59)
--- NOTE | 2017-08-25 17:42 | XRay Report ---
FINAL REPORT EXAM: XR CHEST 1V AP HISTORY: CP TECHNIQUE: Chest single AP PRIORS: None. FINDINGS: Extensive bullous emphysematous changes are present bilaterally primarily in the upper lobes. No confluent pulmonary infiltrate identified. No pleural fluid collection identified. Pulmonary vasculature is unremarkable. Cardiac and mediastinal contours are within normal limits. IMPRESSION: COPD with extensive bullous emphysematous changes
--- NOTE | 2017-08-25 18:14 | Cat Scan Report ---
FINAL REPORT EXAM: CT HEAD/BRAIN WO CON HISTORY: Dizziness, tremors TECHNIQUE: CT head without contrast PRIORS: Comparison is dated February 12, 2017 FINDINGS: Right frontal encephalomalacia is unchanged. No acute intra or extra-axial hemorrhage identified. No evidence for midline shift or mass effect. Ventricles and sulci are within normal limits. No acute parenchymal abnormalities are identified Bony calvarium is intact. Visualized portions of the mastoids paranasal sinuses are unremarkable IMPRESSION: Remote right frontal ischemic changes No acute abnormality seen
[2017-08-25] MEDS ORDERED: MORPHINE IV PRN (18:38)
[2017-08-25] MEDS ORDERED: PROAIR IH PRN (19:53)
[2017-08-25] MEDS: NITROSTAT SL PRN ×2 (19:58→21:22)
[2017-08-25] MEDS ORDERED: PROVENTIL IH PRN (20:27)
[2017-08-25] MEDS: 1: FOLVITE 1 MG, INFUVITE 10 ML, VITAMIN B-1 100 MG in NACL 0.9% 1000 ML 988.8 ML 2: NA IV SCH (21:23)
[2017-08-25] MEDS: DESYREL PO SCH (21:23)
[2017-08-25] MEDS: KEPPRA PO SCH (21:24)
[2017-08-25] MEDS ORDERED: NON-FORMULARY (Levetiracetam [Keppra Tab] 750 MG) PO SCH (22:00)
[2017-08-26 02:19] LABS: Creatine Kinase MB 1.2 ng/mL (0.0-4.0)
[2017-08-26 02:20] LABS: Creatine Kinase 61 units/L (55-170)
[2017-08-26] MEDS: MORPHINE IV PRN ×5 (02:25→22:41)
--- NOTE | 2017-08-26 05:08 | History and Physical Report ---
CHIEF COMPLAINT: Chest pain. Other complaint include body ache. HISTORY OF PRESENT ILLNESS: The patient is a 61-year-old male who is at [facility] where he is being treated for alcohol abuse and getting detoxified. The patient presented with chest pain and also generalized body pain and also complained of tremor that started this morning. The patient said he has not had any alcohol drink in 7 days. He has no history of shortness of breath. No history of nausea, vomiting, and no history of fever. PAST MEDICAL HISTORY: Pertinent for hypertension, cerebrovascular accident, deep vein thrombosis, pulmonary embolism, gastroesophageal reflux disease, migraine headaches, seizure disorder, emphysema and also a history of back pain. PAST SURGICAL HISTORY: Pertinent for lumbar surgeries, gastrectomy, elbow surgery, perforated ulcer surgery. FAMILY HISTORY: Noncontributory. SOCIAL HISTORY: The patient smokes cigarettes, drinks alcohol on a regular basis and does not use illicit drugs. MEDICATIONS: The patient is on albuterol inhaler 2 puffs every 4 hours as needed for shortness of breath. The patient is also on hydrochlorothiazide 25 mg by mouth daily and Xarelto 20 mg by mouth daily. Also, the patient is on Keppra 750 mg twice daily and Spiriva 2 puffs inhalation daily, as well as famotidine 20 mg daily. ALLERGIES: THE PATIENT IS ALLERGIC TO ASPIRIN. ALSO, THE PATIENT IS ALLERGIC TO PROCHLORPERAZINE. REVIEW OF SYSTEMS: CONSTITUTIONAL: There is no fever, no chills, no diaphoresis. HEENT: There is no headache or sore throat. CARDIOVASCULAR: There is chest pain, no orthopnea. RESPIRATORY: There is no shortness of breath and no cough. GASTROINTESTINAL: There is no nausea, no vomiting, no abdominal pain, diarrhea or constipation. NEUROLOGICAL: There is no numbness. There is dizziness. No altered mental status. MUSCULOSKELETAL: There is generalized body pain and no joint swelling. DERMATOLOGICAL: There is no skin rash or itching. GENITOURINARY: There is no dysuria, no hematuria, and no flank pain. Rest of system review is normal. PHYSICAL EXAMINATION: GENERAL: At the time of exam, the patient was found to be alert, oriented x 3 and in mild to moderate due to body pain. VITAL SIGNS: Shows normal temperature with pulse of 78, respirations 12, blood pressure 146/93, O2 sat of 94% on room air. HEENT: Show pupils to be equal, round, reactive to light and accommodation. Extraocular muscles are intact. NECK: Supple with no JVD or carotid bruit. CARDIOVASCULAR: Show first and second heart sounds with no gallops or murmur. RESPIRATORY: Show good air entry on both sides of the lung with no abnormal breath sounds. GASTROINTESTINAL: Show abdomen to be full, soft, nontender, no organomegaly or rigidity. NEUROLOGICAL: Shows no focal deficit. MUSCULOSKELETAL: Show no joint swelling or tenderness. DERMATOLOGICAL: Show no skin rash. GENITOURINARY: Showing no costovertebral angle tenderness. PERTINENT LABORATORY AND IMAGING STUDIES: The patient has CBC done that shows normal white count, normal hemoglobin, and slightly elevated hematocrit of 47.8%. CBC differential showed elevated lymphocyte count of 41.5% and monocyte count of 12.5%. The patient's coagulation studies showed normal D-dimer. Chemistry was unremarkable. Cardiac enzymes show normal troponin. IMAGING STUDIES: The patient had a CT of the head without contrast done and this shows no acute abnormality. FINDINGS: There is finding of remote right frontal ischemic changes, but radiologist says no acute abnormality seen. Chest x-ray was done and shows COPD with extensive bullous emphysematous changes. DIAGNOSES: 1. Chest pain. 2. Chronic obstructive pulmonary disease. 3. Remote right frontal ischemic changes on CT. PLAN: The patient will be admitted to medical floor on telemetry and would be on nitro paste 1 inch to anterior chest wall q.i.d. The patient will also be on morphine 2 mg IV every 5 minutes as needed for chest pain, and will be on sublingual nitroglycerin for breakthrough chest pain. The patient will be on Zofran 4 mg q. 6 hours as needed for nausea and vomiting and will be n.p.o. for nuclear stress test in the morning of 08/26/2017. The patient will be on oxygen by nasal cannula at 2 liters per minute and will be on sequential compressive devices as per DVT prophylaxis. The patient will be on Tylenol 650 mg every 4 hours for fever and headache and will be on IV Ativan 1 mg every 2 hours needed for agitation and anxiety. The patient will be on IV banana bag daily. ADDENDUM: The patient's home medications also will be started as shown in the medication reconciliation session. JOB# [id number] OCN/JO ANN
[2017-08-26] MEDS: NITRO-BID 2% TP SCH ×4 (05:32→18:26)
[2017-08-26] MEDS: SPIRIVA IH SCH ×2 (07:56→15:43)
[2017-08-26 08:00] LABS: Creatine Kinase MB 1.3 ng/mL (0.0-4.0)
[2017-08-26 08:01] LABS: Creatine Kinase 61 units/L (55-170)
[2017-08-26] MEDS: ZOFRAN IV PRN ×3 (08:37→22:41)
[2017-08-26] MEDS ORDERED: NACL 0.9% 1000 ML 1,000 ML ONE (08:54)
[2017-08-26] MEDS ORDERED: NON-FORMULARY (Tiotropium Bromide [Spiriva Respimat] 2 PUFF) IH SCH (10:00)
[2017-08-26] MEDS ORDERED: LEXISCAN IV ONE ×2 (10:12→10:14)
[2017-08-26] MEDS: TYLENOL PO PRN ×2 (11:00→21:34)
[2017-08-26] MEDS ORDERED: TYLENOL ONE (11:01)
[2017-08-26] MEDS: KEPPRA PO SCH ×2 (13:39→21:33)
[2017-08-26] MEDS: HCTZ PO SCH (13:41)
[2017-08-26] MEDS: PEPCID PO SCH (13:41)
[2017-08-26] MEDS: XARELTO PO SCH (13:41)
[2017-08-26] MEDS: ZESTRIL PO SCH (13:43)
--- NOTE | 2017-08-26 16:40 | Progress Note ---
Assessment and Plan Assessment and plan: 61M from [facility] facility where he was being rx for etoh detox, who is admitted with CP and generalized body pain, c/o tremors. Last drink was 7 days prior to presentation PMH includes htn, cva, dvt, PE, GERD, Migraines, seizure disorder, emphesema Chest Pain ACS has been ruled out by serial troponins, awaiting stress test COPD he is not in exacerbation, nebs as needed Alcohol abuse He is not currently in withdrawal, will monitor and give CIWA protocol as needed History Interval history: Review of systems Constitutional: No fevers, no malaise, no joint pains CVS: No chest pain, no orthopnea, no dyspnea on exertion, no pedal edema GI: No abdominal pain, no diarrhea, no vomiting, no constipation Respiratory: No shortness of breath, no wheezing, no coughing Hospitalist Physical - Physical exam Narrative exam: General.: Appears well, no distress, nontoxic HEENT: Moist mucous membranes, extraocular muscles intact, no lymphadenopathy Neck: supple Cardiac: S1-S2 heard Lungs: clear to auscultation bilaterally Abdomen: soft , nontender, nondistended, bowel sounds positive Extremities: no edema clubbing or cyanosis Skin: no rash or lesions Neurologic: no gross focal deficits Psych: appropriate behavior, appropriate mood, corporative, judgment intact - Constitutional Vitals: Temp Pulse Resp BP Pulse Ox 98.1 F 65 18 136/93 98 08/26/17 13:06 08/26/17 13:45 08/26/17 13:32 08/26/17 13:45 08/26/17 09:16 Results - Labs CBC & Chem 7: 08/25/17 15:02 08/25/17 15:02 Labs: Laboratory Last Values WBC 5.8 K/mm3 (4.5-11.0) 08/25/17 15:02 RBC 5.90 M/mm3 (3.65-5.03) H 08/25/17 15:02 Hgb 15.2 gm/dl (11.8-15.2) 08/25/17 15:02 Hct 47.8 % (35.5-45.6) H 08/25/17 15:02 MCV 81 fl (84-94) L 08/25/17 15:02 MCH 26 pg (28-32) L 08/25/17 15:02 MCHC 32 % (32-34) 08/25/17 15:02 RDW 14.5 % (13.2-15.2) 08/25/17 15:02 Plt Count 192 K/mm3 (140-440) 08/25/17 15:02 Lymph % (Auto) 41.5 % (13.4-35.0) H 08/25/17 15:02 Clark % (Auto) 12.5 % (0.0-7.3) H 08/25/17 15:02 Eos % (Auto) 2.0 % (0.0-4.3) 08/25/17 15:02 Baso % (Auto) 2.0 % (0.0-1.8) H 08/25/17 15:02 Lymph # 2.4 K/mm3 (1.2-5.4) 08/25/17 15:02 Clark # 0.7 K/mm3 (0.0-0.8) 08/25/17 15:02 Eos # 0.1 K/mm3 (0.0-0.4) 08/25/17 15:02 Baso # 0.1 K/mm3 (0.0-0.1) 08/25/17 15:02 Seg Neutrophils % 42.0 % (40.0-70.0) 08/25/17 15:02 Seg Neutrophils # 2.5 K/mm3 (1.8-7.7) 08/25/17 15:02 D-Dimer 161.73 ng/mlDDU (0-234) 08/25/17 15:47 Sodium 138 mmol/L (137-145) 08/25/17 15:02 Potassium 4.9 mmol/L (3.6-5.0) 08/25/17 15:02 Chloride 96.1 mmol/L (98-107) L 08/25/17 15:02 Carbon Dioxide 25 mmol/L (22-30) 08/25/17 15:02 Anion Gap 22 mmol/L 08/25/17 15:02 BUN 20 mg/dL (9-20) 08/25/17 15:02 Creatinine 0.9 mg/dL (0.8-1.5) 08/25/17 15:02 Estimated GFR > 60 ml/min 08/25/17 15:02 BUN/Creatinine Ratio 22 % 08/25/17 15:02 Glucose 84 mg/dL (75-100) 08/25/17 15:02 POC Glucose 105 (70-105) 08/26/17 13:13 Calcium 9.8 mg/dL (8.4-10.2) 08/25/17 15:02 Phosphorus 3.20 mg/dL (2.5-4.5) 08/25/17 15:02 Magnesium 2.10 mg/dL (1.7-2.3) 08/25/17 15:02 Total Bilirubin 0.30 mg/dL (0.1-1.2) 08/25/17 15:02 AST 19 units/L (5-40) 08/25/17 15:02 ALT 21 units/L (7-56) 08/25/17 15:02 Alkaline Phosphatase 55 units/L (35-129) 08/25/17 15:02 Total Creatine Kinase 61 units/L (55-170) 08/26/17 06:56 CK-MB (CK-2) 1.3 ng/mL (0.0-4.0) 08/26/17 06:56 CK-MB (CK-2) Rel Index 2.1 (0-4) 08/26/17 06:56 Troponin T < 0.010 ng/mL (0.00-0.029) 08/26/17 06:56 Total Protein 7.7 g/dL (6.3-8.2) 08/25/17 15:02 Albumin 4.3 g/dL (3.9-5) 08/25/17 15:02 Albumin/Globulin Ratio 1.3 % 08/25/17 15:02 TSH 2.550 mlU/mL (0.270-4.200) 08/25/17 15:02
--- NOTE | 2017-08-26 16:44 | Discharge Summary ---
Providers - Providers Date of Admission: 08/25/17 18:35 Attending physician: VAUGHN CERVANTES MD Primary care physician: DENICE DOSHI MD Hospitalization Condition: Stable Hospital course: 61M from [facility] facility where he was being rx for etoh detox, who is admitted with CP and generalized body pain, he did not have any signs of etoh withdrawal. he was admitted for workup of chest pain, serial CE were negative, ACS was ruled out. He then went on to have a stress test that was negative for ischemia. He was monitored and he was deemed not to be in COPD exacerbation, and he denied any signs of alcohol withdrawal. He was subsequently discharged Discharge diagnoses Chest pain is costochondritis COPD Alcohol abuse Disposition: DC-01 TO HOME OR SELFCARE Time spent for discharge: 33 minutes Core Measure Documentation - Palliative Care Palliative Care/ Comfort Measures: Not Applicable - Core Measures Any of the following diagnoses?: none Exam - Constitutional Vitals: Temp Pulse Resp BP Pulse Ox 98.1 F 65 18 136/93 98 08/26/17 13:06 08/26/17 13:45 08/26/17 13:32 08/26/17 13:45 08/26/17 09:16 General appearance: Present: no acute distress, well-nourished - EENT Eyes: Present: PERRL ENT: hearing intact, clear oral mucosa - Neck Neck: Present: supple, normal ROM - Respiratory Respiratory effort: normal Respiratory: bilateral: CTA - Cardiovascular Heart Sounds: Present: S1 & S2. Absent: rub, click - Extremities Extremities: pulses symmetrical, No edema Peripheral Pulses: within normal limits - Abdominal General gastrointestinal: Present: soft, non-tender, non-distended, normal bowel sounds Male genitourinary: Present: normal - Integumentary Integumentary: Present: clear, warm, dry - Musculoskeletal Musculoskeletal: gait normal, strength equal bilaterally - Psychiatric Psychiatric: appropriate mood/affect, intact judgment & insight - Neurologic Neurologic: CNII-XII intact, moves all extremities Plan Follow up with: PRIMARY CAREMD [Primary Care Provider] - 3-5 Days
[2017-08-26] MEDS: DESYREL PO SCH (21:33)
[2017-08-26] MEDS: 1: FOLVITE 1 MG, INFUVITE 10 ML, VITAMIN B-1 100 MG in NACL 0.9% 1000 ML 988.8 ML 2: NA IV SCH (23:13)
[2017-08-27] MEDS: 1: FOLVITE 1 MG, INFUVITE 10 ML, VITAMIN B-1 100 MG in NACL 0.9% 1000 ML 988.8 ML 2: NA IV SCH ×3 (02:00→14:53)
[2017-08-27] MEDS: MORPHINE IV PRN ×2 (02:46→07:19)
[2017-08-27] MEDS: NITRO-BID 2% TP SCH ×3 (05:40→14:53)
[2017-08-27] MEDS: SPIRIVA IH SCH ×2 (07:58→09:09)
[2017-08-27] MEDS: ZESTRIL PO SCH (10:13)
[2017-08-27] MEDS: HCTZ PO SCH (10:13)
[2017-08-27] MEDS: XARELTO PO SCH (10:13)
[2017-08-27] MEDS: PEPCID PO SCH (10:13)
[2017-08-27] MEDS: KEPPRA PO SCH (10:14)
[2017-08-27] MEDS: TYLENOL PO PRN (10:17)
--- NOTE | 2017-08-27 12:41 | Query- Chest Pain ---
Karina Terrazas Forrest Date: 08/27/17 Motion Picture Director/CDS:____Rohit Phone#:____[phone] Exercise your independent professional judgment when responding to query. Questions asked do not imply a particular answer is desired or expected. We greatly appreciate your clarification on this issue. Clinical Documentation States: 61 year old female was admitted on 08/25/17 The progress note (Dr. Clayton 08/26/17) states " 61M from [facility] facility where he was being rx for etoh detox, PMH includes htn, cva, dvt, PE, GERD, Migraines, seizure disorder, emphesema Chest Pain " Please document the etiology of Chest Pain: [ ] Myocardial Infarction [ ] Pneumonia [ ] Mediastinitis [ ] Costochondritis [ ] Pulmonary Embolism [ ] Coronary Artery Disease [ x] GERD [ ] Other: [ ] Comment/Explanation: Present on Admission: [x ] Yes (Y) [ ] Clinically undeterminable (W) [ ] No(N) Please document response in your Progress Notes and/or Discharge Summary and indicate if the condition was present on admission. AKILD
[2017-08-27 12:54] VITALS: BP 114/78
--- NOTE | 2017-08-28 01:54 | Treadmill Report ---
THALLIUM STRESS TEST LEFT VENTRICLE: Left ventricular chamber size is within normal spread. Perfusion study demonstrates homogeneous uptake of the tracer in all segments and no significant perfusion defect identified. Mild diaphragmatic attenuation artifact is noted. Gated analysis demonstrates normal left ventricular systolic function, ejection fraction 65%. CONCLUSION: Normal myocardial perfusion study. JOB# [id number] CA/NTS
== END 2017-08-27 15:23 | disposition home or self-care (01) | DRG 392 ==
LOC: ED 13:10 → 4A 18:35
PROVIDERS: ADMIT Internal Medicine; ATTEND Internal Medicine
DX: K21.9 Gastro-esophageal reflux disease without esophagitis (principal); I10 Essential (primary) hypertension; M19.90 Unspecified osteoarthritis, unspecified site; J43.9 Emphysema, unspecified; G43.909 Migraine, unspecified, not intractable, without status migrainosus; G40.909 Epilepsy, unspecified, not intractable, without status epilepticus; M54.9 Dorsalgia, unspecified; F17.210 Nicotine dependence, cigarettes, uncomplicated; Z88.6 Allergy status to analgesic agent; Z90.3 Acquired absence of stomach [part of]; Z86.73 Personal history of transient ischemic attack (TIA), and cerebral infarction without residual deficits; Z86.711 Personal history of pulmonary embolism; Z88.8 Allergy status to other drugs, medicaments and biological substances
CPT/HCPCS: 36415; 70450; 71010; 78452; 80053; 82550; 82553; 82962; 83735; 84100; 84443; 84484; 85025; 85379; 93005; 93010; 93017; 94640; 94760; 96374; 96376; A9502; J2270; J2405; J2785; J3411; J7030; J7040

== ENCOUNTER 2017-11-04 12:17 | Emergency (ER) | payer MEDICARE ==
[2017-11-04] MEDS ORDERED: HALDOL IM ONE (13:30)
[2017-11-04] MEDS ORDERED: BENADRYL IM ONE (13:30)
[2017-11-04] MEDS ORDERED: ATIVAN IM ONE (13:32)
[2017-11-04 14:15] LABS: Bilirubin,Urine NEG (Negative); Blood,Urine NEG (Negative); Color,Urine Yellow (Yellow); Mucus,Urine 2+ /HPF; Nitrite,Urine NEG (Negative); Protein,Urine <15 mg/dL mg/dL (Negative)
[2017-11-04 14:27] LABS: Amphetamine Screen,Urine PRESUMPTIVE NEGATIVE; Benzodiazepines Screen,Urine PRESUMPTIVE NEGATIVE; Cannabinoid Screen,Urine PRESUMPTIVE NEGATIVE; Cocaine Screen,Urine PRESUMPTIVE NEGATIVE; Opiate Screen,Urine PRESUMPTIVE NEGATIVE
[2017-11-04 14:42] LABS: Methadone Screen,Urine PRESUMPTIVE NEGATIVE
[2017-11-04] MEDS ORDERED: VALIUM PO ONE (15:47)
--- NOTE | 2017-11-04 15:47 | Emergency Department Report ---
ED Medical Clearance HPI - General Chief complaint: Medical Clearance Stated complaint: DETOX Time Seen by Provider: 11/04/17 15:35 Source: patient Mode of arrival: Ambulatory - History of Present Illness Initial comments: Patient is a 62-year-old male who is presenting needing clearance for alcohol treatment program. Patient states he is a heavy drinkers last drink was in 36 hours ago. Patient states his only symptom now is some mild shakiness. Patient denies any hallucinations nausea vomiting diarrhea chest pain shortness of breath at this time. Patient states he is trying to go to [facility] to come here first for medical clearance. MD Complaint: medical clearance request Home medications: Home Medications Medication Instructions Recorded Confirmed Last Taken Albuterol Sulfate [Ventolin HFA] 2 puff IH Q4H PRN 11/17/16 08/25/17 08/24/17 Hydrochlorothiazide [HCTZ] 25 mg PO QDAY 11/17/16 08/25/17 08/24/17 Rivaroxaban [Xarelto] 20 mg PO QDAY 11/17/16 08/25/17 08/24/17 levETIRAcetam [Keppra TAB] 750 mg PO BID 05/14/17 08/25/17 08/24/17 Lisinopril [Zestril] 10 mg PO DAILY 08/25/17 08/25/17 08/24/17 traZODone [Desyrel] 100 mg PO QHS 08/25/17 08/25/17 08/24/17 Previous Rx's Medication Instructions Recorded Last Taken Type Tiotropium [place] [Spiriva 2 puff IH QDAY #1 mist.inhal 01/04/17 08/24/17 Rx Respimat] Famotidine [Pepcid] 20 mg PO QDAY #30 tablet 05/13/17 08/24/17 Rx Allergies/Adverse reactions: Allergies Allergy/AdvReac Type Severity Reaction Status Date / Time aspirin Allergy Vomiting Verified 08/25/17 13:59 prochlorperazine Allergy Anaphylaxis Verified 08/25/17 13:59 [From Compazine] prochlorperazine edisylate Allergy Anaphylaxis Verified 08/25/17 13:59 [From Compazine] prochlorperazine maleate Allergy Anaphylaxis Verified 08/25/17 13:59 [From Compazine] ED Review of Systems ROS: Stated complaint: DETOX Other details as noted in HPI Comment: All other systems reviewed and negative ED Past Medical Hx - Past Medical History Hx Hypertension: Yes Hx CVA: Yes (2017-TPA) Hx Congestive Heart Failure: No Hx Diabetes: No Hx Deep Vein Thrombosis: Yes Hx Pulmonary Embolism: Yes (2004, IVC filter placed) Hx GERD: Yes Hx Arthritis: Yes (back) Hx Headaches / Migraines: Yes Hx Seizures: Yes Hx Asthma: No Hx COPD: Yes Hx HIV: No Additional medical history: Emphysema - Surgical History Hx Appendectomy: Yes Additional Surgical History: lumbar surgery, gastrectomy, l. elbow, partial gastrectomy for perforated ulcer - Social History Smoking Status: Never Smoker Substance Use Type: None - Medications Home Medications: Home Medications Medication Instructions Recorded Confirmed Last Taken Type Albuterol Sulfate [Ventolin HFA] 2 puff IH Q4H PRN 11/17/16 08/25/17 08/24/17 History Hydrochlorothiazide [HCTZ] 25 mg PO QDAY 11/17/16 08/25/17 08/24/17 History Rivaroxaban [Xarelto] 20 mg PO QDAY 11/17/16 08/25/17 08/24/17 History Tiotropium [place] [Spiriva 2 puff IH QDAY #1 mist.inhal 01/04/17 08/25/1708/24 Rx Respimat] Famotidine [Pepcid] 20 mg PO QDAY #30 tablet 05/13/17 08/25/17 08/24/17 Rx levETIRAcetam [Keppra TAB] 750 mg PO BID 05/14/17 08/25/17 08/24/17 History Lisinopril [Zestril] 10 mg PO DAILY 08/25/17 08/25/17 08/24/17 History traZODone [Desyrel] 100 mg PO QHS 08/25/17 08/25/17 08/24/17 History ED Physical Exam - General Limitations: No Limitations General appearance: alert, in no apparent distress - Head Head exam: Present: atraumatic, normocephalic - Eye Eye exam: Present: normal appearance - ENT ENT exam: Present: mucous membranes moist - Neck Neck exam: Present: normal inspection - Respiratory Respiratory exam: Present: normal lung sounds bilaterally. Absent: respiratory distress - Cardiovascular Cardiovascular Exam: Present: regular rate, normal rhythm. Absent: systolic murmur, diastolic murmur, rubs, gallop - GI/Abdominal GI/Abdominal exam: Present: soft, normal bowel sounds - Rectal Rectal exam: Present: deferred - Extremities Exam Extremities exam: Present: normal inspection - Back Exam Back exam: Present: normal inspection - Neurological Exam Neurological exam: Present: alert, oriented X3 - Psychiatric Psychiatric exam: Present: normal affect, normal mood - Skin Skin exam: Present: warm, dry, intact, normal color. Absent: rash ED Course Vital Signs 11/04/17 13:03 Temperature 97.5 F L Pulse Rate 75 Respiratory 16 Rate Blood Pressure 116/83 O2 Sat by Pulse 98 Oximetry ED Medical Decision Making - Lab Data Result diagrams: 11/04/17 16:21 11/04/17 16:21 - Medical Decision Making pt medically cleared, last blood glucose 99. ED Disposition Clinical Impression: Alcohol abuse Disposition: DC/TX-65 PSY HOSP/PSY UNIT Is pt being admited?: No Does the pt Need Aspirin: No Condition: Stable Referrals: PRIMARY CARE, [Primary Care Provider] - 3-5 Days
[2017-11-04 16:33] LABS: Hematocrit 40.8 % (35.5-45.6); Hemoglobin 12.7 gm/dl (11.8-15.2); Mean Corpuscular HGB Conc 31 % (32-34); Mean Corpuscular Volume 82 fl (84-94); Platelet Count 197 K/mm3 (140-440); Red Blood Count 4.99 M/mm3 (3.65-5.03); Red Cell Distribution Width 17.5 % (13.2-15.2)
[2017-11-04 16:37] LABS: Mean Corpuscular Hemoglobin 26 pg (28-32)
[2017-11-04 16:53] LABS: Alanine Aminotransferase 25 units/L (7-56); Albumin 4.2 g/dL (3.9-5); BUN/Creatinine Ratio 13; Blood Urea Nitrogen 12 mg/dL (9-20); Calcium 9.1 mg/dL (8.4-10.2); Hemolysis Index 30
[2017-11-04 17:36] LABS: Anisocytosis 1+; Hypochromasia 1+; Total Cells Counted 100
[2017-11-04 17:37] LABS: Platelet Estimate Consistent w Auto
[2017-11-04] MEDS ORDERED: D50W (25GM) Syringe IV ONE (18:14)
[2017-11-04 22:20] VITALS: BP 106/68
== END 2017-11-04 22:15 ==
LOC: ED 12:17 → EEVIPCON 12:17 → ED 22:15
DX: R25.9 Unspecified abnormal involuntary movements (principal); I10 Essential (primary) hypertension; K21.9 Gastro-esophageal reflux disease without esophagitis; G43.909 Migraine, unspecified, not intractable, without status migrainosus; J44.9 Chronic obstructive pulmonary disease, unspecified
CPT/HCPCS: 36415; 80053; 80307; 81001; 82962; 85007; 85025; 99285; G0480; 80320

== ENCOUNTER 2017-11-06 20:26 | Observation (INO) | payer MEDICARE ==
--- NOTE | 2017-11-06 20:43 | Emergency Department Report ---
ED Chest Pain HPI - General Stated Complaint: CHEST PAIN Time Seen by Provider: 11/06/17 20:40 Source: patient, EMS Mode of arrival: Stretcher Limitations: No Limitations - History of Present Illness Initial Comments: Patient is a 62-year-old [place] male that presented to the emergency room via EMS for chest pain that radiates to his back 2 hours. Patient has a history of COPD and hypertension has has also has a history of DVTs. Patient states that the pain is a 10 out of 10 and it is left chest substernal. Patient also states he is a little more short of breath than normal but he has a baseline of shortness of breath due to COPD and emphysema. He states he is allergic to aspirin. She denies fever, chills, cough, body aches, diaphoresis, nausea, vomiting and abdominal pain. MD Complaint: chest pain -: Sudden, hour(s) (2.5 hours ago) Onset: during exertion Pain Location: substernal, left chest Pain Radiation: back Severity: severe Severity scale (0 -10): 10 Quality: sharp, ripping Improves With: rest, remaining still Worsens With: inspiration, movement re: dyspnea Other Symptoms: palpitations Treatments Prior to Arrival: oxygen - Related Data On Oral Contraceptives: No Home Medications Medication Instructions Recorded Confirmed Last Taken Albuterol Sulfate [Ventolin HFA] 2 puff IH Q4H PRN 11/17/16 08/25/17 08/24/17 Hydrochlorothiazide [HCTZ] 25 mg PO QDAY 11/17/16 08/25/17 08/24/17 Rivaroxaban [Xarelto] 20 mg PO QDAY 11/17/16 08/25/17 08/24/17 levETIRAcetam [Keppra TAB] 750 mg PO BID 05/14/17 08/25/17 08/24/17 Lisinopril [Zestril] 10 mg PO DAILY 08/25/17 08/25/17 08/24/17 traZODone [Desyrel] 100 mg PO QHS 08/25/17 08/25/17 08/24/17 Previous Rx's Medication Instructions Recorded Last Taken Type Tiotropium [place] [Spiriva 2 puff IH QDAY #1 mist.inhal 01/04/17 08/24/17 Rx Respimat] Famotidine [Pepcid] 20 mg PO QDAY #30 tablet 05/13/17 08/24/17 Rx Allergies Allergy/AdvReac Type Severity Reaction Status Date / Time aspirin Allergy Vomiting Verified 08/25/17 13:59 prochlorperazine Allergy Anaphylaxis Verified 08/25/17 13:59 [From Compazine] prochlorperazine edisylate Allergy Anaphylaxis Verified 08/25/17 13:59 [From Compazine] prochlorperazine maleate Allergy Anaphylaxis Verified 08/25/17 13:59 [From Compazine] Heart Score - HEART Score History: Slightly suspicious EKG: Normal Age: 45-65 Risk factors: 1-2 risk factors Troponin: < normal limit HEART Score: 2 ED Review of Systems ROS: Stated complaint: CHEST PAIN Other details as noted in HPI Comment: All other systems reviewed and negative Constitutional: no symptoms reported Eyes: as per HPI ENT: as per HPI Respiratory: see HPI, shortness of breath, SOB with exertion Cardiovascular: chest pain, palpitations, dyspnea on exertion Endocrine: no symptoms reported Gastrointestinal: as per HPI Genitourinary: as per HPI Musculoskeletal: as per HPI Skin: as per HPI Neurological: as per HPI Psychiatric: as per HPI ED Past Medical Hx - Past Medical History Previous Medical History?: Yes Hx Hypertension: Yes Hx CVA: Yes (2016-) Hx Congestive Heart Failure: No Hx Diabetes: No Hx Deep Vein Thrombosis: Yes Hx Pulmonary Embolism: Yes (2004, IVC filter placed) Hx GERD: Yes Hx Arthritis: Yes (back) Hx Headaches / Migraines: Yes Hx Seizures: Yes Hx Asthma: No Hx COPD: Yes Hx HIV: No Additional medical history: Emphysema - Surgical History Past Surgical History?: Yes Hx Appendectomy: Yes Additional Surgical History: lumbar surgery, gastrectomy, l. elbow, partial gastrectomy for perforated ulcer - Family History Family history: hypertension - Social History Smoking Status: Current Every Day Smoker Substance Use Type: None - Medications Home Medications: Home Medications Medication Instructions Recorded Confirmed Last Taken Type Albuterol Sulfate [Ventolin HFA] 2 puff IH Q4H PRN 11/17/16 08/25/17 08/24/17 History Hydrochlorothiazide [HCTZ] 25 mg PO QDAY 11/17/16 08/25/17 08/24/17 History Rivaroxaban [Xarelto] 20 mg PO QDAY 02/08/25/17 08/24/17 History Tiotropium [place] [Spiriva 2 puff IH QDAY #1 mist.inhal 01/04/17 08/25/1708/24 Rx Respimat] Famotidine [Pepcid] 20 mg PO QDAY #30 tablet 05/13/17 08/25/17 08/24/17 Rx levETIRAcetam [Keppra TAB] 750 mg PO BID 05/14/17 08/25/17 08/24/17 History Lisinopril [Zestril] 10 mg PO DAILY 08/25/17 08/25/17 08/24/17 History traZODone [Desyrel] 100 mg PO QHS 08/25/17 08/25/17 08/24/17 History ED Physical Exam - General Limitations: No Limitations General appearance: alert, in no apparent distress - Head Head exam: Present: atraumatic, normocephalic - Eye Eye exam: Present: normal appearance - ENT ENT exam: Present: mucous membranes moist - Neck Neck exam: Present: normal inspection - Respiratory Respiratory exam: Present: normal lung sounds bilaterally. Absent: respiratory distress - Cardiovascular Cardiovascular Exam: Present: regular rate, normal rhythm. Absent: systolic murmur, diastolic murmur, rubs, gallop - GI/Abdominal GI/Abdominal exam: Present: soft, normal bowel sounds - Rectal Rectal exam: Present: deferred - Extremities Exam Extremities exam: Present: normal inspection - Back Exam Back exam: Present: normal inspection - Neurological Exam Neurological exam: Present: alert, oriented X3 - Psychiatric Psychiatric exam: Present: normal affect, normal mood - Skin Skin exam: Present: warm, dry, intact, normal color. Absent: rash ED Course Vital Signs 11/06/17 11/06/17 11/06/17 20:40 20:50 20:51 Temperature 98.1 F Pulse Rate 85 86 82 Respiratory 29 H 23 24 Rate Blood Pressure 133/91 133/91 Blood Pressure [Right] O2 Sat by Pulse 100 100 Oximetry 11/06/17 11/06/17 11/06/17 20:55 20:56 20:59 Temperature 98.1 F Pulse Rate 76 80 Respiratory 22 21 26 H Rate Blood Pressure 133/91 Blood Pressure 133/91 [Right] O2 Sat by Pulse 100 100 100 Oximetry 0211/06/17 11/06/17 21:00 21:06 21:10 Temperature Pulse Rate 76 77 86 Respiratory 19 18 24 Rate Blood Pressure 136/93 136/93 136/93 Blood Pressure [Right] O2 Sat by Pulse 90 100 99 Oximetry 11/06/17 11/06/17 11/06/17 21:16 21:20 21:25 Temperature Pulse Rate 76 82 87 Respiratory 17 25 H 20 Rate Blood Pressure 136/93 136/93 122/82 Blood Pressure [Right] O2 Sat by Pulse 100 100 98 Oximetry 11/06/17 11/06/17 11/06/17 21:29 21:30 21:40 Temperature Pulse Rate 84 80 75 Respiratory 23 25 H Rate Blood Pressure 117/79 120/84 130/85 Blood Pressure [Right] O2 Sat by Pulse 100 99 Oximetry 11/06/17 11/06/17 11/06/17 21:50 22:00 22:01 Temperature Pulse Rate 86 72 72 Respiratory 27 H 23 Rate Blood Pressure 125/85 140/89 144/96 Blood Pressure [Right] O2 Sat by Pulse 89 75 L Oximetry 11/06/17 11/06/17 11/06/17 22:10 22:20 22:30 Temperature Pulse Rate 80 74 78 Respiratory 18 34 H 13 Rate Blood Pressure 140/89 128/95 128/95 Blood Pressure [Right] O2 Sat by Pulse 88 96 Oximetry 11/06/17 11/06/17 11/06/17 22:40 22:50 22:56 Temperature Pulse Rate 89 92 H 82 Respiratory 17 23 26 H Rate Blood Pressure 126/83 126/83 126/83 Blood Pressure [Right] O2 Sat by Pulse Oximetry 11/06/17 11/06/17 11/06/17 23:00 23:06 23:10 Temperature Pulse Rate 92 H 84 76 Respiratory 18 23 22 Rate Blood Pressure 119/71 119/71 119/71 Blood Pressure [Right] O2 Sat by Pulse Oximetry 11/06/17 11/06/17 11/06/17 23:16 23:20 23:26 Temperature Pulse Rate 79 98 H 84 Respiratory 18 32 H 22 Rate Blood Pressure 119/71 119/71 105/76 Blood Pressure [Right] O2 Sat by Pulse Oximetry - Reevaluation(s) Reevaluation #1: 11/06/17 21:50 pt still c/o cp. no change with meds. MANPREET score - Manpreet Score Age > 65: (0) No Aspirin use within the Past 7 Days: (0) No 3 or more CAD Risk Factors: (0) No 2 or more Angina events in past 24 hrs: (0) No Known CAD with more than 50% Stenosis: (0) No Elevated Cardiac Markers: (0) No ST Deviation Greater than 0.5mm: (0) No MANPREET Score: 0 ED Medical Decision Making - Lab Data Result diagrams: 11/06/17 21:17 11/06/17 21:17 - EKG Data -: EKG Interpreted by Me EKG shows normal: sinus rhythm Rate: normal - EKG Data Interpretation: no acute changes, normal EKG, LVH - Radiology Data Radiology results: report reviewed No acute findings. - Medical Decision Making Lab patient. The plan is to Admit patient to hospital for rule out. Will consult hospitalist for admission. - Differential Diagnosis cp/sob. pe. acs Critical care attestation.: If time is entered above; I have spent that time in minutes in the direct care of this critically ill patient, excluding procedure time. ED Disposition Clinical Impression: Shortness of breath, Acute chest pain Disposition: DC-09 OP ADMIT IP TO THIS HOSP Is pt being admited?: Yes Does the pt Need Aspirin: No Condition: Serious Referrals: KEN DRAKE MD [Primary Care Provider] - 3-5 Days Time of Disposition: 22:58
[2017-11-06] MEDS ORDERED: NITROSTAT SL ONE (21:10)
[2017-11-06] MEDS ORDERED: MORPHINE IV ONE (21:12)
[2017-11-06] MEDS ORDERED: MORPHINE ONE ×3 (21:17→23:33)
[2017-11-06] MEDS ORDERED: DILAUDID IV ONE (21:45)
[2017-11-06] MEDS ORDERED: NITRO-BID 2% TP ONE (21:46)
[2017-11-06 22:06] LABS: Basophils # (Auto) 0.1 K/mm3 (0.0-0.1); Basophils % (Auto) 2.6 % (0.0-1.8); Eosinophils # (Auto) 0.2 K/mm3 (0.0-0.4); Eosinophils % (Auto) 3.6 % (0.0-4.3); Hematocrit 37.6 % (35.5-45.6); Hemoglobin 11.8 gm/dl (11.8-15.2); Lymphocytes % (Auto) 36.3 % (13.4-35.0); Mean Corpuscular HGB Conc 32 % (32-34); Mean Corpuscular Volume 81 fl (84-94); Monocytes # (Auto) 0.8 K/mm3 (0.0-0.8); Monocytes % (Auto) 14.2 % (0.0-7.3); Platelet Count 201 K/mm3 (140-440); Red Blood Count 4.62 M/mm3 (3.65-5.03); Red Cell Distribution Width 17.6 % (13.2-15.2)
[2017-11-06 22:09] LABS: INR 0.9 (0.87-1.13)
[2017-11-06 22:10] LABS: Partial Thromboplastin Time 28.1 Sec. (24.2-36.6)
[2017-11-06 22:18] LABS: Alanine Aminotransferase 16 units/L (7-56); Albumin 3.5 g/dL (3.9-5); BUN/Creatinine Ratio 16; Blood Urea Nitrogen 11 mg/dL (9-20); Hemolysis Index 16
--- NOTE | 2017-11-06 22:32 | XRay Report ---
FINAL REPORT EXAM: XR CHEST 1V AP HISTORY: Chest Pain COMPARISON: July 2017 FINDINGS: Frontal view(s) of the chest obtained. Heart normal in size. Stable mild tortuosity of the thoracic aorta. Stable moderate severe emphysematous changes with prominent bullous changes of the upper lungs. Stable linear scarring at the left lung base. No acute infiltrates or effusions. No pneumothorax. No change from prior study. IMPRESSION: Stable prominent emphysematous changes. Stable linear scarring at the left lung base. No acute infiltrates or effusions.
[2017-11-06 22:40] LABS: Bilirubin,Urine NEG (Negative); Blood,Urine NEG (Negative); Color,Urine Yellow (Yellow); Nitrite,Urine NEG (Negative); Protein,Urine <15 mg/dL mg/dL (Negative); Urobilinogen,Urine < 2.0 mg/dL (<2.0); WBC,Urine < 1.0 /HPF (0.0-6.0)
[2017-11-06 22:42] LABS: Mean Corpuscular Hemoglobin 26 pg (28-32)
[2017-11-06 22:43] LABS: Amphetamine Screen,Urine PRESUMPTIVE NEGATIVE; Cannabinoid Screen,Urine PRESUMPTIVE NEGATIVE; Cocaine Screen,Urine PRESUMPTIVE NEGATIVE; Methadone Screen,Urine PRESUMPTIVE NEGATIVE; Opiate Screen,Urine PRESUMPTIVE NEGATIVE
[2017-11-06] MEDS: MORPHINE IV PRN ×2 (23:04→23:30)
[2017-11-06 23:11] LABS: Benzodiazepines Screen,Urine PRESUMPTIVE POSITIVE
--- NOTE | 2017-11-06 23:54 | History and Physical Report ---
History of Present Illness Date of examination: 11/06/17 History of present illness: 56-year-old man with a history of hypertension, dvt, chronic pain the emergency room with complaints of chest pain. Pain is in the left chest area which started today, sharp, intermittent in nature,constant, intensity 5/10, radiating to the back, she cannot identify exacerbating or relieving factors. He admits to shortness of breath, no nausea vomiting, diaphoresis or palpitation . Patient had 2 stress test in 2017. Admits to recent travel to [place] Review Of Systems: Constitutional: no weight loss Ears, eyes, nose, mouth and throat: no nasal congestion, no nasal discharge, no sinus pressure, blurry vision, diplopia Neck: No neck pain or rigidity. Cardiovascular: No palpitations Respiratory: No shortness of breath, cough Gastrointestinal: No abdominal pain, hematochezia Genitourinary : no dysuria, frequency , hematuria Musculoskeletal: no muscle ache Integumentary: no rash, no pruritis Neurological: no parathesias, focal weakness Endocrine: no cold or heat intolerance, no polyuria or polydipsia Hematologic/Lymphatic: no easy bruising, no easy bleeding, no gland swelling Allergic/Immunologic: no urticaria, no angioedema. PAST MEDICAL HISTORY:hypertension, DVT, chronic pain PAST SURGICAL HISTORY: partial gastrectomy, spinal fusion FAMILY HISTORY:hypertension SOCIAL HISTORY: Drinks 1/2 pint/day, smoke 1 pack a day, no drugs Medications and Allergies Allergies Allergy/AdvReac Type Severity Reaction Status Date / Time aspirin Allergy Vomiting Verified 08/25/17 13:59 prochlorperazine Allergy Anaphylaxis Verified 08/25/17 13:59 [From Compazine] prochlorperazine edisylate Allergy Anaphylaxis Verified 08/25/17 13:59 [From Compazine] prochlorperazine maleate Allergy Anaphylaxis Verified 08/25/17 13:59 [From Compazine] Home Medications Medication Instructions Recorded Confirmed Last Taken Type Albuterol Sulfate [Ventolin HFA] 2 puff IH Q4H PRN 11/17/16 08/25/17 08/24/17 History Hydrochlorothiazide [HCTZ] 25 mg PO QDAY 11/17/16 08/25/17 08/24/17 History Rivaroxaban [Xarelto] 20 mg PO QDAY 02/08/25/17 08/24/17 History Tiotropium [place] [Spiriva 2 puff IH QDAY #1 mist.inhal 01/04/17 08/25/1708/24 Rx Respimat] Famotidine [Pepcid] 20 mg PO QDAY #30 tablet 05/13/17 08/25/17 08/24/17 Rx levETIRAcetam [Keppra TAB] 750 mg PO BID 05/14/17 08/25/17 08/24/17 History Lisinopril [Zestril] 10 mg PO DAILY 08/25/17 08/25/17 08/24/17 History traZODone [Desyrel] 100 mg PO QHS 08/25/17 08/25/17 08/24/17 History Active Meds: Active Medications Morphine Sulfate (Morphine) 2 mg IV Q5MIN PRN PRN Reason: Chest Pain Last Admin: 11/06/17 23:04 Dose: 2 mg Exam - Physical Exam Narrative exam: Gen. appearance: Patient lying in bed in no acute distress HEENT: Normocephalic/atraumatic, pupils equal round reactive to light, extra occular movement intact, no scleral icterus, no JVD or thyromegaly or nodule, neck is supple, mucous membrane moist, no erythema or exudate Heart: S1-S2, regular rate and rhythm Lungs: Clear to auscultation bilateral breathing comfortable Abdomen: Positive bowel sounds, nontender, nondistended, no organomegaly Extremities: No edema, cyanosis, clubbing Neuro:: Oriented 3 , cranial nerves II-12 intact, speech, motor intact Skin: No rash, nodules, warm dry - Constitutional Vitals: Temp Pulse Resp BP Pulse Ox 98.1 F 84 22 105/76 96 11/06/17 20:55 11/06/17 23:26 11/06/17 23:26 11/06/17 23:26 11/06/17 22:20 Results - Labs CBC & Chem 7: 11/06/17 21:17 11/06/17 21:17 Labs: Abnormal lab results 11/06/17 11/06/17 Range/Units 21:17 21:17 MCV 81 L (84-94) fl MCH 26 L (28-32) pg RDW 17.6 H (13.2-15.2) % Lymph % (Auto) 36.3 H (13.4-35.0) % [place] % (Auto) 14.2 H (0.0-7.3) % Baso % (Auto) 2.6 H (0.0-1.8) % Creatinine 0.7 L (0.8-1.5) mg/dL Total Protein 6.0 L (6.3-8.2) g/dL Albumin 3.5 L (3.9-5) g/dL - Imaging and Cardiology EKG: image reviewed Chest x-ray: image reviewed Assessment and Plan Assessment Chest pain, rule out ACS DVT on xarelto Chronic pain Alcohol abuse Plan Admit to medicine Check cardiac enzymes, d-dimer, consult cardiology IV morphine, CIWA protocol with IV Ativan DVT prophylaxis
[2017-11-07] MEDS: MORPHINE IV PRN (00:29)
[2017-11-07] MEDS ORDERED: MORPHINE IV PRN (01:03)
[2017-11-07] MEDS ORDERED: PROVENTIL IH PRN (01:03)
[2017-11-07] MEDS ORDERED: MILK OF MAGNESIA PO PRN (01:03)
[2017-11-07] MEDS ORDERED: DULCOLAX PR PRN (01:03)
[2017-11-07] MEDS ORDERED: TYLENOL PO PRN (01:03)
[2017-11-07] MEDS ORDERED: ZOFRAN IV PRN (01:03)
[2017-11-07] MEDS ORDERED: ATIVAN IV PRN ×2 (01:07)
[2017-11-07] MEDS ORDERED: PROAIR IH PRN (01:39)
[2017-11-07 02:15] VITALS: BP 134/82
[2017-11-07 06:30] LABS: Creatine Kinase MB 2.3 ng/mL (0.0-4.0)
--- NOTE | 2017-11-07 06:59 | Event Note ---
Date: 11/07/17 Patient decided to sign out AGAINST MEDICAL ADVICE, risk and benefits were explained to him in details
[2017-11-07] MEDS ORDERED: SPIRIVA IH SCH (10:00)
[2017-11-07] MEDS ORDERED: XARELTO PO SCH (10:00)
[2017-11-07] MEDS ORDERED: HCTZ PO SCH (10:00)
[2017-11-07] MEDS ORDERED: KEPPRA PO SCH (10:00)
[2017-11-07] MEDS ORDERED: ZESTRIL PO SCH (10:00)
[2017-11-07] MEDS ORDERED: PEPCID PO SCH (10:00)
[2017-11-07] MEDS ORDERED: LOVENOX SUB-Q SCH (10:00)
[2017-11-07] MEDS ORDERED: DESYREL PO SCH (22:00)
== END 2017-11-07 06:19 | disposition left against medical advice (07) ==
LOC: ED 20:26 → 4A 23:54
PROVIDERS: ADMIT Internal Medicine; ATTEND Internal Medicine
DX: R07.89 Other chest pain (principal); I10 Essential (primary) hypertension; G89.29 Other chronic pain; F17.210 Nicotine dependence, cigarettes, uncomplicated; Z86.718 Personal history of other venous thrombosis and embolism; Z82.49 Family history of ischemic heart disease and other diseases of the circulatory system; Z90.3 Acquired absence of stomach [part of]; Z79.899 Other long term (current) drug therapy
CPT/HCPCS: 36415; 71045; 80053; 80307; 81001; 82550; 82553; 83880; 84484; 85025; 85379; 85610; 85730; 93005; 93010; 96374; 96375; 96376; 99285; G0378; J1170; J2270

== ENCOUNTER 2017-11-07 09:25 | Emergency (ER) | payer MEDICARE ==
[2017-11-07 09:38] VITALS: BP 148/88
[2017-11-07 10:36] LABS: Hemoglobin 11.5 gm/dl (11.8-15.2); Mean Corpuscular HGB Conc 31 % (32-34); Mean Corpuscular Volume 82 fl (84-94); Platelet Count 199 K/mm3 (140-440); Red Blood Count 4.51 M/mm3 (3.65-5.03); Red Cell Distribution Width 17.9 % (13.2-15.2)
[2017-11-07 10:44] LABS: BUN/Creatinine Ratio 13; Blood Urea Nitrogen 9 mg/dL (9-20); Calcium 8.9 mg/dL (8.4-10.2); Hemolysis Index 36
[2017-11-07 10:45] LABS: Mean Corpuscular Hemoglobin 26 pg (28-32)
[2017-11-07 12:08] LABS: Bilirubin,Urine NEG (Negative); Blood,Urine NEG (Negative); Color,Urine Straw (Yellow); Nitrite,Urine NEG (Negative); Protein,Urine <15 mg/dL mg/dL (Negative); Urobilinogen,Urine < 2.0 mg/dL (<2.0)
--- NOTE | 2017-11-07 12:08 | Emergency Department Report ---
ED General Adult HPI - General Chief complaint: Alcohol Stated complaint: ALCOHOL WITHDRAWAL Time Seen by Provider: 11/07/17 11:18 Source: patient Mode of arrival: Ambulatory Limitations: No Limitations - History of Present Illness Initial comments: This is a 62-year-old male nontoxic, well nourished in appearance, no acute signs of distress presents to the ED for blood work for [place]. Patient stated he went to [facility] for detox program for alochol abuse and stated he needs blood work before he gets admitted and this is why the patient came in today. Patient denies any symptoms. Patient denies drinking any alochol in the last 48 hours. Patient denies any chest pain, shortness of breathe, fever, chills, nausea, vomiting, pain, back pain. Patient states allergies to aspirin , Compazine. Past medical history includes alcohol abuse, COPD, CVA, DVT, GERD and hypertension. MD Complaint: Labs Severity scale (0 -10): 0 Worsens with: none Associated Symptoms: denies other symptoms. denies: confusion, chest pain, cough, diaphoresis, fever/chills, headaches, loss of appetite, malaise, nausea/ vomiting, rash, seizure, shortness of breath, syncope, weakness Treatments Prior to Arrival: none - Related Data Home Medications Medication Instructions Recorded Confirmed Last Taken Albuterol Sulfate [Ventolin HFA] 2 puff IH Q4H PRN 11/17/16 08/25/17 08/24/17 Hydrochlorothiazide [HCTZ] 25 mg PO QDAY 11/17/16 08/25/17 08/24/17 Rivaroxaban [Xarelto] 20 mg PO QDAY 11/17/16 08/25/17 08/24/17 levETIRAcetam [Keppra TAB] 750 mg PO BID 05/14/17 08/25/17 08/24/17 Lisinopril [Zestril] 10 mg PO DAILY 08/25/17 08/25/17 08/24/17 traZODone [Desyrel] 100 mg PO QHS 08/25/17 08/25/17 08/24/17 Previous Rx's Medication Instructions Recorded Last Taken Type Tiotropium [place] [Spiriva 2 puff IH QDAY #1 mist.inhal 01/04/17 08/24/17 Rx Respimat] Famotidine [Pepcid] 20 mg PO QDAY #30 tablet 05/13/17 08/24/17 Rx Allergies Allergy/AdvReac Type Severity Reaction Status Date / Time aspirin Allergy Vomiting Verified 08/25/17 13:59 prochlorperazine Allergy Anaphylaxis Verified 08/25/17 13:59 [From Compazine] prochlorperazine edisylate Allergy Anaphylaxis Verified 08/25/17 13:59 [From Compazine] prochlorperazine maleate Allergy Anaphylaxis Verified 08/25/17 13:59 [From Compazine] ED Review of Systems ROS: Stated complaint: ALCOHOL WITHDRAWAL Other details as noted in HPI Constitutional: denies: chills, fever Eyes: denies: eye pain, eye discharge, vision change ENT: denies: ear pain, throat pain Respiratory: denies: cough, shortness of breath, wheezing Cardiovascular: denies: chest pain, palpitations Endocrine: no symptoms reported Gastrointestinal: denies: abdominal pain, nausea, diarrhea Genitourinary: denies: urgency, dysuria Musculoskeletal: denies: back pain, joint swelling, arthralgia Skin: denies: rash, lesions Neurological: denies: headache, weakness, paresthesias Psychiatric: denies: anxiety, depression Hematological/Lymphatic: denies: easy bleeding, easy bruising ED Past Medical Hx - Past Medical History Hx Hypertension: Yes Hx CVA: Yes (2016-) Hx Congestive Heart Failure: No Hx Diabetes: No Hx Deep Vein Thrombosis: Yes Hx Pulmonary Embolism: Yes (2004, IVC filter placed) Hx GERD: Yes Hx Arthritis: Yes (back) Hx Headaches / Migraines: Yes Hx Seizures: Yes Hx Asthma: No Hx COPD: Yes Hx HIV: No Additional medical history: Emphysema - Surgical History Hx Appendectomy: Yes Additional Surgical History: lumbar surgery, gastrectomy, l. elbow, partial gastrectomy for perforated ulcer - Social History Smoking Status: Current Every Day Smoker - Medications Home Medications: Home Medications Medication Instructions Recorded Confirmed Last Taken Type Albuterol Sulfate [Ventolin HFA] 2 puff IH Q4H PRN 11/17/16 08/25/17 08/24/17 History Hydrochlorothiazide [HCTZ] 25 mg PO QDAY 11/17/16 08/25/17 08/24/17 History Rivaroxaban [Xarelto] 20 mg PO QDAY 0208/25/17 08/24/17 History Tiotropium [place] [Spiriva 2 puff IH QDAY #1 mist.inhal 01/04/17 08/25/1708/24 Rx Respimat] Famotidine [Pepcid] 20 mg PO QDAY #30 tablet 05/13/17 08/25/17 08/24/17 Rx levETIRAcetam [Keppra TAB] 750 mg PO BID 05/14/17 08/25/17 08/24/17 History Lisinopril [Zestril] 10 mg PO DAILY 08/25/17 08/25/17 08/24/17 History traZODone [Desyrel] 100 mg PO QHS 08/25/17 08/25/17 08/24/17 History ED Physical Exam - General Limitations: No Limitations General appearance: alert, in no apparent distress - Head Head exam: Present: atraumatic, normocephalic - Eye Eye exam: Present: normal appearance - ENT ENT exam: Present: mucous membranes moist - Neck Neck exam: Present: normal inspection - Respiratory Respiratory exam: Present: normal lung sounds bilaterally. Absent: respiratory distress - Cardiovascular Cardiovascular Exam: Present: regular rate, normal rhythm. Absent: systolic murmur, diastolic murmur, rubs, gallop - GI/Abdominal GI/Abdominal exam: Present: soft, normal bowel sounds - Rectal Rectal exam: Present: deferred - Extremities Exam Extremities exam: Present: normal inspection - Back Exam Back exam: Present: normal inspection - Neurological Exam Neurological exam: Present: alert, oriented X3 - Psychiatric Psychiatric exam: Present: normal affect, normal mood - Skin Skin exam: Present: warm, dry, intact, normal color. Absent: rash ED Course Vital Signs 11/07/17 09:34 Temperature 97.3 F L Pulse Rate 83 Respiratory 18 Rate Blood Pressure 148/88 O2 Sat by Pulse 97 Oximetry - Reevaluation(s) Reevaluation #1: 11/07/17 12:06 Patient is speaking in full sentences with no signs of distress noted. - Consultations Consultation #1: 11/07/17 12:06 Patient has been consulted with Dr. Matamoros about patient history, physical exam, and labs and examined and screened patient and agrees to ED plan of care and discharge plan of care. ED Medical Decision Making - Lab Data Result diagrams: 11/07/17 09:43 11/07/17 09:43 - Medical Decision Making 62-year-old male that presents for lab. Patient is stable. Patient received a laboratory information that was received in the ED. Patient was instructed Follow-up with a primary care doctor in 3-5 days or if symptoms worsen and continue return to emergency room as soon as possible. At time of discharge, the patient does not seem toxic or ill in appearance. No acute signs of distress noted. Patient agrees to discharge treatment plan of care. No further questions noted by the patient. Critical care attestation.: If time is entered above; I have spent that time in minutes in the direct care of this critically ill patient, excluding procedure time. ED Disposition Clinical Impression: Alcohol abuse Disposition: DC-01 TO HOME OR SELFCARE Is pt being admited?: No Does the pt Need Aspirin: No Condition: Stable Instructions: Abuse of Alcohol (ED) Referrals: PRIMARY CARE, [Primary Care Provider] - 3-5 Days WAYNE CALERO MD [Staff Physician] - 3-5 Days [facility] [Outside] - 3-5 Days [facility] [Outside] - 3-5 Days
--- NOTE | 2017-11-07 12:40 | Emergency Department Report ---
Chief Complaint: Alcohol Stated Complaint: ALCOHOL WITHDRAWAL Time Seen by Provider: 11/07/17 11:18 - HPI History of Present Illness: The patient's [id number] male who presents for evaluation of medical clearance for detox admission. He complains of mild intermittent tiredness and fatigue for the past week since discontinuing alcohol consumption 1 week ago. The patient denies fever, head injury, headache, neck pain, neck stiffness, vision or hearing changes, smell or taste changes, paresthesias, facial drooping , slurred speech, seizure-like activity, urine or bowel incontinence or retention, chest pain, dyspnea, abdominal pain, vomiting, diarrhea, tremor, or other focal neurological deficit. - Exam Vital Signs: Vital Signs 11/07/17 09:34 Temperature 97.3 F L Pulse Rate 83 Respiratory 18 Rate Blood Pressure 148/88 O2 Sat by Pulse 97 Oximetry MSE screening note: Focused history and physical exam performed. Due to findings the following was ordered: Labs ordered for medical clearance. No signs of alcohol withdrawal on exam ED Medical Decision Making - Lab Data Result diagrams: 11/07/17 09:43 11/07/17 09:43 ED Disposition for MSE Clinical Impression: Alcohol abuse Disposition: DC-01 TO HOME OR SELFCARE Condition: Stable Instructions: Abuse of Alcohol (ED) Referrals: [facility] [Outside] - 3-5 Days [facility] [Outside] - 3-5 Days PRIMARY CAREMD [Primary Care Provider] - 3-5 Days WAYNE CALERO MD [Staff Physician] - 3-5 Days
[2017-11-07 13:00] LABS: Amphetamine Screen,Urine PRESUMPTIVE NEGATIVE; Benzodiazepines Screen,Urine PRESUMPTIVE NEGATIVE; Cannabinoid Screen,Urine PRESUMPTIVE NEGATIVE; Cocaine Screen,Urine PRESUMPTIVE NEGATIVE; Methadone Screen,Urine PRESUMPTIVE NEGATIVE; Opiate Screen,Urine PRESUMPTIVE NEGATIVE
== END 2017-11-07 18:43 | disposition home or self-care (01) ==
LOC: ED 09:25
DX: F10.10 Alcohol abuse, uncomplicated (principal); Z88.6 Allergy status to analgesic agent; I10 Essential (primary) hypertension; Z86.73 Personal history of transient ischemic attack (TIA), and cerebral infarction without residual deficits; I82.409 Acute embolism and thrombosis of unspecified deep veins of unspecified lower extremity; K21.9 Gastro-esophageal reflux disease without esophagitis; M19.90 Unspecified osteoarthritis, unspecified site; J44.9 Chronic obstructive pulmonary disease, unspecified; F17.200 Nicotine dependence, unspecified, uncomplicated; Z88.8 Allergy status to other drugs, medicaments and biological substances
CPT/HCPCS: 36415; 80048; 80307; 81001; 85027; 99283; G0480; 80320

== ENCOUNTER 2017-11-30 18:49 | Emergency (ER) | payer MEDICARE ==
[2017-11-30] MEDS ORDERED: ATIVAN ONE (19:04)
--- NOTE | 2017-11-30 19:08 | Emergency Department Report ---
ED Psych HPI - General Chief Complaint: Neuro Symptoms/Deficit Stated Complaint: SEIZURES Time Seen by Provider: 11/30/17 19:06 Source: patient Mode of arrival: Wheelchair - History of Present Illness Initial Comments: Going to [facility] in the lodge program for alcohol use disorder, and about 130pm he began to have an headache, nausea, felt weak, and started shaking. Reports having slurred speech as well. Has a history of 2 CVAs in the past. He is AOx3 but is shaking in the bed, says he can't control it. Complaint: other (alcohol withdrawal) -: Gradual Associated Psychiatric Symptoms: other (headache) History of same: Yes Quality: constant Improves With: none Worsens With: none Context: other (used ETOH 11 days ago, 43 year abuse history) Associated Symptoms: headache, shortness of breath (uses albuterol), nausea, vomiting. denies: confusion Treatments Prior to Arrival: none - Related Data Home Medications Medication Instructions Recorded Confirmed Last Taken Albuterol Sulfate [Ventolin HFA] 2 puff IH Q4H PRN 11/17/16 08/25/17 08/24/17 Hydrochlorothiazide [HCTZ] 25 mg PO QDAY 11/17/16 08/25/17 08/24/17 Rivaroxaban [Xarelto] 20 mg PO QDAY 11/17/16 08/25/17 08/24/17 levETIRAcetam [Keppra TAB] 750 mg PO BID 05/14/17 08/25/17 08/24/17 Lisinopril [Zestril] 10 mg PO DAILY 08/25/17 08/25/17 08/24/17 traZODone [Desyrel] 100 mg PO QHS 08/25/17 08/25/17 08/24/17 Previous Rx's Medication Instructions Recorded Last Taken Type Tiotropium [place] [Spiriva 2 puff IH QDAY #1 mist.inhal 01/04/17 08/24/17 Rx Respimat] Famotidine [Pepcid] 20 mg PO QDAY #30 tablet 05/13/17 08/24/17 Rx Allergies Allergy/AdvReac Type Severity Reaction Status Date / Time aspirin Allergy Vomiting Verified 11/30/17 18:55 prochlorperazine Allergy Anaphylaxis Verified 11/30/17 18:55 [From Compazine] prochlorperazine edisylate Allergy Anaphylaxis Verified 11/30/17 18:55 [From Compazine] prochlorperazine maleate Allergy Anaphylaxis Verified 11/30/17 18:55 [From Compazine] ED Review of Systems ROS: Stated complaint: SEIZURES Other details as noted in HPI Comment: All other systems reviewed and negative Constitutional: see HPI Eyes: as per HPI ENT: as per HPI Respiratory: see HPI Cardiovascular: as per HPI Endocrine: see HPI Gastrointestinal: as per HPI Genitourinary: as per HPI Musculoskeletal: as per HPI Neurological: as per HPI Psychiatric: as per HPI Hematological/Lymphatic: as per HPI ED Past Medical Hx - Past Medical History Hx Hypertension: Yes Hx CVA: Yes (2016-) Hx Congestive Heart Failure: No Hx Diabetes: No Hx Deep Vein Thrombosis: Yes Hx Pulmonary Embolism: Yes (2004, IVC filter placed) Hx GERD: Yes Hx Arthritis: Yes (back) Hx Headaches / Migraines: Yes Hx Seizures: Yes Hx Asthma: No Hx COPD: Yes Hx HIV: No Additional medical history: Emphysema - Surgical History Hx Appendectomy: Yes Additional Surgical History: lumbar surgery, gastrectomy, l. elbow, partial gastrectomy for perforated ulcer - Social History Smoking Status: Current Every Day Smoker Substance Use Type: None - Medications Home Medications: Home Medications Medication Instructions Recorded Confirmed Last Taken Type Albuterol Sulfate [Ventolin HFA] 2 puff IH Q4H PRN 11/17/16 08/25/17 08/24/17 History Hydrochlorothiazide [HCTZ] 25 mg PO QDAY 11/17/16 08/25/17 08/24/17 History Rivaroxaban [Xarelto] 20 mg PO QDAY 11/17/16 08/25/17 08/24/17 History Tiotropium [place] [Spiriva 2 puff IH QDAY #1 mist.inhal 01/04/17 08/25/1708/24 Rx Respimat] Famotidine [Pepcid] 20 mg PO QDAY #30 tablet 05/13/17 08/25/17 08/24/17 Rx levETIRAcetam [Keppra TAB] 750 mg PO BID 05/14/17 08/25/17 08/24/17 History Lisinopril [Zestril] 10 mg PO DAILY 08/25/17 08/25/1717 History traZODone [Desyrel] 100 mg PO QHS 08/25/17 08/25/17 08/24/17 History ED Physical Exam - General Limitations: No Limitations General appearance: alert, in distress (moderate) - Head Head exam: Present: atraumatic, normocephalic - Eye Eye exam: Present: normal appearance, PERRL, EOMI - ENT ENT exam: Present: normal exam - Neck Neck exam: Present: normal inspection - Respiratory Respiratory exam: Present: normal lung sounds bilaterally. Absent: respiratory distress, wheezes, rales, rhonchi - Cardiovascular Cardiovascular Exam: Present: regular rate, normal rhythm, normal heart sounds - GI/Abdominal GI/Abdominal exam: Present: soft, normal bowel sounds - Rectal Rectal exam: Present: deferred - Extremities Exam Extremities exam: Present: normal inspection, full ROM, other (shaking all over) - Back Exam Back exam: Present: normal inspection - Neurological Exam Neurological exam: Present: alert, oriented X3, CN II-XII intact - Skin Skin exam: Present: warm, dry, intact, normal color ED Course Vital Signs 11/30/17 11/30/17 18:55 21:14 Temperature 98.4 F Pulse Rate 84 Respiratory 20 18 Rate Blood Pressure 138/96 O2 Sat by Pulse 95 Oximetry - Reevaluation(s) Reevaluation #1: 11/30/17 19:50 Gave ativan 2mg IM, difficulty in getting IV access, will try to get an EJ. 11/30/17 22:11 The patient is resting comfortably at this time. His blood work and his CAT scan did not reveal any kind of acute findings at this time. I feel the patient can return to his mental health care facility and resume his activities there. He is out of the window for any kind of delirium tremens. In fact, when he was having this supposedly seizure, he was alert and oriented and following commands just find while he was shaking in the bed. He is asked multiple times for pain medications while he is here. I did give him some morphine for his headache. At this time we will go ahead and discharge the patient with the understanding that if there are any actual medical issues that come up, we are happy to take care of the patient. ED Medical Decision Making - Lab Data Result diagrams: 11/30/17 19:49 11/30/17 19:49 Critical care attestation.: If time is entered above; I have spent that time in minutes in the direct care of this critically ill patient, excluding procedure time. ED Disposition Clinical Impression: Pseudoseizure, Tremor Headache Qualifiers: Headache type: unspecified Headache chronicity pattern: acute headache Intractability: not intractable Qualified Code(s): R51 - Headache Disposition: -01 TO HOME OR SELFCARE Is pt being admited?: No Does the pt Need Aspirin: No Condition: Stable Instructions: Abuse of Alcohol (ED), Medical Clearance for Substance Abuse Treatment (ED) Additional Instructions: Rest fluids follow up with your primary care doctor of choice, obtain help for her alcohol use disorder, on 911 if he began having a life-threatening emergency.
[2017-11-30] MEDS ORDERED: NACL 0.9% 1000 ML 1,000 ML IV ONE (19:35)
[2017-11-30] MEDS ORDERED: ATIVAN IM ONE (19:39)
[2017-11-30 19:49] LABS: Bilirubin,Urine NEG (Negative); Blood,Urine NEG (Negative); Color,Urine Yellow (Yellow); Protein,Urine <15 mg/dL mg/dL (Negative)
[2017-11-30] MEDS ORDERED: ZOFRAN IM ONE (19:52)
[2017-11-30] MEDS ORDERED: MORPHINE IM ONE (19:52)
[2017-11-30 19:57] LABS: Amphetamine Screen,Urine PRESUMPTIVE NEGATIVE; Benzodiazepines Screen,Urine PRESUMPTIVE NEGATIVE; Cannabinoid Screen,Urine PRESUMPTIVE NEGATIVE; Cocaine Screen,Urine PRESUMPTIVE NEGATIVE; Methadone Screen,Urine PRESUMPTIVE NEGATIVE; Opiate Screen,Urine PRESUMPTIVE NEGATIVE
[2017-11-30 20:10] LABS: Eosinophils # (Auto) 0.1 K/mm3 (0.0-0.4); Hematocrit 43.5 % (35.5-45.6); Hemoglobin 13.9 gm/dl (11.8-15.2); Lymphocytes # (Auto) 1.5 K/mm3 (1.2-5.4); Lymphocytes % (Auto) 32.2 % (13.4-35.0); Mean Corpuscular HGB Conc 32 % (32-34); Mean Corpuscular Volume 80 fl (84-94); Monocytes # (Auto) 0.7 K/mm3 (0.0-0.8); Monocytes % (Auto) 15.1 % (0.0-7.3); Platelet Count 177 K/mm3 (140-440); Red Blood Count 5.43 M/mm3 (3.65-5.03); Red Cell Distribution Width 16.3 % (13.2-15.2)
[2017-11-30 20:14] LABS: Mean Corpuscular Hemoglobin 26 pg (28-32)
[2017-11-30 20:16] LABS: Albumin 3.9 g/dL (3.9-5); BUN/Creatinine Ratio 13; Blood Urea Nitrogen 10 mg/dL (9-20); Calcium 9.4 mg/dL (8.4-10.2); Hemolysis Index 161
[2017-11-30 20:21] LABS: Alanine Aminotransferase 13 units/L (7-56)
--- NOTE | 2017-11-30 20:22 | Cat Scan Report ---
FINAL REPORT PROCEDURE: CT HEAD/BRAIN WO CON TECHNIQUE: Computerized tomography of the head was performed without contrast material. HISTORY: severe headache COMPARISON: Prior CT scan of the brain 08/25/2017 FINDINGS: Moderate-size areas of encephalomalacia are seen anteriorly, superiorly and laterally in the right frontal lobe. These are unchanged compared to the prior study. There is no evidence of intracranial hemorrhage or mass lesion. No abnormal extra-axial fluid collections or masses are seen. The ventricles are normal size and are midline. There is minimal decreased density in the periventricular white matter without mass effect suggesting mild gliosis related to microvascular disease or white matter changes of aging. Small old lacunar infarcts seen in the external capsule on the right. There is no evidence of skull fracture. There is minimal mucosal thickening in a few of the ethmoid air cells. Visualized portions of the paranasal sinuses otherwise appear clear. Mastoid air cells bilaterally are clear. IMPRESSION: Stable exam. Old areas of encephalomalacia again visualized right frontal lobe. Small old lacunar infarcts seen in the right external capsule. No acute intracranial abnormalities are identified. Minimal paranasal sinus disease as described.
[2017-11-30] MEDS ORDERED: MORPHINE ONE (21:02)
[2017-11-30] MEDS ORDERED: DILAUDID IM ONE (22:17)
[2017-11-30] MEDS ORDERED: TYLENOL ONE (23:18)
[2017-11-30] MEDS ORDERED: TYLENOL PO ONE (23:20)
[2017-11-30 23:47] VITALS: BP 145/91
== END 2017-11-30 23:35 | disposition home or self-care (01) ==
LOC: ED 18:49
DX: R25.1 Tremor, unspecified (principal); G43.909 Migraine, unspecified, not intractable, without status migrainosus; I10 Essential (primary) hypertension; Z86.73 Personal history of transient ischemic attack (TIA), and cerebral infarction without residual deficits; K21.9 Gastro-esophageal reflux disease without esophagitis; F17.200 Nicotine dependence, unspecified, uncomplicated; Z88.6 Allergy status to analgesic agent; Z88.8 Allergy status to other drugs, medicaments and biological substances
CPT/HCPCS: 36415; 70450; 80053; 80307; 81001; 85025; 96360; 96372; 99284; G0480; J1170; J2060; J2270; J2405; J7030; 80320

== ENCOUNTER 2017-12-02 15:30 | Emergency (ER) | payer MEDICARE ==
[2017-12-02 16:50] LABS: Hematocrit 42.6 % (35.5-45.6); Hemoglobin 13.7 gm/dl (11.8-15.2); Mean Corpuscular HGB Conc 32 % (32-34); Mean Corpuscular Volume 81 fl (84-94); Platelet Count 184 K/mm3 (140-440); Red Blood Count 5.28 M/mm3 (3.65-5.03); Red Cell Distribution Width 16.3 % (13.2-15.2)
[2017-12-02] MEDS ORDERED: ATIVAN PO ONE (16:52)
[2017-12-02 16:57] LABS: Mean Corpuscular Hemoglobin 26 pg (28-32)
[2017-12-02 17:08] LABS: BUN/Creatinine Ratio 15; Blood Urea Nitrogen 12 mg/dL (9-20); Calcium 9.2 mg/dL (8.4-10.2); Hemolysis Index 210
[2017-12-02 17:28] LABS: Bacteria,Urine 1+ /HPF (Negative); Bilirubin,Urine NEG (Negative); Blood,Urine NEG (Negative); Color,Urine Yellow (Yellow); Mucus,Urine FEW /HPF; Protein,Urine <15 mg/dL mg/dL (Negative); Urobilinogen,Urine < 2.0 mg/dL (<2.0)
--- NOTE | 2017-12-02 17:34 | Emergency Department Report ---
HPI - General Chief Complaint: Medical Clearance Time Seen by Provider: 12/02/17 16:27 - HPI HPI: 62-year-old male, history of alcohol abuse, presents to ED with desire to obtain alcohol detoxification. He states his last drink was 2 days ago. He complains of epigastric burning, that usually occurs after he drinks. No fever , no nausea, no vomiting. ED Past Medical Hx - Past Medical History Hx Hypertension: Yes Hx CVA: Yes (2017-TPA) Hx Congestive Heart Failure: No Hx Diabetes: No Hx Deep Vein Thrombosis: Yes Hx Pulmonary Embolism: Yes (2004, IVC filter placed) Hx GERD: Yes Hx Arthritis: Yes (back) Hx Headaches / Migraines: Yes Hx Seizures: Yes Hx Asthma: No Hx COPD: Yes Hx HIV: No Additional medical history: Emphysema - Surgical History Hx Appendectomy: Yes Additional Surgical History: lumbar surgery, gastrectomy, l. elbow, partial gastrectomy for perforated ulcer - Social History Smoking Status: Current Every Day Smoker Substance Use Type: Alcohol - Medications Home Medications: Home Medications Medication Instructions Recorded Confirmed Last Taken Type Albuterol Sulfate [Ventolin HFA] 2 puff IH Q6H PRN 11/17/16 12/02/17 08/24/17 History Rivaroxaban [Xarelto] 20 mg PO QDAY 11/17/16 12/02/17 11/30/17 History levETIRAcetam [Keppra TAB] 750 mg PO BID 05/14/17 12/02/17 12/02/17 History Lisinopril [Zestril] 10 mg PO DAILY 08/25/17 12/02/17 11/30/17 History Atorvastatin Calcium [Lipitor] 80 mg PO HS 12/02/17 12/02/17 11/30/17 History Fluticasone/Salmeterol [Advair 1 each IH BID 12/02/17 12/02/17 11/30/17 History 250-50 Diskus] Omeprazole 20 mg PO QDAY 12/02/17 12/02/17 11/30/17 History Pantoprazole Sodium 20 mg PO DAILY 12/02/17 12/02/17 11/30/17 History Tiotropium [place] [Spiriva 1 puff IH QDAY 12/02/17 12/02/17 11/30/17 History Respimat] Trazodone HCl 300 mg PO HS 12/02/17 12/02/17 Unknown History ED Review of Systems ROS: Stated complaint: ETOH Other details as noted in HPI Comment: All other systems reviewed and negative Cardiovascular: denies: dyspnea on exertion, edema, syncope Genitourinary: denies: urgency, dysuria Skin: denies: rash, lesions Neurological: weakness Physical Exam - Physical Exam Vital Signs: Vital Signs 12/02/17 12/02/17 12/02/17 15:45 15:51 16:13 Temperature 98.5 F Pulse Rate 95 H Respiratory 18 16 Rate Blood Pressure Blood Pressure 130/89 [Right] O2 Sat by Pulse 94 98 Oximetry 12/02/17 12/02/17 12/02/17 16:15 16:18 16:31 Temperature 98.5 F Pulse Rate 83 81 72 Respiratory 13 16 27 H Rate Blood Pressure 127/97 Blood Pressure 122/97 [Right] O2 Sat by Pulse 98 97 98 Oximetry 12/02/17 12/02/17 12/02/17 16:45 17:01 17:15 Temperature Pulse Rate 77 67 66 Respiratory 22 19 20 Rate Blood Pressure 127/97 143/91 143/91 Blood Pressure [Right] O2 Sat by Pulse 99 99 100 Oximetry Physical Exam: - Physical Exam Physical Exam: - General Limitations: No Limitations General appearance: alert, in no apparent distress, obese - Head Head exam: Present: atraumatic, normocephalic - Eye Eye exam: Present: normal appearance - ENT ENT exam: Present: mucous membranes moist - Neck Neck exam: Present: normal inspection - Respiratory Respiratory exam: Present: normal lung sounds bilaterally. Absent: respiratory distress - Cardiovascular Cardiovascular Exam: Present: normal rhythm, tachycardia. Absent: systolic murmur, diastolic murmur, rubs, gallop - GI/Abdominal GI/Abdominal exam: Present: soft, normal bowel sounds - Extremities Exam Extremities exam: Present: normal inspection - Back Exam Back exam: Present: normal inspection - Neurological Exam Neurological exam: Present: alert, oriented X3 - Psychiatric Psychiatric exam: normal affect and mood - Skin Skin exam: Present: warm, dry, intact, normal color. Absent: rash ED Course Vital Signs 12/02/17 12/02/17 12/02/17 15:45 15:51 16:13 Temperature 98.5 F Pulse Rate 95 H Respiratory 18 16 Rate Blood Pressure Blood Pressure 130/89 [Right] O2 Sat by Pulse 94 98 Oximetry 12/02/17 12/02/17 12/02/17 16:15 16:18 16:31 Temperature 98.5 F Pulse Rate 83 81 72 Respiratory 13 16 27 H Rate Blood Pressure 127/97 Blood Pressure 122/97 [Right] O2 Sat by Pulse 98 97 98 Oximetry 12/02/17 12/02/17 12/02/17 16:45 17:01 17:15 Temperature Pulse Rate 77 67 66 Respiratory 22 19 20 Rate Blood Pressure 127/97 143/91 143/91 Blood Pressure [Right] O2 Sat by Pulse 99 99 100 Oximetry - Reevaluation(s) Reevaluation #1: 12/02/17 18:51 Patient was seen by mental health, who states that a bed will be available tomorrow for detox recommend waiting until tomorrow. ED Medical Decision Making - Lab Data Result diagrams: 12/02/17 16:30 12/02/17 16:30 Critical care attestation.: If time is entered above; I have spent that time in minutes in the direct care of this critically ill patient, excluding procedure time. ED Disposition Clinical Impression: Alcohol abuse Disposition: [id number]/TX-[id number] ANOTHER TYPE HLTHCARE Is pt being admited?: No Does the pt Need Aspirin: No Condition: Stable Referrals: PRIMARY CARE, [Primary Care Provider] - 3-5 Days
[2017-12-02 17:39] LABS: Amphetamine Screen,Urine PRESUMPTIVE NEGATIVE; Benzodiazepines Screen,Urine PRESUMPTIVE NEGATIVE; Cannabinoid Screen,Urine PRESUMPTIVE NEGATIVE; Cocaine Screen,Urine PRESUMPTIVE NEGATIVE; Methadone Screen,Urine PRESUMPTIVE NEGATIVE; Opiate Screen,Urine PRESUMPTIVE NEGATIVE
[2017-12-02 19:06] LABS: Basophils % (Manual) 0 % (0.0-1.8); Total Cells Counted 100
[2017-12-02 19:07] LABS: Hypochromasia 1+; Target Cells 1+
[2017-12-02 19:11] LABS: Ovalocytes 1+
[2017-12-02 19:12] LABS: Anisocytosis 1+; Platelet Estimate Consistent w Auto
[2017-12-02] MEDS ORDERED: ATIVAN IV PRN (21:43)
[2017-12-02] MEDS: ATIVAN IV PRN (22:25)
[2017-12-03] MEDS: ATIVAN IV PRN (06:19)
[2017-12-03 13:39] VITALS: BP 130/87
--- NOTE | 2017-12-03 14:16 | Event Note ---
Date: 12/03/17 Patient quadrant chest pain EKG and troponin are unremarkable given patient pain medication we'll send patient home patient is sober.
== END 2017-12-03 15:25 | disposition other institution (70) ==
LOC: ED 15:30
DX: F10.129 Alcohol abuse with intoxication, unspecified (principal); F17.200 Nicotine dependence, unspecified, uncomplicated; J43.9 Emphysema, unspecified; I10 Essential (primary) hypertension; K21.9 Gastro-esophageal reflux disease without esophagitis; M19.90 Unspecified osteoarthritis, unspecified site; G43.909 Migraine, unspecified, not intractable, without status migrainosus; Z86.718 Personal history of other venous thrombosis and embolism; Z86.711 Personal history of pulmonary embolism; Z90.3 Acquired absence of stomach [part of]; Z88.6 Allergy status to analgesic agent; Z88.8 Allergy status to other drugs, medicaments and biological substances; Z86.73 Personal history of transient ischemic attack (TIA), and cerebral infarction without residual deficits
CPT/HCPCS: 36415; 80048; 80307; 81001; 84484; 85007; 85025; 93005; 93010; 96365; 96366; 99285; G0480; J2060; 80320

== ENCOUNTER 2017-12-30 21:28 | Emergency (ER) | payer MEDICARE | END 2017-12-30 23:30 | disposition left against medical advice (07) | LOC: ED 21:28 | DX: R07.89 Other chest pain (principal); Z53.21 Procedure and treatment not carried out due to patient leaving prior to being seen by health care provider | CPT/HCPCS: 93005; 93010 ==

== ENCOUNTER 2018-03-01 23:36 | Emergency (ER) | payer MEDICARE ==
[2018-03-02 01:09] VITALS: BP 105/68
[2018-03-02] MEDS ORDERED: ASPIRIN PO ONE (01:09)
[2018-03-02 01:52] LABS: BUN/Creatinine Ratio 16; Blood Urea Nitrogen 11 mg/dL (9-20); Calcium 8.5 mg/dL (8.4-10.2); Hemolysis Index 6
[2018-03-02 03:45] LABS: Hematocrit 33.6 % (35.5-45.6); Hemoglobin 10.6 gm/dl (11.8-15.2); Mean Corpuscular HGB Conc 32 % (32-34); Mean Corpuscular Hemoglobin 25 pg (28-32); Mean Corpuscular Volume 80 fl (84-94); Platelet Count 259 K/mm3 (140-440); Red Blood Count 4.19 M/mm3 (3.65-5.03); Red Cell Distribution Width 18.4 % (13.2-15.2)
[2018-03-02 03:46] LABS: Basophils # (Auto) 0.1 K/mm3 (0.0-0.1); Basophils % (Auto) 1.4 % (0.0-1.8); Eosinophils % (Auto) 0.9 % (0.0-4.3); Lymphocytes # (Auto) 2.5 K/mm3 (1.2-5.4); Lymphocytes % (Auto) 49.7 % (13.4-35.0); Monocytes # (Auto) 0.4 K/mm3 (0.0-0.8); Monocytes % (Auto) 8.7 % (0.0-7.3)
== END 2018-03-02 09:20 | disposition left against medical advice (07) ==
LOC: ED 23:36
DX: R07.9 Chest pain, unspecified (principal); M19.90 Unspecified osteoarthritis, unspecified site; F17.200 Nicotine dependence, unspecified, uncomplicated; Z86.718 Personal history of other venous thrombosis and embolism; Z88.6 Allergy status to analgesic agent; Z88.8 Allergy status to other drugs, medicaments and biological substances; Z90.49 Acquired absence of other specified parts of digestive tract; Z53.21 Procedure and treatment not carried out due to patient leaving prior to being seen by health care provider
CPT/HCPCS: 36415; 80048; 84484; 85025; 93005; 93010

== ENCOUNTER 2018-03-12 18:44 | Emergency (ER) | payer MEDICARE ==
[2018-03-13] MEDS ORDERED: NACL 0.9% 1000 ML 1,000 ML IV ONE (05:09)
[2018-03-13] MEDS ORDERED: VITAMIN B-1 100 MG, FOLVITE 1 MG, INFUVITE 10 ML in NACL 0.9% 1000 ML 1,000 ML IV ONE (05:09)
[2018-03-13] MEDS ORDERED: ZOFRAN IV ONE ×2 (05:39→18:48)
--- NOTE | 2018-03-13 05:41 | Emergency Department Report ---
<VILMA TREVIZOY - Last Filed: 03/13/18 07:23> ED Alcohol HPI - General Chief Complaint: Alcohol Stated Complaint: DETOX Time Seen by Provider: 03/13/18 05:08 Source: patient Mode of arrival: Ambulatory Limitations: No Limitations - History of Present Illness Initial Comments: 62-year-old man with long history of chronic alcohol abuse, requests alcohol detoxification, as he would like to stop working, I reports that he is sick and tired of being sick and tired. Patient reports he has residence in [place], but has been visiting in [place] for the past 5 weeks, but has also been actively drinking during that time, and now wishes to stop, and presents for detoxification, reporting that his last drink was yesterday during the afternoon. Chart review shows patient has had multiple prior ED visits here for various complaints. Patient has had previous detoxifications, latest was several months ago, but he was not compliant, and soon relapsed after that. Patient reports feeling mildly nauseous after stopping drinking, and has slight tremor, but has not had a seizure or other secondary symptoms, although he does have a history of seizure disorder. Past medical history significant also for hypertension, 2 prior minor strokes, but proximally 20 years ago with little residual, active tobacco abuse, and the aforementioned ethanol abuse. He also has a history of atrial fibrillation, and takes as Xarelto, also reporting history of venous thromboembolism of left lower extremity. He also has prior history of episodes of pancreatitis secondary to alcohol abuse, but no recent flares him a although he has mild pain now. He has no acute symptoms, no systemic symptoms, no fever chills or diaphoresis , no cough or congestion, no chest pain, mild abdominal pain with nausea, no vomiting, no diarrhea. Time Since Last Drink: 18 -: hour(s) Chronic Alcohol Use: Yes Previous Visits for Alcohol Intoxication?: Yes (elsewhere, none at this facility ) Recent Trauma: No Associated Symptoms: nausea, abdominal pain (mild, epigastric). denies: vomiting, syncope, seizure (although patient has history of seizure disorder) Treatments Prior to Arrival: none - Related Data Home Medications Medication Instructions Recorded Confirmed Last Taken Albuterol Sulfate [Ventolin HFA] 2 puff IH Q6H PRN 11/17/16 12/28/17 08/24/17 Pantoprazole Sodium 20 mg PO DAILY 12/02/17 12/28/17 11/30/17 Trazodone HCl 300 mg PO HS 12/02/17 12/28/17 Unknown Previous Rx's Medication Instructions Recorded Last Taken Type Atorvastatin Calcium [Lipitor] 80 mg PO HS #30 tablet 12/30/17 Unknown Rx Fluticasone/Salmeterol [Advair 1 each IH BID #1 blst.w.dev 12/30/17 Unknown Rx 250-50 Diskus] Levofloxacin [Levaquin] 750 mg PO QDAY #8 tablet 12/30/17 Unknown Rx Lisinopril [Zestril] 10 mg PO DAILY #30 tablet 12/30/17 Unknown Rx Omeprazole 20 mg PO QDAY #30 tablet.dr 12/30/17 Unknown Rx Oxycodone HCl/Acetaminophen 1 each PO Q6HR PRN #40 tablet 12/30/17 Unknown Rx [Percocet 7.5/325 mg] Rivaroxaban [Xarelto] 20 mg PO QDAY #30 tablet 12/30/17 Unknown Rx Tiotropium [place] [Spiriva 1 puff IH QDAY #1 mist.inhal 12/30/17 Unknown Rx Respimat] guaiFENesin/CODEINE [Robitussin AC] 10 ml PO Q4H PRN #120 oral.liqd 12/30/17 Unknown Rx levETIRAcetam [Keppra TAB] 750 mg PO BID #60 tablet 12/30/17 Unknown Rx traZODone [Desyrel] 300 mg PO QHS tablet 12/30/17 Unknown Rx Allergies Allergy/AdvReac Type Severity Reaction Status Date / Time aspirin Allergy Vomiting Verified 12/02/17 16:12 prochlorperazine Allergy Anaphylaxis Verified 12/02/17 16:12 [From Compazine] prochlorperazine edisylate Allergy Anaphylaxis Verified 12/02/17 16:12 [From Compazine] prochlorperazine maleate Allergy Anaphylaxis Verified 12/02/17 16:12 [From Compazine] ED Review of Systems ROS: Stated complaint: DETOX Other details as noted in HPI Comment: All other systems reviewed and negative Constitutional: denies: chills, fever Eyes: denies: eye pain, vision change ENT: denies: ear pain, throat pain Respiratory: denies: cough, shortness of breath, wheezing Cardiovascular: denies: chest pain, palpitations Endocrine: no symptoms reported Gastrointestinal: abdominal pain (epigastric area), nausea Musculoskeletal: denies: back pain, joint swelling, arthralgia Skin: denies: rash, lesions Neurological: other (mild tremor). denies: weakness, numbness, paresthesias Psychiatric: denies: anxiety, depression, auditory hallucinations, visual hallucinations, suicidal thoughts Hematological/Lymphatic: denies: easy bleeding, easy bruising ED Past Medical Hx - Past Medical History Previous Medical History?: Yes Hx Hypertension: Yes Hx CVA: Yes (2017-[facility]) Hx Congestive Heart Failure: No Hx Diabetes: No Hx Deep Vein Thrombosis: Yes Hx Pulmonary Embolism: Yes (2004, IVC filter placed) Hx GERD: Yes Hx Arthritis: Yes (back) Hx Headaches / Migraines: Yes Hx Seizures: Yes Hx Asthma: No Hx COPD: Yes (Emphysema) Hx HIV: No Additional medical history: Emphysema, Alcohol abuse - Surgical History Hx Appendectomy: Yes Additional Surgical History: lumbar surgery, gastrectomy, l. elbow, partial gastrectomy for perforated ulcer - Social History Smoking Status: Current Every Day Smoker Substance Use Type: Alcohol - Medications Home Medications: Home Medications Medication Instructions Recorded Confirmed Last Taken Type Albuterol Sulfate [Ventolin HFA] 2 puff IH Q6H PRN 11/17/16 12/28/17 08/24/17 History Pantoprazole Sodium 20 mg PO DAILY 12/02/17 12/28/17 11/30/17 History Trazodone HCl 300 mg PO HS 12/02/17 12/28/17 Unknown History Atorvastatin Calcium [Lipitor] 80 mg PO HS #30 tablet 12/30/17 Unknown Rx Fluticasone/Salmeterol [Advair 1 each IH BID #1 blst.w.dev 12/30/17 Unknown Rx 250-50 Diskus] Levofloxacin [Levaquin] 750 mg PO QDAY #8 tablet 12/30/17 Unknown Rx Lisinopril [Zestril] 10 mg PO DAILY #30 tablet 12/30/17 Unknown Rx Omeprazole 20 mg PO QDAY #30 tablet.dr 12/30/17 Unknown Rx Oxycodone HCl/Acetaminophen 1 each PO Q6HR PRN #40 tablet 12/30/17 Unknown Rx [Percocet 7.5/325 mg] Rivaroxaban [Xarelto] 20 mg PO QDAY #30 tablet 12/30/17 Unknown Rx Tiotropium [place] [Spiriva 1 puff IH QDAY #1 mist.inhal 12/30/17 Unknown Rx Respimat] guaiFENesin/CODEINE [Robitussin AC] 10 ml PO Q4H PRN #120 oral.liqd 12/30/17 Unknown Rx levETIRAcetam [Keppra TAB] 750 mg PO BID #60 tablet 12/30/17 Unknown Rx traZODone [Desyrel] 300 mg PO QHS tablet 12/30/17 Unknown Rx ED Physical Exam - General Limitations: No Limitations General appearance: alert, in no apparent distress - Head Head exam: Present: atraumatic, normocephalic - Eye Eye exam: Present: PERRL, EOMI - ENT ENT exam: Present: normal exam - Neck Neck exam: Present: normal inspection, full ROM. Absent: tenderness - Respiratory Respiratory exam: Present: wheezes (faint end expiratory wheeze). Absent: respiratory distress, rales, rhonchi, chest wall tenderness, accessory muscle use - Cardiovascular Cardiovascular Exam: Present: regular rate - GI/Abdominal GI/Abdominal exam: Present: soft, tenderness (mild tenderness epigastrium and right upper quadrant,), normal bowel sounds. Absent: guarding, rebound - Rectal Rectal exam: Present: deferred - Extremities Exam Extremities exam: Present: normal inspection, full ROM. Absent: tenderness - Back Exam Back exam: Present: normal inspection - Neurological Exam Neurological exam: Present: alert, oriented X3, CN II-XII intact. Absent: motor sensory deficit - Psychiatric Psychiatric exam: Present: normal affect, normal mood - Skin Skin exam: Present: warm, dry, intact. Absent: diaphoretic, petechiae, pallor, ecchymosis ED Course Vital Signs 03/12/18 03/13/18 03/13/18 19:04 02:02 07:49 Temperature 99.2 F 98.7 F 98.6 F Pulse Rate 105 H 72 100 H Respiratory 18 17 Rate Blood Pressure 108/72 Blood Pressure 125/89 140/106 [Left] O2 Sat by Pulse 96 99 Oximetry 03/13/18 03/13/18 03/13/18 07:56 13:00 13:06 Temperature 98.6 F Pulse Rate 88 88 110 H Respiratory 16 18 30 H Rate Blood Pressure Blood Pressure 108/65 94/66 [Left] O2 Sat by Pulse 96 98 Oximetry 03/13/18 03/13/18 03/13/18 13:16 13:30 13:46 Temperature Pulse Rate 87 84 90 Respiratory 21 20 17 Rate Blood Pressure Blood Pressure [Left] O2 Sat by Pulse Oximetry 03/13/18 03/13/18 03/13/18 14:00 14:16 14:30 Temperature Pulse Rate 88 87 82 Respiratory 15 17 15 Rate Blood Pressure Blood Pressure [Left] O2 Sat by Pulse Oximetry 03/13/18 03/13/18 03/13/18 14:46 15:00 15:16 Temperature Pulse Rate 83 92 H 85 Respiratory 19 22 16 Rate Blood Pressure Blood Pressure [Left] O2 Sat by Pulse Oximetry 03/13/18 03/13/18 03/13/18 15:30 15:46 16:00 Temperature Pulse Rate 82 78 80 Respiratory 18 18 21 Rate Blood Pressure 101/74 Blood Pressure [Left] O2 Sat by Pulse Oximetry 03/13/18 03/13/18 03/13/18 16:16 16:30 16:46 Temperature Pulse Rate 74 77 84 Respiratory 18 24 27 H Rate Blood Pressure 101/82 115/77 110/78 Blood Pressure [Left] O2 Sat by Pulse Oximetry 03/13/18 03/13/18 03/13/18 17:00 17:15 17:30 Temperature Pulse Rate 80 74 78 Respiratory 19 19 15 Rate Blood Pressure 85/58 106/67 98/60 Blood Pressure [Left] O2 Sat by Pulse Oximetry 03/13/18 03/13/18 03/13/18 17:45 18:00 18:15 Temperature Pulse Rate 78 77 77 Respiratory 17 16 15 Rate Blood Pressure 104/64 112/71 110/74 Blood Pressure [Left] O2 Sat by Pulse Oximetry 03/13/18 19:10 Temperature Pulse Rate Respiratory 18 Rate Blood Pressure Blood Pressure [Left] O2 Sat by Pulse Oximetry ED Medical Decision Making - Lab Data Result diagrams: 03/13/18 05:31 03/13/18 05:31 Critical care attestation.: If time is entered above; I have spent that time in minutes in the direct care of this critically ill patient, excluding procedure time. ED Disposition Condition: Stable Referrals: PRIMARY CARE, [Primary Care Provider] - 3-5 Days <RAPHAEL,JANICE S. - Last Filed: 03/13/18 19:42> ED Medical Decision Making - Lab Data Result diagrams: 03/13/18 05:31 03/13/18 05:31 - EKG Data -: EKG Interpreted by Me EKG shows normal: sinus rhythm - EKG Data 03/13/18 17:13 No acute ischemic change - Medical Decision Making Patient was still in the ED from last night he was apparently awaiting transfer for detox at [facility] for alcohol detoxm ,he is back still in his room began to complain of chest pain to the nurse chest pains and off and on for several hours he does history of atrial fibrillation as well as DVT PE. He takes Ahlquist for he is here saying that he has left-sided sharp chest pain he's not sure if maybe his Blood clot is not sure he has been comply with the [facility] see is requesting a chest pain evaluation prior to clearance for detox EKG does not show acute ischemic change troponin is pending he did consent to a CTA when cta is eval pt can be confirmed med clearance for detox at [facility]
--- NOTE | 2018-03-13 05:50 | XRay Report ---
FINAL REPORT PROCEDURE: XR CHEST 1V AP TECHNIQUE: Chest radiograph anteroposterior view. CPT 97856 HISTORY: Alcohol Intoxication COMPARISON: 12/27/2017 FINDINGS: Heart: Normal. Mediastinum/Vessels: Normal. Lungs/Pleural space: Mild COPD with slight fibrosis. Bony thorax: No acute osseous abnormality. Life support devices: None. IMPRESSION: Mild COPD with slight fibrosis. No acute consolidation or effusion..
[2018-03-13 06:11] LABS: Hematocrit 33.4 % (35.5-45.6); Hemoglobin 10.4 gm/dl (11.8-15.2); Mean Corpuscular HGB Conc 31 % (32-34); Mean Corpuscular Volume 81 fl (84-94); Platelet Count 213 K/mm3 (140-440); Red Cell Distribution Width 19.2 % (13.2-15.2)
[2018-03-13 06:19] LABS: Bacteria,Urine 1+ /HPF (Negative); Bilirubin,Urine NEG (Negative); Blood,Urine NEG (Negative); Color,Urine Yellow (Yellow); Mucus,Urine FEW /HPF; Protein,Urine <15 mg/dL mg/dL (Negative)
[2018-03-13 06:22] LABS: Mean Corpuscular Hemoglobin 25 pg (28-32)
[2018-03-13 06:23] LABS: INR 1.04 (0.87-1.13)
[2018-03-13 06:27] LABS: Amphetamine Screen,Urine PRESUMPTIVE NEGATIVE; Cannabinoid Screen,Urine PRESUMPTIVE NEGATIVE; Cocaine Screen,Urine PRESUMPTIVE NEGATIVE; Methadone Screen,Urine PRESUMPTIVE NEGATIVE; Opiate Screen,Urine PRESUMPTIVE NEGATIVE
[2018-03-13 06:37] LABS: Alanine Aminotransferase 20 units/L (7-56); Albumin 3.4 g/dL (3.9-5); BUN/Creatinine Ratio 29; Blood Urea Nitrogen 20 mg/dL (9-20); Calcium 8.6 mg/dL (8.4-10.2); Hemolysis Index 8; Lipase 20 units/L (13-60)
[2018-03-13 06:41] LABS: Benzodiazepines Screen,Urine PRESUMPTIVE POSITIVE
[2018-03-13 07:37] LABS: Anisocytosis 1+; Band Neutrophils # (Manual) 0.1 K/mm3; Basophils % (Manual) 0 % (0.0-1.8); Hypochromasia 1+; Total Cells Counted 100
[2018-03-13] MEDS ORDERED: NACL 0.9% 1000 ML 1,000 ML ONE (15:52)
[2018-03-13] MEDS ORDERED: ZOFRAN ONE (15:52)
[2018-03-13] MEDS: ATIVAN IV PRN ×2 (16:03→19:09)
[2018-03-13] MEDS ORDERED: MORPHINE IV ONE (18:47)
--- NOTE | 2018-03-13 20:22 | Cat Scan Report ---
FINAL REPORT PROCEDURE: CT ANGIO CHEST TECHNIQUE: Computerized tomographic angiography of the chest was performed after the IV injection of iodinated nonionic contrast including image processing. The image data was postprocessed using 2-dimensional multiplanar reformatted (MPR) and 3-dimensional (MIP and/or volume rendered) techniques. HISTORY: cp/hx dvt pe COMPARISON: 12/27/2017 FINDINGS: Heart and pericardium: Heart size is slightly pronounced. No pericardial effusion.. Thoracic aorta: The aorta is ectatic. No dissection is seen. Mild atherosclerosis of the aorta.. Pulmonary vasculature: There is no evidence of pulmonary arterial emboli.. Lymph nodes: No enlarged thoracic lymph nodes. Lungs: COPD with emphysema is noted. Bleb formation in both upper lungs is moderate and unchanged. Atelectasis with slight infiltrate and scarring in both lower lungs. This appears to represent infectious etiology. Recheck evaluation after clinical therapy would be of benefit. The central airway is patent.. Pleural space: No effusion, thickening, or pneumothorax. Musculoskeletal structures: No significant abnormality. Upper abdominal structures: There is an inferior vena cava filter. There is some dilatation of the central biliary ductal system.. IMPRESSION: COPD with emphysema and bleb formation in both upper lungs is again identified. Atelectasis with slight infiltrate and scarring in both lower lungs. Recheck evaluation after clinical therapy would be of benefit. There is no evidence of pulmonary arterial emboli. The aorta is ectatic with no evidence of dissection. Mild atherosclerosis of the aorta is noted.
--- NOTE | 2018-03-13 21:46 | Event Note ---
Date: 03/13/18 Patient is received as a signout from Dr. Grace. Patient presented with a complaint of chest pain. Patient had a negative nuclear stress test August 2017, and recently was evaluated by cardiology at this hospital within the past few months, who specifically did not recommend any further ischemic workup or evaluation. His EKG is unremarkable and unchanged 2, troponins are negative 2 , CT scan of the chest shows no pulmonary embolus, suggest pneumonia, patient will therefore be treated for community-acquired pneumonia. He is medically suitable for discharge at this time. Vital Signs 03/12/18 03/13/18 03/13/18 19:04 02:02 07:49 Temperature 99.2 F 98.7 F 98.6 F Pulse Rate 105 H 72 100 H Respiratory 18 17 Rate Blood Pressure 108/72 Blood Pressure 125/89 140/106 [Left] O2 Sat by Pulse 96 99 Oximetry 03/13/18 03/13/18 03/13/18 07:56 13:00 13:06 Temperature 98.6 F Pulse Rate 88 88 110 H Respiratory 16 18 30 H Rate Blood Pressure Blood Pressure 108/65 94/66 [Left] O2 Sat by Pulse 96 98 Oximetry 03/13/18 03/13/18 03/13/18 13:16 13:30 13:46 Temperature Pulse Rate 87 84 90 Respiratory 21 20 17 Rate Blood Pressure Blood Pressure [Left] O2 Sat by Pulse Oximetry 03/13/18 03/13/18 03/13/18 14:00 14:16 14:30 Temperature Pulse Rate 88 87 82 Respiratory 15 17 15 Rate Blood Pressure Blood Pressure [Left] O2 Sat by Pulse Oximetry 03/13/18 03/13/18 03/13/18 14:46 15:00 15:16 Temperature Pulse Rate 83 92 H 85 Respiratory 19 22 16 Rate Blood Pressure Blood Pressure [Left] O2 Sat by Pulse Oximetry 03/13/18 03/13/18 03/13/18 15:30 15:46 16:00 Temperature Pulse Rate 82 78 80 Respiratory 18 18 21 Rate Blood Pressure 101/74 Blood Pressure [Left] O2 Sat by Pulse Oximetry 03/13/18 03/13/18 03/13/18 16:16 16:30 16:46 Temperature Pulse Rate 74 77 84 Respiratory 18 24 27 H Rate Blood Pressure 101/82 115/77 110/78 Blood Pressure [Left] O2 Sat by Pulse Oximetry 03/13/18 03/13/18 03/13/18 17:00 17:15 17:30 Temperature Pulse Rate 80 74 78 Respiratory 19 19 15 Rate Blood Pressure 85/58 106/67 98/60 Blood Pressure [Left] O2 Sat by Pulse Oximetry 03/13/18 03/13/18 03/13/18 17:45 18:00 18:15 Temperature Pulse Rate 78 77 77 Respiratory 17 16 15 Rate Blood Pressure 104/64 112/71 110/74 Blood Pressure [Left] O2 Sat by Pulse Oximetry 03/13/18 03/13/18 19:10 19:56 Temperature 98.1 F Pulse Rate 76 Respiratory 18 17 Rate Blood Pressure Blood Pressure 118/81 [Left] O2 Sat by Pulse 98 Oximetry Lab Results 03/13/18 03/13/18 03/13/18 Range/Units 05:31 05:31 05:31 WBC 4.4 L (4.5-11.0) K/mm3 RBC 4.10 (3.65-5.03) M/mm3 Hgb 10.4 L (11.8-15.2) gm/dl Hct 33.4 L (35.5-45.6) % MCV 81 L (84-94) fl MCH 25 L (28-32) pg MCHC 31 L (32-34) % RDW 19.2 H (13.2-15.2) % Plt Count 213 (140-440) K/mm3 Add Manual Diff Complete Total Counted 100 Seg Neuts % (Manual) 55.0 (40.0-70.0) % Band Neutrophils % 2.0 % Lymphocytes % (Manual) 33.0 (13.4-35.0) % Reactive Lymphs % (Man) 0 % Monocytes % (Manual) 7.0 (0.0-7.3) % Eosinophils % (Manual) 3.0 (0.0-4.3) % Basophils % (Manual) 0 (0.0-1.8) % Metamyelocytes % 0 % Myelocytes % 0 % Promyelocytes % 0 % Blast Cells % 0 % Nucleated RBC % Not Reportable Seg Neutrophils # Man 2.4 (1.8-7.7) K/mm3 Band Neutrophils # 0.1 K/mm3 Lymphocytes # (Manual) 1.5 (1.2-5.4) K/mm3 Abs React Lymphs (Man) 0.0 K/mm3 Monocytes # (Manual) 0.3 (0.0-0.8) K/mm3 Eosinophils # (Manual) 0.1 (0.0-0.4) K/mm3 Basophils # (Manual) 0.0 (0.0-0.1) K/mm3 Metamyelocytes # 0.0 K/mm3 Myelocytes # 0.0 K/mm3 Promyelocytes # 0.0 K/mm3 Blast Cells # 0.0 K/mm3 WBC Morphology Not Reportable Hypersegmented Neuts Not Reportable Hyposegmented Neuts Not Reportable Hypogranular Neuts Not Reportable Smudge Cells Not Reportable Toxic Granulation Not Reportable Toxic Vacuolation Not Reportable Dohle Bodies Not Reportable Pelger-Huet Anomaly Not Reportable Trent Rods Not Reportable Platelet Estimate Appears normal Clumped Platelets Not Reportable Plt Clumps, EDTA Not Reportable Large Platelets Not Reportable Giant Platelets Not Reportable Platelet Satelliting Not Reportable Plt Morphology Comment Not Reportable RBC Morphology Not Reportable Dimorphic RBCs Not Reportable Polychromasia Not Reportable Hypochromasia 1+ Poikilocytosis Not Reportable Anisocytosis 1+ Microcytosis Not Reportable Macrocytosis Not Reportable Spherocytes Not Reportable Pappenheimer Bodies Not Reportable Sickle Cells Not Reportable Target Cells Not Reportable Tear Drop Cells Not Reportable Ovalocytes Not Reportable Helmet Cells Not Reportable [place] Bodies Not Reportable [place] Rings Not Reportable [place] Cells Not Reportable Bite Cells Not Reportable Crenated Cell Not Reportable Elliptocytes Not Reportable Acanthocytes (Spur) Not Reportable Rouleaux Not Reportable Hemoglobin C Crystals Not Reportable Schistocytes Not Reportable Malaria parasites Not Reportable Andrew Bodies Not Reportable Hem Pathologist Commnt No PT 14.1 (12.2-14.9) Sec. INR 1.04 (0.87-1.13) Sodium 144 (137-145) mmol/L Potassium 4.1 (3.6-5.0) mmol/L Chloride 107.6 H (98-107) mmol/L Carbon Dioxide 23 (22-30) mmol/L Anion Gap 18 mmol/L BUN 20 (9-20) mg/dL Creatinine 0.7 L (0.8-1.5) mg/dL Estimated GFR > 60 ml/min BUN/Creatinine Ratio 29 % Glucose 53 L (75-100) mg/dL Calcium 8.6 (8.4-10.2) mg/dL Magnesium 2.20 (1.7-2.3) mg/dL Total Bilirubin 0.20 (0.1-1.2) mg/dL AST 26 (5-40) units/L ALT 20 (7-56) units/L Alkaline Phosphatase 48 (35-129) units/L Troponin T (0.00-0.029) ng/mL Total Protein 5.2 L (6.3-8.2) g/dL Albumin 3.4 L (3.9-5) g/dL Albumin/Globulin Ratio 1.9 % Lipase 20 (13-60) units/L Urine Color (Yellow) Urine Turbidity (Clear) Urine pH (5.0-7.0) Ur Specific [place] (1.003-1.030) Urine Protein (Negative) mg/dL Urine Glucose (UA) (Negative) mg/dL Urine Ketones (Negative) mg/dL Urine Blood (Negative) Urine Nitrite (Negative) Urine Bilirubin (Negative) Urine Urobilinogen (<2.0) mg/dL Ur Leukocyte Esterase (Negative) Urine WBC (Auto) (0.0-6.0) /HPF Urine RBC (Auto) (0.0-6.0) /HPF U Epithel Cells (Auto) (0-13.0) /HPF Urine Bacteria (Auto) (Negative) /HPF Urine Mucus /HPF Urine Opiates Screen Urine Methadone Screen Ur Barbiturates Screen Ur Phencyclidine Scrn Ur Amphetamines Screen U Benzodiazepines Scrn Urine Cocaine Screen U Marijuana (THC) Screen Drugs of Abuse Note Plasma/Serum Alcohol (0-0.07) % 03/13/18 03/13/18 03/13/18 Range/Units 05:31 05:59 05:59 WBC (4.5-11.0) K/mm3 RBC (3.65-5.03) M/mm3 Hgb (11.8-15.2) gm/dl Hct (35.5-45.6) % MCV (84-94) fl MCH (28-32) pg MCHC (32-34) % RDW (13.2-15.2) % Plt Count (140-440) K/mm3 Add Manual Diff Total Counted Seg Neuts % (Manual) (40.0-70.0) % Band Neutrophils % % Lymphocytes % (Manual) (13.4-35.0) % Reactive Lymphs % (Man) % Monocytes % (Manual) (0.0-7.3) % Eosinophils % (Manual) (0.0-4.3) % Basophils % (Manual) (0.0-1.8) % Metamyelocytes % % Myelocytes % % Promyelocytes % % Blast Cells % % Nucleated RBC % Seg Neutrophils # Man (1.8-7.7) K/mm3 Band Neutrophils # K/mm3 Lymphocytes # (Manual) (1.2-5.4) K/mm3 Abs React Lymphs (Man) K/mm3 Monocytes # (Manual) (0.0-0.8) K/mm3 Eosinophils # (Manual) (0.0-0.4) K/mm3 Basophils # (Manual) (0.0-0.1) K/mm3 Metamyelocytes # K/mm3 Myelocytes # K/mm3 Promyelocytes # K/mm3 Blast Cells # K/mm3 WBC Morphology Hypersegmented Neuts Hyposegmented Neuts Hypogranular Neuts Smudge Cells Toxic Granulation Toxic Vacuolation Dohle Bodies Pelger-Huet Anomaly [place] Rods Platelet Estimate Clumped Platelets Plt Clumps, EDTA Large Platelets Giant Platelets Platelet Satelliting Plt Morphology Comment RBC Morphology Dimorphic RBCs Polychromasia Hypochromasia Poikilocytosis Anisocytosis Microcytosis Macrocytosis Spherocytes Pappenheimer Bodies Sickle Cells Target Cells Tear Drop Cells Ovalocytes Helmet Cells [place] Bodies [place] Rings Mark Cells Bite Cells Crenated Cell Elliptocytes Acanthocytes (Spur) Rouleaux Hemoglobin C Crystals Schistocytes Malaria parasites Andrew Bodies Hem Pathologist Commnt PT (12.2-14.9) Sec. INR (0.87-1.13) Sodium (137-145) mmol/L Potassium (3.6-5.0) mmol/L Chloride (98-107) mmol/L Carbon Dioxide (22-30) mmol/L Anion Gap mmol/L BUN (9-20) mg/dL Creatinine (0.8-1.5) mg/dL Estimated GFR ml/min BUN/Creatinine Ratio % Glucose (75-100) mg/dL Calcium (8.4-10.2) mg/dL Magnesium (1.7-2.3) mg/dL Total Bilirubin (0.1-1.2) mg/dL AST (5-40) units/L ALT (7-56) units/L Alkaline Phosphatase (35-129) units/L Troponin T (0.00-0.029) ng/mL Total Protein (6.3-8.2) g/dL Albumin (3.9-5) g/dL Albumin/Globulin Ratio % Lipase (13-60) units/L Urine Color Yellow (Yellow) Urine Turbidity Clear (Clear) Urine pH 5.0 (5.0-7.0) Ur Specific [place] 1.028 (1.003-1.030) Urine Protein <15 mg/dl (Negative) mg/dL Urine Glucose (UA) Neg (Negative) mg/dL Urine Ketones Tr (Negative) mg/dL Urine Blood Neg (Negative) Urine Nitrite Neg (Negative) Urine Bilirubin Neg (Negative) Urine Urobilinogen 2.0 (<2.0) mg/dL Ur Leukocyte Esterase Neg (Negative) Urine WBC (Auto) 1.0 (0.0-6.0) /HPF Urine RBC (Auto) 2.0 (0.0-6.0) /HPF U Epithel Cells (Auto) < 1.0 (0-13.0) /HPF Urine Bacteria (Auto) 1+ (Negative) /HPF Urine Mucus Few /HPF Urine Opiates Screen Presumptive negative Urine Methadone Screen Presumptive negative Ur Barbiturates Screen Presumptive positive Ur Phencyclidine Scrn Presumptive negative Ur Amphetamines Screen Presumptive negative U Benzodiazepines Scrn Presumptive positive Urine Cocaine Screen Presumptive negative U Marijuana (THC) Screen Presumptive negative Drugs of Abuse Note Disclamer Plasma/Serum Alcohol < 0.01 (0-0.07) % 03/13/18 03/13/18 Range/Units 16:49 20:01 WBC (4.5-11.0) K/mm3 RBC (3.65-5.03) M/mm3 Hgb (11.8-15.2) gm/dl Hct (35.5-45.6) % MCV (84-94) fl MCH (28-32) pg MCHC (32-34) % RDW (13.2-15.2) % Plt Count (140-440) K/mm3 Add Manual Diff Total Counted Seg Neuts % (Manual) (40.0-70.0) % Band Neutrophils % % Lymphocytes % (Manual) (13.4-35.0) % Reactive Lymphs % (Man) % Monocytes % (Manual) (0.0-7.3) % Eosinophils % (Manual) (0.0-4.3) % Basophils % (Manual) (0.0-1.8) % Metamyelocytes % % Myelocytes % % Promyelocytes % % Blast Cells % % Nucleated RBC % Seg Neutrophils # Man (1.8-7.7) K/mm3 Band Neutrophils # K/mm3 Lymphocytes # (Manual) (1.2-5.4) K/mm3 Abs React Lymphs (Man) K/mm3 Monocytes # (Manual) (0.0-0.8) K/mm3 Eosinophils # (Manual) (0.0-0.4) K/mm3 Basophils # (Manual) (0.0-0.1) K/mm3 Metamyelocytes # K/mm3 Myelocytes # K/mm3 Promyelocytes # K/mm3 Blast Cells # K/mm3 WBC Morphology Hypersegmented Neuts Hyposegmented Neuts Hypogranular Neuts Smudge Cells Toxic Granulation Toxic Vacuolation Dohle Bodies Pelger-Huet Anomaly Trent Rods Platelet Estimate Clumped Platelets Plt Clumps, EDTA Large Platelets Giant Platelets Platelet Satelliting Plt Morphology Comment RBC Morphology Dimorphic RBCs Polychromasia Hypochromasia Poikilocytosis Anisocytosis Microcytosis Macrocytosis Spherocytes Pappenheimer Bodies Sickle Cells Target Cells Tear Drop Cells Ovalocytes Helmet Cells [place] Bodies [place] Rings Mark Cells Bite Cells Crenated Cell Elliptocytes Acanthocytes (Spur) Rouleaux Hemoglobin C Crystals Schistocytes Malaria parasites Andrew Bodies Hem Pathologist Commnt PT (12.2-14.9) Sec. INR (0.87-1.13) Sodium (137-145) mmol/L Potassium (3.6-5.0) mmol/L Chloride (98-107) mmol/L Carbon Dioxide (22-30) mmol/L Anion Gap mmol/L BUN (9-20) mg/dL Creatinine (0.8-1.5) mg/dL Estimated GFR ml/min BUN/Creatinine Ratio % Glucose (75-100) mg/dL Calcium (8.4-10.2) mg/dL Magnesium (1.7-2.3) mg/dL Total Bilirubin (0.1-1.2) mg/dL AST (5-40) units/L ALT (7-56) units/L Alkaline Phosphatase (35-129) units/L Troponin T < 0.010 < 0.010 (0.00-0.029) ng/mL Total Protein (6.3-8.2) g/dL Albumin (3.9-5) g/dL Albumin/Globulin Ratio % Lipase (13-60) units/L Urine Color (Yellow) Urine Turbidity (Clear) Urine pH (5.0-7.0) Ur Specific [place] (1.003-1.030) Urine Protein (Negative) mg/dL Urine Glucose (UA) (Negative) mg/dL Urine Ketones (Negative) mg/dL Urine Blood (Negative) Urine Nitrite (Negative) Urine Bilirubin (Negative) Urine Urobilinogen (<2.0) mg/dL Ur Leukocyte Esterase (Negative) Urine WBC (Auto) (0.0-6.0) /HPF Urine RBC (Auto) (0.0-6.0) /HPF U Epithel Cells (Auto) (0-13.0) /HPF Urine Bacteria (Auto) (Negative) /HPF Urine Mucus /HPF Urine Opiates Screen Urine Methadone Screen Ur Barbiturates Screen Ur Phencyclidine Scrn Ur Amphetamines Screen U Benzodiazepines Scrn Urine Cocaine Screen U Marijuana (THC) Screen Drugs of Abuse Note Plasma/Serum Alcohol (0-0.07) %
[2018-03-14 01:08] VITALS: BP 93/61
== END 2018-03-14 02:42 | disposition home or self-care (01) ==
LOC: ED 18:44
DX: F10.129 Alcohol abuse with intoxication, unspecified (principal); R10.13 Epigastric pain; R11.0 Nausea
CPT/HCPCS: 36415; 80053; 80307; 81001; 83690; 83735; 84484; 85007; 85025; 85610; 93005; 93010; 96361; 96374; 96375; 96376; 99285; G0480; J2060; J2270; J2405; J7030; 71275; 80320; J3411; Q9967

== ENCOUNTER 2022-01-16 22:49 | Emergency (ER) | payer MEDICARE ==
[2022-01-16] MEDS ORDERED: ASPIRIN 325 MG TAB PO ONE (23:30)
[2022-01-16] MEDS ORDERED: MORPHINE 4 MG/1 ML INJ IV ONE (23:46)
[2022-01-16] MEDS ORDERED: ONDANSETRON 4 MG/2 ML INJ IV ONE (23:47)
--- NOTE | 2022-01-16 23:53 | XRay Report ---
CHEST 1 VIEW 01/16/2022 11:36 PM INDICATION / CLINICAL INFORMATION: Chest pain. COMPARISON: One view of the chest from 03/13/2018. FINDINGS: SUPPORT DEVICES: None. HEART / MEDIASTINUM: No significant abnormality. LUNGS / PLEURA: Emphysematous changes are again noted bilaterally with bibasilar opacities. No other significant pulmonary abnormality. No significant pleural effusion. No pneumothorax. ADDITIONAL FINDINGS: No significant additional findings. IMPRESSION: Emphysema with bibasilar pulmonary opacities, which are favored to represent atelectasis. An acute in fectious/inflammatory process cannot be entirely excluded. Signer Name: Omar Campos MD Signed: 01/16/2022 11:49 PM Workstation Name: [id number]
[2022-01-17 00:13] LABS: Hematocrit 40.7 % (35.5-45.6); Mean Corpuscular HGB Conc 32 % (32-34); Mean Corpuscular Volume 81 fl (84-94); Platelet Count 104 K/mm3 (140-440); Red Blood Count 5.04 M/mm3 (3.65-5.03)
[2022-01-17 00:33] LABS: Alanine Aminotransferase 28 units/L (7-56); Albumin 4.2 g/dL (3.9-5); BUN/Creatinine Ratio 24; Blood Urea Nitrogen 22 mg/dL (9-20); Hemolysis Index 4
[2022-01-17] MEDS ORDERED: ONDANSETRON 4 MG/2 ML INJ IV ONE (01:33)
[2022-01-17] MEDS ORDERED: KETOROLAC 30 MG/1 ML INJ IV ONE (01:33)
--- NOTE | 2022-01-17 03:12 | Emergency Department Report ---
ED Chest Pain HPI - General Chief Complaint: Chest Pain Stated Complaint: CHEST PAIN Time Seen by Provider: 01/16/22 23:42 Source: patient Mode of arrival: Ambulatory Limitations: No Limitations - History of Present Illness Initial Comments: 66 years old with copd has chest pain , intermittent while going to [facility] on his way to [place] Chestpain with JOEL started tonight [place]. Complaint: chest pain -: Gradual, days(s) Onset: during rest Pain Location: left chest Severity scale (0 -10): 8 Quality: tightness Worsens With: nothing Treatments Prior to Arrival: aspirin - Related Data Home Medications Medication Instructions Recorded Confirmed Last Taken Albuterol Sulfate [Ventolin HFA] 2 puff IH Q6H PRN 11/17/16 12/28/17 08/24/17 Pantoprazole Sodium 20 mg PO DAILY 12/02/17 12/28/17 11/30/17 Trazodone HCl 300 mg PO HS 12/02/17 12/28/17 Unknown Previous Rx's Medication Instructions Recorded Last Taken Type Atorvastatin Calcium [Lipitor] 80 mg PO HS #30 tablet 12/30/17 Unknown Rx Fluticasone/Salmeterol [Advair 1 each IH BID #1 blst.w.dev 12/30/17 Unknown Rx 250-50 Diskus] Lisinopril [Zestril] 10 mg PO DAILY #30 tablet 12/30/17 Unknown Rx Omeprazole 20 mg PO QDAY #30 tablet.dr 12/30/17 Unknown Rx Oxycodone HCl/Acetaminophen 1 each PO Q6HR PRN #40 tablet 12/30/17 Unknown Rx [Percocet 7.5/325 mg] Rivaroxaban [Xarelto] 20 mg PO QDAY #30 tablet 12/30/17 Unknown Rx Tiotropium Clemons [Spiriva 1 puff IH QDAY #1 mist.inhal 12/30/17 Unknown Rx Respimat] guaiFENesin/CODEINE [Robitussin AC] 10 ml PO Q4H PRN #120 oral.liqd 12/30/17 Unknown Rx levETIRAcetam [Keppra TAB] 750 mg PO BID #60 tablet 12/30/17 Unknown Rx levoFLOXacin [Levaquin] 750 mg PO QDAY #8 tablet 12/30/17 Unknown Rx traZODone [Desyrel] 300 mg PO QHS tablet 12/30/17 Unknown Rx Acetaminophen [Tylenol Arthritis] 650 mg PO Q6HR PRN #30 tablet.er 03/13/18 Unknown Rx Albuterol Sulfate [Proair 90 mcg IH Q4HR PRN #2 aer.pow.ba 03/13/18 Unknown Rx Respiclick] Benzonatate [Tessalon Perles] 100 mg PO Q8HR PRN #30 capsule 03/13/18 Unknown Rx levoFLOXacin [Levaquin] 750 mg PO QDAY #5 tablet 03/13/18 Unknown Rx Allergies Allergy/AdvReac Type Severity Reaction Status Date / Time aspirin Allergy Vomiting Verified 12/02/17 16:12 prochlorperazine Allergy Anaphylaxis Verified 12/02/17 16:12 [From Compazine] prochlorperazine edisylate Allergy Anaphylaxis Verified 12/02/17 16:12 [From Compazine] prochlorperazine maleate Allergy Anaphylaxis Verified 12/02/17 16:12 [From Compazine] Heart Score - HEART Score History: Slightly suspicious EKG: Normal Age: > 65 Risk factors: 1-2 risk factors Troponin: < normal limit HEART Score: 3 - EKG Read Time Time EKG Completed: 23:08 EKG Read Time: 23:08 - Critical Actions Critical Actions: 0-3 pts:0.9-1.7%risk of adverse cardiac event.Candidate for discharge ED Review of Systems ROS: Stated complaint: CHEST PAIN Other details as noted in HPI ED Past Medical Hx - Past Medical History Previous Medical History?: Yes Hx Hypertension: Yes Hx CVA: Yes (2016-) Hx Congestive Heart Failure: No Hx Diabetes: No Hx Deep Vein Thrombosis: Yes Hx Pulmonary Embolism: Yes (2004, IVC filter placed) Hx GERD: Yes Hx Arthritis: Yes (back) Hx Headaches / Migraines: Yes Hx Seizures: Yes Hx Asthma: No Hx COPD: Yes (Emphysema) Hx HIV: No Additional medical history: Emphysema, Alcohol abuse - Surgical History Past Surgical History?: Yes Hx Appendectomy: Yes Additional Surgical History: lumbar surgery, gastrectomy, l. elbow, partial gastrectomy for perforated ulcer - Social History Smoking Status: Current Every Day Smoker Substance Use Type: None - Medications Home Medications: Home Medications Medication Instructions Recorded Confirmed Last Taken Type Albuterol Sulfate [Ventolin HFA] 2 puff IH Q6H PRN 11/17/16 12/28/17 08/24/17 History Pantoprazole Sodium 20 mg PO DAILY 12/02/17 12/28/17 11/30/17 History Trazodone HCl 300 mg PO HS 12/02/17 12/28/17 Unknown History Atorvastatin Calcium [Lipitor] 80 mg PO HS #30 tablet 12/30/17 Unknown Rx Fluticasone/Salmeterol [Advair 1 each IH BID #1 blst.w.dev 12/30/17 Unknown Rx 250-50 Diskus] Lisinopril [Zestril] 10 mg PO DAILY #30 tablet 12/30/17 Unknown Rx Omeprazole 20 mg PO QDAY #30 tablet.dr 12/30/17 Unknown Rx Oxycodone HCl/Acetaminophen 1 each PO Q6HR PRN #40 tablet 12/30/17 Unknown Rx [Percocet 7.5/325 mg] Rivaroxaban [Xarelto] 20 mg PO QDAY #30 tablet 12/30/17 Unknown Rx Tiotropium Clemons [Spiriva 1 puff IH QDAY #1 mist.inhal 12/30/17 Unknown Rx Respimat] guaiFENesin/CODEINE [Robitussin AC] 10 ml PO Q4H PRN #120 oral.liqd 12/30/17 Unknown Rx levETIRAcetam [Keppra TAB] 750 mg PO BID #60 tablet 12/30/17 Unknown Rx levoFLOXacin [Levaquin] 750 mg PO QDAY #8 tablet 12/30/17 Unknown Rx traZODone [Desyrel] 300 mg PO QHS tablet 12/30/17 Unknown Rx Acetaminophen [Tylenol Arthritis] 650 mg PO Q6HR PRN #30 tablet.er 03/13/18 Unknown Rx Albuterol Sulfate [Proair 90 mcg IH Q4HR PRN #2 aer.pow.ba 03/13/18 Unknown Rx Respiclick] Benzonatate [Tessalon Perles] 100 mg PO Q8HR PRN #30 capsule 03/13/18 Unknown Rx levoFLOXacin [Levaquin] 750 mg PO QDAY #5 tablet 03/13/18 Unknown Rx ED Physical Exam - General Limitations: No Limitations General appearance: alert, in no apparent distress - Head Head exam: Present: atraumatic, normocephalic - Eye Eye exam: Present: normal appearance - ENT ENT exam: Present: mucous membranes moist - Neck Neck exam: Present: normal inspection - Respiratory Respiratory exam: Present: normal lung sounds bilaterally. Absent: respiratory distress - Cardiovascular Cardiovascular Exam: Present: regular rate, normal rhythm. Absent: systolic murmur, diastolic murmur, rubs, gallop - GI/Abdominal GI/Abdominal exam: Present: soft, normal bowel sounds - Rectal Rectal exam: Present: deferred - Extremities Exam Extremities exam: Present: normal inspection - Back Exam Back exam: Present: normal inspection - Neurological Exam Neurological exam: Present: alert, oriented X3 - Psychiatric Psychiatric exam: Present: normal affect, normal mood - Skin Skin exam: Present: warm, dry, intact, normal color. Absent: rash ED Course Vital Signs 01/16/22 01/17/22 01/17/22 23:22 00:30 00:45 Temperature 98 F Pulse Rate 92 H 80 Respiratory 18 17 15 Rate Blood Pressure 147/90 137/88 O2 Sat by Pulse 99 95 Oximetry 01/17/22 01:01 Temperature Pulse Rate 97 H Respiratory 23 Rate Blood Pressure 148/92 O2 Sat by Pulse 93 Oximetry MANPREET score - Manpreet Score Age > 65: (0) No Aspirin use within the Past 7 Days: (0) No 3 or more CAD Risk Factors: (0) No 2 or more Angina events in past 24 hrs: (0) No Known CAD with more than 50% Stenosis: (0) No Elevated Cardiac Markers: (0) No ST Deviation Greater than 0.5mm: (0) No MANPREET Score: 0 ED Medical Decision Making - Lab Data Result diagrams: 01/17/22 00:00 01/16/22 23:50 - EKG Data -: EKG Interpreted by Ms EKG shows normal: sinus rhythm Rate: normal - EKG Data Interpretation: no acute changes - Radiology Data Radiology results: report reviewed, image reviewed - Medical Decision Making work up nge , negative enzymes and x ray and ekg Critical care attestation.: If time is entered above; I have spent that time in minutes in the direct care of this critically ill patient, excluding procedure time. ED Disposition Clinical Impression: Chest pain Disposition: 01 HOME / SELF CARE / HOMELESS Is pt being admited?: No Does the pt Need Aspirin: No Condition: Stable Instructions: Nonspecific Chest Pain, Adult
[2022-01-17 03:13] VITALS: BP 137/88
[2022-01-17 04:06] LABS: Basophils % (Manual) 0 % (0.0-1.8); Total Cells Counted 100
[2022-01-17 04:07] LABS: Anisocytosis 1+; Hypochromasia 1+; Platelet Estimate Consistent w Auto
--- NOTE | 2022-01-18 10:41 | Electrocardiograph Report ---
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
== END 2022-01-17 01:05 | disposition home or self-care (01) ==
LOC: ED 22:49
DX: R07.89 Other chest pain (principal); I10 Essential (primary) hypertension; K21.9 Gastro-esophageal reflux disease without esophagitis; M19.90 Unspecified osteoarthritis, unspecified site; G43.909 Migraine, unspecified, not intractable, without status migrainosus; J44.9 Chronic obstructive pulmonary disease, unspecified; Z90.49 Acquired absence of other specified parts of digestive tract; F17.200 Nicotine dependence, unspecified, uncomplicated; Z88.6 Allergy status to analgesic agent; Z88.8 Allergy status to other drugs, medicaments and biological substances
CPT/HCPCS: 36415; 71045; 80053; 82550; 83690; 84484; 85007; 85025; 93005; 96374; 96375; 96376; 99283; J1885; J2270; J2405; 80320; G0480

== ENCOUNTER 2022-01-19 23:41 | Emergency (ER) | payer MEDICARE ==
[2022-01-20] MEDS ORDERED: PANTOPRAZOLE 40 MG INJ IV ONE (00:08)
[2022-01-20] MEDS ORDERED: ONDANSETRON 4 MG/2 ML INJ IV ONE (00:08)
[2022-01-20] MEDS ORDERED: MORPHINE 4 MG/1 ML INJ IV ONE ×2 (00:08→04:14)
--- NOTE | 2022-01-20 00:13 | Emergency Department Report ---
ED Chest Pain HPI - General Stated Complaint: CHEST PAIN Time Seen by Provider: 01/20/22 00:06 Source: patient - History of Present Illness Initial Comments: Patient is 66-year-old male with history of COPD and pulmonary embolism. Patient presented to the ER complaining of substernal chest pain, stabbing in nature with radiation to the back. Patient stated that pain has been going on for 2 days. Patient is also complaining of mild shortness of breath. He denied any fever or chills. MD Complaint: chest pain -: days(s) (2) Pain Location: substernal Pain Radiation: none Severity: moderate Severity scale (0 -10): 5 Quality: sharp - Related Data Home Medications Medication Instructions Recorded Confirmed Last Taken Albuterol Sulfate [Ventolin HFA] 2 puff IH Q6H PRN 11/17/16 12/28/17 08/24/17 Pantoprazole Sodium 20 mg PO DAILY 12/02/17 12/28/17 11/30/17 Trazodone HCl 300 mg PO HS 12/02/17 12/28/17 Unknown Previous Rx's Medication Instructions Recorded Last Taken Type Atorvastatin Calcium [Lipitor] 80 mg PO HS #30 tablet 12/30/17 Unknown Rx Fluticasone/Salmeterol [Advair 1 each IH BID #1 blst.w.dev 12/30/17 Unknown Rx 250-50 Diskus] Lisinopril [Zestril] 10 mg PO DAILY #30 tablet 12/30/17 Unknown Rx Omeprazole 20 mg PO QDAY #30 tablet.dr 12/30/17 Unknown Rx Oxycodone HCl/Acetaminophen 1 each PO Q6HR PRN #40 tablet 12/30/17 Unknown Rx [Percocet 7.5/325 mg] Rivaroxaban [Xarelto] 20 mg PO QDAY #30 tablet 12/30/17 Unknown Rx Tiotropium [place] [Spiriva 1 puff IH QDAY #1 mist.inhal 12/30/17 Unknown Rx Respimat] guaiFENesin/CODEINE [Robitussin AC] 10 ml PO Q4H PRN #120 oral.liqd 12/30/17 Unknown Rx levETIRAcetam [Keppra TAB] 750 mg PO BID #60 tablet 12/30/17 Unknown Rx levoFLOXacin [Levaquin] 750 mg PO QDAY #8 tablet 12/30/17 Unknown Rx traZODone [Desyrel] 300 mg PO QHS tablet 12/30/17 Unknown Rx Acetaminophen [Tylenol Arthritis] 650 mg PO Q6HR PRN #30 tablet.er 03/13/18 Unknown Rx Albuterol Sulfate [Proair 90 mcg IH Q4HR PRN #2 aer.pow.ba 03/13/18 Unknown Rx Respiclick] Benzonatate [Tessalon Perles] 100 mg PO Q8HR PRN #30 capsule 03/13/18 Unknown Rx levoFLOXacin [Levaquin] 750 mg PO QDAY #5 tablet 03/13/18 Unknown Rx Allergies Allergy/AdvReac Type Severity Reaction Status Date / Time aspirin Allergy Vomiting Verified 12/02/17 16:12 prochlorperazine Allergy Anaphylaxis Verified 12/02/17 16:12 [From Compazine] prochlorperazine edisylate Allergy Anaphylaxis Verified 12/02/17 16:12 [From Compazine] prochlorperazine maleate Allergy Anaphylaxis Verified 12/02/17 16:12 [From Compazine] Heart Score - HEART Score History: Slightly suspicious EKG: Normal Age: > 65 Risk factors: 1-2 risk factors Troponin: < normal limit HEART Score: 3 - EKG Read Time Time EKG Completed: 00:13 EKG Read Time: 00:15 - Critical Actions Critical Actions: 0-3 pts:0.9-1.7%risk of adverse cardiac event.Candidate for discharge ED Review of Systems ROS: Stated complaint: CHEST PAIN Other details as noted in HPI Comment: All other systems reviewed and negative Constitutional: denies: chills, fever Respiratory: shortness of breath, SOB with exertion, SOB at rest. denies: cough Cardiovascular: chest pain Gastrointestinal: denies: abdominal pain, nausea, vomiting, diarrhea Musculoskeletal: denies: back pain Neurological: denies: headache, weakness ED Past Medical Hx - Past Medical History Hx Hypertension: Yes Hx CVA: Yes (2017-TPA) Hx Congestive Heart Failure: No Hx Diabetes: No Hx Deep Vein Thrombosis: Yes Hx Pulmonary Embolism: Yes (2004, IVC filter placed) Hx GERD: Yes Hx Arthritis: Yes (back) Hx Headaches / Migraines: Yes Hx Seizures: Yes Hx Asthma: No Hx COPD: Yes (Emphysema) Hx HIV: No Additional medical history: Emphysema, Alcohol abuse - Surgical History Hx Appendectomy: Yes Additional Surgical History: lumbar surgery, gastrectomy, l. elbow, partial gastrectomy for perforated ulcer - Social History Smoking Status: Current Every Day Smoker Substance Use Type: None - Medications Home Medications: Home Medications Medication Instructions Recorded Confirmed Last Taken Type Albuterol Sulfate [Ventolin HFA] 2 puff IH Q6H PRN 11/17/16 12/28/17 08/24/17 Hi story Pantoprazole Sodium 20 mg PO DAILY 12/02/17 12/28/17 11/30/17 History Trazodone HCl 300 mg PO HS 12/02/17 12/28/17 Unknown History Atorvastatin Calcium [Lipitor] 80 mg PO HS #30 tablet 12/30/17 Unknown Rx Fluticasone/Salmeterol [Advair 1 each IH BID #1 blst.w.dev 12/30/17 Unknown Rx 250-50 Diskus] Lisinopril [Zestril] 10 mg PO DAILY #30 tablet 12/30/17 Unknown Rx Omeprazole 20 mg PO QDAY #30 tablet.dr 12/30/17 Unknown Rx Oxycodone HCl/Acetaminophen 1 each PO Q6HR PRN #40 tablet 12/30/17 Unknown Rx [Percocet 7.5/325 mg] Rivaroxaban [Xarelto] 20 mg PO QDAY #30 tablet 12/30/17 Unknown Rx Tiotropium [place]ay [Spiriva 1 puff IH QDAY #1 mist.inhal 12/30/17 Unknown Rx Respimat] guaiFENesin/CODEINE [Robitussin AC] 10 ml PO Q4H PRN #120 oral.liqd 12/30/17 Unknown Rx levETIRAcetam [Keppra TAB] 750 mg PO BID #60 tablet 12/30/17 Unknown Rx levoFLOXacin [Levaquin] 750 mg PO QDAY #8 tablet 12/30/17 Unknown Rx traZODone [Desyrel] 300 mg PO QHS tablet 12/30/17 Unknown Rx Acetaminophen [Tylenol Arthritis] 650 mg PO Q6HR PRN #30 tablet.er 03/13/18 Unknown Rx Albuterol Sulfate [Proair 90 mcg IH Q4HR PRN #2 aer.pow.ba 03/13/18 Unknown Rx Respiclick] Benzonatate [Tessalon Perles] 100 mg PO Q8HR PRN #30 capsule 03/13/18 Unknown Rx levoFLOXacin [Levaquin] 750 mg PO QDAY #5 tablet 03/13/18 Unknown Rx ED Physical Exam - General General appearance: alert, in distress - Head Head exam: Present: atraumatic, normocephalic, normal inspection - Eye Eye exam: Present: normal appearance - ENT ENT exam: Present: normal exam, normal orophraynx, mucous membranes moist - Neck Neck exam: Present: normal inspection - Respiratory Respiratory exam: Present: wheezes. Absent: respiratory distress, rales, accessory muscle use, prolonged expiratory - Cardiovascular Cardiovascular Exam: Present: regular rate, normal rhythm, normal heart sounds - GI/Abdominal GI/Abdominal exam: Present: soft, normal bowel sounds. Absent: distended, tenderness, guarding, rebound, rigid, mass, bruit, pulsatile mass - Extremities Exam Extremities exam: Present: normal inspection, full ROM, normal capillary refill. Absent: tenderness - Back Exam Back exam: Present: normal inspection, full ROM. Absent: CVA tenderness (R), CVA tenderness (L) - Neurological Exam Neurological exam: Present: alert, oriented X3, CN II-XII intact, normal gait, reflexes normal. Absent: motor sensory deficit - Psychiatric Psychiatric exam: Present: normal mood - Skin Skin exam: Present: warm, intact, normal color ED Course Vital Signs 01/20/22 01/20/22 01/20/22 00:19 02:37 04:41 Temperature 98 F Pulse Rate 84 83 Pulse Rate [ 72 Anterior Bilateral Throughout] Respiratory 18 18 Rate Respiratory 18 Rate [Anterior Bilateral Throughout] Blood Pressure 137/92 Blood Pressure 143/92 [Left] O2 Sat by Pulse 98 100 Oximetry 01/20/22 04:50 Temperature Pulse Rate 78 Pulse Rate [ Anterior Bilateral Throughout] Respiratory 18 Rate Respiratory Rate [Anterior Bilateral Throughout] Blood Pressure Blood Pressure 142/88 [Left] O2 Sat by Pulse 100 Oximetry MANPREET score - Manpreet Score Age > 65: (0) No Aspirin use within the Past 7 Days: (0) No 3 or more CAD Risk Factors: (0) No 2 or more Angina events in past 24 hrs: (0) No Known CAD with more than 50% Stenosis: (0) No Elevated Cardiac Markers: (0) No ST Deviation Greater than 0.5mm: (0) No MANPREET Score: 0 ED Medical Decision Making - Lab Data Result diagrams: 01/20/22 01:16 01/20/22 00:37 - EKG Data -: EKG Interpreted by Me EKG shows normal: sinus rhythm Rate: normal - EKG Data Interpretation: no acute changes - Radiology Data Radiology results: report reviewed - Medical Decision Making Patient is 66-year-old male with history of COPD and pulmonary embolism. Patient presented to the ER complaining of substernal chest pain, stabbing in nature with radiation to the back. Patient stated that pain has been going on for 2 days. Patient is also complaining of mild shortness of breath. He denied any fever or chills. Patient received morphine for pain. Labs reviewed and unremarkable except for elevated D-dimer however CTA chest is negative for PE or any other acute pathologies. Patient received albuterol, Atrovent, Solu-Medrol and magnesium sulfate. Patient stated that he is feeling much better. Patient given prescription for prednisone and advised to follow-up with his primary doctor in the next 2 to 3 days and to return to the ER if he develop any new symptoms. Critical care attestation.: If time is entered above; I have spent that time in minutes in the direct care of this critically ill patient, excluding procedure time. ED Disposition Clinical Impression: Acute chest pain, COPD exacerbation Disposition: 01 HOME / SELF CARE / HOMELESS Is pt being admited?: No Condition: Stable Instructions: Chest Pain (ED), Chronic Obstructive Pulmonary Disease (ED), Nonspecific Chest Pain, Adult, Chronic Obstructive Pulmonary Disease Exacerbation, [id number] Referrals: KEMAR ESPINAL MD [Primary Care Provider] - 3-5 Days
[2022-01-20 01:05] LABS: BUN/Creatinine Ratio 21; Blood Urea Nitrogen 19 mg/dL (9-20); Calcium 9.1 mg/dL (8.4-10.2); Hemolysis Index 34
[2022-01-20 01:08] LABS: Alanine Aminotransferase 22 units/L (7-56); Albumin 4.4 g/dL (3.9-5)
[2022-01-20 01:30] LABS: Hematocrit 39.8 % (35.5-45.6); Hemoglobin 12.4 gm/dl (11.8-15.2); Mean Corpuscular HGB Conc 31 % (32-34); Mean Corpuscular Volume 81 fl (84-94); Platelet Count 107 K/mm3 (140-440); Red Cell Distribution Width 16.1 % (13.2-15.2)
[2022-01-20 01:40] LABS: Bilirubin,Direct < 0.2 mg/dL (0-0.2)
[2022-01-20 01:46] LABS: Partial Thromboplastin Time 30.1 Sec. (24.2-36.6)
[2022-01-20 02:40] LABS: Anisocytosis 1+; Basophils % (Manual) 0 % (0.0-1.8); Hypochromasia 2+; Platelet Estimate Consistent w Auto; Total Cells Counted 100
[2022-01-20] MEDS ORDERED: MORPHINE 2 MG/1 ML INJ ONE (04:16)
[2022-01-20] MEDS ORDERED: ALBUTEROL 2.5 MG/3 ML NEBU IH ONE (04:18)
[2022-01-20] MEDS ORDERED: MAGNESIUM SULFATE 2 GM/50 ML BAG IV ONE (04:18)
[2022-01-20] MEDS ORDERED: IPRATROPIUM 0.02% NEBU 2.5 ML IH ONE (04:18)
[2022-01-20] MEDS ORDERED: methylPREDNISolone Sod Succinate 125 MG/2 ML INJ IV ONE (04:18)
--- NOTE | 2022-01-20 04:24 | Cat Scan Report ---
CTA CHEST WITH CONTRAST INDICATION / CLINICAL INFORMATION: Patient complains of chest pains with S.O.B.. TECHNIQUE: Axial CT images were obtained through the chest after injection of 100 cc Omnipaque 350 IV contrast. 3 plane MIP and/or 3D reconstructions were produced. All CT scans at this location are per formed using CT dose reduction for ALARA by means of automated exposure control. COMPARISON: One view of the chest from 01/16/2022. CTA chest from 04/12/2018. FINDINGS: PULMONARY EMBOLUS: None. THORACIC AORTA: No significant abnormality. HEART: No significant abnormality. CORONARY ARTERY CALCIFICATION: Present -- Mild. MEDIASTINUM / JORDAN: No significant abnormality. PLEURA: No pleural effusion. No pneumothorax. LUNGS: There is severe emphysema bilaterally with dependent bilateral atelectasis. No other significa nt abnormality. ADDITIONAL FINDINGS: None. UPPER ABDOMEN: No acute findings. SKELETAL STRUCTURES: No significant osseous abnormality. IMPRESSION: 1. No CT evidence for pulmonary embolism. 2. No acute findings. 3. Additional findings as above. Signer Name: Omar Campos MD Signed: 01/20/2022 4:20 AM Workstation Name: [id number]
[2022-01-20 04:48] LABS: Color,Urine Yellow (Yellow)
[2022-01-20 04:49] LABS: Bilirubin,Urine NEG (Negative); Blood,Urine NEG (Negative); Mucus,Urine FEW /HPF; Protein,Urine <15 mg/dL mg/dL (Negative); Urobilinogen,Urine < 2.0 mg/dL (<2.0)
[2022-01-20 05:55] VITALS: BP 138/78
--- NOTE | 2022-01-21 17:53 | Electrocardiograph Report ---
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
== END 2022-01-20 05:52 | disposition home or self-care (01) ==
LOC: ED 23:41
DX: R07.9 Chest pain, unspecified (principal); J44.1 Chronic obstructive pulmonary disease with (acute) exacerbation; Z86.73 Personal history of transient ischemic attack (TIA), and cerebral infarction without residual deficits; Z86.718 Personal history of other venous thrombosis and embolism; I26.99 Other pulmonary embolism without acute cor pulmonale; K21.9 Gastro-esophageal reflux disease without esophagitis; J45.909 Unspecified asthma, uncomplicated; M19.90 Unspecified osteoarthritis, unspecified site; Z79.899 Other long term (current) drug therapy; Z98.890 Other specified postprocedural states; F17.200 Nicotine dependence, unspecified, uncomplicated
CPT/HCPCS: 36415; 71275; 80048; 80076; 81001; 83690; 83880; 84484; 85007; 85025; 85379; 85610; 85730; 93005; 94640; 96365; 96375; 96376; 99285; C9113; J2270; J2405; J2930; J3475; Q9967; 94644; 99284

== ENCOUNTER 2022-02-02 20:10 | Emergency (ER) | payer MEDICARE ==
[2022-02-02 21:40] VITALS: BP 124/92
[2022-02-02] MEDS ORDERED: ASPIRIN 325 MG TAB PO ONE (21:42)
--- NOTE | 2022-02-02 22:13 | XRay Report ---
CHEST 2 VIEWS INDICATION / CLINICAL INFORMATION: chest pain. COMPARISON: One view of the chest from 01/16/2022. FINDINGS: SUPPORT DEVICES: None. HEART / MEDIASTINUM: No significant abnormality. LUNGS / PLEURA: Stable emphysematous changes are noted bilaterally. No acute pulmonary abnormality. N o significant pleural effusion. No pneumothorax. ADDITIONAL FINDINGS: No significant additional findings. IMPRESSION: 1. No acute abnormality of the chest. No significant interval changes. Signer Name: Omar Campos MD Signed: 02/02/2022 10:08 PM Workstation Name: [id number]
[2022-02-03 02:22] LABS: Mean Corpuscular HGB Conc 31 % (32-34); Mean Corpuscular Volume 83 fl (84-94); Platelet Count 157 K/mm3 (140-440); Red Blood Count 5.05 M/mm3 (3.65-5.03); Red Cell Distribution Width 17.4 % (13.2-15.2)
[2022-02-03 02:26] LABS: Hematocrit 41.7 % (35.5-45.6); Hemoglobin 12.8 gm/dl (11.8-15.2)
[2022-02-03 02:39] LABS: Alanine Aminotransferase 14 units/L (7-56); Albumin 4.3 g/dL (3.9-5); BUN/Creatinine Ratio 26; Blood Urea Nitrogen 21 mg/dL (9-20); Calcium 8.9 mg/dL (8.4-10.2); Hemolysis Index 65
[2022-02-03 05:13] LABS: Basophils % (Manual) 0 % (0.0-1.8); Hypochromasia 1+; Platelet Estimate Consistent w Auto; Total Cells Counted 100
== END 2022-02-03 19:00 | disposition left against medical advice (07) ==
LOC: ED 20:10
DX: R07.9 Chest pain, unspecified (principal); Z53.21 Procedure and treatment not carried out due to patient leaving prior to being seen by health care provider
CPT/HCPCS: 36415; 71046; 80053; 84484; 85007; 85025; 93005

== ENCOUNTER 2022-02-15 18:43 | Emergency (ER) | payer MEDICARE ==
[2022-02-15] MEDS ORDERED: MORPHINE 4 MG/1 ML INJ IV ONE (20:20)
[2022-02-15] MEDS ORDERED: ONDANSETRON 4 MG/2 ML INJ IV ONE (20:21)
[2022-02-15] MEDS ORDERED: SODIUM CHLORIDE 0.9% 1000 ML 1,000 ML IV ONE (20:21)
--- NOTE | 2022-02-15 20:26 | Emergency Department Report ---
ED Chest Pain HPI - General Chief Complaint: Chest Pain Stated Complaint: CHEST PAIN Time Seen by Provider: 02/15/22 19:34 Source: patient, EMS Mode of arrival: Stretcher Limitations: No Limitations - History of Present Illness Initial Comments: 66-year-old male with a history of COPD and alcohol abuse and smoking who presents with chest pain that is been intermittent in the last 3 days progressively getting worse. Patient is a daily drinker. Patient also reports some increase in stressors in his life. Pain radiates to the back. Patient also reports some productive yellowish cough has been going on for about 3 days as well. No fever or chills reported. Patient also mentioned that he needed help with alcohol rehab. No other modifying or associated factors reported. Severity scale (0 -10): 8 - Related Data Home Medications Medication Instructions Recorded Confirmed Last Taken Albuterol Sulfate [Ventolin HFA] 2 puff IH Q6H PRN 11/17/16 02/05/22 08/24/17 Previous Rx's Medication Instructions Recorded Last Taken Type Fluticasone/Salmeterol [Advair 1 each IH BID #1 blst.w.dev 12/30/17 Unknown Rx 250-50 Diskus] Omeprazole 20 mg PO QDAY #30 tablet. 12/30/17 Unknown Rx guaiFENesin/CODEINE [Robitussin AC] 10 ml PO Q4H PRN #120 oral.liqd 12/30/17 Unknown Rx traZODone [Desyrel] 300 mg PO QHS tablet 12/30/17 Unknown Rx Acetaminophen [Tylenol Arthritis] 650 mg PO Q6HR PRN #30 tablet.er 03/13/18 Unknown Rx Albuterol Sulfate [Proair 90 mcg IH Q4HR PRN #2 aer.pow.ba 03/13/18 Unknown Rx Respiclick] Benzonatate [Tessalon Perles] 100 mg PO Q8HR PRN #30 capsule 03/13/18 Unknown Rx AtorvaSTATin [Lipitor] 40 mg PO QHS #30 tablet 02/13/22 Unknown Rx Nicotine [Habitrol] 7 mg TD QDAY #30 patch 02/13/22 Unknown Rx Rivaroxaban [Xarelto] 20 mg PO QDAY #30 tablet 02/13/22 Unknown Rx Tamsulosin [Flomax] 0.4 mg PO QDAY #30 capsule 02/13/22 Unknown Rx Tiotropium [place] [Spiriva 1 puff IH QDAY #1 mist.inhal 02/13/22 Unknown Rx Respimat] levETIRAcetam [Keppra TAB] 750 mg PO BID #60 tablet 02/13/22 Unknown Rx lisinopriL [Zestril TAB] 10 mg PO DAILY #30 tablet 02/13/22 Unknown Rx polyethylene glycoL 3350 [Miralax 17 gm PO BID #60 powd.pack 02/13/22 Unknown Rx 3350] chlordiazePOXIDE [Librium] 25 mg PO Q8H 7 Days #21 capsule NS 02/15/22 Unknown Rx predniSONE [Deltasone] 20 mg PO BID 5 Days #10 tab NS 02/15/22 Unknown Rx Allergies Allergy/AdvReac Type Severity Reaction Status Date / Time aspirin Allergy Vomiting Verified 02/04/22 10:11 prochlorperazine Allergy Anaphylaxis Verified 02/04/22 10:11 [From Compazine] prochlorperazine edisylate Allergy Anaphylaxis Verified 02/04/22 10:11 [From Compazine] prochlorperazine maleate Allergy Anaphylaxis Verified 02/04/22 10:11 [From Compazine] Heart Score - HEART Score History: Slightly suspicious EKG: Normal Age: > 65 Risk factors: 1-2 risk factors Troponin: < normal limit HEART Score: 3 - EKG Read Time Time EKG Completed: 20:25 EKG Read Time: 20:30 - Critical Actions Critical Actions: 0-3 pts:0.9-1.7%risk of adverse cardiac event.Candidate for discharge ED Review of Systems ROS: Stated complaint: CHEST PAIN Other details as noted in HPI Comment: All other systems reviewed and negative Respiratory: cough, shortness of breath Cardiovascular: chest pain ED Past Medical Hx - Past Medical History Hx Hypertension: Yes Hx CVA: Yes (2017-TPA) Hx Congestive Heart Failure: No Hx Diabetes: No Hx Deep Vein Thrombosis: Yes Hx Pulmonary Embolism: Yes (2004, IVC filter placed, left lower extremity dvt) Hx GERD: Yes Hx Arthritis: Yes (back) Hx Headaches / Migraines: Yes Hx Seizures: Yes Hx Asthma: No Hx COPD: Yes (Emphysema) Hx HIV: No Additional medical history: Emphysema, Alcohol abuse - Surgical History Hx Appendectomy: Yes Additional Surgical History: lumbar surgery, gastrectomy, l. elbow, partial gastrectomy for perforated ulcer - Social History Smoking Status: Never Smoker - Medications Home Medications: Home Medications Medication Instructions Recorded Confirmed Last Taken Type Albuterol Sulfate [Ventolin HFA] 2 puff IH Q6H PRN 11/17/16 02/05/22 08/24/17 History Fluticasone/Salmeterol [Advair 1 each IH BID #1 blst.w.dev 12/30/17 02/05/22 Unknown Rx 250-50 Diskus] Omeprazole 20 mg PO QDAY #30 tablet.dr 12/30/17 02/05/22 Unknown Rx guaiFENesin/CODEINE [Robitussin AC] 10 ml PO Q4H PRN #120 oral.liqd 12/30/17 02/05/22 Unknown Rx traZODone [Desyrel] 300 mg PO QHS tablet 12/30/17 02/05/22 Unknown Rx Acetaminophen [Tylenol Arthritis] 650 mg PO Q6HR PRN #30 tablet.er 03/13/18 02/05/22 Unknown Rx Albuterol Sulfate [Proair 90 mcg IH Q4HR PRN #2 aer.pow.ba 03/13/18 02/05/22 Unknown Rx Respiclick] Benzonatate [Tessalon Perles] 100 mg PO Q8HR PRN #30 capsule 03/13/18 02/05/22 Unknown Rx AtorvaSTATin [Lipitor] 40 mg PO QHS #30 tablet 02/13/22 Unknown Rx Nicotine [Habitrol] 7 mg TD QDAY #30 patch 02/13/22 Unknown Rx Rivaroxaban [Xarelto] 20 mg PO QDAY #30 tablet 02/13/22 Unknown Rx Tamsulosin [Flomax] 0.4 mg PO QDAY #30 capsule 02/13/22 Unknown Rx Tiotropium [place] [Spiriva 1 puff IH QDAY #1 mist.inhal 02/13/22 Unknown Rx Respimat] levETIRAcetam [Keppra TAB] 750 mg PO BID #60 tablet 02/13/22 Unknown Rx lisinopriL [Zestril TAB] 10 mg PO DAILY #30 tablet 02/13/22 Unknown Rx polyethylene glycoL 3350 [Miralax 17 gm PO BID #60 powd.pack 02/13/22 Unknown Rx 3350] chlordiazePOXIDE [Librium] 25 mg PO Q8H 7 Days #21 capsule NS 02/15/22 Unknown Rx predniSONE [Deltasone] 20 mg PO BID 5 Days #10 tab NS 02/15/22 Unknown Rx ED Physical Exam - General Limitations: No Limitations General appearance: alert, in no apparent distress - Head Head exam: Present: normal inspection - Eye Eye exam: Present: normal appearance Pupils: Present: normal accommodation - ENT ENT exam: Present: normal exam, normal orophraynx, mucous membranes moist - Neck Neck exam: Present: normal inspection, full ROM. Absent: tenderness - Respiratory Respiratory exam: Present: normal lung sounds bilaterally. Absent: respiratory distress, accessory muscle use - Cardiovascular Cardiovascular Exam: Present: regular rate, normal rhythm, normal heart sounds - GI/Abdominal GI/Abdominal exam: Present: soft, normal bowel sounds. Absent: distended, tenderness - Extremities Exam Extremities exam: Present: normal inspection, full ROM, normal capillary refill. Absent: tenderness - Back Exam Back exam: Present: normal inspection. Absent: tenderness - Neurological Exam Neurological exam: Present: alert, oriented X3 - Psychiatric Psychiatric exam: Present: normal affect, normal mood - Skin Skin exam: Present: warm, normal color ED Course Vital Signs 02/15/22 02/15/22 02/15/22 19:00 19:33 19:35 Temperature 98.6 F 98.0 F Pulse Rate 98 H 85 Respiratory 16 14 20 Rate Blood Pressure Blood Pressure 122/83 117/78 [Left] O2 Sat by Pulse 92 97 97 Oximetry 02/15/22 02/15/22 02/15/22 19:46 20:00 20:16 Temperature Pulse Rate 83 86 85 Respiratory 19 15 12 Rate Blood Pressure Blood Pressure [Left] O2 Sat by Pulse 97 97 97 Oximetry 02/15/22 02/15/22 02/15/22 20:30 20:46 21:00 Temperature Pulse Rate 81 79 86 Respiratory 17 16 20 Rate Blood Pressure Blood Pressure [Left] O2 Sat by Pulse 97 95 96 Oximetry 02/15/22 02/15/22 02/15/22 21:16 21:30 21:46 Temperature Pulse Rate 82 85 79 Respiratory 18 21 19 Rate Blood Pressure Blood Pressure [Left] O2 Sat by Pulse 96 96 94 Oximetry 02/15/22 02/15/22 02/15/22 22:00 22:16 22:30 Temperature Pulse Rate 90 84 80 Respiratory 21 15 15 Rate Blood Pressure 132/86 132/87 Blood Pressure [Left] O2 Sat by Pulse 94 94 94 Oximetry 02/15/22 02/15/22 02/15/22 22:43 22:46 23:00 Temperature Pulse Rate 83 81 Respiratory 15 16 20 Rate Blood Pressure 132/87 127/84 Blood Pressure [Left] O2 Sat by Pulse 94 92 Oximetry 02/15/22 02/15/22 02/15/22 23:16 23:30 23:46 Temperature Pulse Rate 87 82 89 Respiratory 20 14 18 Rate Blood Pressure 127/84 127/84 127/84 Blood Pressure [Left] O2 Sat by Pulse 94 95 93 Oximetry 02/15/22 23:50 Temperature Pulse Rate 89 Respiratory 18 Rate Blood Pressure Blood Pressure 127/84 [Left] O2 Sat by Pulse 93 Oximetry - Reevaluation(s) Reevaluation #1: 02/15/22 20:25 Here with chest pain, and productive cough that been going on for 3 days with history of COPD--this is likely COPD exacerbation however considering this patient age will rule out cardiac with initial EKG, and cardiac enzyme serial. Given morphine plus Zofran and IV fluids to help with the pain. Patient reports severe headache with nitro so he declined. 02/15/22 21:46 Labs reviewed to be wnl including troponin-- this is likely COPD exacerbation a nd non cardiac -- MANPREET score - Manpreet Score Age > 65: (0) No Aspirin use within the Past 7 Days: (0) No 3 or more CAD Risk Factors: (0) No 2 or more Angina events in past 24 hrs: (0) No Known CAD with more than 50% Stenosis: (0) No Elevated Cardiac Markers: (0) No ST Deviation Greater than 0.5mm: (0) No MANPREET Score: 0 ED Medical Decision Making - Lab Data Result diagrams: 02/15/22 21:15 02/15/22 20:38 Critical care attestation.: If time is entered above; I have spent that time in minutes in the direct care of this critically ill patient, excluding procedure time. ED Disposition Clinical Impression: Non-cardiac chest pain, COPD with exacerbation, Alcohol abuse Chest pain Qualifiers: Chest pain type: unspecified Qualified Code(s): R07.9 - Chest pain, unspecified Disposition: 01 HOME / SELF CARE / HOMELESS Is pt being admited?: No Does the pt Need Aspirin: No Condition: Stable Instructions: Chronic Obstructive Pulmonary Disease Exacerbation, [id number], Alcohol Use Disorder, Nonspecific Chest Pain, Adult, Nonspecific Chest Pain, Adult, [id number], Alcohol Abuse and Nutrition, Chronic Obstructive Pulmonary Disease (ED) Additional Instructions: Cut back or quit smoking to help you symptoms Cut back on your alcohol drinking to help your symptoms Take and complete your steroid as prescribed Call and follow up with your doctor in the next 3-5 days for progress Call or return to ED if your symptoms worsen Prescriptions: predniSONE [Deltasone] 20 mg PO BID 5 Days #10 tab NS chlordiazePOXIDE [Librium] 25 mg PO Q8H 7 Days #21 capsule NS Referrals: CARMINE KAUR MD [Referring] - 3-5 Days Time of Disposition: 22:50
--- NOTE | 2022-02-15 20:47 | XRay Report ---
CHEST 1 VIEW INDICATION / CLINICAL INFORMATION: Chest Pain. COMPARISON: 02/02/2022 FINDINGS: SUPPORT DEVICES: None. HEART / MEDIASTINUM: No significant abnormality. LUNGS / PLEURA: There is significant hyperinflation of the lungs with severe bullous disease througho ut both upper lobes. I do not see superimposed acute pulmonary or pleural disease. No pneumothorax. ADDITIONAL FINDINGS: No significant additional findings. IMPRESSION: 1. COPD with severe bilateral bullous disease. No evidence of superimposed acute pulmonary or pleural disease. Signer Name: Karen Morel MD Signed: 02/15/2022 8:43 PM Workstation Name: [id number]
[2022-02-15 21:11] LABS: Partial Thromboplastin Time 26.6 Sec. (24.2-36.6)
[2022-02-15 21:17] LABS: Amphetamine Screen,Urine Negative; Benzodiazepines Screen,Urine Negative; Cannabinoid Screen,Urine Negative; Cocaine Screen,Urine Negative; Methadone Screen,Urine Negative; Opiate Screen,Urine Negative
[2022-02-15 21:22] LABS: Alanine Aminotransferase 18 units/L (7-56); Albumin 4.6 g/dL (3.9-5); BUN/Creatinine Ratio 22; Blood Urea Nitrogen 20 mg/dL (9-20); Calcium 9.2 mg/dL (8.4-10.2); Hemolysis Index 58
[2022-02-15 21:30] LABS: Hematocrit 39.3 % (35.5-45.6); Hemoglobin 12.1 gm/dl (11.8-15.2); Mean Corpuscular HGB Conc 31 % (32-34); Mean Corpuscular Volume 82 fl (84-94); Platelet Count 166 K/mm3 (140-440); Red Blood Count 4.79 M/mm3 (3.65-5.03); Red Cell Distribution Width 16.5 % (13.2-15.2)
[2022-02-15] MEDS ORDERED: methylPREDNISolone Sod Succinate 125 MG/2 ML INJ IV ONE (21:45)
[2022-02-15 21:48] LABS: INR 1.03 (0.87-1.13)
[2022-02-15 23:24] VITALS: BP 127/84
[2022-02-16 01:24] LABS: Anisocytosis 1+; Basophils % (Manual) 0 % (0.0-1.8); Hypochromasia 1+; Total Cells Counted 100
[2022-02-16 01:25] LABS: Platelet Estimate Consistent w Auto
--- NOTE | 2022-02-16 08:58 | Electrocardiograph Report ---
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
== END 2022-02-15 23:58 | disposition home or self-care (01) ==
LOC: ED 18:43
DX: R07.89 Other chest pain (principal); J44.1 Chronic obstructive pulmonary disease with (acute) exacerbation; F10.10 Alcohol abuse, uncomplicated; I11.9 Hypertensive heart disease without heart failure; K21.9 Gastro-esophageal reflux disease without esophagitis; I82.409 Acute embolism and thrombosis of unspecified deep veins of unspecified lower extremity; I26.99 Other pulmonary embolism without acute cor pulmonale; M47.819 Spondylosis without myelopathy or radiculopathy, site unspecified; G43.909 Migraine, unspecified, not intractable, without status migrainosus; R56.9 Unspecified convulsions; Z90.89 Acquired absence of other organs; Z98.890 Other specified postprocedural states; Z88.6 Allergy status to analgesic agent
CPT/HCPCS: 36415; 71045; 80053; 80307; 83690; 84484; 85007; 85025; 85610; 85730; 93005; 96361; 96374; 96375; 99284; J2270; J2405; J2930; J7030

== ENCOUNTER 2022-02-16 04:38 | Emergency (ER) | payer MEDICARE ==
[2022-02-16 06:18] VITALS: BP 138/84
[2022-02-16 07:11] LABS: Basophils % (Auto) 0.5 % (0.0-1.8); Hematocrit 39.9 % (35.5-45.6); Hemoglobin 12.6 gm/dl (11.8-15.2); Lymphocytes # (Auto) 0.4 K/mm3 (1.2-5.4); Lymphocytes % (Auto) 10.8 % (13.4-35.0); Mean Corpuscular HGB Conc 32 % (32-34); Mean Corpuscular Volume 81 fl (84-94); Monocytes # (Auto) 0.1 K/mm3 (0.0-0.8); Monocytes % (Auto) 2.3 % (0.0-7.3); Platelet Count 187 K/mm3 (140-440); Red Blood Count 4.93 M/mm3 (3.65-5.03); Red Cell Distribution Width 16.4 % (13.2-15.2)
[2022-02-16 09:03] LABS: Bilirubin,Urine NEG (Negative); Blood,Urine NEG (Negative); Color,Urine Yellow (Yellow); Mucus,Urine FEW /HPF; Protein,Urine <15 mg/dL mg/dL (Negative); RBC,Urine < 1.0 /HPF (0.0-6.0); Urobilinogen,Urine < 2.0 mg/dL (<2.0); WBC,Urine < 1.0 /HPF (0.0-6.0)
[2022-02-16 09:07] LABS: Amphetamine Screen,Urine Negative; Benzodiazepines Screen,Urine Negative; Cannabinoid Screen,Urine Negative; Cocaine Screen,Urine Negative; Methadone Screen,Urine Negative; Opiate Screen,Urine Negative
[2022-02-16 09:35] LABS: Blood Urea Nitrogen 24 mg/dL (9-20); Calcium 9.4 mg/dL (8.4-10.2); Hemolysis Index 11
[2022-02-16 09:39] LABS: BUN/Creatinine Ratio 34
[2022-02-17] MEDS ORDERED: ONDANSETRON 4 MG/2 ML INJ IV ONE (04:45)
[2022-02-17] MEDS ORDERED: THIAMINE 100 MG, FOLIC ACID 1 MG, MULTIPLE VITAMIN INJ, ADULT 10 ML in SODIUM CHLORIDE ... IV ONE (04:45)
[2022-02-17] MEDS ORDERED: LORazepam 2 MG/ML VIAL IV ONE (04:45)
[2022-02-17 05:34] LABS: Alanine Aminotransferase 18 units/L (7-56); Albumin 4.7 g/dL (3.9-5); Blood Urea Nitrogen 25 mg/dL (9-20); Calcium 9.5 mg/dL (8.4-10.2); Hemolysis Index 30
[2022-02-17 05:39] LABS: BUN/Creatinine Ratio 36
[2022-02-17 06:14] LABS: Bilirubin,Urine NEG (Negative); Blood,Urine NEG (Negative); Color,Urine Colorless (Yellow); Protein,Urine <15 mg/dL mg/dL (Negative); RBC,Urine < 1.0 /HPF (0.0-6.0); Urobilinogen,Urine < 2.0 mg/dL (<2.0)
[2022-02-17 06:17] LABS: WBC,Urine < 1.0 /HPF (0.0-6.0)
[2022-02-17 06:21] LABS: Hematocrit 39.1 % (35.5-45.6); Hemoglobin 12.5 gm/dl (11.8-15.2); Mean Corpuscular HGB Conc 32 % (32-34); Mean Corpuscular Volume 81 fl (84-94); Platelet Count 173 K/mm3 (140-440); Red Blood Count 4.85 M/mm3 (3.65-5.03); Red Cell Distribution Width 16.8 % (13.2-15.2)
[2022-02-17 08:47] LABS: Hypochromasia 1+; Myelocytes # (Manual) 0.1 K/mm3; Platelet Estimate Consistent w Auto; Total Cells Counted 100
== END 2022-02-17 12:34 | disposition home or self-care (01) ==
LOC: ED 04:38
DX: Z00.00 Encounter for general adult medical examination without abnormal findings (principal); Z53.21 Procedure and treatment not carried out due to patient leaving prior to being seen by health care provider; Z79.899 Other long term (current) drug therapy
CPT/HCPCS: 36415; 80048; 80053; 80307; 81001; 83690; 85007; 85025; J2060; J2405; J3411; J3490; J7030; 80320; G0480

== ENCOUNTER 2022-02-24 12:29 | Inpatient (IN) | payer MEDICARE ==
[2022-02-24] MEDS ORDERED: ALBUTEROL 2.5 MG/3 ML NEBU IH PRN (18:26)
[2022-02-24] MEDS ORDERED: oxyCODONE 5 MG TAB PO PRN (18:28)
[2022-02-24] MEDS ORDERED: guaiFENesin/CODEINE 100-10MG ORAL LIQD 5 ML PO PRN (18:28)
[2022-02-24] MEDS: traZODone 100 MG TAB PO SCH (22:42)
[2022-02-24] MEDS: DOCUSATE SODIUM 100 MG CAP PO SCH (22:42)
[2022-02-24] MEDS: DIVALPROEX DR 250 MG TAB PO SCH (22:42)
[2022-02-24] MEDS: levETIRAcetam 500 MG/5 ML ORAL LIQD PO SCH (22:42)
[2022-02-24] MEDS: traMADol 50 MG TAB PO SCH (22:43)
--- NOTE | 2022-02-25 08:27 | History and Physical Report ---
GP History & Physical - History of Present Illness Date of admission: 02/24/22 Date of Examination: 02/25/22 Reason for Admission: Danger to self, Detox/Rehab History of Present Illness: The patient is a 66 year old male with history of depression and alcohol use disorder. The patient was initially seen in the medical unit and was admitted to the [facility] unit for continued stabilization. He was seen this morning. He is calm, alert and oriented x3 with appropriate affect. The patient continues to endorse depression but denies suicidal ideation. He denies hallucinations but continue to crave for alcohol. PAST PSYCHIATRIC HISTORY: Diagnoses: Depression, Suicide attempts or Self-harm behavior: Denies Prior psychiatric hospitalizations: Denies Substance Abuse history: Alcohol Previous psychiatric medications tried: Denies Outpatient treatment: Denies PAST MEDICAL HISTORY: None reported Family Psychiatric History: None reported SOCIAL HISTORY Marital Status: Living Arrangements: Homeless Employment Status: Retired Access to guns/weapons: Denies Education:Unknown History of Abuse: denies Legal History: denies REVIEW OF SYSTEMS Constitutional: Negative for weight loss ENT: Negative for stridor Respiratory: Negative for cough or hemoptysis All other systems reviewed and are negative MENTAL STATUS EXAMINATION General Appearance: Dressed appropriately Behavior: calm and cooperative Mood: Depressed Affect and affective range: congruent with mood Thought Process: Goal directed Thought content: reality oriented Speech: Normal tone and pace Suicidal Ideation: Denies Homicidal Ideation: Denies Hallucinations: Denies Delusions: None elicited Insight and Judgment: Limited insight and judgment Memory: Limited Attention: attentive Orientation: Alert, oriented Assessment Major Depressive Disorder Alcohol use disorder, severe Treatment Plan Patient admitted for inpatient psychiatric evaluation, medication adjustment and close monitoring The patient's behavior, mood, sleep and appetite will be closely monitored. Patient enrolled in individual and group therapeutic sessions and encouraged to attend. Patient provided with a safe and structured environment. Patient's physical health needs will be addressed by the Hospitalist. Hospitalist Consulted Labs including CBC, CMP, Lipid profile and Hemoglobin A1C levels ordered for baseline reference Social Assessment will be completed and the Public Relations Coordinator will work with patient and family to ensure a suitable and safe disposition Medication adjustment will be made as clinically indicated Continue home meds Usual Wellness Catholic/Preservation: - Start Trazodone 50 mg po QHS & 50 mg po QHS PRN between 10 PM & 2 AM for insomnia - Start Melatonin 5 mg po QHS to promote circadian rhythm The patient agreed on the treatment plan, understood the risk, benefit, alternative treatment, potential consequence of no treatment, and gave informed consent. Estimated days: [address] Portillo Medications and Allergies Allergies Allergy/AdvReac Type Severity Reaction Status Date / Time aspirin Allergy Vomiting Verified 02/04/22 10:11 prochlorperazine Allergy Anaphylaxis Verified 02/04/22 10:11 [From Compazine] prochlorperazine edisylate Allergy Anaphylaxis Verified 02/04/22 10:11 [From Compazine] prochlorperazine maleate Allergy Anaphylaxis Verified 02/04/22 10:11 [From Compazine] Home Medications Medication Instructions Recorded Confirmed Last Taken Type Albuterol Sulfate [Ventolin HFA] 2 puff IH Q6H PRN 11/17/16 02/24/22 08/24/17 History Fluticasone/Salmeterol [Advair 1 each IH BID #1 blst.w.dev 12/30/17 02/24/22 Unknown Rx 250-50 Diskus] traZODone [Desyrel] 300 mg PO QHS tablet 12/30/17 02/24/22 Unknown Rx Acetaminophen [Tylenol Arthritis] 650 mg PO Q6HR PRN #30 tablet.er 03/13/18 02/24/22 Unknown Rx Albuterol Sulfate [Proair 90 mcg IH Q4HR PRN #2 aer.pow.ba 03/13/18 02/24/22 Unknown Rx Respiclick] Benzonatate [Tessalon Perles] 100 mg PO Q8HR PRN #30 capsule 03/13/18 02/24/22 Unknown Rx AtorvaSTATin [Lipitor] 40 mg PO QHS #30 tablet 02/13/22 02/24/22 Unknown Rx Nicotine [Habitrol] 7 mg TD QDAY #30 patch 02/13/22 02/24/22 Unknown Rx Rivaroxaban [Xarelto] 20 mg PO QDAY #30 tablet 02/13/22 02/24/22 Unknown Rx Tamsulosin [Flomax] 0.4 mg PO QDAY #30 capsule 02/13/22 02/24/22 Unknown Rx Tiotropium Anthony [Spiriva 1 puff IH QDAY #1 mist.inhal 02/13/22 02/24/22 Unknown Rx Respimat] levETIRAcetam [Keppra TAB] 750 mg PO BID #60 tablet 02/13/22 02/24/22 Unknown Rx lisinopriL [Zestril TAB] 10 mg PO DAILY #30 tablet 02/13/22 02/24/[address] [Depakote Dr] 250 mg PO BID tablet 02/24/22 02/24/22 Unknown Rx Docusate Sodium [Colace CAP] 100 mg PO BID capsule 02/24/22 02/24/22 Unknown Rx Folic Acid [Folvite] 1 mg PO QDAY tablet 02/24/22 02/24/22 Unknown Rx Pantoprazole [Protonix TAB] 20 mg PO QDAY tablet. 02/24/22 02/24/22 Unknown Rx Sertraline [Zoloft] 50 mg PO QDAY tablet 02/24/22 02/24/22 Unknown Rx hydrOXYzine PAMOATE [Vistaril] 50 mg PO BID capsule 02/24/22 02/24/22 Unknown Rx Active Meds: Active Medications Albuterol (Albuterol 2.5 Mg/3 Ml Nebu) 2.5 mg IH Q4HRT PRN PRN Reason: Shortness Of Breath Atorvastatin Calcium (Atorvastatin 40 Mg Tab) 40 mg PO QHS [facility] Last Admin: 02/24/22 22:42 Dose: 40 mg Divalproex Sodium (Divalproex Dr 250 Mg Tab) 250 mg PO BID [facility] Last Admin: 02/24/22 22:42 Dose: 250 mg Docusate Sodium (Docusate Sodium 100 Mg Cap) 100 mg PO BID [facility] Last Admin: 02/24/22 22:42 Dose: 100 mg Folic Acid (Folic Acid 1 Mg Tab) 1 mg PO QDAY [facility] Hydroxyzine Pamoate (Hydroxyzine Pamoate 50 Mg Cap) 50 mg PO BID [facility] Last Admin: 02/24/22 22:42 Dose: 50 mg Levetiracetam (Levetiracetam 500 Mg/5 Ml Oral Liqd) 750 mg PO BID [facility] Last Admin: 02/24/22 22:42 Dose: 750 mg Lidocaine (Lidocaine 5% 1 Each Patch) 1 each TD QDAY [facility] Lisinopril (Lisinopril 10 Mg Tab) 10 mg PO QDAY [facility] Multivitamins (Multivitamins ,Therapeutic Tab) 1 each PO QDAY [facility] Nicotine (Nicotine 7 Mg/24 Hr Patch) 7 mg TD QDAY [facility] Oxycodone HCl (Oxycodone 5 Mg Tab) 10 mg PO Q8H PRN PRN Reason: Pain, Moderate (4-6) Oxycodone/Acetaminophen (Oxycodone /Acetaminophen 5-325mg Tab) 1 tab PO Q6H PRN PRN Reason: Pain, Moderate (4-6) Pantoprazole Sodium (Pantoprazole 20 Mg Tab) 20 mg PO QDAC [facility] Pseudoephedrine/Acetam/Chlorphenir (Guaifenesin/Codeine 100-10mg Oral Liqd 5 Ml) 10 ml PO Q4H PRN PRN Reason: Cough Rivaroxaban (Rivaroxaban 20 Mg Tab) 20 mg PO QDDIAB [facility] Sertraline HCl (Sertraline 50 Mg Tab) 50 mg PO QDAY [facility] Tamsulosin HCl (Tamsulosin 0.4 Mg Cap) 0.4 mg PO QDAY [facility] Tiotropium Anthony (Tiotropium 18 Mcg Cap Inhalation) 1 puff IH Q24HRT [facility] Tramadol HCl (Tramadol 50 Mg Tab) 50 mg PO QHS [facility] Last Admin: 02/24/22 22:43 Dose: Not Given Trazodone HCl (Trazodone 100 Mg Tab) 300 mg PO QHS [facility] Last Admin: 02/24/22 22:42 Dose: 300 mg Results - Results Labs/Vitals: Laboratory Last Values POC Glucose 101 mg/dL (70-105) 02/24/22 22:47 Last Vital Signs Temp 98.2 F 02/24/22 21:02 Pulse 86 02/24/22 21:02 Resp 18 02/24/22 21:02 BP 97/65 02/24/22 21:02 Pulse Ox 95 02/24/22 21:02 Physical Examination - Constitutional Vitals: Vital Signs Temp Pulse Resp BP Pulse Ox 98.2 F 86 18 97/65 95 02/24/22 21:02 02/24/22 21:02 02/24/22 21:02 02/24/22 21:02 02/24/22 21:02 Temperature -Last 24 Hours Temperature 98.2 F Temperature 98.2 F Mental Status Exam - Vital signs Last Vital Signs Temp 98.2 F 02/24/22 21:02 Pulse 86 02/24/22 21:02 Resp 18 02/24/22 21:02 BP 97/65 02/24/22 21:02 Pulse Ox 95 02/24/22 21:02 Physician Certification - Certification Statement Physician Certification Statement: This is an acknowledgement statement that NADINE SCHULZ is a 66 year old M who requires inpatient psychiatric admission for treatment which could reasonably be expected to improve the patient's condition for Estimated period of time patient will need to remain in the hospital: [ ] Plan for post-hospital care: [ ]
--- NOTE | 2022-02-25 09:11 | Consultation ---
History of Present Illness - History of Present Illness 66 YO Male with Vascular Dementia, Cerebral Atherosclerosis, HTN, CVA, CAD S/P Stent placement, DVT complicated by PE on therapeutic anticoagulation with Xarelto S/P IVC Filter Placement, OA, Seizure Disorder, Nicotine Dependence, ETOH Dependence, GERD, COPD on home 2 L oxygen, Migraine HUGHES who presented on 02/17/2022 in our facility for chest pain and suicidal ideation. He was seen by the cardiology team who recommended he be worked up for chest pain symptoms with EKG, troponin, echo, Lexiscan MPI. EKG showed normal sinus rhythm. Serial troponins were negative. Ejection fraction was found to be 55 to 60%, grade 1 diastolic dysfunction. Lexiscan was negative for ischemia. Given his suicidal ideation and history of alcoholism he was subsequently transferred to the psychiatric floor. Internal medicine service consulted for medical management and ongoing chest pain symptoms. Patient states that chest pain symptoms started yesterday. He describes it as a midsternal pain that radiates to his back. He describes a pressure sensation. He states that symptoms are worse with exertion. He does not appear to be in any acute distress but states that there is some discomfort from the chest pain. Remainder of ROS negative. Past Medical History: CAD, COPD, DVT, GERD, hypertension, migraines, pulmonary embolism, other (See HPI) Past Surgical History: appendectomy, Other (lumbar surgery, gastrectomy, l. elbow, partial gastrectomy for perforated ulcer) Social history: , smoking, alcohol abuse Family history: diabetes, hypertension, both parents with chf Medications and Allergies Allergies Allergy/AdvReac Type Severity Reaction Status Date / Time aspirin Allergy Vomiting Verified 02/04/22 10:11 prochlorperazine Allergy Anaphylaxis Verified 02/04/22 10:11 [From Compazine] prochlorperazine edisylate Allergy Anaphylaxis Verified 02/04/22 10:11 [From Compazine] prochlorperazine maleate Allergy Anaphylaxis Verified 02/04/22 10:11 [From Compazine] Home Medications Medication Instructions Recorded Confirmed Last Taken Type Albuterol Sulfate [Ventolin HFA] 2 puff IH Q6H PRN 11/17/16 02/24/22 08/24/17 History Fluticasone/Salmeterol [Advair 1 each IH BID #1 blst.w.dev 12/30/17 02/24/22 Unknown Rx 250-50 Diskus] traZODone [Desyrel] 300 mg PO QHS tablet 12/30/17 02/24/22 Unknown Rx Acetaminophen [Tylenol Arthritis] 650 mg PO Q6HR PRN #30 tablet.er 03/13/18 02/24/22 Unknown Rx Albuterol Sulfate [Proair 90 mcg IH Q4HR PRN #2 aer.pow.ba 03/13/18 02/24/22 Unknown Rx Respiclick] Benzonatate [Tessalon Perles] 100 mg PO Q8HR PRN #30 capsule 03/13/18 02/24/22 Unknown Rx AtorvaSTATin [Lipitor] 40 mg PO QHS #30 tablet 02/13/22 02/24/22 Unknown Rx Nicotine [Habitrol] 7 mg TD QDAY #30 patch 02/13/22 02/24/22 Unknown Rx Rivaroxaban [Xarelto] 20 mg PO QDAY #30 tablet 02/13/22 02/24/22 Unknown Rx Tamsulosin [Flomax] 0.4 mg PO QDAY #30 capsule 02/13/22 02/24/22 Unknown Rx Tiotropium [place] [Spiriva 1 puff IH QDAY #1 mist.inhal 02/13/22 02/24/22 Unknown Rx Respimat] levETIRAcetam [Keppra TAB] 750 mg PO BID #60 tablet 02/13/22 02/24/22 Unknown Rx lisinopriL [Zestril TAB] 10 mg PO DAILY #30 tablet 02/13/22 02/24/22 Unknown Rx Divalproex [Marquez Lang] 250 mg PO BID tablet 02/24/22 02/24/22 Unknown Rx Docusate Sodium [Colace CAP] 100 mg PO BID capsule 02/24/22 02/24/22 Unknown Rx Folic Acid [Folvite] 1 mg PO QDAY tablet 02/24/22 02/24/22 Unknown Rx Pantoprazole [Protonix TAB] 20 mg PO QDAY tablet. 02/24/22 02/24/22 Unknown Rx Sertraline [Zoloft] 50 mg PO QDAY tablet 02/24/22 02/24/22 Unknown Rx hydrOXYzine PAMOATE [Vistaril] 50 mg PO BID capsule 02/24/22 02/24/22 Unknown Rx Active Meds: Active Medications Albuterol (Albuterol 2.5 Mg/3 Ml Nebu) 2.5 mg IH Q4HRT PRN PRN Reason: Shortness Of Breath Atorvastatin Calcium (Atorvastatin 40 Mg Tab) 40 mg PO QHS [facility] Last Admin: 02/24/22 22:42 Dose: 40 mg Divalproex Sodium (Divalproex Dr 250 Mg Tab) 250 mg PO BID [facility] Last Admin: 02/24/22 22:42 Dose: 250 mg Docusate Sodium (Docusate Sodium 100 Mg Cap) 100 mg PO BID [facility] Last Admin: 02/24/22 22:42 Dose: 100 mg Folic Acid (Folic Acid 1 Mg Tab) 1 mg PO QDAY [facility] Hydroxyzine Pamoate (Hydroxyzine Pamoate 50 Mg Cap) 50 mg PO BID [facility] Last Admin: 02/24/22 22:42 Dose: 50 mg Levetiracetam (Levetiracetam 500 Mg/5 Ml Oral Liqd) 750 mg PO BID [facility] Last Admin: 02/24/22 22:42 Dose: 750 mg Lidocaine (Lidocaine 5% 1 Each Patch) 1 each TD QDAY [facility] Lisinopril (Lisinopril 10 Mg Tab) 10 mg PO QDAY [facility] Multivitamins (Multivitamins ,Therapeutic Tab) 1 each PO QDAY [facility] Nicotine (Nicotine 7 Mg/24 Hr Patch) 7 mg TD QDAY [facility] Oxycodone HCl (Oxycodone 5 Mg Tab) 10 mg PO Q8H PRN PRN Reason: Pain, Moderate (4-6) Oxycodone/Acetaminophen (Oxycodone /Acetaminophen 5-325mg Tab) 1 tab PO Q6H PRN PRN Reason: Pain, Moderate (4-6) Pantoprazole Sodium (Pantoprazole 20 Mg Tab) 20 mg PO QDAC [facility] Pseudoephedrine/Acetam/Chlorphenir (Guaifenesin/Codeine 100-10mg Oral Liqd 5 Ml) 10 ml PO Q4H PRN PRN Reason: Cough Rivaroxaban (Rivaroxaban 20 Mg Tab) 20 mg PO QDDIAB [facility] Sertraline HCl (Sertraline 50 Mg Tab) 50 mg PO QDAY [facility] Tamsulosin HCl (Tamsulosin 0.4 Mg Cap) 0.4 mg PO QDAY [facility] Tiotropium [place] (Tiotropium 18 Mcg Cap Inhalation) 1 puff IH Q24HRT [facility] Tramadol HCl (Tramadol 50 Mg Tab) 50 mg PO QHS [facility] Last Admin: 02/24/22 22:43 Dose: Not Given Trazodone HCl (Trazodone 100 Mg Tab) 300 mg PO QHS [facility] Last Admin: 02/24/22 22:42 Dose: 300 mg Review of Systems All systems: negative (For stated in HPI) Exam - Physical Exam Narrative exam: General appearance: Present: no acute distress - EENT Eyes: Present: PERRL, EOM intact ENT: hearing intact, clear oral mucosa, dentition normal - Neck Neck: Present: supple, normal ROM - Respiratory Respiratory effort: normal Respiratory: bilateral: CTA - Cardiovascular Rhythm: regular Heart Sounds: Present: S1 & S2 - Extremities Extremities: no ischemia, pulses intact, pulses symmetrical, No edema, normal temperature, normal color, Full ROM Peripheral Pulses: within normal limits - Abdominal General gastrointestinal: Present: soft, non-tender, non-distended, normal bowel sounds Male genitourinary: Present: deferred - Rectal Rectal Exam: deferred - Integumentary Integumentary: Present: clear, warm, dry - Musculoskeletal Musculoskeletal: strength equal bilaterally - Psychiatric Psychiatric: other (Extremely manipulative and malingering) - Neurologic Neurologic: CNII-XII intact, moves all extremities - Allied Health Allied health notes reviewed: nursing - Constitutional Vitals: Temp Pulse Resp BP Pulse Ox 98.2 F 86 18 97/65 95 02/24/22 21:02 02/24/22 21:02 02/24/22 21:02 02/24/22 21:02 02/24/22 21:02 Assessment and Plan #Chest pain, ACS ruled out #Hx of CAD -troponin negative x3, VSS -continue statin - allergy to aspirin, GI upset per patient. unclear if he has had bleeding hx. -negative for covid -UDS only positive for opiates -02/17 TTE: LVEF 55-60% w/ mild diastolic dysfunction -Cardiology cleared patient on prior admission -stress test negative on 02/24. No indication for further cardiac imaging -We will reorder EKG and troponin. - ordered as needed nitro 0.4 mg SL for chest pain #Suicidal ideation #Major depressive disorder -denies SI/HI today -Psychiatry following, assistance appreciated -psychiatric management per Psychiatry recommendations #Hypertension #Hyperlipidemia - current medications: Lisinopril 10 mg daily, atorvastatin 80 mg daily - SBP goal <160 and DBP goal <90 while inpatient - continue to monitor #Seizure disorder -continue home Keppra 750 mg twice daily -continue depakote dr 250 mg po bid. #COPD (chronic obstructive pulmonary disease) #Emphysema -not in acute exacerbation; SPO2 goal 88-92% -nebulizers ordered at patients request -Supplemental oxygen PRN, pulse oximetry as clinically indicated - on home 2L/min oxygen. #Hx of DVT and PE -continue xarelto at home dose - History of DVT complicated by pulmonary embolism status post IVC filter insertion #Mild protein calorie malnutrition -Encourage increased protein intake -likely secondary to alcohol dependence #Chronic pain -Patient complains of chronic L4/L5, left leg pain and chest pain relieved only by narcotics -continue PRN pain relief -will need chronic pain specialist outpatient #BPH Continue Flomax 0.4 mg daily #history of CVA wit hvascular dementia #Tobacco dependence #Tobacco/Smoking cessation counseling - Counseled patient about the importance of smoking cessation and the possible sequelae as a result of continued tobacco consumption. The patient expresses understanding. -Time: +15 mins #Alcohol dependence - Counseled patient on the importance of ETOH cessation. -continue CIWA protocol: Thiamine, folic acid, multivitamin daily -Time: +15 mins #Advanced care planning -Disease education conducted, care plan discussed, diagnoses discussed, prognosis discussed, and patient acknowledges understanding with care plan -Time: +30 min Patient to remain on psychiatric floor at this time. Cardiac work-up completed on 02/17 admission was negative for ischemia. We will follow-up troponin and EKG ordered. IM service will continue to follow along. Thank you for this consultation.
[2022-02-25] MEDS: DOCUSATE SODIUM 100 MG CAP PO SCH ×2 (09:27→21:29)
[2022-02-25] MEDS: RIVAROXABAN 20 MG TAB PO SCH (09:27)
[2022-02-25] MEDS: DIVALPROEX DR 250 MG TAB PO SCH ×2 (09:27→21:29)
[2022-02-25] MEDS: LISINOPRIL 10 MG TAB PO SCH (09:28)
[2022-02-25] MEDS: MULTIVITAMINS ,THERAPEUTIC TAB PO SCH (09:28)
[2022-02-25] MEDS: TAMSULOSIN 0.4 MG CAP PO SCH (09:29)
[2022-02-25] MEDS: FOLIC ACID 1 MG TAB PO SCH (09:29)
[2022-02-25] MEDS: SERTRALINE 50 MG TAB PO SCH (09:29)
[2022-02-25] MEDS: LIDOCAINE 5% 1 EACH PATCH TD SCH (09:30)
[2022-02-25] MEDS: NICOTINE 7 MG/24 HR PATCH TD SCH (09:30)
[2022-02-25] MEDS: levETIRAcetam 500 MG/5 ML ORAL LIQD PO SCH ×2 (09:30→21:29)
[2022-02-25] MEDS: oxyCODONE /ACETAMINOPHEN 5-325MG TAB PO PRN (09:34)
[2022-02-25] MEDS: PANTOPRAZOLE 20 MG TAB PO SCH (09:34)
[2022-02-25] MEDS: TIOTROPIUM 18 MCG CAP INHALATION IH SCH (10:00)
[2022-02-25] MEDS ORDERED: NITROGLYCERIN 0.4 MG TAB SUBL SL PRN (16:00)
[2022-02-25 16:58] LABS: Basophils # (Auto) 0.1 K/mm3 (0.0-0.1); Basophils % (Auto) 1.6 % (0.0-1.8); Eosinophils # (Auto) 0.2 K/mm3 (0.0-0.4); Hemoglobin 12.5 gm/dl (11.8-15.2); Lymphocytes # (Auto) 1.9 K/mm3 (1.2-5.4); Lymphocytes % (Auto) 33.6 % (13.4-35.0); Mean Corpuscular HGB Conc 32 % (32-34); Mean Corpuscular Volume 81 fl (84-94); Monocytes # (Auto) 0.7 K/mm3 (0.0-0.8); Monocytes % (Auto) 12.3 % (0.0-7.3); Platelet Count 168 K/mm3 (140-440); Red Blood Count 4.84 M/mm3 (3.65-5.03); Red Cell Distribution Width 16.5 % (13.2-15.2)
[2022-02-25 17:15] LABS: Alanine Aminotransferase 23 units/L (7-56); Albumin 3.6 g/dL (3.9-5); BUN/Creatinine Ratio 18; Blood Urea Nitrogen 14 mg/dL (9-20); Calcium 8.7 mg/dL (8.4-10.2); Chol/HDL Ratio 2.53 %; HDL Cholesterol 63 mg/dL (40-59); Hemolysis Index 4; LDL Cholesterol,Direct 87 mg/dL (50-130)
[2022-02-25] MEDS: traZODone 100 MG TAB PO SCH (21:29)
[2022-02-25] MEDS: traMADol 50 MG TAB PO SCH (21:30)
--- NOTE | 2022-02-26 08:18 | Progress Note ---
Assessment and Plan Assessment and plan: #Chest pain, ACS ruled out #Hx of CAD -troponin negative x4, VSS -continue statin - allergy to aspirin, GI upset per patient. unclear if he has had bleeding hx. -negative for covid -UDS only positive for opiates -02/17 TTE: LVEF 55-60% w/ mild diastolic dysfunction -Cardiology cleared patient on prior admission -stress test negative on 02/24. No indication for further cardiac imaging -We will reorder EKG and troponin. - ordered as needed nitro 0.4 mg SL for chest pain #Suicidal ideation #Major depressive disorder -denies SI/HI today -Psychiatry following, assistance appreciated -psychiatric management per Psychiatry recommendations #Hypertension #Hyperlipidemia - current medications: Lisinopril 10 mg daily, atorvastatin 80 mg daily - SBP goal <160 and DBP goal <90 while inpatient - continue to monitor #Seizure disorder -continue home Keppra 750 mg twice daily -continue depakote dr 250 mg po bid. #COPD (chronic obstructive pulmonary disease) #Emphysema -not in acute exacerbation; SPO2 goal 88-92% -nebulizers ordered at patients request -Supplemental oxygen PRN, pulse oximetry as clinically indicated - on home 2L/min oxygen. #Hx of DVT and PE -continue xarelto at home dose - History of DVT complicated by pulmonary embolism status post IVC filter insertion #Mild protein calorie malnutrition -Encourage increased protein intake -likely secondary to alcohol dependence #Chronic pain -Patient complains of chronic L4/L5, left leg pain and chest pain relieved only by narcotics -continue PRN pain relief -will need chronic pain specialist outpatient #BPH Continue Flomax 0.4 mg daily #history of CVA wit hvascular dementia #Tobacco dependence #Tobacco/Smoking cessation counseling - Counseled patient about the importance of smoking cessation and the possible sequelae as a result of continued tobacco consumption. The patient expresses understanding. -Time: +15 mins #Alcohol dependence - Counseled patient on the importance of ETOH cessation. -continue CIWA protocol: Thiamine, folic acid, multivitamin daily -Time: +15 mins #Advanced care planning -Disease education conducted, care plan discussed, diagnoses discussed, prognosis discussed, and patient acknowledges understanding with care plan -Time: +30 min Patient to remain on psychiatric floor at this time. Cardiac work-up completed on 02/17 admission was negative for ischemia, no indication for further cardiac work-up. Troponin ordered yesterday negative. IM service will continue to follow along. Thank you for this consultation. History Interval history: No acute complaints today. Hospitalist Physical - Physical exam Narrative exam: General appearance: Present: no acute distress - EENT Eyes: Present: PERRL, EOM intact ENT: hearing intact, clear oral mucosa, dentition normal - Neck Neck: Present: supple, normal ROM - Respiratory Respiratory effort: normal Respiratory: bilateral: CTA - Cardiovascular Rhythm: regular Heart Sounds: Present: S1 & S2 - Extremities Extremities: no ischemia, pulses intact, pulses symmetrical, No edema, normal temperature, normal color, Full ROM Peripheral Pulses: within normal limits - Abdominal General gastrointestinal: Present: soft, non-tender, non-distended, normal bowel sounds Male genitourinary: Present: deferred - Rectal Rectal Exam: deferred - Integumentary Integumentary: Present: clear, warm, dry - Musculoskeletal Musculoskeletal: strength equal bilaterally - Psychiatric Psychiatric: other (Extremely manipulative and malingering) - Neurologic Neurologic: CNII-XII intact, moves all extremities - Allied Health Allied health notes reviewed: nursing - Constitutional Vitals: Temp Pulse Resp BP Pulse Ox 98.5 F 79 18 142/90 93 02/25/22 19:25 02/25/22 19:25 02/25/22 21:30 02/25/22 19:25 02/25/22 19:25 HEART Score - HEART Score Troponin: Troponin T < 0.010 ng/mL (0.00-0.029) 02/25/22 16:12 Results - Labs CBC & Chem 7: 02/25/22 16:12 02/25/22 16:12 Labs: Laboratory Last Values WBC 5.5 K/mm3 (4.5-11.0) 02/25/22 16:12 RBC 4.84 M/mm3 (3.65-5.03) 02/25/22 16:12 Hgb 12.5 gm/dl (11.8-15.2) 02/25/22 16:12 Hct 39.0 % (35.5-45.6) 02/25/22 16:12 MCV 81 fl (84-94) L 02/25/22 16:12 MCH 26 pg (28-32) L 02/25/22 16:12 MCHC 32 % (32-34) 02/25/22 16:12 RDW 16.5 % (13.2-15.2) H 02/25/22 16:12 Plt Count 168 K/mm3 (140-440) 02/25/22 16:12 Lymph % (Auto) 33.6 % (13.4-35.0) 02/25/22 16:12 Lares % (Auto) 12.3 % (0.0-7.3) H 02/25/22 16:12 Eos % (Auto) 3.0 % (0.0-4.3) 02/25/22 16:12 Baso % (Auto) 1.6 % (0.0-1.8) 02/25/22 16:12 Lymph # (Auto) 1.9 K/mm3 (1.2-5.4) 02/25/22 16:12 Lares # (Auto) 0.7 K/mm3 (0.0-0.8) 02/25/22 16:12 Eos # (Auto) 0.2 K/mm3 (0.0-0.4) 02/25/22 16:12 Baso # (Auto) 0.1 K/mm3 (0.0-0.1) 02/25/22 16:12 Seg Neutrophils % 49.5 % (40.0-70.0) 02/25/22 16:12 Seg Neutrophils # 2.7 K/mm3 (1.8-7.7) 02/25/22 16:12 Sodium 141 mmol/L (137-145) 02/25/22 16:12 Potassium 3.6 mmol/L (3.6-5.0) 02/25/22 16:12 Chloride 105.0 mmol/L (98-107) 02/25/22 16:12 Carbon Dioxide 28 mmol/L (22-30) 02/25/22 16:12 Anion Gap 12 mmol/L 02/25/22 16:12 BUN 14 mg/dL (9-20) 02/25/22 16:12 Creatinine 0.8 mg/dL (0.8-1.3) 02/25/22 16:12 Estimated GFR > 60 ml/min 02/25/22 16:12 BUN/Creatinine Ratio 18 % 02/25/22 16:12 Glucose 91 mg/dL (75-100) 02/25/22 16:12 POC Glucose 101 mg/dL (70-105) 02/24/22 22:47 Hemoglobin A1c 6.3 % (4-6) H 02/25/22 16:12 Calcium 8.7 mg/dL (8.4-10.2) 02/25/22 16:12 Total Bilirubin 0.30 mg/dL (0.1-1.2) 02/25/22 16:12 AST 15 units/L (5-40) 02/25/22 16:12 ALT 23 units/L (7-56) 02/25/22 16:12 Alkaline Phosphatase 44 units/L (35-129) 02/25/22 16:12 Troponin T < 0.010 ng/mL (0.00-0.029) 02/25/22 16:12 Total Protein 5.9 g/dL (6.3-8.2) L 02/25/22 16:12 Albumin 3.6 g/dL (3.9-5) L 02/25/22 16:12 Albumin/Globulin Ratio 1.6 % 02/25/22 16:12 Triglycerides 61 mg/dL (2-149) 02/25/22 16:12 Cholesterol 160 mg/dL (50-199) 02/25/22 16:12 LDL Cholesterol Direct 87 mg/dL (50-130) 02/25/22 16:12 HDL Cholesterol 63 mg/dL (40-59) H 02/25/22 16:12 Cholesterol/HDL Ratio 2.53 % 02/25/22 16:12 TSH 0.412 mlU/mL (0.270-4.200) 02/25/22 16:12 Toussaint/IV: Voiding Method Toilet Active Medications - Current Medications Current Medications: Generic Name Dose Route Start Last Admin Trade Name Freq PRN Reason Stop Dose Admin Albuterol 2.5 mg 02/24/22 18:26 Albuterol 2.5 Mg/3 Ml Nebu IH Q4HRT PRN Shortness Of Breath Atorvastatin Calcium 40 mg 02/24/22 22:00 02/25/22 21:29 Atorvastatin 40 Mg Tab PO 40 mg QHS [facility] Administration Divalproex Sodium 250 mg 02/24/22 22:00 02/25/22 21:[address] 250 Mg Tab PO 250 mg BID [facility] Administration Docusate Sodium 100 mg 02/24/22 22:00 02/25/22 21:29 Docusate Sodium 100 Mg Cap PO 100 mg BID [facility] Administration Folic Acid 1 mg 02/25/22 10:00 02/25/22 09:29 Folic Acid 1 Mg Tab PO 1 mg QDAY [facility] Administration Hydroxyzine Pamoate 50 mg 02/24/22 22:00 02/25/22 21:29 Hydroxyzine Pamoate 50 Mg Cap PO 50 mg BID [facility] Administration Levetiracetam 750 mg 02/24/22 22:00 02/25/22 21:29 Levetiracetam 500 Mg/5 Ml Oral Liqd PO 750 mg BID [facility] Administration Lidocaine 1 each 02/25/22 10:00 02/25/22 09:30 Lidocaine 5% 1 Each Patch TD Not Given QDAY [facility] Lisinopril 10 mg 02/25/22 10:00 02/25/22 09:28 Lisinopril 10 Mg Tab PO Not Given QDAY [facility] Multivitamins 1 each 02/25/22 10:00 02/25/22 09:28 Multivitamins ,Therapeutic Tab PO 1 each QDAY [facility] Administration Nicotine 7 mg 02/25/22 10:00 02/25/22 09:30 Nicotine 7 Mg/24 Hr Patch TD 7 mg QDAY [facility] Administration Nitroglycerin 0.4 mg 02/25/22 16:00 Nitroglycerin 0.4 Mg Tab Subl SL .Q5MIN PRN Chest Pain Oxycodone HCl 10 mg 02/24/22 18:28 02/25/22 18:15 Oxycodone 5 Mg Tab PO 10 mg Q8H PRN Administration Pain, Moderate (4-6) Oxycodone/Acetaminophen 1 tab 02/24/22 18:23 02/25/22 09:34 Oxycodone /Acetaminophen 5-325mg Tab PO 1 tab Q6H PRN Administration Pain, Moderate (4-6) Pantoprazole Sodium 20 mg 02/25/22 07:30 02/25/22 09:34 Pantoprazole 20 Mg Tab PO 20 mg QDAC [facility] Administration Pseudoephedrine/Acetam/Chlorphenir 10 ml 02/24/22 18:28 Guaifenesin/Codeine 100-10mg Oral Liqd 5 Ml PO Q4H PRN Cough Rivaroxaban 20 mg 02/25/22 08:00 02/25/22 09:27 Rivaroxaban 20 Mg Tab PO 20 mg QDDIAB [facility] Administration Sertraline HCl 50 mg 02/25/22 10:00 02/25/22 09:29 Sertraline 50 Mg Tab PO 50 mg QDAY [facility] Administration Tamsulosin HCl 0.4 mg 02/25/22 10:00 02/25/22 09:29 Tamsulosin 0.4 Mg Cap PO 0.4 mg QDAY [facility] Administration Tiotropium [place] 1 puff 02/25/22 09:00 02/25/22 10:00 Tiotropium 18 Mcg Cap Inhalation IH Not Given Q24HRT [facility] Tramadol HCl 50 mg 02/24/22 22:00 02/25/22 21:30 Tramadol 50 Mg Tab PO 50 mg QHS [facility] Administration Trazodone HCl 300 mg 02/24/22 22:00 02/25/22 21:29 Trazodone 100 Mg Tab PO 300 mg QHS [facility] Administration
--- NOTE | 2022-02-26 08:58 | Progress Note ---
Subjective Date of service: 02/26/22 Subjective Comment: 02/26:The patient was seen today. He is calm, alert and oriented x3. The patient continues to complain of chronic pain;he denies depression,and denies any current suicidal ideation and denies hallucinations. REVIEW OF SYSTEMS Constitutional: Negative for weight loss ENT: Negative for stridor Respiratory: Negative for cough or hemoptysis All other systems reviewed and are negative MENTAL STATUS EXAMINATION General Appearance and Behavior: Age appropriate, wearing appropriate clothes, cooperative, polite with questioning, good eye contact Cooperation: cooperative Psychomotor Behavior: Psychomotor normal Mood: Calm Affect and affective range: Congruent with stated mood Thought Process: Goal directed Thought Content: Reality oriented Speech: Normal volume, Regular rate and rhythm Suicidal Ideation: Denies Homicidal Ideation: Denies Hallucination: Denies Delusions: None elicited Impulse Control: Limited Insight and Judgment: Limited Memory: Intact Attention:attentive Orientation: Alert and oriented Diagnoses: Major Depressive Disorder Alcohol use disorder, severe Treatment Plan Patient admitted for inpatient psychiatric evaluation, medication adjustment and close monitoring The patient's behavior, mood, sleep and appetite will be closely monitored. Patient enrolled in individual and group therapeutic sessions and encouraged to attend. Patient provided with a safe and structured environment. Patient's physical health needs will be addressed by the Hospitalist. Hospitalist Consulted Labs including CBC, CMP, Lipid profile and Hemoglobin A1C levels ordered for baseline reference Social Assessment will be completed and the Stamp Presser will work with patient and family to ensure a suitable and safe disposition Medication adjustment will be made as clinically indicated Continue home meds Usual Wellness Hindu/Preservation: - Start Trazodone 50 mg po QHS & 50 mg po QHS PRN between 10 PM & 2 AM for insomnia - Start Melatonin 5 mg po QHS to promote circadian rhythm The patient agreed on the treatment plan, understood the risk, benefit, alternative treatment, potential consequence of no treatment, and gave informed consent. Estimated days: 6 Post hospital care: primary care provider, psychiatric provider Case staffed with Dr. Portillo Legal Status: Voluntary Patient Problems: Current Active Problems Medications and Allergies Allergies Allergy/AdvReac Type Severity Reaction Status Date / Time aspirin Allergy Vomiting Verified 02/04/22 10:11 prochlorperazine Allergy Anaphylaxis Verified 02/04/22 10:11 [From Compazine] prochlorperazine edisylate Allergy Anaphylaxis Verified 02/04/22 10:11 [From Compazine] prochlorperazine maleate Allergy Anaphylaxis Verified 02/04/22 10:11 [From Compazine] Home Medications Medication Instructions Recorded Confirmed Last Taken Type Albuterol Sulfate [Ventolin HFA] 2 puff IH Q6H PRN 11/17/16 02/24/22 08/24/17 History Fluticasone/Salmeterol [Advair 1 each IH BID #1 blst.w.dev 12/30/17 02/24/22 Unknown Rx 250-50 Diskus] traZODone [Desyrel] 300 mg PO QHS tablet 12/30/17 02/24/22 Unknown Rx Acetaminophen [Tylenol Arthritis] 650 mg PO Q6HR PRN #30 tablet.er 03/13/18 02/24/22 Unknown Rx Albuterol Sulfate [Proair 90 mcg IH Q4HR PRN #2 aer.pow.ba 03/13/18 02/24/22 Unknown Rx Respiclick] Benzonatate [Tessalon Perles] 100 mg PO Q8HR PRN #30 capsule 03/13/18 02/24/22 Unknown Rx AtorvaSTATin [Lipitor] 40 mg PO QHS #30 tablet 02/13/22 02/24/22 Unknown Rx Nicotine [Habitrol] 7 mg TD QDAY #30 patch 02/13/22 02/24/22 Unknown Rx Rivaroxaban [Xarelto] 20 mg PO QDAY #30 tablet 02/13/22 02/24/22 Unknown Rx Tamsulosin [Flomax] 0.4 mg PO QDAY #30 capsule 02/13/22 02/24/22 Unknown Rx Tiotropium [place] [Spiriva 1 puff IH QDAY #1 mist.inhal 02/13/22 02/24/22 Unknown Rx Respimat] levETIRAcetam [Keppra TAB] 750 mg PO BID #60 tablet 02/13/22 02/24/22 Unknown Rx lisinopriL [Zestril TAB] 10 mg PO DAILY #30 tablet 02/13/22 02/24/[address] [Depakote Dr] 250 mg PO BID tablet 02/24/22 02/24/22 Unknown Rx Docusate Sodium [Colace CAP] 100 mg PO BID capsule 02/24/22 02/24/22 Unknown Rx Folic Acid [Folvite] 1 mg PO QDAY tablet 02/24/22 02/24/22 Unknown Rx Pantoprazole [Protonix TAB] 20 mg PO QDAY tablet.dr 02/24/22 02/24/22 Unknown Rx Sertraline [Zoloft] 50 mg PO QDAY tablet 02/24/22 02/24/22 Unknown Rx hydrOXYzine PAMOATE [Vistaril] 50 mg PO BID capsule 02/24/22 02/24/22 Unknown Rx Active Meds: Active Medications Albuterol (Albuterol 2.5 Mg/3 Ml Nebu) 2.5 mg IH Q4HRT PRN PRN Reason: Shortness Of Breath Atorvastatin Calcium (Atorvastatin 40 Mg Tab) 40 mg PO QHS [facility] Last Admin: 02/25/22 21:29 Dose: 40 mg Divalproex Sodium (Divalproex Dr 250 Mg Tab) 250 mg PO BID [facility] Last Admin: 02/25/22 21:29 Dose: 250 mg Docusate Sodium (Docusate Sodium 100 Mg Cap) 100 mg PO BID [facility] Last Admin: 02/25/22 21:29 Dose: 100 mg Folic Acid (Folic Acid 1 Mg Tab) 1 mg PO QDAY [facility] Last Admin: 02/25/22 09:29 Dose: 1 mg Hydroxyzine Pamoate (Hydroxyzine Pamoate 50 Mg Cap) 50 mg PO BID [facility] Last Admin: 02/25/22 21:29 Dose: 50 mg Levetiracetam (Levetiracetam 500 Mg/5 Ml Oral Liqd) 750 mg PO BID [facility] Last Admin: 02/25/22 21:29 Dose: 750 mg Lidocaine (Lidocaine 5% 1 Each Patch) 1 each TD QDAY [facility] Last Admin: 02/25/22 09:30 Dose: Not Given Lisinopril (Lisinopril 10 Mg Tab) 10 mg PO QDAY [facility] Last Admin: 02/25/22 09:28 Dose: Not Given Multivitamins (Multivitamins ,Therapeutic Tab) 1 each PO QDAY [facility] Last Admin: 02/25/22 09:28 Dose: 1 each Nicotine (Nicotine 7 Mg/24 Hr Patch) 7 mg TD QDAY [facility] Last Admin: 02/25/22 09:30 Dose: 7 mg Nitroglycerin (Nitroglycerin 0.4 Mg Tab Subl) 0.4 mg SL .Q5MIN PRN PRN Reason: Chest Pain Oxycodone HCl (Oxycodone 5 Mg Tab) 10 mg PO Q8H PRN PRN Reason: Pain, Moderate (4-6) Last Admin: 02/25/22 18:15 Dose: 10 mg Oxycodone/Acetaminophen (Oxycodone /Acetaminophen 5-325mg Tab) 1 tab PO Q6H PRN PRN Reason: Pain, Moderate (4-6) Last Admin: 02/25/22 09:34 Dose: 1 tab Pantoprazole Sodium (Pantoprazole 20 Mg Tab) 20 mg PO QDAC [facility] Last Admin: 02/25/22 09:34 Dose: 20 mg Pseudoephedrine/Acetam/Chlorphenir (Guaifenesin/Codeine 100-10mg Oral Liqd 5 Ml) 10 ml PO Q4H PRN PRN Reason: Cough Rivaroxaban (Rivaroxaban 20 Mg Tab) 20 mg PO QDDIAB [facility] Last Admin: 02/25/22 09:27 Dose: 20 mg Sertraline HCl (Sertraline 50 Mg Tab) 50 mg PO QDAY [facility] Last Admin: 02/25/22 09:29 Dose: 50 mg Tamsulosin HCl (Tamsulosin 0.4 Mg Cap) 0.4 mg PO QDAY [facility] Last Admin: 02/25/22 09:29 Dose: 0.4 mg Tiotropium [place] (Tiotropium 18 Mcg Cap Inhalation) 1 puff IH Q24HRT [facility] Last Admin: 02/25/22 10:00 Dose: Not Given Tramadol HCl (Tramadol 50 Mg Tab) 50 mg PO QHS [facility] Last Admin: 02/25/22 21:30 Dose: 50 mg Trazodone HCl (Trazodone 100 Mg Tab) 300 mg PO QHS [facility] Last Admin: 02/25/22 21:29 Dose: 300 mg Results - Results Labs/Vitals: Laboratory Last Values WBC 5.5 K/mm3 (4.5-11.0) 02/25/22 16:12 RBC 4.84 M/mm3 (3.65-5.03) 02/25/22 16:12 Hgb 12.5 gm/dl (11.8-15.2) 02/25/22 16:12 Hct 39.0 % (35.5-45.6) 02/25/22 16:12 MCV 81 fl (84-94) L 02/25/22 16:12 MCH 26 pg (28-32) L 02/25/22 16:12 MCHC 32 % (32-34) 02/25/22 16:12 RDW 16.5 % (13.2-15.2) H 02/25/22 16:12 Plt Count 168 K/mm3 (140-440) 02/25/22 16:12 Lymph % (Auto) 33.6 % (13.4-35.0) 02/25/22 16:12 [place] % (Auto) 12.3 % (0.0-7.3) H 02/25/22 16:12 Eos % (Auto) 3.0 % (0.0-4.3) 02/25/22 16:12 Baso % (Auto) 1.6 % (0.0-1.8) 02/25/22 16:12 Lymph # (Auto) 1.9 K/mm3 (1.2-5.4) 02/25/22 16:12 [place] # (Auto) 0.7 K/mm3 (0.0-0.8) 02/25/22 16:12 Eos # (Auto) 0.2 K/mm3 (0.0-0.4) 02/25/22 16:12 Baso # (Auto) 0.1 K/mm3 (0.0-0.1) 02/25/22 16:12 Seg Neutrophils % 49.5 % (40.0-70.0) 02/25/22 16:12 Seg Neutrophils # 2.7 K/mm3 (1.8-7.7) 02/25/22 16:12 Sodium 141 mmol/L (137-145) 02/25/22 16:12 Potassium 3.6 mmol/L (3.6-5.0) 02/25/22 16:12 Chloride 105.0 mmol/L (98-107) 02/25/22 16:12 Carbon Dioxide 28 mmol/L (22-30) 02/25/22 16:12 Anion Gap 12 mmol/L 02/25/22 16:12 BUN 14 mg/dL (9-20) 02/25/22 16:12 Creatinine 0.8 mg/dL (0.8-1.3) 02/25/22 16:12 Estimated GFR > 60 ml/min 02/25/22 16:12 BUN/Creatinine Ratio 18 % 02/25/22 16:12 Glucose 91 mg/dL (75-100) 02/25/22 16:12 POC Glucose 101 mg/dL (70-105) 02/24/22 22:47 Hemoglobin A1c 6.3 % (4-6) H 02/25/22 16:12 Calcium 8.7 mg/dL (8.4-10.2) 02/25/22 16:12 Total Bilirubin 0.30 mg/dL (0.1-1.2) 02/25/22 16:12 AST 15 units/L (5-40) 02/25/22 16:12 ALT 23 units/L (7-56) 02/25/22 16:12 Alkaline Phosphatase 44 units/L (35-129) 02/25/22 16:12 Troponin T < 0.010 ng/mL (0.00-0.029) 02/25/22 16:12 Total Protein 5.9 g/dL (6.3-8.2) L 02/25/22 16:12 Albumin 3.6 g/dL (3.9-5) L 02/25/22 16:12 Albumin/Globulin Ratio 1.6 % 02/25/22 16:12 Triglycerides 61 mg/dL (2-149) 02/25/22 16:12 Cholesterol 160 mg/dL (50-199) 02/25/22 16:12 LDL Cholesterol Direct 87 mg/dL (50-130) 02/25/22 16:12 HDL Cholesterol 63 mg/dL (40-59) H 02/25/22 16:12 Cholesterol/HDL Ratio 2.53 % 02/25/22 16:12 TSH 0.412 mlU/mL (0.270-4.200) 02/25/22 16:12 Last Vital Signs Temp 98.5 F 02/25/22 19:25 Pulse 79 02/25/22 19:25 Resp 18 02/25/22 21:30 BP 142/90 02/25/22 19:25 Pulse Ox 93 02/25/22 19:25
[2022-02-26] MEDS: TIOTROPIUM 18 MCG CAP INHALATION IH SCH (09:04)
[2022-02-26] MEDS: RIVAROXABAN 20 MG TAB PO SCH (09:58)
[2022-02-26] MEDS: NICOTINE 7 MG/24 HR PATCH TD SCH (09:59)
[2022-02-26] MEDS: MULTIVITAMINS ,THERAPEUTIC TAB PO SCH (10:00)
[2022-02-26] MEDS: LISINOPRIL 10 MG TAB PO SCH (10:00)
[2022-02-26] MEDS: SERTRALINE 50 MG TAB PO SCH (10:00)
[2022-02-26] MEDS: DOCUSATE SODIUM 100 MG CAP PO SCH ×2 (10:00→21:30)
[2022-02-26] MEDS: TAMSULOSIN 0.4 MG CAP PO SCH (10:00)
[2022-02-26] MEDS: DIVALPROEX DR 250 MG TAB PO SCH ×2 (10:00→21:30)
[2022-02-26] MEDS: FOLIC ACID 1 MG TAB PO SCH (10:00)
[2022-02-26] MEDS: levETIRAcetam 500 MG/5 ML ORAL LIQD PO SCH ×3 (10:02→21:36)
[2022-02-26] MEDS: LIDOCAINE 5% 1 EACH PATCH TD SCH (10:03)
[2022-02-26] MEDS: PANTOPRAZOLE 20 MG TAB PO SCH (10:03)
[2022-02-26] MEDS: oxyCODONE /ACETAMINOPHEN 5-325MG TAB PO PRN (10:15)
[2022-02-26] MEDS: traZODone 100 MG TAB PO SCH (21:30)
[2022-02-26] MEDS: traMADol 50 MG TAB PO SCH ×2 (21:31→21:36)
--- NOTE | 2022-02-27 07:54 | Progress Note ---
Assessment and Plan Assessment and plan: #Chest pain, ACS ruled out #Hx of CAD -troponin negative x4, VSS -continue statin - allergy to aspirin, GI upset per patient. unclear if he has had bleeding hx. -negative for covid -UDS only positive for opiates -02/17 TTE: LVEF 55-60% w/ mild diastolic dysfunction -Cardiology cleared patient on prior admission -stress test negative on 02/24. No indication for further cardiac imaging - ordered as needed nitro 0.4 mg SL for chest pain -Patient to remain on psychiatric floor at this time. Cardiac work-up completed on 02/17 admission was negative for ischemia, no indication for further cardiac work-up. Troponin ordered yesterday negative. #Suicidal ideation #Major depressive disorder -denies SI/HI today -Psychiatry following, assistance appreciated -psychiatric management per Psychiatry recommendations #Hypertension #Hyperlipidemia - current medications: Lisinopril 10 mg daily, atorvastatin 80 mg daily - SBP goal <160 and DBP goal <90 while inpatient - continue to monitor #Seizure disorder -continue home Keppra 750 mg twice daily -continue depakote dr 250 mg po bid. #COPD (chronic obstructive pulmonary disease) #Emphysema -not in acute exacerbation; SPO2 goal 88-92% -nebulizers ordered at patients request -Supplemental oxygen PRN, pulse oximetry as clinically indicated - on home 2L/min oxygen. #Hx of DVT and PE -continue xarelto at home dose - History of DVT complicated by pulmonary embolism status post IVC filter insertion #Mild protein calorie malnutrition -Encourage increased protein intake -likely secondary to alcohol dependence #Chronic pain -Patient complains of chronic L4/L5, left leg pain and chest pain relieved only by narcotics -continue PRN pain relief -will need chronic pain specialist outpatient #BPH Continue Flomax 0.4 mg daily #history of CVA wit hvascular dementia #Tobacco dependence #Tobacco/Smoking cessation counseling - Counseled patient about the importance of smoking cessation and the possible sequelae as a result of continued tobacco consumption. The patient expresses understanding. -Time: +15 mins #Alcohol dependence - Counseled patient on the importance of ETOH cessation. -continue CIWA protocol: Thiamine, folic acid, multivitamin daily -Time: +15 mins #Advanced care planning -Disease education conducted, care plan discussed, diagnoses discussed, pr ognosis discussed, and patient acknowledges understanding with care plan -Time: +30 min IM service will continue to follow along. Thank you for this consultation. History Interval history: Only complains of back pain. AOx3. Hospitalist Physical - Physical exam Narrative exam: General appearance: Present: no acute distress - EENT Eyes: Present: PERRL, EOM intact ENT: hearing intact, clear oral mucosa, dentition normal - Neck Neck: Present: supple, normal ROM - Respiratory Respiratory effort: normal Respiratory: bilateral: CTA - Cardiovascular Rhythm: regular Heart Sounds: Present: S1 & S2 - Extremities Extremities: no ischemia, pulses intact, pulses symmetrical, No edema, normal temperature, normal color, Full ROM Peripheral Pulses: within normal limits - Abdominal General gastrointestinal: Present: soft, non-tender, non-distended, normal bowel sounds Male genitourinary: Present: deferred - Rectal Rectal Exam: deferred - Integumentary Integumentary: Present: clear, warm, dry - Musculoskeletal Musculoskeletal: strength equal bilaterally - Psychiatric Psychiatric: other (Extremely manipulative and malingering) - Neurologic Neurologic: CNII-XII intact, moves all extremities - Allied Health Allied health notes reviewed: nursing - Constitutional Vitals: Temp Pulse Resp BP Pulse Ox 97.7 F 80 18 116/85 98 02/26/22 19:40 02/26/22 21:41 02/26/22 19:40 02/26/22 19:40 02/26/22 21:41 HEART Score - HEART Score Troponin: Troponin T < 0.010 ng/mL (0.00-0.029) 02/25/22 16:12 Results - Labs CBC & Chem 7: 02/25/22 16:12 02/25/22 16:12 Labs: Laboratory Last Values WBC 5.5 K/mm3 (4.5-11.0) 02/25/22 16:12 RBC 4.84 M/mm3 (3.65-5.03) 02/25/22 16:12 Hgb 12.5 gm/dl (11.8-15.2) 02/25/22 16:12 Hct 39.0 % (35.5-45.6) 02/25/22 16:12 MCV 81 fl (84-94) L 02/25/22 16:12 MCH 26 pg (28-32) L 02/25/22 16:12 MCHC 32 % (32-34) 02/25/22 16:12 RDW 16.5 % (13.2-15.2) H 02/25/22 16:12 Plt Count 168 K/mm3 (140-440) 02/25/22 16:12 Lymph % (Auto) 33.6 % (13.4-35.0) 02/25/22 16:12 [place] % (Auto) 12.3 % (0.0-7.3) H 02/25/22 16:12 Eos % (Auto) 3.0 % (0.0-4.3) 02/25/22 16:12 Baso % (Auto) 1.6 % (0.0-1.8) 02/25/22 16:12 Lymph # (Auto) 1.9 K/mm3 (1.2-5.4) 02/25/22 16:12 [place] # (Auto) 0.7 K/mm3 (0.0-0.8) 02/25/22 16:12 Eos # (Auto) 0.2 K/mm3 (0.0-0.4) 02/25/22 16:12 Baso # (Auto) 0.1 K/mm3 (0.0-0.1) 02/25/22 16:12 Seg Neutrophils % 49.5 % (40.0-70.0) 02/25/22 16:12 Seg Neutrophils # 2.7 K/mm3 (1.8-7.7) 02/25/22 16:12 Sodium 141 mmol/L (137-145) 02/25/22 16:12 Potassium 3.6 mmol/L (3.6-5.0) 02/25/22 16:12 Chloride 105.0 mmol/L (98-107) 02/25/22 16:12 Carbon Dioxide 28 mmol/L (22-30) 02/25/22 16:12 Anion Gap 12 mmol/L 02/25/22 16:12 BUN 14 mg/dL (9-20) 02/25/22 16:12 Creatinine 0.8 mg/dL (0.8-1.3) 02/25/22 16:12 Estimated GFR > 60 ml/min 02/25/22 16:12 BUN/Creatinine Ratio 18 % 02/25/22 16:12 Glucose 91 mg/dL (75-100) 02/25/22 16:12 POC Glucose 101 mg/dL (70-105) 02/24/22 22:47 Hemoglobin A1c 6.3 % (4-6) H 02/25/22 16:12 Calcium 8.7 mg/dL (8.4-10.2) 02/25/22 16:12 Total Bilirubin 0.30 mg/dL (0.1-1.2) 02/25/22 16:12 AST 15 units/L (5-40) 02/25/22 16:12 ALT 23 units/L (7-56) 02/25/22 16:12 Alkaline Phosphatase 44 units/L (35-129) 02/25/22 16:12 Troponin T < 0.010 ng/mL (0.00-0.029) 02/25/22 16:12 Total Protein 5.9 g/dL (6.3-8.2) L 02/25/22 16:12 Albumin 3.6 g/dL (3.9-5) L 02/25/22 16:12 Albumin/Globulin Ratio 1.6 % 02/25/22 16:12 Triglycerides 61 mg/dL (2-149) 02/25/22 16:12 Cholesterol 160 mg/dL (50-199) 02/25/22 16:12 LDL Cholesterol Direct 87 mg/dL (50-130) 02/25/22 16:12 HDL Cholesterol 63 mg/dL (40-59) H 02/25/22 16:12 Cholesterol/HDL Ratio 2.53 % 02/25/22 16:12 TSH 0.412 mlU/mL (0.270-4.200) 02/25/22 16:12 [place]/IV: Voiding Method Toilet Active Medications - Current Medications Current Medications: Generic Name Dose Route Start Last Admin Trade Name Freq PRN Reason Stop Dose Admin Albuterol 2.5 mg 02/24/22 18:26 Albuterol 2.5 Mg/3 Ml Nebu IH Q4HRT PRN Shortness Of Breath Atorvastatin Calcium 40 mg 02/24/22 22:00 02/26/22 21:31 Atorvastatin 40 Mg Tab PO 40 mg QHS [place] Administration Divalproex Sodium 250 mg 02/24/22 22:00 02/26/22 21:[address] 250 Mg Tab PO 250 mg BID [place] Administration Docusate Sodium 100 mg 02/24/22 22:00 02/26/22 21:30 Docusate Sodium 100 Mg Cap PO 100 mg BID [place] Administration Folic Acid 1 mg 02/25/22 10:00 02/26/22 10:00 Folic Acid 1 Mg Tab PO 1 mg QDAY [place] Administration Hydroxyzine Pamoate 50 mg 02/24/22 22:00 02/26/22 21:32 Hydroxyzine Pamoate 50 Mg Cap PO 50 mg BID [place] Administration Levetiracetam 750 mg 02/24/22 22:00 02/26/22 21:36 Levetiracetam 500 Mg/5 Ml Oral Liqd PO Not Given BID [facility] Lidocaine 1 each 02/25/22 10:00 02/26/22 10:03 Lidocaine 5% 1 Each Patch TD Not Given QDAY [facility] Lisinopril 10 mg 02/25/22 10:00 02/26/22 10:00 Lisinopril 10 Mg Tab PO 10 mg QDAY [place] Administration Multivitamins 1 each 02/25/22 10:00 02/26/22 10:00 Multivitamins ,Therapeutic Tab PO 1 each QDAY [facility] Administration Nicotine 7 mg 02/25/22 10:00 02/26/22 09:59 Nicotine 7 Mg/24 Hr Patch TD 7 mg QDAY [facility] Administration Nitroglycerin 0.4 mg 02/25/22 16:00 Nitroglycerin 0.4 Mg Tab Subl SL .Q5MIN PRN Chest Pain Oxycodone HCl 10 mg 02/24/22 18:28 02/25/22 18:15 Oxycodone 5 Mg Tab PO 10 mg Q8H PRN Administration Pain, Moderate (4-6) Oxycodone/Acetaminophen 1 tab 02/24/22 18:23 02/26/22 10:15 Oxycodone /Acetaminophen 5-325mg Tab PO 1 tab Q6H PRN Administration Pain, Moderate (4-6) Pantoprazole Sodium 20 mg 02/25/22 07:30 02/26/22 10:03 Pantoprazole 20 Mg Tab PO 20 mg QDAC [place] Administration Pseudoephedrine/Acetam/Chlorphenir 10 ml 02/24/22 18:28 Guaifenesin/Codeine 100-10mg Oral Liqd 5 Ml PO Q4H PRN Cough Rivaroxaban 20 mg 02/25/22 08:00 02/26/22 09:58 Rivaroxaban 20 Mg Tab PO 20 mg QDDIAB [place] Administration Sertraline HCl 50 mg 02/25/22 10:00 02/26/22 10:00 Sertraline 50 Mg Tab PO 50 mg QDAY [place] Administration Tamsulosin HCl 0.4 mg 02/25/22 10:00 02/26/22 10:00 Tamsulosin 0.4 Mg Cap PO 0.4 mg QDAY [place] Administration Tiotropium [place] 1 puff 02/25/22 09:00 02/26/22 09:04 Tiotropium 18 Mcg Cap Inhalation IH Not Given Q24HRT [facility] Tramadol HCl 50 mg 02/24/22 22:00 02/26/22 21:36 Tramadol 50 Mg Tab PO Not Given QHS [facility] Trazodone HCl 300 mg 02/24/22 22:00 02/26/22 21:30 Trazodone 100 Mg Tab PO 300 mg QHS [place] Administration
[2022-02-27] MEDS: TIOTROPIUM 18 MCG CAP INHALATION IH SCH (08:42)
--- NOTE | 2022-02-27 09:24 | Progress Note ---
Subjective Date of service: 02/27/22 Subjective Comment: 02/27:The patient was seen today. He is calm, alert and oriented x3. The patient continues to complain of poor sleep and chronic pain in lower back; he is depressed because of the pain and inability to sleep well. In the past he found Gabapentin which he agrees to take for pain and mood. He denies any current suicidal ideation and denies hallucinations. Per Nurse report patient is not compliant with medications and refuses certain pain medications offered. Will start Gabapentin 300mg tid for pain and mood and continue inpatient treatment. 02/26:The patient was seen today. He is calm, alert and oriented x3. The patient continues to complain of chronic pain;he denies depression,and denies any current suicidal ideation and denies hallucinations. REVIEW OF SYSTEMS Constitutional: Negative for weight loss ENT: Negative for stridor Respiratory: Negative for cough or hemoptysis All other systems reviewed and are negative MENTAL STATUS EXAMINATION General Appearance and Behavior: Age appropriate, wearing appropriate clothes, cooperative, polite with questioning, good eye contact Cooperation: cooperative Psychomotor Behavior: Psychomotor normal Mood: Calm Affect and affective range: Congruent with stated mood Thought Process: Goal directed Thought Content: Reality oriented Speech: Normal volume, Regular rate and rhythm Suicidal Ideation: Denies Homicidal Ideation: Denies Hallucination: Denies Delusions: None elicited Impulse Control: Limited Insight and Judgment: Limited Memory: Intact Attention:attentive Orientation: Alert and oriented Diagnoses: Major Depressive Disorder Alcohol use disorder, severe Treatment Plan Patient admitted for inpatient psychiatric evaluation, medication adjustment and close monitoring The patient's behavior, mood, sleep and appetite will be closely monitored. Patient enrolled in individual and group therapeutic sessions and encouraged to attend. Patient provided with a safe and structured environment. Patient's physical health needs will be addressed by the Hospitalist. Hospitalist Consulted Labs including CBC, CMP, Lipid profile and Hemoglobin A1C levels ordered for baseline reference Social Assessment will be completed and the Inspector Materials And Processes will work with patient and family to ensure a suitable and safe disposition Medication adjustment will be made as clinically indicated for sleep and chronic pain Continue home meds Usual Wellness Worship/Preservation: - Start Trazodone 50 mg po QHS & 50 mg po QHS PRN between 10 PM & 2 AM for insomnia - Start Melatonin 5 mg po QHS to promote circadian rhythm The patient agreed on the treatment plan, understood the risk, benefit, alternative treatment, potential consequence of no treatment, and gave informed consent. Estimated days: 6 Post hospital care: primary care provider, psychiatric provider Legal Status: Voluntary Medications and Allergies Allergies Allergy/AdvReac Type Severity Reaction Status Date / Time aspirin Allergy Vomiting Verified 02/04/22 10:11 prochlorperazine Allergy Anaphylaxis Verified 02/04/22 10:11 [From Compazine] prochlorperazine edisylate Allergy Anaphylaxis Verified 02/04/22 10:11 [From Compazine] prochlorperazine maleate Allergy Anaphylaxis Verified 02/04/22 10:11 [From Compazine] Home Medications Medication Instructions Recorded Confirmed Last Taken Type Albuterol Sulfate [Ventolin HFA] 2 puff IH Q6H PRN 11/17/16 02/24/22 08/24/17 History Fluticasone/Salmeterol [Advair 1 each IH BID #1 blst.w.dev 12/30/17 02/24/22 Unknown Rx 250-50 Diskus] traZODone [Desyrel] 300 mg PO QHS tablet 12/30/17 02/24/22 Unknown Rx Acetaminophen [Tylenol Arthritis] 650 mg PO Q6HR PRN #30 tablet.er 03/13/18 02/24/22 Unknown Rx Albuterol Sulfate [Proair 90 mcg IH Q4HR PRN #2 aer.pow.ba 03/13/18 02/24/22 Unknown Rx Respiclick] Benzonatate [Tessalon Perles] 100 mg PO Q8HR PRN #30 capsule 03/13/18 02/24/22 Unknown Rx AtorvaSTATin [Lipitor] 40 mg PO QHS #30 tablet 02/13/22 02/24/22 Unknown Rx Nicotine [Habitrol] 7 mg TD QDAY #30 patch 02/13/22 02/24/22 Unknown Rx Rivaroxaban [Xarelto] 20 mg PO QDAY #30 tablet 02/13/22 02/24/22 Unknown Rx Tamsulosin [Flomax] 0.4 mg PO QDAY #30 capsule 02/13/22 02/24/22 Unknown Rx Tiotropium [place] [Spiriva 1 puff IH QDAY #1 mist.inhal 02/13/22 02/24/22 Unknown Rx Respimat] levETIRAcetam [Keppra TAB] 750 mg PO BID #60 tablet 02/13/22 02/24/22 Unknown Rx lisinopriL [Zestril TAB] 10 mg PO DAILY #30 tablet 02/13/22 02/24/[address] [Depakolivan Dr] 250 mg PO BID tablet 02/24/22 02/24/22 Unknown Rx Docusate Sodium [Colace CAP] 100 mg PO BID capsule 02/24/22 02/24/22 Unknown Rx Folic Acid [Folvite] 1 mg PO QDAY tablet 02/24/22 02/24/22 Unknown Rx Pantoprazole [Protonix TAB] 20 mg PO QDAY tablet. 02/24/22 02/24/22 Unknown Rx Sertraline [Zoloft] 50 mg PO QDAY tablet 02/24/22 02/24/22 Unknown Rx hydrOXYzine PAMOATE [Vistaril] 50 mg PO BID capsule 02/24/22 02/24/22 Unknown Rx Active Meds: Active Medications Albuterol (Albuterol 2.5 Mg/3 Ml Nebu) 2.5 mg IH Q4HRT PRN PRN Reason: Shortness Of Breath Atorvastatin Calcium (Atorvastatin 40 Mg Tab) 40 mg PO QHS [facility] Last Admin: 02/26/22 21:31 Dose: 40 mg Divalproex Sodium (Divalproex Dr 250 Mg Tab) 250 mg PO BID [facility] Last Admin: 02/26/22 21:30 Dose: 250 mg Docusate Sodium (Docusate Sodium 100 Mg Cap) 100 mg PO BID [facility] Last Admin: 02/26/22 21:30 Dose: 100 mg Folic Acid (Folic Acid 1 Mg Tab) 1 mg PO QDAY [facility] Last Admin: 02/26/22 10:00 Dose: 1 mg Hydroxyzine Pamoate (Hydroxyzine Pamoate 50 Mg Cap) 50 mg PO BID [facility] Last Admin: 02/26/22 21:32 Dose: 50 mg Levetiracetam (Levetiracetam 500 Mg/5 Ml Oral Liqd) 750 mg PO BID [facility] Last Admin: 02/26/22 21:36 Dose: Not Given Lidocaine (Lidocaine 5% 1 Each Patch) 1 each TD QDAY [facility] Last Admin: 02/26/22 10:03 Dose: Not Given Lisinopril (Lisinopril 10 Mg Tab) 10 mg PO QDAY [facility] Last Admin: 02/26/22 10:00 Dose: 10 mg Multivitamins (Multivitamins ,Therapeutic Tab) 1 each PO QDAY [facility] Last Admin: 02/26/22 10:00 Dose: 1 each Nicotine (Nicotine 7 Mg/24 Hr Patch) 7 mg TD QDAY [facility] Last Admin: 02/26/22 09:59 Dose: 7 mg Nitroglycerin (Nitroglycerin 0.4 Mg Tab Subl) 0.4 mg SL .Q5MIN PRN PRN Reason: Chest Pain Oxycodone HCl (Oxycodone 5 Mg Tab) 10 mg PO Q8H PRN PRN Reason: Pain, Moderate (4-6) Last Admin: 02/25/22 18:15 Dose: 10 mg Oxycodone/Acetaminophen (Oxycodone /Acetaminophen 5-325mg Tab) 1 tab PO Q6H PRN PRN Reason: Pain, Moderate (4-6) Last Admin: 02/26/22 10:15 Dose: 1 tab Pantoprazole Sodium (Pantoprazole 20 Mg Tab) 20 mg PO QDAC [facility] Last Admin: 02/26/22 10:03 Dose: 20 mg Pseudoephedrine/Acetam/Chlorphenir (Guaifenesin/Codeine 100-10mg Oral Liqd 5 Ml) 10 ml PO Q4H PRN PRN Reason: Cough Rivaroxaban (Rivaroxaban 20 Mg Tab) 20 mg PO QDDIAB [facility] Last Admin: 02/26/22 09:58 Dose: 20 mg Sertraline HCl (Sertraline 50 Mg Tab) 50 mg PO QDAY [facility] Last Admin: 02/26/22 10:00 Dose: 50 mg Tamsulosin HCl (Tamsulosin 0.4 Mg Cap) 0.4 mg PO QDAY [facility] Last Admin: 02/26/22 10:00 Dose: 0.4 mg Tiotropium [place] (Tiotropium 18 Mcg Cap Inhalation) 1 puff IH Q24HRT [facility] Last Admin: 02/27/22 08:42 Dose: 1 puff Tramadol HCl (Tramadol 50 Mg Tab) 50 mg PO QHS [facility] Last Admin: 02/26/22 21:36 Dose: Not Given Trazodone HCl (Trazodone 100 Mg Tab) 300 mg PO QHS [facility] Last Admin: 02/26/22 21:30 Dose: 300 mg Results - Results Labs/Vitals: Laboratory Last Values WBC 5.5 K/mm3 (4.5-11.0) 02/25/22 16:12 RBC 4.84 M/mm3 (3.65-5.03) 02/25/22 16:12 Hgb 12.5 gm/dl (11.8-15.2) 02/25/22 16:12 Hct 39.0 % (35.5-45.6) 02/25/22 16:12 MCV 81 fl (84-94) L 02/25/22 16:12 MCH 26 pg (28-32) L 02/25/22 16:12 MCHC 32 % (32-34) 02/25/22 16:12 RDW 16.5 % (13.2-15.2) H 02/25/22 16:12 Plt Count 168 K/mm3 (140-440) 02/25/22 16:12 Lymph % (Auto) 33.6 % (13.4-35.0) 02/25/22 16:12 [place] % (Auto) 12.3 % (0.0-7.3) H 02/25/22 16:12 Eos % (Auto) 3.0 % (0.0-4.3) 02/25/22 16:12 Baso % (Auto) 1.6 % (0.0-1.8) 02/25/22 16:12 Lymph # (Auto) 1.9 K/mm3 (1.2-5.4) 02/25/22 16:12 [place] # (Auto) 0.7 K/mm3 (0.0-0.8) 02/25/22 16:12 Eos # (Auto) 0.2 K/mm3 (0.0-0.4) 02/25/22 16:12 Baso # (Auto) 0.1 K/mm3 (0.0-0.1) 02/25/22 16:12 Seg Neutrophils % 49.5 % (40.0-70.0) 02/25/22 16:12 Seg Neutrophils # 2.7 K/mm3 (1.8-7.7) 02/25/22 16:12 Sodium 141 mmol/L (137-145) 02/25/22 16:12 Potassium 3.6 mmol/L (3.6-5.0) 02/25/22 16:12 Chloride 105.0 mmol/L (98-107) 02/25/22 16:12 Carbon Dioxide 28 mmol/L (22-30) 02/25/22 16:12 Anion Gap 12 mmol/L 02/25/22 16:12 BUN 14 mg/dL (9-20) 02/25/22 16:12 Creatinine 0.8 mg/dL (0.8-1.3) 02/25/22 16:12 Estimated GFR > 60 ml/min 02/25/22 16:12 BUN/Creatinine Ratio 18 % 02/25/22 16:12 Glucose 91 mg/dL (75-100) 02/25/22 16:12 POC Glucose 101 mg/dL (70-105) 02/24/22 22:47 Hemoglobin A1c 6.3 % (4-6) H 02/25/22 16:12 Calcium 8.7 mg/dL (8.4-10.2) 02/25/22 16:12 Total Bilirubin 0.30 mg/dL (0.1-1.2) 02/25/22 16:12 AST 15 units/L (5-40) 02/25/22 16:12 ALT 23 units/L (7-56) 02/25/22 16:12 Alkaline Phosphatase 44 units/L (35-129) 02/25/22 16:12 Troponin T < 0.010 ng/mL (0.00-0.029) 02/25/22 16:12 Total Protein 5.9 g/dL (6.3-8.2) L 02/25/22 16:12 Albumin 3.6 g/dL (3.9-5) L 02/25/22 16:12 Albumin/Globulin Ratio 1.6 % 02/25/22 16:12 Triglycerides 61 mg/dL (2-149) 02/25/22 16:12 Cholesterol 160 mg/dL (50-199) 02/25/22 16:12 LDL Cholesterol Direct 87 mg/dL (50-130) 02/25/22 16:12 HDL Cholesterol 63 mg/dL (40-59) H 02/25/22 16:12 Cholesterol/HDL Ratio 2.53 % 02/25/22 16:12 TSH 0.412 mlU/mL (0.270-4.200) 02/25/22 16:12 Last Vital Signs Temp 97.7 F 02/26/22 19:40 Pulse 82 02/27/22 08:42 Resp 18 02/27/22 08:42 BP 116/85 02/26/22 19:40 Pulse Ox 97 02/27/22 08:42
[2022-02-27] MEDS: FOLIC ACID 1 MG TAB PO SCH (09:33)
[2022-02-27] MEDS: NICOTINE 7 MG/24 HR PATCH TD SCH (09:33)
[2022-02-27] MEDS: MULTIVITAMINS ,THERAPEUTIC TAB PO SCH (09:33)
[2022-02-27] MEDS: DIVALPROEX DR 250 MG TAB PO SCH ×3 (09:33→22:23)
[2022-02-27] MEDS: SERTRALINE 50 MG TAB PO SCH (09:33)
[2022-02-27] MEDS: levETIRAcetam 500 MG/5 ML ORAL LIQD PO SCH ×3 (09:34→22:23)
[2022-02-27] MEDS: TAMSULOSIN 0.4 MG CAP PO SCH (09:34)
[2022-02-27] MEDS: DOCUSATE SODIUM 100 MG CAP PO SCH ×3 (09:34→22:23)
[2022-02-27] MEDS: RIVAROXABAN 20 MG TAB PO SCH (09:34)
[2022-02-27] MEDS: PANTOPRAZOLE 20 MG TAB PO SCH (09:37)
[2022-02-27] MEDS: LISINOPRIL 10 MG TAB PO SCH (09:39)
[2022-02-27] MEDS: oxyCODONE /ACETAMINOPHEN 5-325MG TAB PO PRN (10:00)
[2022-02-27] MEDS: LIDOCAINE 5% 1 EACH PATCH TD SCH (10:05)
--- NOTE | 2022-02-27 11:19 | Electrocardiograph Report ---
[facility] Test Date: 2022-02-27 Test Time: 10:17:26 Pat Name: NADINE SCHULZ Department: Room: [place] [address] Gender: M Podiatry Doctor: [id number] : 1955 Requested By: CODY BOWLING Order Number: [id number] Reading MD: Obinna Hernandez Measurements Intervals [place] Rate: 79 P: 78 [place]: 147 QRS: 74 QRSD: 75 T: 76 QT: 396 QTc: 455 Interpretive Statements Sinus rhythm Compared to ECG 02/19/2022 07:27:14 No significant changes Electronically Signed On 02-27-2022 11:18:54 EDT by Obinna Hernandez
[2022-02-27] MEDS: GABAPENTIN 300 MG CAP PO SCH ×3 (14:42→22:23)
[2022-02-27] MEDS: traZODone 100 MG TAB PO SCH (21:25)
[2022-02-27] MEDS: traMADol 50 MG TAB PO SCH ×2 (21:27→22:19)
[2022-02-28] MEDS: TIOTROPIUM 18 MCG CAP INHALATION IH SCH (08:34)
--- NOTE | 2022-02-28 09:12 | Progress Note ---
Assessment and Plan Assessment and plan: #Chest pain, ACS ruled out #Hx of CAD -troponin negative x4, VSS -continue statin - allergy to aspirin, GI upset per patient. unclear if he has had bleeding hx. -negative for covid -UDS only positive for opiates -02/17 TTE: LVEF 55-60% w/ mild diastolic dysfunction -Cardiology cleared patient on prior admission -stress test negative on 02/24. No indication for further cardiac imaging - ordered as needed nitro 0.4 mg SL for chest pain -Patient to remain on psychiatric floor at this time. Cardiac work-up completed on 02/17 admission was negative for ischemia, no indication for further cardiac work-up. Troponin ordered yesterday negative. #Suicidal ideation #Major depressive disorder -denies SI/HI today -Psychiatry following, assistance appreciated -psychiatric management per Psychiatry recommendations #Hypertension #Hyperlipidemia - current medications: Lisinopril 10 mg daily, atorvastatin 80 mg daily - SBP goal <160 and DBP goal <90 while inpatient - continue to monitor #Seizure disorder -continue home Keppra 750 mg twice daily -continue depakote dr 250 mg po bid. #COPD (chronic obstructive pulmonary disease) #Emphysema -not in acute exacerbation; SPO2 goal 88-92% -nebulizers ordered at patients request -Supplemental oxygen PRN, pulse oximetry as clinically indicated - on home 2L/min oxygen. #Hx of DVT and PE -continue xarelto at home dose - History of DVT complicated by pulmonary embolism status post IVC filter insertion #Mild protein calorie malnutrition -Encourage increased protein intake -likely secondary to alcohol dependence #Chronic pain -Patient complains of chronic L4/L5, left leg pain and chest pain relieved only by narcotics -continue PRN pain relief -will need chronic pain specialist outpatient #BPH Continue Flomax 0.4 mg daily #history of CVA wit hvascular dementia #Tobacco dependence #Tobacco/Smoking cessation counseling - Counseled patient about the importance of smoking cessation and the possible sequelae as a result of continued tobacco consumption. The patient expresses understanding. -Time: +15 mins #Alcohol dependence - Counseled patient on the importance of ETOH cessation. -continue CIWA protocol: Thiamine, folic acid, multivitamin daily -Time: +15 mins #Advanced care planning -Disease education conducted, care plan discussed, diagnoses discussed, pr ognosis discussed, and patient acknowledges understanding with care plan -Time: +30 min IM service will continue to follow along. Thank you for this consultation. History Interval history: Aggitated/angry on my encounter. Needs frequent redirection. Hospitalist Physical - Physical exam Narrative exam: General appearance: Present: no acute distress - EENT Eyes: Present: PERRL, EOM intact ENT: hearing intact, clear oral mucosa, dentition normal - Neck Neck: Present: supple, normal ROM - Respiratory Respiratory effort: normal Respiratory: bilateral: CTA - Cardiovascular Rhythm: regular Heart Sounds: Present: S1 & S2 - Extremities Extremities: no ischemia, pulses intact, pulses symmetrical, No edema, normal temperature, normal color, Full ROM Peripheral Pulses: within normal limits - Abdominal General gastrointestinal: Present: soft, non-tender, non-distended, normal bowel sounds Male genitourinary: Present: deferred - Rectal Rectal Exam: deferred - Integumentary Integumentary: Present: clear, warm, dry - Musculoskeletal Musculoskeletal: strength equal bilaterally - Psychiatric Psychiatric: other (Extremely manipulative and malingering) - Neurologic Neurologic: CNII-XII intact, moves all extremities - Allied Health Allied health notes reviewed: nursing - Constitutional Vitals: Temp Pulse Resp BP Pulse Ox 98.4 F 87 20 91/64 99 02/27/22 20:12 02/27/22 20:12 02/27/22 20:12 02/27/22 20:12 02/28/22 08:34 HEART Score - HEART Score Troponin: Troponin T < 0.010 ng/mL (0.00-0.029) 02/25/22 16:12 Results - Labs CBC & Chem 7: 02/25/22 16:12 02/25/22 16:12 Labs: Laboratory Last Values WBC 5.5 K/mm3 (4.5-11.0) 02/25/22 16:12 RBC 4.84 M/mm3 (3.65-5.03) 02/25/22 16:12 Hgb 12.5 gm/dl (11.8-15.2) 02/25/22 16:12 Hct 39.0 % (35.5-45.6) 02/25/22 16:12 MCV 81 fl (84-94) L 02/25/22 16:12 MCH 26 pg (28-32) L 02/25/22 16:12 MCHC 32 % (32-34) 02/25/22 16:12 RDW 16.5 % (13.2-15.2) H 02/25/22 16:12 Plt Count 168 K/mm3 (140-440) 02/25/22 16:12 Lymph % (Auto) 33.6 % (13.4-35.0) 02/25/22 16:12 [place] % (Auto) 12.3 % (0.0-7.3) H 02/25/22 16:12 Eos % (Auto) 3.0 % (0.0-4.3) 02/25/22 16:12 Baso % (Auto) 1.6 % (0.0-1.8) 02/25/22 16:12 Lymph # (Auto) 1.9 K/mm3 (1.2-5.4) 02/25/22 16:12 [place] # (Auto) 0.7 K/mm3 (0.0-0.8) 02/25/22 16:12 Eos # (Auto) 0.2 K/mm3 (0.0-0.4) 02/25/22 16:12 Baso # (Auto) 0.1 K/mm3 (0.0-0.1) 02/25/22 16:12 Seg Neutrophils % 49.5 % (40.0-70.0) 02/25/22 16:12 Seg Neutrophils # 2.7 K/mm3 (1.8-7.7) 02/25/22 16:12 Sodium 141 mmol/L (137-145) 02/25/22 16:12 Potassium 3.6 mmol/L (3.6-5.0) 02/25/22 16:12 Chloride 105.0 mmol/L (98-107) 02/25/22 16:12 Carbon Dioxide 28 mmol/L (22-30) 02/25/22 16:12 Anion Gap 12 mmol/L 02/25/22 16:12 BUN 14 mg/dL (9-20) 02/25/22 16:12 Creatinine 0.8 mg/dL (0.8-1.3) 02/25/22 16:12 Estimated GFR > 60 ml/min 02/25/22 16:12 BUN/Creatinine Ratio 18 % 02/25/22 16:12 Glucose 91 mg/dL (75-100) 02/25/22 16:12 POC Glucose 101 mg/dL (70-105) 02/24/22 22:47 Hemoglobin A1c 6.3 % (4-6) H 02/25/22 16:12 Calcium 8.7 mg/dL (8.4-10.2) 02/25/22 16:12 Total Bilirubin 0.30 mg/dL (0.1-1.2) 02/25/22 16:12 AST 15 units/L (5-40) 02/25/22 16:12 ALT 23 units/L (7-56) 02/25/22 16:12 Alkaline Phosphatase 44 units/L (35-129) 02/25/22 16:12 Troponin T < 0.010 ng/mL (0.00-0.029) 02/25/22 16:12 Total Protein 5.9 g/dL (6.3-8.2) L 02/25/22 16:12 Albumin 3.6 g/dL (3.9-5) L 02/25/22 16:12 Albumin/Globulin Ratio 1.6 % 02/25/22 16:12 Triglycerides 61 mg/dL (2-149) 02/25/22 16:12 Cholesterol 160 mg/dL (50-199) 02/25/22 16:12 LDL Cholesterol Direct 87 mg/dL (50-130) 02/25/22 16:12 HDL Cholesterol 63 mg/dL (40-59) H 02/25/22 16:12 Cholesterol/HDL Ratio 2.53 % 02/25/22 16:12 TSH 0.412 mlU/mL (0.270-4.200) 02/25/22 16:12 [place]/IV: Voiding Method Toilet Active Medications - Current Medications Current Medications: Generic Name Dose Route Start Last Admin Trade Name Freq PRN Reason Stop Dose Admin Albuterol 2.5 mg 02/24/22 18:26 Albuterol 2.5 Mg/3 Ml Nebu IH Q4HRT PRN Shortness Of Breath Atorvastatin Calcium 40 mg 02/24/22 22:00 02/27/22 22:23 Atorvastatin 40 Mg Tab PO Not Given QHS [facility] Divalproex Sodium 250 mg 02/24/22 22:00 02/27/22 22:[address] 250 Mg Tab PO Not Given BID [place] Docusate Sodium 100 mg 02/24/22 22:00 02/27/22 22:23 Docusate Sodium 100 Mg Cap PO Not Given BID [facility] Folic Acid 1 mg 02/25/22 10:00 02/27/22 09:33 Folic Acid 1 Mg Tab PO 1 mg QDAY [place] Administration Gabapentin 300 mg 02/27/22 14:00 02/27/22 22:23 Gabapentin 300 Mg Cap PO Not Given TID [facility] Hydroxyzine Pamoate 50 mg 02/24/22 22:00 02/27/22 22:24 Hydroxyzine Pamoate 50 Mg Cap PO Not Given BID [facility] Levetiracetam 750 mg 02/24/22 22:00 02/27/22 22:23 Levetiracetam 500 Mg/5 Ml Oral Liqd PO Not Given BID [facility] Lidocaine 1 each 02/25/22 10:00 02/27/22 10:05 Lidocaine 5% 1 Each Patch TD Not Given QDAY [facility] Lisinopril 10 mg 02/25/22 10:00 02/27/22 09:39 Lisinopril 10 Mg Tab PO 10 mg QDAY [place] Administration Multivitamins 1 each 02/25/22 10:00 02/27/22 09:33 Multivitamins ,Therapeutic Tab PO 1 each QDAY [facility] Administration Nicotine 7 mg 02/25/22 10:00 02/27/22 09:33 Nicotine 7 Mg/24 Hr Patch TD 7 mg QDAY [facility] Administration Nitroglycerin 0.4 mg 02/25/22 16:00 Nitroglycerin 0.4 Mg Tab Subl SL .Q5MIN PRN Chest Pain Oxycodone HCl 10 mg 02/24/22 18:28 02/25/22 18:15 Oxycodone 5 Mg Tab PO 10 mg Q8H PRN Administration Pain, Moderate (4-6) Oxycodone/Acetaminophen 1 tab 02/24/22 18:23 02/27/22 10:00 Oxycodone /Acetaminophen 5-325mg Tab PO 1 tab Q6H PRN Administration Pain, Moderate (4-6) Pantoprazole Sodium 20 mg 02/25/22 07:30 02/27/22 09:37 Pantoprazole 20 Mg Tab PO 20 mg QDAC [place] Administration Pseudoephedrine/Acetam/Chlorphenir 10 ml 02/24/22 18:28 Guaifenesin/Codeine 100-10mg Oral Liqd 5 Ml PO Q4H PRN Cough Rivaroxaban 20 mg 02/25/22 08:00 02/27/22 09:34 Rivaroxaban 20 Mg Tab PO 20 mg QDDIAB [place] Administration Sertraline HCl 50 mg 02/25/22 10:00 02/27/22 09:33 Sertraline 50 Mg Tab PO 50 mg QDAY [place] Administration Tamsulosin HCl 0.4 mg 02/25/22 10:00 02/27/22 09:34 Tamsulosin 0.4 Mg Cap PO 0.4 mg QDAY [place] Administration Tiotropium [place] 1 puff 02/25/22 09:00 02/28/22 08:34 Tiotropium 18 Mcg Cap Inhalation IH Not Given Q24HRT [facility] Tramadol HCl 50 mg 02/24/22 22:00 02/27/22 22:19 Tramadol 50 Mg Tab PO Not Given QHS [place] Trazodone HCl 300 mg 02/24/22 22:00 02/27/22 21:25 Trazodone 100 Mg Tab PO 300 mg QHS [place] Administration
[2022-02-28] MEDS: MULTIVITAMINS ,THERAPEUTIC TAB PO SCH (11:00)
[2022-02-28] MEDS: SERTRALINE 50 MG TAB PO SCH (11:00)
[2022-02-28] MEDS: TAMSULOSIN 0.4 MG CAP PO SCH (11:00)
[2022-02-28] MEDS: levETIRAcetam 500 MG/5 ML ORAL LIQD PO SCH ×2 (11:00→21:01)
[2022-02-28] MEDS: FOLIC ACID 1 MG TAB PO SCH (11:00)
[2022-02-28] MEDS: LISINOPRIL 10 MG TAB PO SCH (11:00)
[2022-02-28] MEDS: DOCUSATE SODIUM 100 MG CAP PO SCH ×2 (11:00→21:03)
[2022-02-28] MEDS: RIVAROXABAN 20 MG TAB PO SCH (11:00)
[2022-02-28] MEDS: PANTOPRAZOLE 20 MG TAB PO SCH (11:00)
[2022-02-28] MEDS: LIDOCAINE 5% 1 EACH PATCH TD SCH (11:00)
[2022-02-28] MEDS: NICOTINE 7 MG/24 HR PATCH TD SCH (11:00)
[2022-02-28] MEDS: GABAPENTIN 300 MG CAP PO SCH ×3 (11:00→21:03)
[2022-02-28] MEDS: DIVALPROEX DR 250 MG TAB PO SCH ×2 (11:00→21:03)
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
[2022-02-28] MEDS: traZODone 100 MG TAB PO SCH (21:01)
[2022-02-28] MEDS: traMADol 50 MG TAB PO SCH (21:03)
--- NOTE | 2022-03-01 07:20 | Progress Note ---
Subjective Date of service: 03/01/22 Subjective Comment: 03/01: Patient continues to selectively refuse medications. However he reports mood is good. He slept well last night. No SI/HI/AVH. No medication side effect. Nurse Report: pt is alert and oriented x3, calm and cooperative, able to make needs known, withdrawn to self, selective with medication; took trazodone and keppra, had bedtime snack, denies si/hi, denies a/v/h, denies pain, 02 flowing at 2litera n/c, slept through the night, no distress noted, will continue to monitor for safety. Plan: continue inpatient treatment, continue current medications. Will plan for discharge tomorrow or next 02/28: Patient is irritable and uncooperative with treatment. He is not compliant with medications. He is threatening and aggressive towards staff. Per Nursing report: Pt. angry, irritable refused to come out of his room and re fused all his meds. He jumped out of his bed to attack staff when staff went to check his v/s Plan: continue inpatient treatment, continue current medications. ELOS: 4 days 02/27:The patient was seen today. He is calm, alert and oriented x3. The patient continues to complain of poor sleep and chronic pain in lower back; he is depressed because of the pain and inability to sleep well. In the past he found Gabapentin which he agrees to take for pain and mood. He denies any current suicidal ideation and denies hallucinations. Per Nurse report patient is not compliant with medications and refuses certain pain medications offered. Will start Gabapentin 300mg tid for pain and mood and continue inpatient treat ment. 02/26:The patient was seen today. He is calm, alert and oriented x3. The patient continues to complain of chronic pain;he denies depression,and denies any current suicidal ideation and denies hallucinations. REVIEW OF SYSTEMS Constitutional: Negative for weight loss ENT: Negative for stridor Respiratory: Negative for cough or hemoptysis All other systems reviewed and are negative MENTAL STATUS EXAMINATION General Appearance and Behavior: Age appropriate, wearing appropriate clothes, cooperative, polite with questioning, good eye contact Cooperation: cooperative Psychomotor Behavior: Psychomotor normal Mood: Calm Affect and affective range: Congruent with stated mood Thought Process: Goal directed Thought Content: Reality oriented Speech: Normal volume, Regular rate and rhythm Suicidal Ideation: Denies Homicidal Ideation: Denies Hallucination: Denies Delusions: None elicited Impulse Control: Limited Insight and Judgment: Limited Memory: Intact Attention:attentive Orientation: Alert and oriented Diagnoses: Major Depressive Disorder Alcohol use disorder, severe Legal Status: Voluntary Medications and Allergies Allergies Allergy/AdvReac Type Severity Reaction Status Date / Time aspirin Allergy Vomiting Verified 02/04/22 10:11 prochlorperazine Allergy Anaphylaxis Verified 02/04/22 10:11 [From Compazine] prochlorperazine edisylate Allergy Anaphylaxis Verified 02/04/22 10:11 [From Compazine] prochlorperazine maleate Allergy Anaphylaxis Verified 02/04/22 10:11 [From Compazine] Home Medications Medication Instructions Recorded Confirmed Last Taken Type Albuterol Sulfate [Ventolin HFA] 2 puff IH Q6H PRN 11/17/16 02/24/22 08/24/17 History Fluticasone/Salmeterol [Advair 1 each IH BID #1 blst.w.dev 12/30/17 02/24/22 Unknown Rx 250-50 Diskus] traZODone [Desyrel] 300 mg PO QHS tablet 12/30/17 02/24/22 Unknown Rx Acetaminophen [Tylenol Arthritis] 650 mg PO Q6HR PRN #30 tablet.er 03/13/18 02/24/22 Unknown Rx Albuterol Sulfate [Proair 90 mcg IH Q4HR PRN #2 aer.[email or web address] 03/13/18 02/24/22 Unknown Rx Respiclick] Benzonatate [Tessalon Perles] 100 mg PO Q8HR PRN #30 capsule 03/13/18 02/24/22 Unknown Rx AtorvaSTATin [Lipitor] 40 mg PO QHS #30 tablet 02/13/22 02/24/22 Unknown Rx Nicotine [Habitrol] 7 mg TD QDAY #30 patch 02/13/22 02/24/22 Unknown Rx Rivaroxaban [Xarelto] 20 mg PO QDAY #30 tablet 02/13/22 02/24/22 Unknown Rx Tamsulosin [Flomax] 0.4 mg PO QDAY #30 capsule 02/13/22 02/24/22 Unknown Rx Tiotropium [place] [Spiriva 1 puff IH QDAY #1 mist.inhal 02/13/22 02/24/22 Unknown Rx Respimat] levETIRAcetam [Keppra TAB] 750 mg PO BID #60 tablet 02/13/22 02/24/22 Unknown Rx lisinopriL [Zestril TAB] 10 mg PO DAILY #30 tablet 02/13/22 02/24/[address] [Depakote Dr] 250 mg PO BID tablet 02/24/22 02/24/22 Unknown Rx Docusate Sodium [Colace CAP] 100 mg PO BID capsule 02/24/22 02/24/22 Unknown Rx Folic Acid [Folvite] 1 mg PO QDAY tablet 02/24/22 02/24/22 Unknown Rx Pantoprazole [Protonix TAB] 20 mg PO QDAY tablet.dr 02/24/22 02/24/22 Unknown Rx Sertraline [Zoloft] 50 mg PO QDAY tablet 02/24/22 02/24/22 Unknown Rx hydrOXYzine PAMOATE [Vistaril] 50 mg PO BID capsule 02/24/22 02/24/22 Unknown Rx Active Meds: Active Medications Albuterol (Albuterol 2.5 Mg/3 Ml Nebu) 2.5 mg IH Q4HRT PRN PRN Reason: Shortness Of Breath Atorvastatin Calcium (Atorvastatin 40 Mg Tab) 40 mg PO QHS [facility] Last Admin: 02/28/22 21:03 Dose: Not Given Divalproex Sodium (Divalproex Dr 250 Mg Tab) 250 mg PO BID [facility] Last Admin: 02/28/22 21:03 Dose: Not Given Docusate Sodium (Docusate Sodium 100 Mg Cap) 100 mg PO BID [facility] Last Admin: 02/28/22 21:03 Dose: Not Given Folic Acid (Folic Acid 1 Mg Tab) 1 mg PO QDAY [facility] Last Admin: 02/28/22 11:00 Dose: Not Given Gabapentin (Gabapentin 300 Mg Cap) 300 mg PO TID [facility] Last Admin: 02/28/22 21:03 Dose: Not Given Hydroxyzine Pamoate (Hydroxyzine Pamoate 50 Mg Cap) 50 mg PO BID [facility] Last Admin: 02/28/22 21:04 Dose: Not Given Levetiracetam (Levetiracetam 500 Mg/5 Ml Oral Liqd) 750 mg PO BID [facility] Last Admin: 02/28/22 21:01 Dose: 750 mg Lidocaine (Lidocaine 5% 1 Each Patch) 1 each TD QDAY [facility] Last Admin: 02/28/22 11:00 Dose: Not Given Lisinopril (Lisinopril 10 Mg Tab) 10 mg PO QDAY [facility] Last Admin: 02/28/22 11:00 Dose: Not Given Multivitamins (Multivitamins ,Therapeutic Tab) 1 each PO QDAY [facility] Last Admin: 02/28/22 11:00 Dose: Not Given Nicotine (Nicotine 7 Mg/24 Hr Patch) 7 mg TD QDAY [facility] Last Admin: 02/28/22 11:00 Dose: Not Given Nitroglycerin (Nitroglycerin 0.4 Mg Tab Subl) 0.4 mg SL .Q5MIN PRN PRN Reason: Chest Pain Last Admin: 02/28/22 18:12 Dose: 0.4 mg Oxycodone HCl (Oxycodone 5 Mg Tab) 10 mg PO Q8H PRN PRN Reason: Pain, Moderate (4-6) Last Admin: 02/25/22 18:15 Dose: 10 mg Oxycodone/Acetaminophen (Oxycodone /Acetaminophen 5-325mg Tab) 1 tab PO Q6H PRN PRN Reason: Pain, Moderate (4-6) Last Admin: 02/27/22 10:00 Dose: 1 tab Pantoprazole Sodium (Pantoprazole 20 Mg Tab) 20 mg PO QDAC [facility] Last Admin: 02/28/22 11:00 Dose: Not Given Pseudoephedrine/Acetam/Chlorphenir (Guaifenesin/Codeine 100-10mg Oral Liqd 5 Ml) 10 ml PO Q4H PRN PRN Reason: Cough Rivaroxaban (Rivaroxaban 20 Mg Tab) 20 mg PO QDDIAB [facility] Last Admin: 02/28/22 11:00 Dose: Not Given Sertraline HCl (Sertraline 50 Mg Tab) 50 mg PO QDAY [facility] Last Admin: 02/28/22 11:00 Dose: Not Given Tamsulosin HCl (Tamsulosin 0.4 Mg Cap) 0.4 mg PO QDAY [facility] Last Admin: 02/28/22 11:00 Dose: Not Given Tiotropium [place] (Tiotropium 18 Mcg Cap Inhalation) 1 puff IH Q24HRT [facility] Last Admin: 02/28/22 08:34 Dose: Not Given Tramadol HCl (Tramadol 50 Mg Tab) 50 mg PO QHS [facility] Last Admin: 02/28/22 21:03 Dose: Not Given Trazodone HCl (Trazodone 100 Mg Tab) 300 mg PO QHS [facility] Last Admin: 02/28/22 21:01 Dose: 300 mg Results - Results Labs/Vitals: Laboratory Last Values WBC 5.5 K/mm3 (4.5-11.0) 02/25/22 16:12 RBC 4.84 M/mm3 (3.65-5.03) 02/25/22 16:12 Hgb 12.5 gm/dl (11.8-15.2) 02/25/22 16:12 Hct 39.0 % (35.5-45.6) 02/25/22 16:12 MCV 81 fl (84-94) L 02/25/22 16:12 MCH 26 pg (28-32) L 02/25/22 16:12 MCHC 32 % (32-34) 02/25/22 16:12 RDW 16.5 % (13.2-15.2) H 02/25/22 16:12 Plt Count 168 K/mm3 (140-440) 02/25/22 16:12 Lymph % (Auto) 33.6 % (13.4-35.0) 02/25/22 16:12 [place] % (Auto) 12.3 % (0.0-7.3) H 02/25/22 16:12 Eos % (Auto) 3.0 % (0.0-4.3) 02/25/22 16:12 Baso % (Auto) 1.6 % (0.0-1.8) 02/25/22 16:12 Lymph # (Auto) 1.9 K/mm3 (1.2-5.4) 02/25/22 16:12 [place] # (Auto) 0.7 K/mm3 (0.0-0.8) 02/25/22 16:12 Eos # (Auto) 0.2 K/mm3 (0.0-0.4) 02/25/22 16:12 Baso # (Auto) 0.1 K/mm3 (0.0-0.1) 02/25/22 16:12 Seg Neutrophils % 49.5 % (40.0-70.0) 02/25/22 16:12 Seg Neutrophils # 2.7 K/mm3 (1.8-7.7) 02/25/22 16:12 Sodium 141 mmol/L (137-145) 02/25/22 16:12 Potassium 3.6 mmol/L (3.6-5.0) 02/25/22 16:12 Chloride 105.0 mmol/L (98-107) 02/25/22 16:12 Carbon Dioxide 28 mmol/L (22-30) 02/25/22 16:12 Anion Gap 12 mmol/L 02/25/22 16:12 BUN 14 mg/dL (9-20) 02/25/22 16:12 Creatinine 0.8 mg/dL (0.8-1.3) 02/25/22 16:12 Estimated GFR > 60 ml/min 02/25/22 16:12 BUN/Creatinine Ratio 18 % 02/25/22 16:12 Glucose 91 mg/dL (75-100) 02/25/22 16:12 POC Glucose 101 mg/dL (70-105) 02/24/22 22:47 Hemoglobin A1c 6.3 % (4-6) H 02/25/22 16:12 Calcium 8.7 mg/dL (8.4-10.2) 02/25/22 16:12 Total Bilirubin 0.30 mg/dL (0.1-1.2) 02/25/22 16:12 AST 15 units/L (5-40) 02/25/22 16:12 ALT 23 units/L (7-56) 02/25/22 16:12 Alkaline Phosphatase 44 units/L (35-129) 02/25/22 16:12 Troponin T < 0.010 ng/mL (0.00-0.029) 02/25/22 16:12 Total Protein 5.9 g/dL (6.3-8.2) L 02/25/22 16:12 Albumin 3.6 g/dL (3.9-5) L 02/25/22 16:12 Albumin/Globulin Ratio 1.6 % 02/25/22 16:12 Triglycerides 61 mg/dL (2-149) 02/25/22 16:12 Cholesterol 160 mg/dL (50-199) 02/25/22 16:12 LDL Cholesterol Direct 87 mg/dL (50-130) 02/25/22 16:12 HDL Cholesterol 63 mg/dL (40-59) H 02/25/22 16:12 Cholesterol/HDL Ratio 2.53 % 02/25/22 16:12 TSH 0.412 mlU/mL (0.270-4.200) 02/25/22 16:12 Last Vital Signs Temp 97.4 F L 02/28/22 19:45 Pulse 84 02/28/22 19:45 Resp 16 02/28/22 19:45 BP 117/87 02/28/22 19:45 Pulse Ox 100 02/28/22 22:00
[2022-03-01] MEDS: RIVAROXABAN 20 MG TAB PO SCH (09:16)
[2022-03-01] MEDS: GABAPENTIN 300 MG CAP PO SCH ×3 (09:16→21:42)
[2022-03-01] MEDS: TIOTROPIUM 18 MCG CAP INHALATION IH SCH (09:16)
[2022-03-01] MEDS: PANTOPRAZOLE 20 MG TAB PO SCH (09:16)
[2022-03-01] MEDS: DOCUSATE SODIUM 100 MG CAP PO SCH ×2 (09:16→21:42)
[2022-03-01] MEDS: levETIRAcetam 500 MG/5 ML ORAL LIQD PO SCH (09:17)
[2022-03-01] MEDS: DIVALPROEX DR 250 MG TAB PO SCH ×2 (09:17→21:43)
[2022-03-01] MEDS: TAMSULOSIN 0.4 MG CAP PO SCH (09:17)
[2022-03-01] MEDS: FOLIC ACID 1 MG TAB PO SCH (09:17)
[2022-03-01] MEDS: LIDOCAINE 5% 1 EACH PATCH TD SCH (09:17)
[2022-03-01] MEDS: NICOTINE 7 MG/24 HR PATCH TD SCH (09:17)
[2022-03-01] MEDS: MULTIVITAMINS ,THERAPEUTIC TAB PO SCH (09:17)
[2022-03-01] MEDS: SERTRALINE 50 MG TAB PO SCH (09:18)
[2022-03-01] MEDS: LISINOPRIL 10 MG TAB PO SCH (09:18)
--- NOTE | 2022-03-01 10:21 | Progress Note ---
Assessment and Plan - Patient Problems (1) Cerebral atherosclerosis Current Visit: Yes Status: Acute Plan to address problem: Risk factor reduction, antiplatelet therapy as clinically indicated, supportive care. (2) Vascular dementia with behavioral disturbance Current Visit: Yes Status: Acute Plan to address problem: Verbal prompting, verbal redirection, benzodiazepine therapy as clinically indicated. (3) Alcohol dependence Current Visit: No Status: Acute Plan to address problem: Thiamine, folic acid, multivitamin daily. (4) COPD (chronic obstructive pulmonary disease) Current Visit: No Status: Acute Plan to address problem: Supportive care. No acute exacerbation at this time. Bronchodilator therapy as clinically indicated. (5) GERD (gastroesophageal reflux disease) Current Visit: No Status: Acute Qualifiers: Esophagitis presence: without esophagitis Qualified Code(s): K21.9 - Gastro-esophageal reflux disease without esophagitis Plan to address problem: PPI therapy, supportive care. (6) Hx of deep venous thrombosis Current Visit: No Status: Acute Plan to address problem: Continue therapeutic anticoagulation. (7) Malnutrition Current Visit: No Status: Acute Qualifiers: Malnutrition type: protein-calorie malnutrition Protein-calorie malnutrition severity: moderate Qualified Code(s): E44.0 - Moderate protein- calorie malnutrition Plan to address problem: Encourage increased protein intake, dietary supplementation. (8) Seizure disorder Current Visit: No Status: Acute Plan to address problem: Continue antiepileptic therapy, seizure precautions. (9) Major depression Current Visit: Yes Status: Acute Plan to address problem: Continue medical management, cognitive behavioral therapy. (10) Advance care planning Current Visit: No Status: Acute Plan to address problem: Disease education conducted, care plan discussed, diagnoses discussed, prognosis discussed, patient is full code, +30 minutes. History Interval history: 66 YO Male Vascular Dementia with Behavioral Disturbance, Cerebral Atherosclerosis, HTN, Seizure disorder, ETOH Dependence, COPD, Malnutrition, DVT/PE on therapeutic anticoagulation, Nicotine Dependence, MDD admitted to [facility] for psychiatric stabilization. Consult placed by Dr. Mclean for medical management. Patient seen and evaluated in the recreation room. Patient resting comfortably. No reported nursing events. Patient exhibits diminished cognition. Patient remains at baseline level of cognition and function. Hospitalist Physical - Constitutional Vitals: Temp Pulse Resp BP Pulse Ox 98.0 F 83 17 103/67 100 03/01/22 06:50 03/01/22 06:50 03/01/22 06:50 03/01/22 06:50 03/01/22 06:50 HEART Score - HEART Score Troponin: Troponin T < 0.010 ng/mL (0.00-0.029) 02/25/22 16:12 Results - Labs CBC & Chem 7: 02/25/22 16:12 02/25/22 16:12 Labs: Laboratory Last Values WBC 5.5 K/mm3 (4.5-11.0) 02/25/22 16:12 RBC 4.84 M/mm3 (3.65-5.03) 02/25/22 16:12 Hgb 12.5 gm/dl (11.8-15.2) 02/25/22 16:12 Hct 39.0 % (35.5-45.6) 02/25/22 16:12 MCV 81 fl (84-94) L 02/25/22 16:12 MCH 26 pg (28-32) L 02/25/22 16:12 MCHC 32 % (32-34) 02/25/22 16:12 RDW 16.5 % (13.2-15.2) H 02/25/22 16:12 Plt Count 168 K/mm3 (140-440) 02/25/22 16:12 Lymph % (Auto) 33.6 % (13.4-35.0) 02/25/22 16:12 [place] % (Auto) 12.3 % (0.0-7.3) H 02/25/22 16:12 Eos % (Auto) 3.0 % (0.0-4.3) 02/25/22 16:12 Baso % (Auto) 1.6 % (0.0-1.8) 02/25/22 16:12 Lymph # (Auto) 1.9 K/mm3 (1.2-5.4) 02/25/22 16:12 [place] # (Auto) 0.7 K/mm3 (0.0-0.8) 02/25/22 16:12 Eos # (Auto) 0.2 K/mm3 (0.0-0.4) 02/25/22 16:12 Baso # (Auto) 0.1 K/mm3 (0.0-0.1) 02/25/22 16:12 Seg Neutrophils % 49.5 % (40.0-70.0) 02/25/22 16:12 Seg Neutrophils # 2.7 K/mm3 (1.8-7.7) 02/25/22 16:12 Sodium 141 mmol/L (137-145) 02/25/22 16:12 Potassium 3.6 mmol/L (3.6-5.0) 02/25/22 16:12 Chloride 105.0 mmol/L (98-107) 02/25/22 16:12 Carbon Dioxide 28 mmol/L (22-30) 02/25/22 16:12 Anion Gap 12 mmol/L 02/25/22 16:12 BUN 14 mg/dL (9-20) 02/25/22 16:12 Creatinine 0.8 mg/dL (0.8-1.3) 02/25/22 16:12 Estimated GFR > 60 ml/min 02/25/22 16:12 BUN/Creatinine Ratio 18 % 02/25/22 16:12 Glucose 91 mg/dL (75-100) 02/25/22 16:12 POC Glucose 101 mg/dL (70-105) 02/24/22 22:47 Hemoglobin A1c 6.3 % (4-6) H 02/25/22 16:12 Calcium 8.7 mg/dL (8.4-10.2) 02/25/22 16:12 Total Bilirubin 0.30 mg/dL (0.1-1.2) 02/25/22 16:12 AST 15 units/L (5-40) 02/25/22 16:12 ALT 23 units/L (7-56) 02/25/22 16:12 Alkaline Phosphatase 44 units/L (35-129) 02/25/22 16:12 Troponin T < 0.010 ng/mL (0.00-0.029) 02/25/22 16:12 Total Protein 5.9 g/dL (6.3-8.2) L 02/25/22 16:12 Albumin 3.6 g/dL (3.9-5) L 02/25/22 16:12 Albumin/Globulin Ratio 1.6 % 02/25/22 16:12 Triglycerides 61 mg/dL (2-149) 02/25/22 16:12 Cholesterol 160 mg/dL (50-199) 02/25/22 16:12 LDL Cholesterol Direct 87 mg/dL (50-130) 02/25/22 16:12 HDL Cholesterol 63 mg/dL (40-59) H 02/25/22 16:12 Cholesterol/HDL Ratio 2.53 % 02/25/22 16:12 TSH 0.412 mlU/mL (0.270-4.200) 02/25/22 16:12 [place]/IV: Voiding Method Toilet Active Medications - Current Medications Current Medications: Generic Name Dose Route Start Last Admin Trade Name Freq PRN Reason Stop Dose Admin Albuterol 2.5 mg 02/24/22 18:26 Albuterol 2.5 Mg/3 Ml Nebu IH Q4HRT PRN Shortness Of Breath Atorvastatin Calcium 40 mg 02/24/22 22:00 02/28/22 21:03 Atorvastatin 40 Mg Tab PO Not Given QHS [facility] Divalproex Sodium 250 mg 02/24/22 22:00 03/01/22 09:[address] 250 Mg Tab PO Not Given BID [facility] Docusate Sodium 100 mg 02/24/22 22:00 03/01/22 09:16 Docusate Sodium 100 Mg Cap PO Not Given BID [facility] Folic Acid 1 mg 02/25/22 10:00 03/01/22 09:17 Folic Acid 1 Mg Tab PO Not Given QDAY [facility] Gabapentin 300 mg 02/27/22 14:00 03/01/22 09:16 Gabapentin 300 Mg Cap PO Not Given TID [facility] Hydroxyzine Pamoate 50 mg 02/24/22 22:00 03/01/22 09:17 Hydroxyzine Pamoate 50 Mg Cap PO Not Given BID [facility] Levetiracetam 750 mg 03/01/22 22:00 Levetiracetam 500 Mg Tab PO BID [facility] Lidocaine 1 each 02/25/22 10:00 03/01/22 09:17 Lidocaine 5% 1 Each Patch TD Not Given QDAY [facility] Lisinopril 10 mg 02/25/22 10:00 03/01/22 09:18 Lisinopril 10 Mg Tab PO Not Given QDAY [facility] Multivitamins 1 each 02/25/22 10:00 03/01/22 09:17 Multivitamins ,Therapeutic Tab PO Not Given QDAY [facility] Nicotine 7 mg 02/25/22 10:00 03/01/22 09:17 Nicotine 7 Mg/24 Hr Patch TD Not Given QDAY [facility] Nitroglycerin 0.4 mg 02/25/22 16:00 02/28/22 18:12 Nitroglycerin 0.4 Mg Tab Subl SL 0.4 mg .Q5MIN PRN Administration Chest Pain Oxycodone HCl 10 mg 02/24/22 18:28 02/25/22 18:15 Oxycodone 5 Mg Tab PO 10 mg Q8H PRN Administration Pain, Moderate (4-6) Oxycodone/Acetaminophen 1 tab 02/24/22 18:23 02/27/22 10:00 Oxycodone /Acetaminophen 5-325mg Tab PO 1 tab Q6H PRN Administration Pain, Moderate (4-6) Pantoprazole Sodium 20 mg 02/25/22 07:30 03/01/22 09:16 Pantoprazole 20 Mg Tab PO Not Given QDAC [facility] Pseudoephedrine/Acetam/Chlorphenir 10 ml 02/24/22 18:28 Guaifenesin/Codeine 100-10mg Oral Liqd 5 Ml PO Q4H PRN Cough Rivaroxaban 20 mg 02/25/22 08:00 03/01/22 09:16 Rivaroxaban 20 Mg Tab PO Not Given QDDIAB [facility] Sertraline HCl 50 mg 02/25/22 10:00 03/01/22 09:18 Sertraline 50 Mg Tab PO Not Given QDAY [facility] Tamsulosin HCl 0.4 mg 02/25/22 10:00 03/01/22 09:17 Tamsulosin 0.4 Mg Cap PO Not Given QDAY [facility] Tiotropium [place] 1 puff 02/25/22 09:00 03/01/22 09:16 Tiotropium 18 Mcg Cap Inhalation IH Not Given Q24HRT [facility] Tramadol HCl 50 mg 02/24/22 22:00 02/28/22 21:03 Tramadol 50 Mg Tab PO Not Given QHS [facility] Trazodone HCl 300 mg 02/24/22 22:00 02/28/22 21:01 Trazodone 100 Mg Tab PO 300 mg QHS [place] Administration
[2022-03-01] MEDS: levETIRAcetam 500 MG TAB PO SCH (21:38)
[2022-03-01] MEDS: traMADol 50 MG TAB PO SCH (21:41)
[2022-03-01] MEDS: traZODone 100 MG TAB PO SCH (21:42)
[2022-03-02] MEDS: TIOTROPIUM 18 MCG CAP INHALATION IH SCH (08:32)
[2022-03-02] MEDS: MULTIVITAMINS ,THERAPEUTIC TAB PO SCH (09:26)
[2022-03-02] MEDS: levETIRAcetam 500 MG TAB PO SCH ×2 (09:26→21:05)
[2022-03-02] MEDS: DOCUSATE SODIUM 100 MG CAP PO SCH ×2 (09:27→21:07)
[2022-03-02] MEDS: DIVALPROEX DR 250 MG TAB PO SCH ×2 (09:27→21:07)
[2022-03-02] MEDS: RIVAROXABAN 20 MG TAB PO SCH (09:27)
[2022-03-02] MEDS: NICOTINE 7 MG/24 HR PATCH TD SCH (09:27)
[2022-03-02] MEDS: GABAPENTIN 300 MG CAP PO SCH ×3 (09:27→21:04)
[2022-03-02] MEDS: LIDOCAINE 5% 1 EACH PATCH TD SCH (09:57)
[2022-03-02] MEDS: TAMSULOSIN 0.4 MG CAP PO SCH (09:57)
[2022-03-02] MEDS: SERTRALINE 50 MG TAB PO SCH (09:58)
[2022-03-02] MEDS: PANTOPRAZOLE 20 MG TAB PO SCH (09:58)
[2022-03-02] MEDS: FOLIC ACID 1 MG TAB PO SCH (09:58)
[2022-03-02] MEDS: LISINOPRIL 10 MG TAB PO SCH (09:59)
--- NOTE | 2022-03-02 10:17 | Progress Note ---
Subjective Date of service: 03/02/22 Subjective Comment: 03/02: The patient was seen today. He is calm, pleasant, alert and fully oriented. He reports good and stable mood, denies being depressed or excessively nervous. Patient eats and sleeps well. Patient denies hallucinations, paranoia, thought interference and no features suggestive of hypomania or cristopher. He completely denies suicidal or homicidal thoughts. We discussed discharge plans. Patient agrees that he is ready for discharge. He will meet with the [employer] to discuss his options. Nursing Staff report: Pt is selective in his medication. Accepted only Tramadol, Keppra, and Trazodone. He refused others. Plan: continue inpatient treatment, continue current medications. Will plan for discharge tomorrow 03/01: Patient continues to selectively refuse medications. However he reports mood is good. He slept well last night. No SI/HI/AVH. No medication side effect. Nurse Report: pt is alert and oriented x3, calm and cooperative, able to make needs known, withdrawn to self, selective with medication; took trazodone and keppra, had bedtime snack, denies si/hi, denies a/v/h, denies pain, 02 flowing at 2litera n/c, slept through the night, no distress noted, will continue to monitor for safety. Plan: continue inpatient treatment, continue current medications. Will plan for discharge tomorrow or next 02/28: Patient is irritable and uncooperative with treatment. He is not compliant with medications. He is threatening and aggressive towards staff. Per Nursing report: Pt. angry, irritable refused to come out of his room and refused all his meds. He jumped out of his bed to attack staff when staff went to check his v/s Plan: continue inpatient treatment, continue current medications. ELOS: 4 days 02/27:The patient was seen today. He is calm, alert and oriented x3. The patient continues to complain of poor sleep and chronic pain in lower back; he is depressed because of the pain and inability to sleep well. In the past he found Gabapentin which he agrees to take for pain and mood. He denies any current suicidal ideation and denies hallucinations. Per Nurse report patient is not compliant with medications and refuses certain pain medications offered. Will start Gabapentin 300mg tid for pain and mood and continue inpatient treatment. 02/26:The patient was seen today. He is calm, alert and oriented x3. The patient continues to complain of chronic pain;he denies depression,and denies any current suicidal ideation and denies hallucinations. REVIEW OF SYSTEMS Constitutional: Negative for weight loss ENT: Negative for stridor Respiratory: Negative for cough or hemoptysis All other systems reviewed and are negative MENTAL STATUS EXAMINATION General Appearance and Behavior: Age appropriate, wearing appropriate clothes, cooperative, polite with questioning, good eye contact Cooperation: cooperative Psychomotor Behavior: Psychomotor normal Mood: Calm Affect and affective range: Congruent with stated mood Thought Process: Goal directed Thought Content: Reality oriented Speech: Normal volume, Regular rate and rhythm Suicidal Ideation: Denies Homicidal Ideation: Denies Hallucination: Denies Delusions: None elicited Impulse Control: Limited Insight and Judgment: Limited Memory: Intact Attention:attentive Orientation: Alert and oriented Diagnoses: Major Depressive Disorder Alcohol use disorder, severe Legal Status: Voluntary Medications and Allergies Allergies Allergy/AdvReac Type Severity Reaction Status Date / Time aspirin Allergy Vomiting Verified 02/04/22 10:11 prochlorperazine Allergy Anaphylaxis Verified 02/04/22 10:11 [From Compazine] prochlorperazine edisylate Allergy Anaphylaxis Verified 02/04/22 10:11 [From SaveFans!azine] prochlorperazine maleate Allergy Anaphylaxis Verified 02/04/22 10:11 [From SaveFans!azine] Home Medications Medication Instructions Recorded Confirmed Last Taken Type Albuterol Sulfate [Ventolin HFA] 2 puff IH Q6H PRN 11/17/16 02/24/22 08/24/17 History Fluticasone/Salmeterol [Advair 1 each IH BID #1 blst.w.dev 12/30/17 02/24/22 Unknown Rx 250-50 Diskus] traZODone [Desyrel] 300 mg PO QHS tablet 12/30/17 02/24/22 Unknown Rx Acetaminophen [Tylenol Arthritis] 650 mg PO Q6HR PRN #30 tablet.er 03/13/18 02/24/22 Unknown Rx Albuterol Sulfate [Proair 90 mcg IH Q4HR PRN #2 aer.pow.ba 03/13/18 02/24/22 Unknown Rx Respiclick] Benzonatate [Tessalon Perles] 100 mg PO Q8HR PRN #30 capsule 03/13/18 02/24/22 Unknown Rx AtorvaSTATin [Lipitor] 40 mg PO QHS #30 tablet 02/13/22 02/24/22 Unknown Rx Nicotine [Habitrol] 7 mg TD QDAY #30 patch 02/13/22 02/24/22 Unknown Rx Rivaroxaban [Xarelto] 20 mg PO QDAY #30 tablet 02/13/22 02/24/22 Unknown Rx Tamsulosin [Flomax] 0.4 mg PO QDAY #30 capsule 02/13/22 02/24/22 Unknown Rx Tiotropium Corinne [Spiriva 1 puff IH QDAY #1 mist.inhal 02/13/22 02/24/22 Unknown Rx Respimat] levETIRAcetam [Keppra TAB] 750 mg PO BID #60 tablet 02/13/22 02/24/22 Unknown Rx lisinopriL [Zestril TAB] 10 mg PO DAILY #30 tablet 02/13/22 02/24/[address] [Marquez Lang] 250 mg PO BID tablet 02/24/22 02/24/22 Unknown Rx Docusate Sodium [Colace CAP] 100 mg PO BID capsule 02/24/22 02/24/22 Unknown Rx Folic Acid [Folvite] 1 mg PO QDAY tablet 02/24/22 02/24/22 Unknown Rx Pantoprazole [Protonix TAB] 20 mg PO QDAY tablet. 02/24/22 02/24/22 Unknown Rx Sertraline [Zoloft] 50 mg PO QDAY tablet 02/24/22 02/24/22 Unknown Rx hydrOXYzine PAMOATE [Vistaril] 50 mg PO BID capsule 02/24/22 02/24/22 Unknown Rx Active Meds: Active Medications Albuterol (Albuterol 2.5 Mg/3 Ml Nebu) 2.5 mg IH Q4HRT PRN PRN Reason: Shortness Of Breath Atorvastatin Calcium (Atorvastatin 40 Mg Tab) 40 mg PO QHS [facility] Last Admin: 03/01/22 21:43 Dose: Not Given Divalproex Sodium (Divalproex Dr 250 Mg Tab) 250 mg PO BID [facility] Last Admin: 03/02/22 09:27 Dose: Not Given Docusate Sodium (Docusate Sodium 100 Mg Cap) 100 mg PO BID [facility] Last Admin: 03/02/22 09:27 Dose: 100 mg Folic Acid (Folic Acid 1 Mg Tab) 1 mg PO QDAY [facility] Last Admin: 03/02/22 09:58 Dose: Not Given Gabapentin (Gabapentin 300 Mg Cap) 300 mg PO TID [facility] Last Admin: 03/02/22 09:27 Dose: Not Given Hydroxyzine Pamoate (Hydroxyzine Pamoate 50 Mg Cap) 50 mg PO BID [facility] Last Admin: 03/02/22 09:27 Dose: 50 mg Levetiracetam (Levetiracetam 500 Mg Tab) 750 mg PO BID [facility] Last Admin: 03/02/22 09:26 Dose: 750 mg Lidocaine (Lidocaine 5% 1 Each Patch) 1 each TD QDAY [facility] Last Admin: 03/02/22 09:57 Dose: Not Given Lisinopril (Lisinopril 10 Mg Tab) 10 mg PO QDAY [facility] Last Admin: 03/02/22 09:59 Dose: Not Given Multivitamins (Multivitamins ,Therapeutic Tab) 1 each PO QDAY [facility] Last Admin: 03/02/22 09:26 Dose: 1 each Nicotine (Nicotine 7 Mg/24 Hr Patch) 7 mg TD QDAY [facility] Last Admin: 03/02/22 09:27 Dose: 7 mg Nitroglycerin (Nitroglycerin 0.4 Mg Tab Subl) 0.4 mg SL .Q5MIN PRN PRN Reason: Chest Pain Last Admin: 02/28/22 18:12 Dose: 0.4 mg Oxycodone HCl (Oxycodone 5 Mg Tab) 10 mg PO Q8H PRN PRN Reason: Pain, Moderate (4-6) Last Admin: 02/25/22 18:15 Dose: 10 mg Oxycodone/Acetaminophen (Oxycodone /Acetaminophen 5-325mg Tab) 1 tab PO Q6H PRN PRN Reason: Pain, Moderate (4-6) Last Admin: 02/27/22 10:00 Dose: 1 tab Pantoprazole Sodium (Pantoprazole 20 Mg Tab) 20 mg PO QDAC [facility] Last Admin: 03/02/22 09:58 Dose: Not Given Pseudoephedrine/Acetam/Chlorphenir (Guaifenesin/Codeine 100-10mg Oral Liqd 5 Ml) 10 ml PO Q4H PRN PRN Reason: Cough Rivaroxaban (Rivaroxaban 20 Mg Tab) 20 mg PO QDDIAB [facility] Last Admin: 03/02/22 09:27 Dose: 20 mg Sertraline HCl (Sertraline 50 Mg Tab) 50 mg PO QDAY [facility] Last Admin: 03/02/22 09:58 Dose: Not Given Tamsulosin HCl (Tamsulosin 0.4 Mg Cap) 0.4 mg PO QDAY [facility] Last Admin: 03/02/22 09:57 Dose: Not Given Tiotropium Corinne (Tiotropium 18 Mcg Cap Inhalation) 1 puff IH Q24HRT [facility] Last Admin: 03/02/22 08:32 Dose: 1 puff Tramadol HCl (Tramadol 50 Mg Tab) 50 mg PO QHS [facility] Last Admin: 03/01/22 21:41 Dose: 50 mg Trazodone HCl (Trazodone 100 Mg Tab) 300 mg PO QHS [facility] Last Admin: 03/01/22 21:42 Dose: 300 mg Results - Results Labs/Vitals: Laboratory Last Values WBC 5.5 K/mm3 (4.5-11.0) 02/25/22 16:12 RBC 4.84 M/mm3 (3.65-5.03) 02/25/22 16:12 Hgb 12.5 gm/dl (11.8-15.2) 02/25/22 16:12 Hct 39.0 % (35.5-45.6) 02/25/22 16:12 MCV 81 fl (84-94) L 02/25/22 16:12 MCH 26 pg (28-32) L 02/25/22 16:12 MCHC 32 % (32-34) 02/25/22 16:12 RDW 16.5 % (13.2-15.2) H 02/25/22 16:12 Plt Count 168 K/mm3 (140-440) 02/25/22 16:12 Lymph % (Auto) 33.6 % (13.4-35.0) 02/25/22 16:12 [place] % (Auto) 12.3 % (0.0-7.3) H 02/25/22 16:12 Eos % (Auto) 3.0 % (0.0-4.3) 02/25/22 16:12 Baso % (Auto) 1.6 % (0.0-1.8) 02/25/22 16:12 Lymph # (Auto) 1.9 K/mm3 (1.2-5.4) 02/25/22 16:12 [place] # (Auto) 0.7 K/mm3 (0.0-0.8) 02/25/22 16:12 Eos # (Auto) 0.2 K/mm3 (0.0-0.4) 02/25/22 16:12 Baso # (Auto) 0.1 K/mm3 (0.0-0.1) 02/25/22 16:12 Seg Neutrophils % 49.5 % (40.0-70.0) 02/25/22 16:12 Seg Neutrophils # 2.7 K/mm3 (1.8-7.7) 02/25/22 16:12 Sodium 141 mmol/L (137-145) 02/25/22 16:12 Potassium 3.6 mmol/L (3.6-5.0) 02/25/22 16:12 Chloride 105.0 mmol/L (98-107) 02/25/22 16:12 Carbon Dioxide 28 mmol/L (22-30) 02/25/22 16:12 Anion Gap 12 mmol/L 02/25/22 16:12 BUN 14 mg/dL (9-20) 02/25/22 16:12 Creatinine 0.8 mg/dL (0.8-1.3) 02/25/22 16:12 Estimated GFR > 60 ml/min 02/25/22 16:12 BUN/Creatinine Ratio 18 % 02/25/22 16:12 Glucose 91 mg/dL (75-100) 02/25/22 16:12 POC Glucose 140 mg/dL (70-105) H 03/02/22 07:23 Hemoglobin A1c 6.3 % (4-6) H 02/25/22 16:12 Calcium 8.7 mg/dL (8.4-10.2) 02/25/22 16:12 Total Bilirubin 0.30 mg/dL (0.1-1.2) 02/25/22 16:12 AST 15 units/L (5-40) 02/25/22 16:12 ALT 23 units/L (7-56) 02/25/22 16:12 Alkaline Phosphatase 44 units/L (35-129) 02/25/22 16:12 Troponin T < 0.010 ng/mL (0.00-0.029) 02/25/22 16:12 Total Protein 5.9 g/dL (6.3-8.2) L 02/25/22 16:12 Albumin 3.6 g/dL (3.9-5) L 02/25/22 16:12 Albumin/Globulin Ratio 1.6 % 02/25/22 16:12 Triglycerides 61 mg/dL (2-149) 02/25/22 16:12 Cholesterol 160 mg/dL (50-199) 02/25/22 16:12 LDL Cholesterol Direct 87 mg/dL (50-130) 02/25/22 16:12 HDL Cholesterol 63 mg/dL (40-59) H 02/25/22 16:12 Cholesterol/HDL Ratio 2.53 % 02/25/22 16:12 TSH 0.412 mlU/mL (0.270-4.200) 02/25/22 16:12 Last Vital Signs Temp 98.2 F 03/02/22 08:56 Pulse 84 03/02/22 09:59 Resp 18 03/02/22 08:56 BP 105/64 03/02/22 09:59 Pulse Ox 97 03/02/22 08:56
[2022-03-02] MEDS: traMADol 50 MG TAB PO SCH (21:05)
[2022-03-02] MEDS: traZODone 100 MG TAB PO SCH (21:05)
[2022-03-03] MEDS: PANTOPRAZOLE 20 MG TAB PO SCH (09:57)
[2022-03-03] MEDS: FOLIC ACID 1 MG TAB PO SCH (09:58)
[2022-03-03] MEDS: DOCUSATE SODIUM 100 MG CAP PO SCH ×3 (09:58→22:37)
[2022-03-03] MEDS: NICOTINE 7 MG/24 HR PATCH TD SCH (09:58)
[2022-03-03] MEDS: GABAPENTIN 300 MG CAP PO SCH ×4 (09:58→22:36)
[2022-03-03] MEDS: RIVAROXABAN 20 MG TAB PO SCH (09:58)
[2022-03-03] MEDS: levETIRAcetam 500 MG TAB PO SCH ×2 (09:58→22:28)
[2022-03-03] MEDS: DIVALPROEX DR 250 MG TAB PO SCH ×3 (09:58→22:37)
[2022-03-03] MEDS: LIDOCAINE 5% 1 EACH PATCH TD SCH (09:58)
[2022-03-03] MEDS: TAMSULOSIN 0.4 MG CAP PO SCH (09:58)
[2022-03-03] MEDS: SERTRALINE 50 MG TAB PO SCH (09:59)
[2022-03-03] MEDS: LISINOPRIL 10 MG TAB PO SCH (09:59)
[2022-03-03] MEDS: MULTIVITAMINS ,THERAPEUTIC TAB PO SCH (09:59)
[2022-03-03] MEDS: TIOTROPIUM 18 MCG CAP INHALATION IH SCH (10:00)
--- NOTE | 2022-03-03 17:21 | Progress Note ---
Subjective Date of service: 03/03/22 Principal diagnosis: MDD Subjective Comment: 03/03 The patient was seen today. He is calm, and cooperative. He is asking about his discharge. The patient denies SI/HI or hallucinations of any kind. He says his appetite is well and he slept well. I informed the patient he would be discharged tomorrow if all necessary resources are in place by the social services specialist. 03/02: The patient was seen today. He is calm, pleasant, alert and fully oriented. He reports good and stable mood, denies being depressed or excessively nervous. Patient eats and sleeps well. Patient denies hallucinations, paranoia, thought interference and no features suggestive of hypomania or cristopher. He completely denies suicidal or homicidal thoughts. We discussed discharge plans. Patient agrees that he is ready for discharge. He will meet with the Operations Associate to discuss his options. Nursing Staff report: Pt is selective in his medication. Accepted only Tramadol, Keppra, and Trazodone. He refused others. Plan: continue inpatient treatment, continue current medications. Will plan for discharge tomorrow 03/01: Patient continues to selectively refuse medications. However he reports mood is good. He slept well last night. No SI/HI/AVH. No medication side effect. Nurse Report: pt is alert and oriented x3, calm and cooperative, able to make needs known, withdrawn to self, selective with medication; took trazodone and keppra, had bedtime snack, denies si/hi, denies a/v/h, denies pain, 02 flowing at 2litera n/c, slept through the night, no distress noted, will continue to monitor for safety. Plan: continue inpatient treatment, continue current medications. Will plan for discharge tomorrow or next 02/28: Patient is irritable and uncooperative with treatment. He is not compliant with medications. He is threatening and aggressive towards staff. Per Nursing report: Pt. angry, irritable refused to come out of his room and refused all his meds. He jumped out of his bed to attack staff when staff went to check his v/s Plan: continue inpatient treatment, continue current medications. ELOS: 4 days 02/27:The patient was seen today. He is calm, alert and oriented x3. The patient continues to complain of poor sleep and chronic pain in lower back; he is depressed because of the pain and inability to sleep well. In the past he found Gabapentin which he agrees to take for pain and mood. He denies any current suicidal ideation and denies hallucinations. Per Nurse report patient is not compliant with medications and refuses certain pain medications offered. Will start Gabapentin 300mg tid for pain and mood and continue inpatient treatment. 02/26:The patient was seen today. He is calm, alert and oriented x3. The patient continues to complain of chronic pain;he denies depression,and denies any current suicidal ideation and denies hallucinations. REVIEW OF SYSTEMS Constitutional: Negative for weight loss ENT: Negative for stridor Respiratory: Negative for cough or hemoptysis All other systems reviewed and are negative MENTAL STATUS EXAMINATION General Appearance and Behavior: Age appropriate, wearing appropriate clothes, cooperative, polite with questioning, good eye contact Cooperation: cooperative Psychomotor Behavior: Psychomotor normal Mood: Calm Affect and affective range: Congruent with stated mood Thought Process: Goal directed Thought Content: Reality oriented Speech: Normal volume, Regular rate and rhythm Suicidal Ideation: Denies Homicidal Ideation: Denies Hallucination: Denies Delusions: None elicited Impulse Control: Limited Insight and Judgment: Limited Memory: Intact Attention:attentive Orientation: Alert and oriented Diagnoses: Major Depressive Disorder Alcohol use disorder, severe Treatment Plan Patient admitted for inpatient psychiatric evaluation, medication adjustment and close monitoring The patient's behavior, mood, sleep and appetite will be closely monitored. Patient enrolled in individual and group therapeutic sessions and encouraged to attend. Patient provided with a safe and structured environment. Patient's physical health needs will be addressed by the Hospitalist. Hospitalist Consulted Labs including CBC, CMP, Lipid profile and Hemoglobin A1C levels ordered for baseline reference Social Assessment will be completed and the Operations Associate will work with patient and family to ensure a suitable and safe disposition Medication adjustment will be made as clinically indicated Continue home meds Usual Wellness Congregation/Preservation: - Start Trazodone 50 mg po QHS & 50 mg po QHS PRN between 10 PM & 2 AM for insomnia - Start Melatonin 5 mg po QHS to promote circadian rhythm The patient agreed on the treatment plan, understood the risk, benefit, alternative treatment, potential consequence of no treatment, and gave informed consent. Estimated days: 6 Post hospital care: primary care provider, psychiatric provider Case staffed with Dr. Portillo Medications and Allergies Allergies Allergy/AdvReac Type Severity Reaction Status Date / Time aspirin Allergy Vomiting Verified 02/04/22 10:11 prochlorperazine Allergy Anaphylaxis Verified 02/04/22 10:11 [From Compazine] prochlorperazine edisylate Allergy Anaphylaxis Verified 02/04/22 10:11 [From Compazine] prochlorperazine maleate Allergy Anaphylaxis Verified 02/04/22 10:11 [From Compazine] Home Medications Medication Instructions Recorded Confirmed Last Taken Type Albuterol Sulfate [Ventolin HFA] 2 puff IH Q6H PRN 11/17/16 02/24/22 08/24/17 History Fluticasone/Salmeterol [Advair 1 each IH BID #1 blst.w.dev 12/30/17 02/24/22 Unknown Rx 250-50 Diskus] traZODone [Desyrel] 300 mg PO QHS tablet 12/30/17 02/24/22 Unknown Rx Acetaminophen [Tylenol Arthritis] 650 mg PO Q6HR PRN #30 tablet.er 03/13/18 02/24/22 Unknown Rx Albuterol Sulfate [Proair 90 mcg IH Q4HR PRN #2 aer.pow.ba 03/13/18 02/24/22 Unknown Rx Respiclick] Benzonatate [Tessalon Perles] 100 mg PO Q8HR PRN #30 capsule 03/13/18 02/24/22 Unknown Rx AtorvaSTATin [Lipitor] 40 mg PO QHS #30 tablet 02/13/22 02/24/22 Unknown Rx Nicotine [Habitrol] 7 mg TD QDAY #30 patch 02/13/22 02/24/22 Unknown Rx Rivaroxaban [Xarelto] 20 mg PO QDAY #30 tablet 02/13/22 02/24/22 Unknown Rx Tamsulosin [Flomax] 0.4 mg PO QDAY #30 capsule 02/13/22 02/24/22 Unknown Rx Tiotropium [place] [Spiriva 1 puff IH QDAY #1 mist.inhal 02/13/22 02/24/22 Unknown Rx Respimat] levETIRAcetam [Keppra TAB] 750 mg PO BID #60 tablet 02/13/22 02/24/22 Unknown Rx lisinopriL [Zestril TAB] 10 mg PO DAILY #30 tablet 02/13/22 02/24/[address] [Depakote Dr] 250 mg PO BID tablet 02/24/22 02/24/22 Unknown Rx Docusate Sodium [Colace CAP] 100 mg PO BID capsule 02/24/22 02/24/22 Unknown Rx Folic Acid [Folvite] 1 mg PO QDAY tablet 02/24/22 02/24/22 Unknown Rx Pantoprazole [Protonix TAB] 20 mg PO QDAY tablet. 02/24/22 02/24/22 Unknown Rx Sertraline [Zoloft] 50 mg PO QDAY tablet 02/24/22 02/24/22 Unknown Rx hydrOXYzine PAMOATE [Vistaril] 50 mg PO BID capsule 02/24/22 02/24/22 Unknown Rx Active Meds: Active Medications Albuterol (Albuterol 2.5 Mg/3 Ml Nebu) 2.5 mg IH Q4HRT PRN PRN Reason: Shortness Of Breath Atorvastatin Calcium (Atorvastatin 40 Mg Tab) 40 mg PO QHS [facility] Last Admin: 03/02/22 21:06 Dose: Not Given Divalproex Sodium (Divalproex Dr 250 Mg Tab) 250 mg PO BID [facility] Last Admin: 03/03/22 09:58 Dose: Not Given Docusate Sodium (Docusate Sodium 100 Mg Cap) 100 mg PO BID [facility] Last Admin: 03/03/22 09:58 Dose: Not Given Folic Acid (Folic Acid 1 Mg Tab) 1 mg PO QDAY [facility] Last Admin: 03/03/22 09:58 Dose: Not Given Gabapentin (Gabapentin 300 Mg Cap) 300 mg PO TID [facility] Last Admin: 03/03/22 14:30 Dose: Not Given Hydroxyzine Pamoate (Hydroxyzine Pamoate 50 Mg Cap) 50 mg PO BID [facility] Last Admin: 03/03/22 09:59 Dose: Not Given Levetiracetam (Levetiracetam 500 Mg Tab) 750 mg PO BID [facility] Last Admin: 03/03/22 09:58 Dose: Not Given Lidocaine (Lidocaine 5% 1 Each Patch) 1 each TD QDAY [facility] Last Admin: 03/03/22 09:58 Dose: Not Given Lisinopril (Lisinopril 10 Mg Tab) 10 mg PO QDAY [facility] Last Admin: 03/03/22 09:59 Dose: Not Given Multivitamins (Multivitamins ,Therapeutic Tab) 1 each PO QDAY [facility] Last Admin: 03/03/22 09:59 Dose: Not Given Nicotine (Nicotine 7 Mg/24 Hr Patch) 7 mg TD QDAY [facility] Last Admin: 03/03/22 09:58 Dose: Not Given Nitroglycerin (Nitroglycerin 0.4 Mg Tab Subl) 0.4 mg SL .Q5MIN PRN PRN Reason: Chest Pain Last Admin: 02/28/22 18:12 Dose: 0.4 mg Oxycodone HCl (Oxycodone 5 Mg Tab) 10 mg PO Q8H PRN PRN Reason: Pain, Moderate (4-6) Last Admin: 02/25/22 18:15 Dose: 10 mg Oxycodone/Acetaminophen (Oxycodone /Acetaminophen 5-325mg Tab) 1 tab PO Q6H PRN PRN Reason: Pain, Moderate (4-6) Last Admin: 02/27/22 10:00 Dose: 1 tab Pantoprazole Sodium (Pantoprazole 20 Mg Tab) 20 mg PO QDAC [facility] Last Admin: 03/03/22 09:57 Dose: Not Given Pseudoephedrine/Acetam/Chlorphenir (Guaifenesin/Codeine 100-10mg Oral Liqd 5 Ml) 10 ml PO Q4H PRN PRN Reason: Cough Rivaroxaban (Rivaroxaban 20 Mg Tab) 20 mg PO QDDIAB [facility] Last Admin: 03/03/22 09:58 Dose: Not Given Sertraline HCl (Sertraline 50 Mg Tab) 50 mg PO QDAY [facility] Last Admin: 03/03/22 09:59 Dose: Not Given Tamsulosin HCl (Tamsulosin 0.4 Mg Cap) 0.4 mg PO QDAY [facility] Last Admin: 03/03/22 09:58 Dose: Not Given Tiotropium [place] (Tiotropium 18 Mcg Cap Inhalation) 1 puff IH Q24HRT [facility] Last Admin: 03/02/22 08:32 Dose: 1 puff Tramadol HCl (Tramadol 50 Mg Tab) 50 mg PO QHS [facility] Last Admin: 03/02/22 21:05 Dose: 50 mg Trazodone HCl (Trazodone 100 Mg Tab) 300 mg PO QHS [facility] Last Admin: 03/02/22 21:05 Dose: 300 mg Results - Results Labs/Vitals: Laboratory Last Values WBC 5.5 K/mm3 (4.5-11.0) 02/25/22 16:12 RBC 4.84 M/mm3 (3.65-5.03) 02/25/22 16:12 Hgb 12.5 gm/dl (11.8-15.2) 02/25/22 16:12 Hct 39.0 % (35.5-45.6) 02/25/22 16:12 MCV 81 fl (84-94) L 02/25/22 16:12 MCH 26 pg (28-32) L 02/25/22 16:12 MCHC 32 % (32-34) 02/25/22 16:12 RDW 16.5 % (13.2-15.2) H 02/25/22 16:12 Plt Count 168 K/mm3 (140-440) 02/25/22 16:12 Lymph % (Auto) 33.6 % (13.4-35.0) 02/25/22 16:12 [place] % (Auto) 12.3 % (0.0-7.3) H 02/25/22 16:12 Eos % (Auto) 3.0 % (0.0-4.3) 02/25/22 16:12 Baso % (Auto) 1.6 % (0.0-1.8) 02/25/22 16:12 Lymph # (Auto) 1.9 K/mm3 (1.2-5.4) 02/25/22 16:12 [place] # (Auto) 0.7 K/mm3 (0.0-0.8) 02/25/22 16:12 Eos # (Auto) 0.2 K/mm3 (0.0-0.4) 02/25/22 16:12 Baso # (Auto) 0.1 K/mm3 (0.0-0.1) 02/25/22 16:12 Seg Neutrophils % 49.5 % (40.0-70.0) 02/25/22 16:12 Seg Neutrophils # 2.7 K/mm3 (1.8-7.7) 02/25/22 16:12 Sodium 141 mmol/L (137-145) 02/25/22 16:12 Potassium 3.6 mmol/L (3.6-5.0) 02/25/22 16:12 Chloride 105.0 mmol/L (98-107) 02/25/22 16:12 Carbon Dioxide 28 mmol/L (22-30) 02/25/22 16:12 Anion Gap 12 mmol/L 02/25/22 16:12 BUN 14 mg/dL (9-20) 02/25/22 16:12 Creatinine 0.8 mg/dL (0.8-1.3) 02/25/22 16:12 Estimated GFR > 60 ml/min 02/25/22 16:12 BUN/Creatinine Ratio 18 % 02/25/22 16:12 Glucose 91 mg/dL (75-100) 02/25/22 16:12 POC Glucose 87 mg/dL (70-105) 03/03/22 07:08 Hemoglobin A1c 6.3 % (4-6) H 02/25/22 16:12 Calcium 8.7 mg/dL (8.4-10.2) 02/25/22 16:12 Total Bilirubin 0.30 mg/dL (0.1-1.2) 02/25/22 16:12 AST 15 units/L (5-40) 02/25/22 16:12 ALT 23 units/L (7-56) 02/25/22 16:12 Alkaline Phosphatase 44 units/L (35-129) 02/25/22 16:12 Troponin T < 0.010 ng/mL (0.00-0.029) 02/25/22 16:12 Total Protein 5.9 g/dL (6.3-8.2) L 02/25/22 16:12 Albumin 3.6 g/dL (3.9-5) L 02/25/22 16:12 Albumin/Globulin Ratio 1.6 % 02/25/22 16:12 Triglycerides 61 mg/dL (2-149) 02/25/22 16:12 Cholesterol 160 mg/dL (50-199) 02/25/22 16:12 LDL Cholesterol Direct 87 mg/dL (50-130) 02/25/22 16:12 HDL Cholesterol 63 mg/dL (40-59) H 02/25/22 16:12 Cholesterol/HDL Ratio 2.53 % 02/25/22 16:12 TSH 0.412 mlU/mL (0.270-4.200) 02/25/22 16:12 Last Vital Signs Temp 98.7 F 03/03/22 07:47 Pulse 83 03/03/22 09:59 Resp 16 03/03/22 07:47 BP 91/65 03/03/22 09:59 Pulse Ox 97 03/03/22 07:47
[2022-03-03] MEDS: traZODone 100 MG TAB PO SCH (22:27)
[2022-03-03] MEDS: traMADol 50 MG TAB PO SCH ×2 (22:28→22:35)
[2022-03-04] MEDS: PANTOPRAZOLE 20 MG TAB PO SCH (08:57)
[2022-03-04] MEDS: NICOTINE 7 MG/24 HR PATCH TD SCH (09:01)
[2022-03-04] MEDS: levETIRAcetam 500 MG TAB PO SCH (09:05)
[2022-03-04] MEDS: LIDOCAINE 5% 1 EACH PATCH TD SCH (09:06)
[2022-03-04] MEDS: LISINOPRIL 10 MG TAB PO SCH (09:06)
[2022-03-04] MEDS: DOCUSATE SODIUM 100 MG CAP PO SCH (09:07)
[2022-03-04] MEDS: TAMSULOSIN 0.4 MG CAP PO SCH (09:08)
[2022-03-04] MEDS: DIVALPROEX DR 250 MG TAB PO SCH (09:08)
[2022-03-04] MEDS: FOLIC ACID 1 MG TAB PO SCH (09:08)
[2022-03-04] MEDS: SERTRALINE 50 MG TAB PO SCH (09:08)
[2022-03-04] MEDS: MULTIVITAMINS ,THERAPEUTIC TAB PO SCH (09:08)
[2022-03-04 09:09] VITALS: BP 93/65
[2022-03-04] MEDS: RIVAROXABAN 20 MG TAB PO SCH (09:09)
[2022-03-04] MEDS: GABAPENTIN 300 MG CAP PO SCH (09:09)
[2022-03-04] MEDS: TIOTROPIUM 18 MCG CAP INHALATION IH SCH (09:24)
--- NOTE | 2022-03-04 10:00 | Discharge Summary ---
Providers - Providers Date of Admission: 02/24/22 16:07 Date of discharge: 03/04/22 Attending physician: SELENA DELGADO MD 02/24/22 15:36 Consult to Physician [CONS] Routine Comment: Consulting Provider: ARNOLDO MICHELLE Physician Instructions: Reason For Exam: H&P Primary care physician: [employer] Hospitalization Reason for admission: depression,SI, ETOH dependence Admitting Diagnosis: F33.9 - MAJOR DEPRESSIVE DISORDER, RECURRENT, UNSPECIFIED Condition: Stable Hospital course: The patient was provided inpatient psychiatric treatment with safe and supportive environment, group/individual therapy, psychiatric medication, medication adjustment, adverse effect monitor, medical evaluation, medical treatment, social service assessment, social support meeting, placement assessment and psycho-education. The patients mood, cognition, behavior, motivation, compliance to treatment and appreciation on family/social support are improved and stabilized. At the time of discharge, the patient had no suicidal ideas, no homicidal ideas, no aggressive thoughts, no endangering beha vior and no debilitating adverse effects. The patient agreed on the treatment plan, understood the risk, benefit, alternative treatment, potential consequence of no treatment, and gave informed consent. Disposition: 01 HOME / SELF CARE / HOMELESS Time spent for discharge: 35 Allergies/Adverse Reactions: Allergies aspirin Allergy (Verified 02/04/22 10:11) Vomiting prochlorperazine [From Compazine] Allergy (Verified 02/04/22 10:11) Anaphylaxis prochlorperazine edisylate [From Compazine] Allergy (Verified 02/04/22 10:11) Anaphylaxis prochlorperazine maleate [From Compazine] Allergy (Verified 02/04/22 10:11) Anaphylaxis Vital Signs: Last Vital Signs Temp 98.4 F 03/03/22 20:02 Pulse 77 03/04/22 09:06 Resp 17 03/03/22 20:02 BP 93/65 03/04/22 09:06 Pulse Ox 97 03/04/22 09:25 Last Lab: Laboratory Last Values WBC 5.5 K/mm3 (4.5-11.0) 02/25/22 16:12 RBC 4.84 M/mm3 (3.65-5.03) 02/25/22 16:12 Hgb 12.5 gm/dl (11.8-15.2) 02/25/22 16:12 Hct 39.0 % (35.5-45.6) 02/25/22 16:12 MCV 81 fl (84-94) L 02/25/22 16:12 MCH 26 pg (28-32) L 02/25/22 16:12 MCHC 32 % (32-34) 02/25/22 16:12 RDW 16.5 % (13.2-15.2) H 02/25/22 16:12 Plt Count 168 K/mm3 (140-440) 02/25/22 16:12 Lymph % (Auto) 33.6 % (13.4-35.0) 02/25/22 16:12 [place] % (Auto) 12.3 % (0.0-7.3) H 02/25/22 16:12 Eos % (Auto) 3.0 % (0.0-4.3) 02/25/22 16:12 Baso % (Auto) 1.6 % (0.0-1.8) 02/25/22 16:12 Lymph # (Auto) 1.9 K/mm3 (1.2-5.4) 02/25/22 16:12 [place] # (Auto) 0.7 K/mm3 (0.0-0.8) 02/25/22 16:12 Eos # (Auto) 0.2 K/mm3 (0.0-0.4) 02/25/22 16:12 Baso # (Auto) 0.1 K/mm3 (0.0-0.1) 02/25/22 16:12 Seg Neutrophils % 49.5 % (40.0-70.0) 02/25/22 16:12 Seg Neutrophils # 2.7 K/mm3 (1.8-7.7) 02/25/22 16:12 Sodium 141 mmol/L (137-145) 02/25/22 16:12 Potassium 3.6 mmol/L (3.6-5.0) 02/25/22 16:12 Chloride 105.0 mmol/L (98-107) 02/25/22 16:12 Carbon Dioxide 28 mmol/L (22-30) 02/25/22 16:12 Anion Gap 12 mmol/L 02/25/22 16:12 BUN 14 mg/dL (9-20) 02/25/22 16:12 Creatinine 0.8 mg/dL (0.8-1.3) 02/25/22 16:12 Estimated GFR > 60 ml/min 02/25/22 16:12 BUN/Creatinine Ratio 18 % 02/25/22 16:12 Glucose 91 mg/dL (75-100) 02/25/22 16:12 POC Glucose 87 mg/dL (70-105) 03/03/22 07:08 Hemoglobin A1c 6.3 % (4-6) H 02/25/22 16:12 Calcium 8.7 mg/dL (8.4-10.2) 02/25/22 16:12 Total Bilirubin 0.30 mg/dL (0.1-1.2) 02/25/22 16:12 AST 15 units/L (5-40) 02/25/22 16:12 ALT 23 units/L (7-56) 02/25/22 16:12 Alkaline Phosphatase 44 units/L (35-129) 02/25/22 16:12 Troponin T < 0.010 ng/mL (0.00-0.029) 02/25/22 16:12 Total Protein 5.9 g/dL (6.3-8.2) L 02/25/22 16:12 Albumin 3.6 g/dL (3.9-5) L 02/25/22 16:12 Albumin/Globulin Ratio 1.6 % 02/25/22 16:12 Triglycerides 61 mg/dL (2-149) 02/25/22 16:12 Cholesterol 160 mg/dL (50-199) 02/25/22 16:12 LDL Cholesterol Direct 87 mg/dL (50-130) 02/25/22 16:12 HDL Cholesterol 63 mg/dL (40-59) H 02/25/22 16:12 Cholesterol/HDL Ratio 2.53 % 02/25/22 16:12 TSH 0.412 mlU/mL (0.270-4.200) 02/25/22 16:12 Core Measure Documentation - Palliative Care Palliative Care/ Comfort Measures: Not Applicable - Core Measures Any of the following diagnoses?: none Exam - Constitutional Vitals: Temp Pulse Resp BP Pulse Ox 98.4 F 77 17 93/65 97 03/03/22 20:02 03/04/22 09:06 03/03/22 20:02 03/04/22 09:06 03/04/22 09:25 General appearance: Present: no acute distress - EENT Eyes: Present: PERRL, EOM intact ENT: hearing intact, clear oral mucosa - Neck Neck: Present: supple, normal ROM - Respiratory Respiratory effort: normal Plan Activity: advance as tolerated Weight Bearing Status: Weight Bear as Tolerated Care Plan Goals: Maintain good and stable mental health Plan of Treatment: The patient should be compliant with medications, not to use drugs and not to drink alcohol.The patient understands that if suicidal ideas, homicidal ideas, or any endangering thoughts/behavior arise, they should immediately seek for emergent assistance including but not limited to crisis hot line and emergency room. Follow up with outpatient Psychiatrist and PCP within 7 - 14 days of discharge. Assessment: Major Depressive Disorder Alcohol Dependence Follow up with: PRIMARY CARE, [Primary Care Provider] - 7 Days Prescriptions: Divalproex [Marquez Lnag] 250 mg PO BID #60 tablet Nicotine [Habitrol] 7 mg TD QDAY #30 patch hydrOXYzine PAMOATE [Vistaril] 50 mg PO BID #60 capsule Sertraline [Zoloft] 50 mg PO QDAY #30 tablet
--- NOTE | 2022-03-04 13:00 | Progress Note ---
Assessment and Plan - Patient Problems (1) Cerebral atherosclerosis Status: Acute Plan to address problem: Risk factor reduction, antiplatelet therapy as clinically indicated, supportive care. (2) Vascular dementia with behavioral disturbance Status: Acute Plan to address problem: Verbal prompting, verbal redirection, benzodiazepine therapy as clinically indicated. (3) Alcohol dependence Status: Acute Plan to address problem: Thiamine, folic acid, multivitamin daily. (4) COPD (chronic obstructive pulmonary disease) Status: Acute Plan to address problem: Supportive care. No acute exacerbation at this time. Bronchodilator therapy as clinically indicated. (5) GERD (gastroesophageal reflux disease) Status: Acute Qualifiers: Esophagitis presence: without esophagitis Qualified Code(s): K21.9 - Gastro-esophageal reflux disease without esophagitis Plan to address problem: PPI therapy, supportive care. (6) Hx of deep venous thrombosis Status: Acute Plan to address problem: Continue therapeutic anticoagulation. (7) Malnutrition Status: Acute Qualifiers: Malnutrition type: protein-calorie malnutrition Protein-calorie malnutrition severity: moderate Qualified Code(s): E44.0 - Moderate protein- calorie malnutrition Plan to address problem: Encourage increased protein intake, dietary supplementation. (8) Seizure disorder Status: Acute Plan to address problem: Continue antiepileptic therapy, seizure precautions. (9) Major depression Status: Acute Plan to address problem: Continue medical management, cognitive behavioral therapy. (10) Advance care planning Status: Acute Plan to address problem: Disease education conducted, care plan discussed, diagnoses discussed, prognosis discussed, patient is full code, +30 minutes. History Interval history: 66 YO Male Vascular Dementia with Behavioral Disturbance, Cerebral Atherosclerosis, HTN, Seizure disorder, ETOH Dependence, COPD, Malnutrition, DVT/PE on therapeutic anticoagulation, Nicotine Dependence, MDD admitted to [facility] for psychiatric stabilization. Consult placed by Dr. Mclean for medical management. Patient seen and evaluated in the recreation room. Patient resting comfortably. No reported nursing events. Patient exhibits diminished cognition. Patient remains at baseline level of cognition and function. Hospitalist Physical - Constitutional Vitals: Temp Pulse Resp BP Pulse Ox 98.4 F 77 17 93/65 97 03/03/22 20:02 03/04/22 09:06 03/03/22 20:02 03/04/22 09:06 03/04/22 09:25 General appearance: Present: no acute distress - EENT Eyes: Present: PERRL ENT: hearing intact - Neck Neck: Present: supple - Respiratory Respiratory effort: normal Respiratory: bilateral: diminished - Cardiovascular Rhythm: regular Heart Sounds: Present: S1 & S2 - Extremities Extremities: no ischemia Peripheral Pulses: within normal limits - Abdominal General gastrointestinal: soft, non-tender, non-distended - Integumentary Integumentary: Present: clear, dry - Psychiatric Psychiatric: cooperative - Neurologic Neurologic: CNII-XII intact HEART Score - HEART Score Troponin: Troponin T < 0.010 ng/mL (0.00-0.029) 02/25/22 16:12 Results - Labs CBC & Chem 7: 02/25/22 16:12 02/25/22 16:12 Labs: Laboratory Last Values WBC 5.5 K/mm3 (4.5-11.0) 02/25/22 16:12 RBC 4.84 M/mm3 (3.65-5.03) 02/25/22 16:12 Hgb 12.5 gm/dl (11.8-15.2) 02/25/22 16:12 Hct 39.0 % (35.5-45.6) 02/25/22 16:12 MCV 81 fl (84-94) L 02/25/22 16:12 MCH 26 pg (28-32) L 02/25/22 16:12 MCHC 32 % (32-34) 02/25/22 16:12 RDW 16.5 % (13.2-15.2) H 02/25/22 16:12 Plt Count 168 K/mm3 (140-440) 02/25/22 16:12 Lymph % (Auto) 33.6 % (13.4-35.0) 02/25/22 16:12 [place] % (Auto) 12.3 % (0.0-7.3) H 02/25/22 16:12 Eos % (Auto) 3.0 % (0.0-4.3) 02/25/22 16:12 Baso % (Auto) 1.6 % (0.0-1.8) 02/25/22 16:12 Lymph # (Auto) 1.9 K/mm3 (1.2-5.4) 02/25/22 16:12 [place] # (Auto) 0.7 K/mm3 (0.0-0.8) 02/25/22 16:12 Eos # (Auto) 0.2 K/mm3 (0.0-0.4) 02/25/22 16:12 Baso # (Auto) 0.1 K/mm3 (0.0-0.1) 02/25/22 16:12 Seg Neutrophils % 49.5 % (40.0-70.0) 02/25/22 16:12 Seg Neutrophils # 2.7 K/mm3 (1.8-7.7) 02/25/22 16:12 Sodium 141 mmol/L (137-145) 02/25/22 16:12 Potassium 3.6 mmol/L (3.6-5.0) 02/25/22 16:12 Chloride 105.0 mmol/L (98-107) 02/25/22 16:12 Carbon Dioxide 28 mmol/L (22-30) 02/25/22 16:12 Anion Gap 12 mmol/L 02/25/22 16:12 BUN 14 mg/dL (9-20) 02/25/22 16:12 Creatinine 0.8 mg/dL (0.8-1.3) 02/25/22 16:12 Estimated GFR > 60 ml/min 02/25/22 16:12 BUN/Creatinine Ratio 18 % 02/25/22 16:12 Glucose 91 mg/dL (75-100) 02/25/22 16:12 POC Glucose 87 mg/dL (70-105) 03/03/22 07:08 Hemoglobin A1c 6.3 % (4-6) H 02/25/22 16:12 Calcium 8.7 mg/dL (8.4-10.2) 02/25/22 16:12 Total Bilirubin 0.30 mg/dL (0.1-1.2) 02/25/22 16:12 AST 15 units/L (5-40) 02/25/22 16:12 ALT 23 units/L (7-56) 02/25/22 16:12 Alkaline Phosphatase 44 units/L (35-129) 02/25/22 16:12 Troponin T < 0.010 ng/mL (0.00-0.029) 02/25/22 16:12 Total Protein 5.9 g/dL (6.3-8.2) L 02/25/22 16:12 Albumin 3.6 g/dL (3.9-5) L 02/25/22 16:12 Albumin/Globulin Ratio 1.6 % 02/25/22 16:12 Triglycerides 61 mg/dL (2-149) 02/25/22 16:12 Cholesterol 160 mg/dL (50-199) 02/25/22 16:12 LDL Cholesterol Direct 87 mg/dL (50-130) 02/25/22 16:12 HDL Cholesterol 63 mg/dL (40-59) H 02/25/22 16:12 Cholesterol/HDL Ratio 2.53 % 02/25/22 16:12 TSH 0.412 mlU/mL (0.270-4.200) 02/25/22 16:12 [place]/IV: Voiding Method Toilet
== END 2022-03-04 10:30 | disposition home or self-care (01) | DRG 885 ==
LOC: 3A 12:29 → UNDOADMIN 12:29 → 5A 16:07
PROVIDERS: ADMIT Psychiatry & Neurology Psychiatry; ATTEND Psychiatry & Neurology Psychiatry
DX: F33.9 Major depressive disorder, recurrent, unspecified (principal); E44.1 Mild protein-calorie malnutrition; Z68.1 Body mass index [BMI] 19.9 or less, adult; J43.9 Emphysema, unspecified; I25.10 Atherosclerotic heart disease of native coronary artery without angina pectoris; K21.9 Gastro-esophageal reflux disease without esophagitis; I10 Essential (primary) hypertension; G43.909 Migraine, unspecified, not intractable, without status migrainosus; N40.0 Benign prostatic hyperplasia without lower urinary tract symptoms; G40.909 Epilepsy, unspecified, not intractable, without status epilepticus; F10.20 Alcohol dependence, uncomplicated; Z90.49 Acquired absence of other specified parts of digestive tract; Z83.3 Family history of diabetes mellitus; Z82.49 Family history of ischemic heart disease and other diseases of the circulatory system; Z86.718 Personal history of other venous thrombosis and embolism; Z86.711 Personal history of pulmonary embolism
CPT/HCPCS: 36415; 80053; 80061; 82962; 83036; 84443; 84484; 85025; 93005; 94760; G0378; Q0177